=== PATIENT | male | born 1950 | race Caucasian/White ===

== ENCOUNTER 2020-03-04 19:58 | Inpatient (IN) | payer MEDICARE, OTHER ==
[~2020-03-04] VITALS: Ht 172.7 cm; Wt 49.9 kg
--- NOTE | 2020-03-04 20:00 | NUR ---
Roxy maria in EDM - 03/04/20 at 2320 by ENIGHTINGA ED Nurse Note: Recieved pt BIBA from SNF with c/o seizures, pt is post ictal with NRB mask on, pt is Cov
--- NOTE | 2020-03-04 20:00 | NUR ---
ED Nurse Note: Recieved pt BIBA from SNF with c/o seizures, pt is COVID positive and immediately placed on isolation, pt is post-ictal and sedated, pt has patent saline lock in left ac, immediately gowned and placed on cardiac monitoring, has NRB mask on with 02 sat of 99%, will resume care as ordered and remain on isolation precautions
[2020-03-04 20:30] VITALS: BP 131/96
--- NOTE | 2020-03-04 20:30 | NUR ---
ED Nurse Note: All labs completed and sent, tan placed also, during imaging pt IV line came out, will re-start and continue care as ordered and prepare for admission, pt v/s stable, no sob or labored breathing, remains on NRB mask.
[2020-03-04 20:36] LABS: BASOPHILS % (AUTO) 0.8 % (0.0-2.0); EOSINOPHILS % (AUTO) 1.5 % (0.0-3.0); HEMATOCRIT 42.1 % (42.0-52.0); HEMOGLOBIN 14.1 G/DL (14.2-18.0); LYMPHOCYTES % (AUTO) 35.2 % (20.0-45.0); MEAN CORPUSCULAR VOLUME 94 FL (80-99); MONOCYTES % (AUTO) 7.9 % (1.0-10.0); NEUTROPHILS % (AUTO) 54.6 % (45.0-75.0); PLATELET COUNT 134 K/UL (150-450); RED BLOOD COUNT 4.47 M/UL (4.70-6.10); RED CELL DISTRIBUTION WIDTH 12.5 % (11.6-14.8); WHITE BLOOD COUNT 7.2 K/UL (4.8-10.8)
[2020-03-04 20:51] LABS: ANION GAP 21 mmol/L (5-15); BLOOD UREA NITROGEN 29 mg/dL (7-18); CALCIUM 9.2 MG/DL (8.5-10.1); CARBON DIOXIDE 19 MMOL/L (21-32); CHLORIDE 103 MMOL/L (98-107); CREATININE 1.8 MG/DL (0.55-1.30); POTASSIUM 3.7 MMOL/L (3.5-5.1); SODIUM 143 MMOL/L (136-145)
[2020-03-04 20:52] LABS: INR 1.2 (0.9-1.1)
[2020-03-04 20:56] LABS: ALANINE AMINOTRANSFERASE 18 U/L (12-78); ALBUMIN 4.3 G/DL (3.4-5.0); ALBUMIN/GLOBULIN RATIO 1.1 (1.0-2.7); ALKALINE PHOSPHATASE 110 U/L (46-116); ASPARTATE AMINO TRANSFERASE 38 U/L (15-37); BILIRUBIN,TOTAL 0.4 MG/DL (0.2-1.0)
--- NOTE | 2020-03-04 21:17 | Emergency Room Report ---
History of Present Illness General Chief Complaint: Seizure Source: Patient Present Illness HPI Disclaimer: Please note that this report is being documented using [employer] technology. This can lead to erroneous entry secondary to incorrect interpretation by the dictating instrument. HPI: 69-year-old male history of seizure disorder, recent diagnosis of COVID-19 , comfort measures only presents from SNF due to seizure activity. Patient reportedly had extended seizure activity and EMS was called to the facility. He received 10 mg of Versed in route to ER. Patient nonverbal and obtunded on arrival. DNR and comfort measures status confirmed with senior living facility. PMH: Seizure disorder, COVID-19 PSH: Reviewed Social Hx: Patient currently lives in senior living facility Allergies: Coded Allergies: CHLORPROMAZINE (Verified Allergy, Unknown, 03/04/20) TRIFLUOPERAZINE (Verified Allergy, Unknown, 03/04/20) COVID-19 Screening Contact w/high risk pt: Yes Experienced COVID-19 symptoms?: No COVID-19 Testing performed [employer] FLORIST: Yes COVID-19 Screening: Positive COVID-19 COVID-19 Testing Source: january 2020 Patient History Reviewed Nursing Documentation: PMH: Agreed; PSxH: Agreed Nursing Documentation-PMH Past Medical History: No History, Except For Hx Hypertension: Yes Hx Seizures: Yes Review of Systems All Other Systems: negative except mentioned in HPI Physical Exam Vital Signs Date Time Temp Pulse Resp B/P (MAP) Pulse Ox O2 Delivery O2 Flow Rate FiO2 03/04/20 19:50 98.1 135 16 150/108 (122) 99 Non-Rebreather 12.0 Sp02 EP Interpretation: reviewed, abnormal General Appearance: other - Chronically ill-appearing, mild distress, obtunded Head: normocephalic, atraumatic Eyes: bilateral eye PERRL, bilateral eye EOMI ENT: hearing grossly normal, moist mucus membranes Neck: full range of motion, supple Respiratory: no rhonchi, no retraction, respiratory distress - Moderate respiratory distress noted Cardiovascular #1: normal peripheral pulses, no murmur, tachycardia Gastrointestinal: non tender, soft, non-distended, no guarding Neurologic: other - Patient obtunded, nonverbal, withdraws to pain Skin: warm/dry, pallor Medical Decision Making Diagnostic Impression: Primary Impression: Epileptic seizure, generalized Additional Impression: Comfort measures only status ER Course MDM: Differential included but not limited to breakthrough seizure, COVID-19, pneumonia, sepsis, Clinical course-IV inserted, patient placed on monitoring. Provided oxygen. Patient's DNR and comfort measures status confirmed. He was provided supportive care in the ER. Chest x-ray demonstrated possible pneumothorax however thoracostomy was not done due to his comfort measures status. I spoke with patient's primary care physician who will attempt to arrange hospice care for the patient but she does not think it will be able to be arranged tonight so she wished for me to admit the patient overnight in the hospital and will arrange hospice for in the morning. Labs - Laboratory Tests Test 03/04/20 20:15 White Blood Count 7.2 K/UL (4.8-10.8) Red Blood Count 4.47 M/UL (4.70-6.10) L Hemoglobin 14.1 G/DL (14.2-18.0) L Hematocrit 42.1 % (42.0-52.0) Mean Corpuscular Volume 94 FL (80-99) Mean Corpuscular Hemoglobin 31.5 PG (27.0-31.0) H Mean Corpuscular Hemoglobin Concent 33.5 G/DL (32.0-36.0) Red Cell Distribution Width 12.5 % (11.6-14.8) Platelet Count 134 K/UL (150-450) L Mean Platelet Volume 7.9 FL (6.5-10.1) Neutrophils (%) (Auto) 54.6 % (45.0-75.0) Lymphocytes (%) (Auto) 35.2 % (20.0-45.0) Monocytes (%) (Auto) 7.9 % (1.0-10.0) Eosinophils (%) (Auto) 1.5 % (0.0-3.0) Basophils (%) (Auto) 0.8 % (0.0-2.0) Prothrombin Time 13.4 SEC (9.30-11.50) H Prothrombin Time INR 1.2 (0.9-1.1) H Activated Partial Thromboplast Time 26 SEC (23-33) Sodium Level 143 MMOL/L (136-145) Potassium Level 3.7 MMOL/L (3.5-5.1) Chloride Level 103 MMOL/L (98-107) Carbon Dioxide Level 19 MMOL/L (21-32) L Anion Gap 21 mmol/L (5-15) H Blood Urea Nitrogen 29 mg/dL (7-18) H Creatinine 1.8 MG/DL (0.55-1.30) H Estimated Glomerular Filtration Rate 37.8 mL/min (>60) Glucose Level 155 MG/DL (74-106) H Calcium Level 9.2 MG/DL (8.5-10.1) Total Bilirubin 0.4 MG/DL (0.2-1.0) Aspartate Amino Transferase (AST) 38 U/L (15-37) H Alanine Aminotransferase (ALT) 18 U/L (12-78) Alkaline Phosphatase 110 U/L (46-116) Total Protein 8.1 G/DL (6.4-8.2) Albumin 4.3 G/DL (3.4-5.0) Globulin 3.8 g/dL Albumin/Globulin Ratio 1.1 (1.0-2.7) Phenytoin (Dilantin) Level 2.9 ug/mL (10-20) L On reevaluation: Patient's respiratory status improved on facemask. Plan-patient will be admitted to the telemetry floor EKG Diagnostic Results Rate: tachycardiac Rhythm: other - Sinus tachycardia ST Segments: other - LBBB, Chest X-Ray Diagnostic Results Chest X-Ray Diagnostic Results : Chest X-Ray Ordered: Yes # of Views/Limited/Complete: 1 View Indication: Shortness of Breath EP Interpretation: Yes Impression: Other - no consolidation, Right pneumothorax noted. Last Vital Signs Date Time Temp Pulse Resp B/P (MAP) Pulse Ox O2 Delivery O2 Flow Rate FiO2 03/04/20 19:50 98.1 135 16 150/108 (122) 99 Non-Rebreather 12.0 Status: improved Disposition: ADMITTED INPATIENT Condition: Serious Referrals: NON PHYSICIAN (PCP) Griffin Rivera M.D. Mar 04, 2020 21:17
[2020-03-04 21:30] VITALS: BP 129/82
--- NOTE | 2020-03-04 21:50 | NUR ---
ED Nurse Note: Pt IV line infiltrated, pt is on seizure pecautions with side rails padded, appears to have had another seizure episode, no injury or changes noted, pt heart rate remains elevated, fluids stopped, will re
[2020-03-04] MEDS ORDERED: Phenytoin 1,000 MG in NS 275 ML IVPB ONE (22:00)
[2020-03-04 23:00] VITALS: BP 126/94
--- NOTE | 2020-03-04 23:00 | NUR ---
ED Nurse Note: Unable to obtain IV line, MD and charge nurse aware, pt also had another seizure episode, witnessed and tonic clonic for about 15 seconds, v/s stable, had sudden increase in heart rate which decreased immediately after seizure, MD imformed immediately and pt medicated via IM injection, charge nurse at bedside now attempting new IV line, will complete meds and send for hospital admisson.
[2020-03-04] MEDS ORDERED: LORazepam Inj 2mg/ml 1ml IM ONE (23:15)
--- NOTE | 2020-03-04 23:45 | NUR ---
ED Nurse Note: New IV line started, will give ordered meds and prepare for hospital admission, no further seizure activity noted, pt remains on seizure and isolation precautions. V/S stable, no sob or laobred breathing noted, pt oxygen decreased to 4l n/c.
[2020-03-05 00:22] LABS: APPEARANCE,URINE CLEAR; BILIRUBIN, URINE NEGATIVE (NEGATIVE); GLUCOSE, URINE (UA) NEGATIVE (NEGATIVE); KETONES,URINE 3+ (NEGATIVE); LEUKOCYTE ESTERASE ,URINE NEGATIVE (NEGATIVE); NITRITE,URINE NEGATIVE (NEGATIVE); PH,URINE 6 (4.5-8.0); PROTEIN,URINE 3+ (NEGATIVE); UROBILINOGEN,URINE NORMAL MG/DL (0.0-1.0)
[2020-03-05 00:24] LABS: COLOR,URINE YELLOW
--- NOTE | 2020-03-05 00:35 | NUR ---
ED Nurse Note: Pt completed ordered meds, tolerarted well, no SZ activity noted, remain on cardiac monitoring, heart rate has decreased to NSR and o2 dgd=187% on o2 4L n/c, IV site patent, swabs collected and sent, pt report called to floor nurse, pt being taken to unit via gurney with ACLS protocols with RN and ER-Tech.
[2020-03-05 00:45] VITALS: BP 122/91
[2020-03-05] MEDS ORDERED: Zolpidem 5mg tab ORAL PRN (00:45)
[2020-03-05] MEDS ORDERED: Miralax 17gm pkt ORAL PRN (00:45)
--- NOTE | 2020-03-05 01:00 | NUR ---
NURSE NOTES: Received report from Caro Beverly IP NETWORK ARCHITECT. Pt is COVID-19 positive per SNF, contact and droplet precautions initiated. Pt is DNR/DNI, comfort measures only. Pt is sedated at this time r/t admin of Versed in ER. BP 122/91, HR 88, O2 @ 98% on 4 LPM via NC, RR 16, FLACC 0. Bed in lowest position, seizure precautions initiated, bed alarm armed. monitor tech placed and shows SR with BBBs. Pt is asymptomatic. No signs or symptoms of pain or distress at this time. Skin is intact but pt has red intact rash all over body. Received admit orders from Samm, will start plan of care and close monitoring
[2020-03-05 04:00] VITALS: BP 137/88
--- NOTE | 2020-03-05 07:26 | NUR ---
HAND-OFF: Report given to Thiago Cerda RN. Pt in stable condition, plan of care endorsed.
--- NOTE | 2020-03-05 08:00 | NUR ---
NURSES NOTES Received report from Didi POZO. Pt is DNR/DNI with comfort measures only. Pt came from ED and is COVID positive. Pt is A/O and non verbal but responses to painful stimuli. No SOB or acute distress noted but Pt is on 2LPM and SATing at 98%. Monitor shows SR with BBBs. Pt is asymptomatic. Pt has NS running @ 100ml/hr on L Hand. Bed in lowest position, seizure precautions initiated and bed alarm on.
[2020-03-05 08:20] VITALS: BP 119/80
[2020-03-05] MEDS: Heparin 5000 units/ml inj SUBQ SCH ×2 (09:03→20:50)
--- NOTE | 2020-03-05 09:58 | NUR ---
RD ASSESSMENT & RECOMMENDATIONS SEE CARE ACTIVITY FOR COMPLETE ASSESSMENT DAILY ESTIMATED NEEDS: Needs based on Underweight, pulmonary 57kg 25-35 kcals/kg 7203-9688 total kcals 1-1.5 g protein/kg 57-86 g total protein 25-30 mL/kg 0726-6192 total fluid mLs NUTRITION DIAGNOSIS: Increased kcal needs r/t underweight status as evidenced by pt is 81% of ideal body weight CURRENT DIET: Regular, now pending [facility]YSIC[facility] [employer] [facility] eval PO DIET RECOMMENDATIONS: Liberalized Regular diet, texture per [facility] [employer] [facility] ADDITIONAL RECOMMENDATIONS: 1) Add Ensure Enlive TID w/ meals -> Current BG 155, with continued elev BG rec Glucerna TID 2) Obtain a calibrated bed scale wt for accurate CBW + Weekly weights 3) F/up w/ H&P 4) HgA1C for eval of glycemic control
[2020-03-05 12:40] VITALS: BP 119/82
--- NOTE | 2020-03-05 13:06 | Consultation ---
History of Present Illness General Date patient seen: Mar 05, 2020 Chief Complaint: Seizure Present Illness HPI 69 year old male with hx of psychiatric disorder, seizures, DM, [facility] resident. DNR/DNI brought in by paramedics with CC of intractable seizures.; Pt received Benzos on the route to hospital and was obtunded on arrival to ER. Pt is admitted to telemetry for further management. Allergies: Coded Allergies: CHLORPROMAZINE (Verified Allergy, Unknown, 03/04/20) TRIFLUOPERAZINE (Verified Allergy, Unknown, 03/04/20) Patient History Healthcare decision maker Resuscitation status Advanced Directive on File Past Medical/Surgical History Past Medical/Surgical History: (1) Comfort measures only status (2) History of psychiatric disorder (3) History of diabetes mellitus (4) History of hypertension Review of Systems Constitutional: Reports: no symptoms All Other Systems: negative except mentioned in HPI Physical Exam General Appearance: cachetic, thin Lines, tubes and drains: peripheral HEENT: normocephalic, atraumatic Neck: normal alignment Respiratory/Chest: chest wall non-tender, lungs clear Breasts: no masses Cardiovascular/Chest: normal peripheral pulses, normal rate Abdomen: normal bowel sounds, non tender Genitourinary/Rectal: normal genital exam, normal rectal exam Extremities: normal range of motion Skin Exam: normal pigmentation Last 24 Hour Vital Signs Date Time Temp Pulse Resp B/P (MAP) Pulse Ox O2 Delivery O2 Flow Rate FiO2 03/05/20 12:40 98.1 119 22 119/82 (94) 98 03/05/20 12:00 111 03/05/20 08:32 Nasal Cannula 4.0 03/05/20 08:20 98.9 94 20 119/80 (93) 94 03/05/20 08:00 120 03/05/20 04:00 98.6 90 20 137/88 (104) 94 03/05/20 01:23 Nasal Cannula 4.0 03/05/20 00:58 85 03/05/20 00:45 98.3 89 16 122/91 98 Nasal Cannula 4.0 03/05/20 00:45 98.3 89 16 122/91 98 Nasal Cannula 4.0 03/04/20 23:00 97.9 98 18 126/94 100 Nasal Cannula 4.0 03/04/20 21:30 97.9 108 20 129/82 100 Non-Rebreather 12.0 03/04/20 20:30 98.1 126 16 131/96 99 Non-Rebreather 12.0 03/04/20 20:00 135 16 Non-Rebreather 12.0 03/04/20 19:50 98.1 135 16 150/108 (122) 99 Non-Rebreather 12.0 Intake and Output 03/04/20 03/05/20 19:00 07:00 Intake Total 0 ml Output Total 300 ml Balance -300 ml Intake Oral 0 ml Output Urine Total 300 ml Laboratory Tests Test 03/04/20 20:15 03/04/20 22:30 White Blood Count 7.2 K/UL (4.8-10.8) Red Blood Count 4.47 M/UL (4.70-6.10) L Hemoglobin 14.1 G/DL (14.2-18.0) L Hematocrit 42.1 % (42.0-52.0) Mean Corpuscular Volume 94 FL (80-99) Mean Corpuscular Hemoglobin 31.5 PG (27.0-31.0) H Mean Corpuscular Hemoglobin Concent 33.5 G/DL (32.0-36.0) Red Cell Distribution Width 12.5 % (11.6-14.8) Platelet Count 134 K/UL (150-450) L Mean Platelet Volume 7.9 FL (6.5-10.1) Neutrophils (%) (Auto) 54.6 % (45.0-75.0) Lymphocytes (%) (Auto) 35.2 % (20.0-45.0) Monocytes (%) (Auto) 7.9 % (1.0-10.0) Eosinophils (%) (Auto) 1.5 % (0.0-3.0) Basophils (%) (Auto) 0.8 % (0.0-2.0) Prothrombin Time 13.4 SEC (9.30-11.50) H Prothromb Time International Ratio 1.2 (0.9-1.1) H Activated Partial Thromboplast Time 26 SEC (23-33) Sodium Level 143 MMOL/L (136-145) Potassium Level 3.7 MMOL/L (3.5-5.1) Chloride Level 103 MMOL/L (98-107) Carbon Dioxide Level 19 MMOL/L (21-32) L Anion Gap 21 mmol/L (5-15) H Blood Urea Nitrogen 29 mg/dL (7-18) H Creatinine 1.8 MG/DL (0.55-1.30) H Estimat Glomerular Filtration Rate 37.8 mL/min (>60) Glucose Level 155 MG/DL (74-106) H Calcium Level 9.2 MG/DL (8.5-10.1) Total Bilirubin 0.4 MG/DL (0.2-1.0) Aspartate Amino Transf (AST/SGOT) 38 U/L (15-37) H Alanine Aminotransferase (ALT/SGPT) 18 U/L (12-78) Alkaline Phosphatase 110 U/L (46-116) Total Protein 8.1 G/DL (6.4-8.2) Albumin 4.3 G/DL (3.4-5.0) Globulin 3.8 g/dL Albumin/Globulin Ratio 1.1 (1.0-2.7) Phenytoin (Dilantin) Level 2.9 ug/mL (10-20) L Urine Color Yellow Urine Appearance Clear Urine pH 6 (4.5-8.0) Urine Specific [place] 1.020 (1.005-1.035) Urine Protein 3+ (NEGATIVE) H Urine Glucose (UA) Negative (NEGATIVE) Urine Ketones 3+ (NEGATIVE) H Urine Blood 2+ (NEGATIVE) H Urine Nitrite Negative (NEGATIVE) Urine Bilirubin Negative (NEGATIVE) Urine Urobilinogen Normal MG/DL (0.0-1.0) Urine Leukocyte Esterase Negative (NEGATIVE) Urine RBC 2-4 /HPF (0 - 0) H Urine WBC 0 /HPF (0 - 0) Urine Squamous Epithelial Cells None /LPF (NONE/OCC) Urine Bacteria None /HPF (NONE) Height (Feet): 5 Height (Inches): 8.00 Weight (Pounds): 125 Medications Current Medications Medications (Trade) Dose Ordered Sig/Michelle Route PRN Reason Start Time Stop Time Status Last Admin Dose Admin Acetaminophen (Tylenol) 650 mg Q4H PRN ORAL fever 03/05/20 00:45 04/04/20 00:44 Dextrose (Dextrose 50%) 25 ml Q30M PRN IV Hypoglycemia 03/05/20 00:45 06/03/20 00:44 Dextrose (Dextrose 50%) 50 ml Q30M PRN IV Hypoglycemia 03/05/20 00:45 06/03/20 00:44 Dextrose/Sodium Chloride 1,000 ml @ 100 mls/hr Q10H IV 03/05/20 13:00 04/04/20 12:59 Heparin Sodium (Porcine) (Heparin 5000 units/ml) 5,000 units EVERY 12 HOURS SUBQ 03/05/20 09:00 04/19/20 08:59 03/05/20 09:03 Ondansetron HCl (Zofran) 4 mg Q6H PRN IVP Nausea & Vomiting 03/05/20 00:45 04/04/20 00:44 Polyethylene Glycol (Miralax) 17 gm HSPRN PRN ORAL Constipation 03/05/20 00:45 04/04/20 00:44 Zolpidem Tartrate (Ambien) 5 mg HSPRN PRN ORAL Insomnia 03/05/20 00:45 03/12/20 00:44 Assessment/Plan Problem List: (1) Epileptic seizure, generalized ICD Codes: G40.309 - Generalized idiopathic epilepsy and epileptic syndromes, not intractable, without status epilepticus SNOMED: 33472949 (2) COVID-19 virus detected ICD Codes: U07.1 - COVID-19 SNOMED: 655208590, 278721327 (3) History of diabetes mellitus ICD Codes: Z86.39 - Personal history of other endocrine, nutritional and metabolic disease SNOMED: 826021178 (4) History of hypertension ICD Codes: Z86.79 - Personal history of other diseases of the circulatory system SNOMED: 058895597 (5) History of psychiatric disorder ICD Codes: Z86.59 - Personal history of other mental and behavioral disorders SNOMED: 610733208 (6) Severe protein-calorie malnutrition ICD Codes: E43 - Unspecified severe protein-calorie malnutrition SNOMED: 573591650, 676479142, 903508182 (7) DNR (do not resuscitate) ICD Codes: Z66 - Do not resuscitate SNOMED: 605893621 (8) Comfort measures only status ICD Codes: Z51.5 - Encounter for palliative care SNOMED: 16271519353535 Assessment/Plan: seizure precaution Neuro evaluation aspiration precaution iv fluids sliding scale ID to see for hx of recent COVID monitor BP comfort care. Dipika Quijano MD Mar 05, 2020 13:06
[2020-03-05] MEDS: D5 1/2NS 1,000 ML IV SCH ×2 (13:16→22:55)
--- NOTE | 2020-03-05 13:28 | Diagnostic Imaging Report ---
Indication: Shortness of breath Technique: One view of the chest Comparison: none Findings: Lungs and pleural spaces are clear. Heart size is normal. Impression: No acute process
[2020-03-05] MEDS: NovoLOG Insulin Flexpen SUBQ SCH ×2 (14:30→20:48)
--- NOTE | 2020-03-05 14:59 | NUR ---
NURSES NOTES Received order for Urine Specimen. Collected and taken to lab.
[2020-03-05 15:18] LABS: APPEARANCE,URINE CLEAR; BILIRUBIN, URINE 1+ (NEGATIVE); GLUCOSE, URINE (UA) NEGATIVE (NEGATIVE); KETONES,URINE 4+ (NEGATIVE); LEUKOCYTE ESTERASE ,URINE NEGATIVE (NEGATIVE); NITRITE,URINE NEGATIVE (NEGATIVE); PH,URINE 5 (4.5-8.0); PROTEIN,URINE 2+ (NEGATIVE); UROBILINOGEN,URINE 1 MG/DL (0.0-1.0)
[2020-03-05 15:23] LABS: COLOR,URINE YELLOW
[2020-03-05 16:00] VITALS: BP 137/81
--- NOTE | 2020-03-05 16:24 | NUR ---
NANOELECTRONICS ENGINEER NOTE SW received a consult to locate family/end of life discussion. SW attempted to meet w/ pt. Per RN, pt was medicated d/t seizure and he was only responded to pain at this time. There is a copy of POLST-DNR & DNI signed by pt on 01/10/2020. Pt's baseline is unknown at this time. There is no emergency contact on facesheet. BRIANNE left a message to Sebastien DECKER [phone] to return call. This SW did not receive a call back. BRIANNE will continue to F/U.
--- NOTE | 2020-03-05 16:38 | Consultation ---
History of Present Illness General Date patient seen: Mar 05, 2020 Chief Complaint: Seizure Present Illness HPI 69 y/o M with hx of HTN, psychiatric disorder, seizure disorder, recent COVID19 January 2020, DM2, DNR/DNI, [facility] resident is brought to ED on 03/04/20 with intractable seizures. Received benzodiazepine en route to hospital and upon admission was noted to be obtunded. Allergies: Coded Allergies: CHLORPROMAZINE (Verified Allergy, Unknown, 03/04/20) TRIFLUOPERAZINE (Verified Allergy, Unknown, 03/04/20) Patient History Healthcare decision maker Resuscitation status Advanced Directive on File Patient History Narrative PMhx: as above Shx: reviewed Fhx: non contributory Review of Systems All Other Systems: negative except mentioned in HPI Physical Exam Physical Exam Narrative General Appearance: other - Chronically ill-appearing, mild distress, obtunded Head: normocephalic, atraumatic Eyes: bilateral eye PERRL, bilateral eye EOMI ENT: hearing grossly normal, moist mucus membranes Neck: full range of motion, supple Respiratory: no rhonchi, no retraction, respiratory distress - Moderate respiratory distress noted Cardiovascular #1: normal peripheral pulses, no murmur, tachycardia Gastrointestinal: non tender, soft, non-distended, no guarding Neurologic: other - Patient obtunded, nonverbal, withdraws to pain Skin: warm/dry, pallor Last 24 Hour Vital Signs Date Time Temp Pulse Resp B/P (MAP) Pulse Ox O2 Delivery O2 Flow Rate FiO2 03/05/20 12:40 98.1 119 22 119/82 (94) 98 03/05/20 12:00 111 03/05/20 08:32 Nasal Cannula 4.0 03/05/20 08:20 98.9 94 20 119/80 (93) 94 03/05/20 08:00 120 03/05/20 04:00 98.6 90 20 137/88 (104) 94 03/05/20 01:23 Nasal Cannula 4.0 03/05/20 00:58 85 03/05/20 00:45 98.3 89 16 122/91 98 Nasal Cannula 4.0 03/05/20 00:45 98.3 89 16 122/91 98 Nasal Cannula 4.0 03/04/20 23:00 97.9 98 18 126/94 100 Nasal Cannula 4.0 03/04/20 21:30 97.9 108 20 129/82 100 Non-Rebreather 12.0 03/04/20 20:30 98.1 126 16 131/96 99 Non-Rebreather 12.0 03/04/20 20:00 135 16 Non-Rebreather 12.0 03/04/20 19:50 98.1 135 16 150/108 (122) 99 Non-Rebreather 12.0 Intake and Output 03/04/20 03/05/20 19:00 07:00 Intake Total 0 ml Output Total 300 ml Balance -300 ml Intake Oral 0 ml Output Urine Total 300 ml Laboratory Tests Test 03/04/20 20:15 03/04/20 22:30 03/05/20 14:42 03/05/20 15:17 White Blood Count 7.2 K/UL (4.8-10.8) Red Blood Count 4.47 M/UL (4.70-6.10) L Hemoglobin 14.1 G/DL (14.2-18.0) L Hematocrit 42.1 % (42.0-52.0) Mean Corpuscular Volume 94 FL (80-99) Mean Corpuscular Hemoglobin 31.5 PG (27.0-31.0) H Mean Corpuscular Hemoglobin Concent 33.5 G/DL (32.0-36.0) Red Cell Distribution Width 12.5 % (11.6-14.8) Platelet Count 134 K/UL (150-450) L Mean Platelet Volume 7.9 FL (6.5-10.1) Neutrophils (%) (Auto) 54.6 % (45.0-75.0) Lymphocytes (%) (Auto) 35.2 % (20.0-45.0) Monocytes (%) (Auto) 7.9 % (1.0-10.0) Eosinophils (%) (Auto) 1.5 % (0.0-3.0) Basophils (%) (Auto) 0.8 % (0.0-2.0) Prothrombin Time 13.4 SEC (9.30-11.50) H Prothromb Time International Ratio 1.2 (0.9-1.1) H Activated Partial Thromboplast Time 26 SEC (23-33) Sodium Level 143 MMOL/L (136-145) Potassium Level 3.7 MMOL/L (3.5-5.1) Chloride Level 103 MMOL/L (98-107) Carbon Dioxide Level 19 MMOL/L (21-32) L Anion Gap 21 mmol/L (5-15) H Blood Urea Nitrogen 29 mg/dL (7-18) H Creatinine 1.8 MG/DL (0.55-1.30) H Estimat Glomerular Filtration Rate 37.8 mL/min (>60) Glucose Level 155 MG/DL (74-106) H Calcium Level 9.2 MG/DL (8.5-10.1) Total Bilirubin 0.4 MG/DL (0.2-1.0) Aspartate Amino Transf (AST/SGOT) 38 U/L (15-37) H Alanine Aminotransferase (ALT/SGPT) 18 U/L (12-78) Alkaline Phosphatase 110 U/L (46-116) Total Protein 8.1 G/DL (6.4-8.2) Albumin 4.3 G/DL (3.4-5.0) Globulin 3.8 g/dL Albumin/Globulin Ratio 1.1 (1.0-2.7) Phenytoin (Dilantin) Level 2.9 ug/mL (10-20) L Urine Color Yellow Yellow Urine Appearance Clear Clear Urine pH 6 (4.5-8.0) 5 (4.5-8.0) Urine Specific [place] 1.020 (1.005-1.035) 1.020 (1.005-1.035) Urine Protein 3+ (NEGATIVE) H 2+ (NEGATIVE) H Urine Glucose (UA) Negative (NEGATIVE) Negative (NEGATIVE) Urine Ketones 3+ (NEGATIVE) H 4+ (NEGATIVE) H Urine Blood 2+ (NEGATIVE) H 4+ (NEGATIVE) H Urine Nitrite Negative (NEGATIVE) Negative (NEGATIVE) Urine Bilirubin Negative (NEGATIVE) 1+ (NEGATIVE) H Urine Urobilinogen Normal MG/DL (0.0-1.0) 1 MG/DL (0.0-1.0) H Urine Leukocyte Esterase Negative (NEGATIVE) Negative (NEGATIVE) Urine RBC 2-4 /HPF (0 - 0) H 10-15 /HPF (0 - 0) H Urine WBC 0 /HPF (0 - 0) 0-2 /HPF (0 - 0) Urine Squamous Epithelial Cells None /LPF (NONE/OCC) None /LPF (NONE/OCC) Urine Bacteria None /HPF (NONE) Few /HPF (NONE) Urine Ictotest Negative (NEGATIVE) Urine Uric Acid Crystals Many /LPF (NONE) H Urine Eosinophils Pending Urine Osmolality 726 mOsm/kg (429-449) H Urine Random Creatinine Pending Urine Random Microalbumin Pending Urine Random Sodium 46 mmol/L (20-110) Urine Microalbumin/Creatinine Ratio Pending Uric Acid Pending Total Creatine Kinase Pending POC Whole Blood Glucose 94 MG/DL (74-106) Height (Feet): 5 Height (Inches): 8.00 Weight (Pounds): 125 Medications Current Medications Medications (Trade) Dose Ordered Sig/Michelle Route PRN Reason Start Time Stop Time Status Last Admin Dose Admin Acetaminophen (Tylenol) 650 mg Q4H PRN ORAL fever 03/05/20 00:45 04/04/20 00:44 Dextrose (Dextrose 50%) 25 ml Q30M PRN IV Hypoglycemia 03/05/20 13:00 06/03/20 12:59 Dextrose (Dextrose 50%) 50 ml Q30M PRN IV Hypoglycemia 03/05/20 13:00 06/03/20 12:59 Dextrose/Sodium Chloride 1,000 ml @ 100 mls/hr Q10H IV 03/05/20 13:00 04/04/20 12:59 03/05/20 13:16 Heparin Sodium (Porcine) (Heparin 5000 units/ml) 5,000 units EVERY 12 HOURS SUBQ 03/05/20 09:00 04/19/20 08:59 03/05/20 09:03 Insulin Aspart (NovoLOG) BEFORE MEALS AND HS SUBQ 03/05/20 16:30 06/03/20 16:29 Ondansetron HCl (Zofran) 4 mg Q6H PRN IVP Nausea & Vomiting 03/05/20 00:45 04/04/20 00:44 Polyethylene Glycol (Miralax) 17 gm HSPRN PRN ORAL Constipation 03/05/20 00:45 04/04/20 00:44 Zolpidem Tartrate (Ambien) 5 mg HSPRN PRN ORAL Insomnia 03/05/20 00:45 03/12/20 00:44 Assessment/Plan Assessment/Plan: Abx: None Assessment: Breakthrough seizures Afebrile No leukocytosis -u/a neg -CXR: no acute disease recent COVID19 January 2020 HTN psychiatric disorder seizure disorder DM2 DNR/DNI MD resident ([facility]) Plan: -Continue to monitor off abx -f/u cx -Monitor CBC/CMP, temperatures -COVID19 isolation -Neuro eval -aspiration/seizure precautions Thank you for consulting [facility]. Will continue to follow along with you. Discussed wit NOHELIA. aKitlyn Ness M.D. Mar 05, 2020 16:38
--- NOTE | 2020-03-05 16:54 | NUR ---
CASE MANAGEMENT: INITIAL REVIEW 03/05/2020 69 YO M [facility] FROM [facility] CC: SZ PMHx: HTN. SZ. SI:RECURRENT SZ. T 98.1 HR 135 RR 16 B/P 150/108 SATS 99% ON 12L/NRB LABS: IS: NS BOLUS X1 CXR Impression: Other - no consolidation, Right pneumothorax noted. PATIENT ADMITTED TO TELE 03/04/2020 @ 2141 DCP: SNF PLAN OF CARE: seizure precaution Neuro evaluation aspiration precaution ID to see for hx of recent COVID comfort care
--- NOTE | 2020-03-05 19:14 | History & Physical ---
History and Physical History & Physicial job number: [id number] Eren Cruz MD Mar 05, 2020 19:14
--- NOTE | 2020-03-05 19:32 | NUR ---
HAND OFF Gave report to Manuel POZO. Pt is stable and endorsed plan of care.
--- NOTE | 2020-03-05 19:37 | NUR ---
NURSE NOTES: Received report from Thiago/NOHELIA Garduno. Patient is on bed, awake alert and oriented x o. On pureed moist thin liquids. operational intelligence officer is in placed, shows sinus rhythm with with BBB. Avila catheter is in place, drained by gravity. IV site is on left hand G-22 running fluid of D5 1/2 NS @ 100 cc/hour that is patent and intact. On fall, aspiration and seizure precaution, padded side rails. Safety measures are in placed, bed in lowest and locked position, side rails up x 2. Will continue plan of care.
--- NOTE | 2020-03-05 19:39 | NUR ---
PATIENT REFERRED FOR SWALLOW EVALUATION BY DR. RAIN. CHART REVIEWED, RN INTERVIEWED, EVALUATION COMPLETED. DYSPHAGIA RISK FACTORS FOR THIS 69 YEAR OLD MALE WHO IS A SNF RESIDENT: RECURRING INTRACTABLE TONIC/CLONIC SEIZURES, ENCEPHALOPATHY, DYSARTHRIA, DECREASED MENTATION, SEVERE PROTEIN CALORIE MALNUTRITION/DECREASED STAMINA PER POLST: DNR/DNI (NO INTUBATION) INITIAL IMPRESSIONS: PATIENT WAS SEEN AT BEDSIDE, POSITIONED UPRIGHT. HE WAS CALM, COOPERATIVE AND CONFUSED. WHEN TOLD HE WAS IN THE HOSPITAL, HE RESPONDED "NO, I'M NOT" HE WAS ABLE TO FOLLOW SOME COMMANDS FOR AN ORAL MOTOR EXAM. DENTITION IS CONSISTENT WITH [facility] ANTI/SEIZURE MEDICATION: DISCOLORATION, POOR ORAL HYGIENE, MILDLY ENLARGED GUMS, BROKEN TEETH. ORAL MOTOR MOVEMENTS ARE MODERATELY IMPAIRED RELATIVE TO STRENGTH/ROM AND COORDINATION A RESULT OF MOD/SEV FLACCID DYSARTHRIA. BOLUS FORMATION WAS DELAYED AND MANIPULATION WAS DISCOORDINATED. PHARYNGEAL PHASE OF SWALLOW PRESENTED MODERATELY DELAYED WITH LIMITED HYOLARYNGEAL EXCURSION. NO CHANGE IN VOCAL QUALITY THROUGHOUT THE P.O. TRIALS. NO CHANGES IN RESPIRATION RATE, COUGH OR THROAT CLEAR OBSERVED. NO RESIDUE ON LINGUAL SURFACE POST SWALLOW. CLEAR UPPER AIRWAY SOUNDS PRE AND POST SWALLOW. TO MAXIMIZE SWALLOW SAFETY AND MINIMIZE RISK OF ASPIRATION THE FOLLOWING IS RECOMMENDED. 1. MODIFIED TEXTURE DIET: PUREE WITH THIN LIQUIDS 2. ASPIRATION PRECAUTIONS INCLUDING: NO STRAWS, SITTING UPRIGHT FOR MEALS/MEDICATION, SLOW RATE OF INTAKE, TOTAL ASSIST WITH MEALS, SMALL BITES/SIPS, 3. CRUSH CRUSHABLE MEDS/PRESENT IN PUREE 4. TOTAL ASSIST WITH MEALS 5. ORAL HYGIENE POST P.O. 6. CONSIDER MEALTIME SUPPLEMENTATION PER RD RECOMMENDATION 7. ST TO FOLLOW UP FOR DIET TOLERANCE. 8. VIDEO SWALLOW STUDY IF NEEDED PATIENT IS HIGH RISK FOR SILENT ASPIRATION, SUBOPTIMAL P.O. INTAKE, THANK YOU FOR THIS REFERRAL.
[2020-03-05 20:00] VITALS: BP 138/96
--- NOTE | 2020-03-05 22:00 | History and Physical Report ---
DATE OF ADMISSION: 03/04/2020 CHIEF COMPLAINT: Uncontrolled seizure. HISTORY OF PRESENT ILLNESS: This is a 69-year-old gentleman with past medical significant for hypertension, diabetes type 2, psychiatric disorder, seizure disorder, recent history of COVID-19 infection in January 2020 who presented to the hospital from nursing facility after he was noted to have intractable seizure. The patient recently received benzodiazepine en route to the hospital and was noted to be very obtunded and nonresponsive. The patient was at the assisted under comfort measure and due to the recurrent seizure activity uncontrolled. Shortly after initial evaluation in the emergency department, the patient was admitted to the hospital with altered mental status most likely secondary to uncontrolled seizure. PAST MEDICAL HISTORY/PAST SURGICAL HISTORY: As above, history of seizure disorder with epilepsy, recent COVID-19 diagnosed in January of 2020, hypertension, diabetes type 2, psychiatric disorder. MEDICATIONS: At home, please refer to medication reconciliation. ALLERGIES: as well as trifluoperazine. SOCIAL HISTORY: intermediate resident. No smoking, alcohol, or drugs at this time. FAMILY HISTORY: Noncontributory. REVIEW OF SYSTEMS: Very limited secondary to the patient's status. No fever or chills was reported. No nausea, vomiting. No fall or head trauma. PHYSICAL EXAMINATION: VITAL SIGNS: On admission in the ER, temperature 98.1, pulse 135, respirations 16, and blood pressure 150/108. GENERAL: The patient is obtunded, unable to follow commands, chronic ill appearing. HEAD AND NECK: Pupils are reactive to light. Anicteric. NECK: Supple. No JVD. LUNGS: Good air entry. Poor inspiratory effort. No wheezes or rhonchi. HEART: S1 and S2. Distant heart sounds. No murmur or gallops. ABDOMEN: Soft, nondistended, nontender. Positive bowel sounds. EXTREMITIES: No cyanosis, clubbing, or edema. NEUROLOGIC: Very limited secondary to the patient's status. The patient is nonverbal, withdraw to pain. RECTAL AND GENITOURINARY: The patient has a Avila catheter. LABORATORY AND DIAGNOSTIC DATA: Laboratory on admission from the emergency department, WBC of 7.2, hemoglobin 14, hematocrit 42, and platelets is 134. Sodium 143, potassium 3.7, chloride 103, bicarb 19, BUN 29, creatinine 1.8, GFR 37, glucose is 155, calcium is 9.2. Total bilirubin of 0.4, AST of 38, ALT of 18, and alkaline phosphatase was 110. Total protein 8.1. PT of 13, INR 1.2, PTT of 26. Urinalysis, yellow urine color, +3 protein, +3 ketone, +2 blood, 2 to 4 rbc's, negative leukocytes, eosinophils are negative. Phenytoin level is 2.9. Chest x-ray, no acute process. ASSESSMENT: 1. Altered mental status, most likely secondary to uncontrolled seizure. 2. History of epilepsy with seizure disorder. 3. Acute kidney injury on chronic renal insufficiency. 4. History of COVID-19 infection in January of 2020. 5. Diabetes type 2. 6. Hypertension. 7. Psychiatric disorder. PLAN: 1. Admit the patient to monitored unit. 2. We will follow up with the laboratory. 3. Followup with seizure precaution. 4. Code status is DNR. 5. Followup with Dr. Quijano, pulmonary Critical Care. 6. IV hydration. 7. Monitor blood glucose level closely. Eren Cruz M.D. DR: Thad JOB#: [id number] CC:
[2020-03-06] VITALS (7 sets, daily range): BP systolic 133–142; BP diastolic 83–97
[2020-03-06] MEDS ORDERED: LORazepam Inj 2mg/ml 1ml IV PRN ×2 (06:15→19:00)
[2020-03-06] MEDS: NovoLOG Insulin Flexpen SUBQ SCH ×4 (06:30→21:00)
--- NOTE | 2020-03-06 07:29 | NUR ---
HAND-OFF: Report given to Thiago/Laureen POZO. Patient is awake, on stable condition, plan of care endorsed.
--- NOTE | 2020-03-06 07:32 | NUR ---
NURSES NOTE Received report from Milena POZO. Pt is A/O x1 but speech is slurred.No SOB or acute distress noted but Pt is on 2LPM and SATing at 97%. Pt has NS running @ 100ml/hr on L Hand. Bed in lowest position, seizure precautions initiated and bed alarm on.
[2020-03-06 08:40] LABS: HEMATOCRIT 38.1 % (42.0-52.0); HEMOGLOBIN 13.1 G/DL (14.2-18.0); MEAN CORPUSCULAR VOLUME 93 FL (80-99); PLATELET COUNT 81 K/UL (150-450); RED BLOOD COUNT 4.08 M/UL (4.70-6.10); RED CELL DISTRIBUTION WIDTH 11.5 % (11.6-14.8); WHITE BLOOD COUNT 5.4 K/UL (4.8-10.8)
[2020-03-06] MEDS: D5 1/2NS 1,000 ML IV SCH ×2 (08:59→17:43)
[2020-03-06] MEDS: Heparin 5000 units/ml inj SUBQ SCH ×2 (09:00→21:00)
[2020-03-06 09:18] LABS: ALANINE AMINOTRANSFERASE 21 U/L (12-78); ALBUMIN 3.3 G/DL (3.4-5.0); ALBUMIN/GLOBULIN RATIO 0.9 (1.0-2.7); ALKALINE PHOSPHATASE 84 U/L (46-116); ANION GAP 6 mmol/L (5-15); ASPARTATE AMINO TRANSFERASE 30 U/L (15-37); BILIRUBIN,TOTAL 0.3 MG/DL (0.2-1.0); BLOOD UREA NITROGEN 17 mg/dL (7-18); CALCIUM 8.3 MG/DL (8.5-10.1); CARBON DIOXIDE 31 MMOL/L (21-32); CHLORIDE 107 MMOL/L (98-107); POTASSIUM 3.5 MMOL/L (3.5-5.1); SODIUM 144 MMOL/L (136-145)
[2020-03-06 09:22] LABS: CREATINE KINASE 426 U/L (26-308)
--- NOTE | 2020-03-06 10:41 | Pulmonology Progress Note ---
Subjective ROS Limited/Unobtainable: Yes Allergies: Coded Allergies: CHLORPROMAZINE (Verified Allergy, Unknown, 03/04/20) TRIFLUOPERAZINE (Verified Allergy, Unknown, 03/04/20) Subjective remains afebrile no leukocytosis on 4 L O2 via NC no further seizure activity Objective Last 24 Hour Vital Signs Date Time Temp Pulse Resp B/P (MAP) Pulse Ox O2 Delivery O2 Flow Rate FiO2 03/06/20 09:13 Nasal Cannula 4.0 03/06/20 09:09 98.0 93 20 140/90 (107) 98 03/06/20 08:00 98.0 93 20 140/90 (107) 98 03/06/20 08:00 85 03/06/20 04:00 94 03/06/20 04:00 98.2 92 22 133/83 (100) 100 03/06/20 00:00 98.4 94 22 142/93 (109) 100 03/06/20 00:00 101 03/05/20 21:00 Nasal Cannula 4.0 03/05/20 20:00 98.3 84 20 138/96 (110) 98 03/05/20 20:00 88 03/05/20 16:00 99.0 85 20 137/81 (99) 100 03/05/20 16:00 82 03/05/20 12:40 98.1 119 22 119/82 (94) 98 03/05/20 12:00 111 Intake and Output 03/05/20 03/06/20 19:00 07:00 Intake Total 520 ml Output Total 1050 ml 400 ml Balance -530 ml -400 ml Intake Oral 120 ml Other 400 ml Output Urine Total 1050 ml 400 ml # Voids 3 General Appearance: no acute distress HEENT: normocephalic, atraumatic, anicteric Respiratory: no accessory muscle use, other - on O2 via NC Cardiovascular: normal peripheral pulses, normal rate Abdomen: soft, non tender, non distended Extremities: no edema, pedal pulses normal Neurologic: abnormal gait - bedridden , other - not responsive Musculoskeletal: atrophy - BLE Microbiology Date/Time Source Procedure Growth Status 03/04/20 20:30 Arm Right Blood Culture - Preliminary NO GROWTH AFTER 24 HOURS Resulted 03/04/20 20:15 Arm Left Blood Culture - Preliminary NO GROWTH AFTER 24 HOURS Resulted Laboratory Tests 03/05/20 14:42: Urine Color Yellow, Urine Appearance Clear, Urine pH 5, Urine Specific [place] 1.020, Urine Protein 2+H, Urine Glucose (UA) Negative, Urine Ketones 4+H, Urine Blood 4+H, Urine Nitrite Negative, Urine Bilirubin 1+H, Urine Ictotest Negative , Urine Urobilinogen 1H, Urine Leukocyte Esterase Negative, Urine RBC 10-15H, Urine WBC 0-2, Urine Squamous Epithelial Cells None, Urine Uric Acid Crystals ManyH, Urine Bacteria Few, Urine Eosinophils None seen, Urine Osmolality 726H, Urine Random Creatinine [Pending], Urine Random Microalbumin [Pending], Urine Random Sodium 46, Urine Microalbumin/Creatinine Ratio [Pending] 03/05/20 15:17: POC Whole Blood Glucose 94 03/05/20 20:38: POC Whole Blood Glucose 116H 03/06/20 06:14: POC Whole Blood Glucose 77 03/06/20 06:30: POC Whole Blood Glucose 101 03/06/20 07:10: White Blood Count 5.4, Red Blood Count 4.08L, Hemoglobin 13.1L, Hematocrit 38.1L , Mean Corpuscular Volume 93, Mean Corpuscular Hemoglobin 32.2H, Mean Corpuscular Hemoglobin Concent 34.5, Red Cell Distribution Width 11.5L, Platelet Count 81L, Mean Platelet Volume 8.7, Neutrophils (%) (Auto) , Lymphocytes (%) (Auto) , Monocytes (%) (Auto) , Eosinophils (%) (Auto) , Basophils (%) (Auto) , Neutrophils % (Manual) [Pending], Lymphocytes % (Manual) [Pending], Platelet Estimate [Pending], Platelet Morphology [Pending], Erythrocyte Sedimentation Rate [Pending], Sodium Level 144, Potassium Level 3.5 , Chloride Level 107, Carbon Dioxide Level 31, Anion Gap 6, Blood Urea Nitrogen 17, Creatinine 1.0, Estimat Glomerular Filtration Rate > 60, Glucose Level 136H , Uric Acid 6.0, Calcium Level 8.3L, Phosphorus Level 3.0, Magnesium Level 1.8, Total Bilirubin 0.3, Aspartate Amino Transf (AST/SGOT) 30, Alanine Aminotransferase (ALT/SGPT) 21, Alkaline Phosphatase 84, Total Creatine Kinase 426H, C-Reactive Protein, Quantitative 17.7H, Total Protein 6.8, Albumin 3.3L, Globulin 3.5, Albumin/Globulin Ratio 0.9L Current Medications Medications (Trade) Dose Ordered Sig/Michelle Route PRN Reason Start Time Stop Time Status Last Admin Dose Admin Acetaminophen (Tylenol) 650 mg Q4H PRN ORAL fever 03/05/20 00:45 04/04/20 00:44 Dextrose (Dextrose 50%) 25 ml Q30M PRN IV Hypoglycemia 03/05/20 13:00 06/03/20 12:59 Dextrose (Dextrose 50%) 50 ml Q30M PRN IV Hypoglycemia 03/05/20 13:00 06/03/20 12:59 Dextrose/Sodium Chloride 1,000 ml @ 100 mls/hr Q10H IV 03/05/20 13:00 04/04/20 12:59 03/06/20 08:59 Heparin Sodium (Porcine) (Heparin 5000 units/ml) 5,000 units EVERY 12 HOURS SUBQ 03/05/20 09:00 04/19/20 08:59 03/05/20 20:50 Insulin Aspart (NovoLOG) BEFORE MEALS AND HS SUBQ 03/05/20 16:30 06/03/20 16:29 Lorazepam (Ativan 2mg/ml 1ml) 2 mg Q6H PRN IV Seizures 03/06/20 06:15 03/13/20 06:14 Ondansetron HCl (Zofran) 4 mg Q6H PRN IVP Nausea & Vomiting 03/05/20 00:45 04/04/20 00:44 Polyethylene Glycol (Miralax) 17 gm HSPRN PRN ORAL Constipation 03/05/20 00:45 04/04/20 00:44 Zolpidem Tartrate (Ambien) 5 mg HSPRN PRN ORAL Insomnia 03/05/20 00:45 03/12/20 00:44 Assessment/Plan Assessment/Plan ASSESSMENT Seizure disorder with breakthrough episode Recently diagnosed COVID-January 2020 Diabetes mellitus Hypertension Acute kidney injury Severe protein calorie malnutrition Comfort measures PLAN of CARE O2 titrate to keep sat above 92 MDI isolation BCX 03/04 NGTD CXR negative DVT prophylaxis aspiration precaution swallow eval IV hydration monitor renal parameters, avoid nephrotoxic renal ultrasound seizure precaution, Ativan prn neuro eval monitor BP BS management with sensitive SSI bowel regimen comfort care DNR/DNI status case discussed and evaluated by supervising physician Beryl Pastor NP Mar 06, 2020 10:41
--- NOTE | 2020-03-06 19:43 | NUR ---
HAND OFF Gave report to Milena POZO. Pt is stable and endorsed the plan of care.
--- NOTE | 2020-03-06 19:53 | NUR ---
NURSE NOTES: Received report from Thiago/Laureen RN. Patient is awake, alert and oriented x 1. On oxygen via nasal cannula @ 3Lpm via nasal cannula, saturating 95 %. On regular, pureed moist thin liquids. threat monitoring analyst is in place, shows sinus rhythm with BBB. On fall, aspiration and seizure precaution, with bilateral soft restraints on wrist. Safety measures are in placed, bed in lowest and locked position, side rails up x 3. Will continue plan of care.
[2020-03-07] VITALS: BP 141/95
[2020-03-07 04:00] VITALS: BP 134/89
[2020-03-07] MEDS: D5 1/2NS 1,000 ML IV SCH ×2 (05:00→11:52)
[2020-03-07] MEDS: NovoLOG Insulin Flexpen SUBQ SCH ×4 (06:30→20:39)
--- NOTE | 2020-03-07 07:30 | NUR ---
NURSE NOTES: RECEIVED PATIENT A/A/OX1, CONFUSED. NO ACUTE RESP DISTRESS NOTED. FEEDER 1 Addendum: 03/07/20 at 1352 by BERTRAM MENDOZA LVN FEEDER 1:1 INADEQUATE AMOUNT OF FOOD INTAKE. HOB ELEVATED FOR ASPIRATION PRECAUTION. ON BILATERAL SOFT WRIST RESTRAINTS FOR POTENTIALLY REMOVING DEVICES. ASSESSED SKIN AND CIRCULATION. IV ACCESS PATENT AND INTACT. IVF INFUSING WELL. KEPT BED IN THE LOWEDT POSITION. SIDERAILS ARE UPX3 AND PADDED FOR SEIZURES DISORDERS. CALL LIGHT IS WITHIN REACH. BED BRAKES AND LOCKED @ ALL TIMES. WILL CONT TO MONITOR.
--- NOTE | 2020-03-07 07:43 | NUR ---
HAND-OFF: Report given to NOHELIA Mo. Patient is awake, on bed on stable condition without complaints made at this time. Plan of care endorsed. Addendum: 03/07/20 at 6644 by Dianna Jackson RN wrong patient.
--- NOTE | 2020-03-07 07:44 | NUR ---
HAND-OFF: Report given to NOHELIA Lam. Patient is on bed, on stable condition. RNmade aware of blood sugar result. Plan of care endorsed.
[2020-03-07 08:00] VITALS: BP 126/89
[2020-03-07] MEDS: Heparin 5000 units/ml inj SUBQ SCH ×2 (08:42→20:27)
--- NOTE | 2020-03-07 09:50 | Infectious Diseases Prog Note ---
Assessment/Plan Assessment: Breakthrough seizures Gram positive bacteremia -real vs contaminant -03/04 Bcx 1/4 GPC clusters Afebrile No leukocytosis -u/a neg -CXR: no acute disease recent COVID06 February 2020 -03/05 SARS-Cov2 pCr neg HTN psychiatric disorder seizure disorder DM2 DNR/DNI [place] resident ([facility]) Plan: -Start empiric IV Vancomycin -f/u cx -Monitor CBC/CMP, temperatures - isolation -Neuro eval -aspiration/seizure precautions -Bcx x2 Thank you for consulting [facility]. Will continue to follow along with you. Subjective Allergies: Coded Allergies: CHLORPROMAZINE (Verified Allergy, Unknown, 03/04/20) TRIFLUOPERAZINE (Verified Allergy, Unknown, 03/04/20) afebrile at 2 L NC no leukocytosis bacteremic Objective Last 24 Hour Vital Signs Date Time Temp Pulse Resp B/P (MAP) Pulse Ox O2 Delivery O2 Flow Rate FiO2 03/07/20 08:00 92 03/07/20 04:00 98.5 91 18 134/89 (104) 95 03/07/20 04:00 88 03/07/20 00:00 98.7 95 18 141/95 (110) 95 03/07/20 00:00 93 03/06/20 21:00 Nasal Cannula 2.0 03/06/20 20:00 87 03/06/20 20:00 98.9 90 22 139/96 (110) 99 03/06/20 16:00 90 03/06/20 16:00 99.0 94 22 137/97 (110) 99 03/06/20 12:14 97.7 87 22 137/97 (110) 99 03/06/20 12:00 89 Height (Feet): 5 Height (Inches): 8.00 Weight (Pounds): 125 General Appearance: other - Chronically ill-appearing, mild distress, obtunded Head: normocephalic, atraumatic Eyes: bilateral eye PERRL, bilateral eye EOMI ENT: hearing grossly normal, moist mucus membranes Neck: full range of motion, supple Respiratory: no rhonchi, no retraction, respiratory distress - Moderate respiratory distress noted Cardiovascular #1: normal peripheral pulses, no murmur, tachycardia Gastrointestinal: non tender, soft, non-distended, no guarding Neurologic: other - Patient obtunded, nonverbal, withdraws to pain Skin: warm/dry, pallor Microbiology Date/Time Source Procedure Growth Status 03/05/20 18:45 Nasopharynx Coronavirus COVID-19 PCR ([facility]) - Final Complete 03/04/20 20:30 Nasal Nares MRSA Culture - Final NO METHICILLIN RESISTANT STAPH AUREUS... Complete 03/04/20 20:30 Arm Right Blood Culture - Preliminary Resulted 03/04/20 20:30 Rectum - Final NO CARBAPENEM-RESISTANT ENTEROBACTERI... Complete 03/04/20 20:30 Rectum VRE Culture - Final NO VANCOMYCIN RESISTANT ENTEROCOCCUS ... Complete 03/04/20 20:15 Arm Left Blood Culture - Preliminary NO GROWTH AFTER 48 HOURS Resulted Laboratory Tests Test 03/06/20 11:33 03/06/20 16:53 03/06/20 21:25 03/06/20 21:44 POC Whole Blood Glucose 141 MG/DL (74-106) H 109 MG/DL (74-106) H 76 MG/DL (74-106) 75 MG/DL (74-106) Test 03/06/20 21:56 03/06/20 22:31 03/07/20 01:49 03/07/20 06:17 POC Whole Blood Glucose 60 MG/DL (74-106) L 81 MG/DL (74-106) 126 MG/DL (74-106) H 57 MG/DL (74-106) L Test 03/07/20 06:46 03/07/20 07:25 POC Whole Blood Glucose 75 MG/DL (74-106) 146 MG/DL (74-106) H Current Medications Medications (Trade) Dose Ordered Sig/Michelle Route PRN Reason Start Time Stop Time Status Last Admin Dose Admin Acetaminophen (Tylenol) 650 mg Q4H PRN ORAL fever 03/05/20 00:45 04/04/20 00:44 Dextrose (Dextrose 50%) 25 ml Q30M PRN IV Hypoglycemia 03/05/20 13:00 06/03/20 12:59 Dextrose (Dextrose 50%) 50 ml Q30M PRN IV Hypoglycemia 03/05/20 13:00 06/03/20 12:59 03/07/20 06:50 Dextrose/Sodium Chloride 1,000 ml @ 100 mls/hr Q10H IV 03/05/20 13:00 04/04/20 12:59 03/06/20 17:43 Heparin Sodium (Porcine) (Heparin 5000 units/ml) 5,000 units EVERY 12 HOURS SUBQ 03/05/20 09:00 04/19/20 08:59 03/05/20 20:50 Insulin Aspart (NovoLOG) BEFORE MEALS AND HS SUBQ 03/05/20 16:30 06/03/20 16:29 Lorazepam (Ativan 2mg/ml 1ml) 1 mg Q4H PRN IV For Anxiety 03/06/20 19:00 03/13/20 18:59 Lorazepam (Ativan 2mg/ml 1ml) 2 mg Q6H PRN IV Seizures 03/06/20 06:15 03/13/20 06:14 03/06/20 18:08 Ondansetron HCl (Zofran) 4 mg Q6H PRN IVP Nausea & Vomiting 03/05/20 00:45 04/04/20 00:44 Polyethylene Glycol (Miralax) 17 gm HSPRN PRN ORAL Constipation 03/05/20 00:45 04/04/20 00:44 Zolpidem Tartrate (Ambien) 5 mg HSPRN PRN ORAL Insomnia 03/05/20 00:45 03/12/20 00:44 Kaitlyn Ness M.D. Mar 07, 2020 09:50
--- NOTE | 2020-03-07 10:52 | NUR ---
NURSE NOTES: Dr. Ness paged regarding 1 bottle positive for gram positive cocci in clusters.
[2020-03-07] MEDS ORDERED: Vancomycin 1.5gm/NS Premix IVPB ONE (11:00)
[2020-03-07 12:00] VITALS: BP 117/85
--- NOTE | 2020-03-07 12:28 | Pulmonology Progress Note ---
Subjective ROS Limited/Unobtainable: Yes Allergies: Coded Allergies: CHLORPROMAZINE (Verified Allergy, Unknown, 03/04/20) TRIFLUOPERAZINE (Verified Allergy, Unknown, 03/04/20) Subjective remains afebrile no leukocytosis on 2 L O2 via NC no further seizure activity Objective Last 24 Hour Vital Signs Date Time Temp Pulse Resp B/P (MAP) Pulse Ox O2 Delivery O2 Flow Rate FiO2 03/07/20 12:00 97.6 98 20 117/85 (96) 98 03/07/20 09:00 Nasal Cannula 2.0 03/07/20 08:00 97.9 91 20 126/89 (101) 99 03/07/20 08:00 92 03/07/20 04:00 98.5 91 18 134/89 (104) 95 03/07/20 04:00 88 03/07/20 00:00 98.7 95 18 141/95 (110) 95 03/07/20 00:00 93 03/06/20 21:00 Nasal Cannula 2.0 03/06/20 20:00 87 03/06/20 20:00 98.9 90 22 139/96 (110) 99 03/06/20 16:00 90 03/06/20 16:00 99.0 94 22 137/97 (110) 99 Intake and Output 03/06/20 03/07/20 19:00 07:00 Intake Total 500 ml 600 ml Output Total 550 ml 350 ml Balance -50 ml 250 ml IV Total 600 ml Other 500 ml Output Urine Total 550 ml 350 ml General Appearance: no acute distress HEENT: normocephalic, atraumatic, anicteric Respiratory: no accessory muscle use, other - on O2 via NC Cardiovascular: normal peripheral pulses, normal rate Abdomen: soft, non tender, non distended Extremities: no edema, pedal pulses normal Neurologic: abnormal gait - bedridden , other - not responsive Musculoskeletal: atrophy - BLE Microbiology Date/Time Source Procedure Growth Status 03/05/20 18:45 Nasopharynx Coronavirus COVID-19 PCR ([facility]) - Final Complete 03/04/20 20:30 Nasal Nares MRSA Culture - Final NO METHICILLIN RESISTANT STAPH AUREUS... Complete 03/04/20 20:30 Arm Right Blood Culture - Preliminary Resulted 03/04/20 20:30 Rectum - Final NO CARBAPENEM-RESISTANT ENTEROBACTERI... Complete 03/04/20 20:30 Rectum VRE Culture - Final NO VANCOMYCIN RESISTANT ENTEROCOCCUS ... Complete 03/04/20 20:15 Arm Left Blood Culture - Preliminary NO GROWTH AFTER 48 HOURS Resulted Laboratory Tests 03/06/20 16:53: POC Whole Blood Glucose 109H 03/06/20 21:25: POC Whole Blood Glucose 76 03/06/20 21:44: POC Whole Blood Glucose 75 03/06/20 21:56: POC Whole Blood Glucose 60L 03/06/20 22:31: POC Whole Blood Glucose 81 03/07/20 01:49: POC Whole Blood Glucose 126H 03/07/20 06:17: POC Whole Blood Glucose 57L 03/07/20 06:46: POC Whole Blood Glucose 75 03/07/20 07:25: POC Whole Blood Glucose 146H 03/07/20 11:15: POC Whole Blood Glucose 98 Current Medications Medications (Trade) Dose Ordered Sig/Michelle Route PRN Reason Start Time Stop Time Status Last Admin Dose Admin Acetaminophen (Tylenol) 650 mg Q4H PRN ORAL fever 03/05/20 00:45 04/04/20 00:44 Dextrose (Dextrose 50%) 25 ml Q30M PRN IV Hypoglycemia 03/05/20 13:00 06/03/20 12:59 Dextrose (Dextrose 50%) 50 ml Q30M PRN IV Hypoglycemia 03/05/20 13:00 06/03/20 12:59 03/07/20 06:50 Dextrose/Sodium Chloride 1,000 ml @ 100 mls/hr Q10H IV 03/05/20 13:00 04/04/20 12:59 03/07/20 11:52 Heparin Sodium (Porcine) (Heparin 5000 units/ml) 5,000 units EVERY 12 HOURS SUBQ 03/05/20 09:00 04/19/20 08:59 03/05/20 20:50 Insulin Aspart (NovoLOG) BEFORE MEALS AND HS SUBQ 03/05/20 16:30 06/03/20 16:29 Lorazepam (Ativan 2mg/ml 1ml) 1 mg Q4H PRN IV For Anxiety 03/06/20 19:00 03/13/20 18:59 Lorazepam (Ativan 2mg/ml 1ml) 2 mg Q6H PRN IV Seizures 03/06/20 06:15 03/13/20 06:14 03/06/20 18:08 Ondansetron HCl (Zofran) 4 mg Q6H PRN IVP Nausea & Vomiting 03/05/20 00:45 04/04/20 00:44 Polyethylene Glycol (Miralax) 17 gm HSPRN PRN ORAL Constipation 03/05/20 00:45 04/04/20 00:44 Vancomycin HCl ([facility] pharmacy to dose) 1 ea DAILY PRN MISC Per rx protocol 03/07/20 10:00 04/06/20 09:59 Vancomycin/Sodium Chloride 275 ml @ 137.5 mls/ hr ONCE ONCE IVPB 03/07/20 11:00 03/07/20 12:59 03/07/20 11:53 Zolpidem Tartrate (Ambien) 5 mg HSPRN PRN ORAL Insomnia 03/05/20 00:45 03/12/20 00:44 Assessment/Plan Assessment/Plan ASSESSMENT Seizure disorder with breakthrough episode Recently diagnosed COVID-January 2020 Diabetes mellitus Hypertension Acute kidney injury Severe protein calorie malnutrition Comfort measures PLAN of CARE O2 titrate to keep sat above 92 MDI isolation BCX 03/04 NGTD CXR negative DVT prophylaxis aspiration precaution swallow eval IV hydration monitor renal parameters, avoid nephrotoxic renal ultrasound seizure precaution, Ativan prn neuro eval monitor BP BS management with sensitive SSI bowel regimen comfort care DNR/DNI status case discussed and evaluated by supervising physician Beryl Pastor NP Mar 07, 2020 12:28
[2020-03-07 16:00] VITALS: BP 120/90
--- NOTE | 2020-03-07 18:27 | NUR ---
NURSE NOTES: per dr chakraborty notes. patient keep on droplet isolation. will cont to monitor.
--- NOTE | 2020-03-07 19:07 | NUR ---
HAND-OFF: Report given to
--- NOTE | 2020-03-07 19:50 | NUR ---
NURSE NOTES: Received pt from NOHELIA Lam. Pt asleep. Bed in lowest position. Call light within reach. Will continue to monitor.
[2020-03-07 20:00] VITALS: BP 144/100
--- NOTE | 2020-03-07 21:20 | NUR ---
NURSE NOTES: Pt combative and refusing blood draw from lab and blood sugar check. Will reattempt in the am. Will continue to monitor.
[2020-03-08] VITALS: BP 140/99
[2020-03-08] MEDS: D5 1/2NS 1,000 ML IV SCH ×2 (01:00→11:00)
[2020-03-08 04:00] VITALS: BP 144/89
[2020-03-08] MEDS: NovoLOG Insulin Flexpen SUBQ SCH ×3 (05:44→20:36)
[2020-03-08 08:00] VITALS: BP 160/82
--- NOTE | 2020-03-08 08:10 | NUR ---
NURSE NOTES: Called and left a message with Dr. Parisi regarding pts episodes of v-tach. Awaiting call back.
[2020-03-08] MEDS: Heparin 5000 units/ml inj SUBQ SCH ×2 (09:00→20:29)
[2020-03-08 09:06] LABS: ANION GAP 4 mmol/L (5-15); BLOOD UREA NITROGEN 7 mg/dL (7-18); CALCIUM 8.2 MG/DL (8.5-10.1); CARBON DIOXIDE 29 MMOL/L (21-32); CHLORIDE 107 MMOL/L (98-107); CREATININE 0.7 MG/DL (0.55-1.30); POTASSIUM 3.2 MMOL/L (3.5-5.1); SODIUM 140 MMOL/L (136-145)
[2020-03-08 09:31] LABS: HEMOGLOBIN 11.9 G/DL (14.2-18.0); MEAN CORPUSCULAR VOLUME 91 FL (80-99); PLATELET COUNT 71 K/UL (150-450); RED BLOOD COUNT 3.72 M/UL (4.70-6.10); RED CELL DISTRIBUTION WIDTH 11.2 % (11.6-14.8); WHITE BLOOD COUNT 4.9 K/UL (4.8-10.8)
--- NOTE | 2020-03-08 10:17 | NUR ---
Social Work Patient is confused and cannot make his own decisions. Patient is from [facility] and requires 24 hour care custodial. This Sw spoke with Medical Records, Jain who explains patient does not have a decision maker, no family or friends listed for contacts. Patient is DNR/DNI. Bioethics recommended for consents as needed (vs comfort measures, as recommended by MD).
--- NOTE | 2020-03-08 11:00 | NUR ---
NURSE NOTES: Received report from NOHELIA Loredo. Patient AAO x0. Attentive to name. Radial pulses equally palpable bilaterally. Breathing regular and unlabored. No acute distress. Call light in reach, side rails x2 raised, bed low and locked, fall education provided.
--- NOTE | 2020-03-08 11:45 | NUR ---
NURSE NOTES: Received report from Jonathan to continue care. Pt sleeping in the bed. Avila intact and draining urine well. Pt has bilateral soft wrist restraints and skin intact under the restraints. No acute distress noted. SZ precaution maintained. Bed locked, lowest position, alarm on, side rails up, call light within reach. Will continue to monitor. Addendum: 03/09/20 at 0318 by VIVEK TALBOT RN RN Time error. 03/08/20 @ 1743
--- NOTE | 2020-03-08 11:47 | NUR ---
NURSE NOTES: Dr. Quijano aware K 3.2. Received TORB for KCl 40 meq PO once.
[2020-03-08 12:00] VITALS: BP 158/85
--- NOTE | 2020-03-08 12:00 | NUR ---
HAND-OFF: Report given to NOHELIA Armijo. Pt stable.
--- NOTE | 2020-03-08 12:56 | NUR ---
RD ASSESSMENT & RECOMMENDATIONS SEE CARE ACTIVITY FOR COMPLETE ASSESSMENT DAILY ESTIMATED NEEDS: Needs based on Underweight, pulmonary 57kg 25-35 kcals/kg 8949-6275 total kcals 1-1.5 g protein/kg 57-86 g total protein 25-30 mL/kg 5373-2064 total fluid mLs Deyvi count x 48 hrs completed- MISSING DATA Per RN and RESIDENTIAL MORTGAGE UNDERWRITER, deyvi count data not available in room, data missing. Information obtained from EMR and RESIDENTIAL MORTGAGE UNDERWRITER (today is the first day with patient per RESIDENTIAL MORTGAGE UNDERWRITER, not familiar w/ previous days' PO intake) 03/08 breakfast: pt refused breakfast per RESIDENTIAL MORTGAGE UNDERWRITER 03/07 breakfast: 40% per EMR lunch: 0% per EMR dinner: 0% per EMR 03/06 breakfast: 10% per EMR lunch 10% per EMR dinner: 25% per EMR. 03/05 breakfast: 0% per EMR lunch: 0% per EMR dinner: 0% per EMR ------- Based on information available from EMR and RESIDENTIAL MORTGAGE UNDERWRITER, pt w/ minimal intake, refusing many meals, current intake is inadequate to meet est needs. Pt is a/o x 0-1 per notes, sleeping most of the time per RESIDENTIAL MORTGAGE UNDERWRITER. POLST indicates comfort measures, but okay with terminal computer operator artificial nutrition including feeding tubes. Pt at increased risk for kcal/prot due to already at below wt standards (81% IBW) and at risk for skin breakdown. Recommend TF (NGT or PEG) if TF part of POC. NUTRITION DIAGNOSIS: Increased kcal/prot needs r/t underweight status as evidenced by pt is 81% of ideal body weight, pt w/ poor and variable intake. CURRENT DIET:REGULAR, pureed moist w/ thin PO DIET RECOMMENDATIONS: Liberalized Regular diet, texture per ALTERATION MANAGER ENTERAL NUTRITION RECOMMENDATIONS: Glucerna 1.5 @ 50ml/hr x 24 hrs to provide 1200ml, 1800kcal, 99g prot, 911ml free water * Glucerna 1.2 low in stock, rec Glucerna 1.5 * If TF part of POC, rec obtain GI access, initiate TF due to consistently poor PO intake * Initiate Glucerna 1.5 @ 10ml/hr x 6hrs * Advance 10ml q 4-6 hrs as tolerated to goal rate * HOB over 30 degreeds/ water flush per MD ADDITIONAL RECOMMENDATIONS: 1) Add Ensure Enlive TID w/meals (Glucerna TID w/ consistently elev BGs) Consider appetite stimulant 2) F/up w/ WC eval: add MVI x 1, Vit C 250mg QD 3) Continue add D5 IVF w/ poor PO to prevent hypoglycemia 4) Obtain a calibrated bed scale wt for accurate CBW + weekly wts 5) HgA1C for eval of glycemic control 6) DEYVI COUNT X 48 HRS COMPLETED -> INCOMPLETE DATA however, pt w/ minimal intake, consistently poor PO, many meal refusals TF rec as above if TF part of POC and indicated
--- NOTE | 2020-03-08 13:15 | NUR ---
NURSE NOTES: Patient refused Kdur. Education provided. Pt. continues to refuse.
--- NOTE | 2020-03-08 13:42 | Pulmonology Progress Note ---
Subjective ROS Limited/Unobtainable: Yes Constitutional: Reports: no symptoms HEENT: Repors: no symptoms Allergies: Coded Allergies: CHLORPROMAZINE (Verified Allergy, Unknown, 03/04/20) TRIFLUOPERAZINE (Verified Allergy, Unknown, 03/04/20) Objective Last 24 Hour Vital Signs Date Time Temp Pulse Resp B/P (MAP) Pulse Ox O2 Delivery O2 Flow Rate FiO2 03/08/20 12:00 78 03/08/20 12:00 98.0 78 18 158/85 (109) 98 03/08/20 09:00 Nasal Cannula 2.0 03/08/20 08:00 97.7 82 18 160/82 (108) 99 03/08/20 08:00 75 03/08/20 04:00 98.0 91 18 144/89 (107) 98 03/08/20 04:00 83 03/08/20 00:00 97.9 94 18 140/99 (113) 100 03/08/20 00:00 96 03/07/20 21:00 Nasal Cannula 2.0 03/07/20 20:00 89 03/07/20 20:00 98.8 89 18 144/100 (115) 96 03/07/20 16:00 97.7 91 20 120/90 (100) 100 Intake and Output 03/07/20 03/08/20 19:00 07:00 Intake Total 1238 ml Output Total 400 ml 550 ml Balance 838 ml -550 ml Intake Oral 238 ml IV Total 1000 ml Output Urine Total 400 ml 550 ml # Voids 2 General Appearance: no acute distress HEENT: normocephalic, atraumatic, anicteric Respiratory: no accessory muscle use, other - on O2 via NC Cardiovascular: normal peripheral pulses, normal rate Abdomen: soft, non tender, non distended Extremities: no edema, pedal pulses normal Neurologic: abnormal gait - bedridden , other - not responsive Musculoskeletal: atrophy - BLE Microbiology Date/Time Source Procedure Growth Status 03/05/20 18:45 Nasopharynx Coronavirus COVID-19 PCR ([facility]) - Final Complete Laboratory Tests 03/07/20 16:12: POC Whole Blood Glucose 100 03/08/20 05:42: POC Whole Blood Glucose [Pending] 03/08/20 08:44: White Blood Count 4.9, Red Blood Count 3.72L, Hemoglobin 11.9L, Hematocrit 34.0L , Mean Corpuscular Volume 91, Mean Corpuscular Hemoglobin 31.9H, Mean Corpuscular Hemoglobin Concent 34.9, Red Cell Distribution Width 11.2L, Platelet Count 71L, Mean Platelet Volume 10.7H, Neutrophils (%) (Auto) , Lymphocytes (%) (Auto) , Monocytes (%) (Auto) , Eosinophils (%) (Auto) , Basophils (%) (Auto) , Differential Total Cells Counted 100, Neutrophils % ( Manual) 78H, Lymphocytes % (Manual) 13L, Monocytes % (Manual) 9, Eosinophils % ( Manual) 0, Basophils % (Manual) 0, Band Neutrophils 0, Platelet Estimate DecreasedL, Platelet Morphology Normal, Red Blood Cell Morphology Normal, Sodium Level 140, Potassium Level 3.2L, Chloride Level 107, Carbon Dioxide Level 29, Anion Gap 4L, Blood Urea Nitrogen 7, Creatinine 0.7, Estimat Glomerular Filtration Rate > 60, Glucose Level 112H, Calcium Level 8.2L Current Medications Medications (Trade) Dose Ordered Sig/Michelle Route PRN Reason Start Time Stop Time Status Last Admin Dose Admin Acetaminophen (Tylenol) 650 mg Q4H PRN ORAL fever 03/05/20 00:45 04/04/20 00:44 Dextrose (Dextrose 50%) 25 ml Q30M PRN IV Hypoglycemia 03/05/20 13:00 06/03/20 12:59 Dextrose (Dextrose 50%) 50 ml Q30M PRN IV Hypoglycemia 03/05/20 13:00 06/03/20 12:59 03/07/20 06:50 Dextrose/Sodium Chloride 1,000 ml @ 100 mls/hr Q10H IV 03/05/20 13:00 04/04/20 12:59 03/08/20 01:00 Heparin Sodium (Porcine) (Heparin 5000 units/ml) 5,000 units EVERY 12 HOURS SUBQ 03/05/20 09:00 04/19/20 08:59 03/05/20 20:50 Insulin Aspart (NovoLOG) BEFORE MEALS AND HS SUBQ 03/05/20 16:30 06/03/20 16:29 Lorazepam (Ativan 2mg/ml 1ml) 1 mg Q4H PRN IV For Anxiety 03/06/20 19:00 03/13/20 18:59 Lorazepam (Ativan 2mg/ml 1ml) 2 mg Q6H PRN IV Seizures 03/06/20 06:15 03/13/20 06:14 03/06/20 18:08 Ondansetron HCl (Zofran) 4 mg Q6H PRN IVP Nausea & Vomiting 03/05/20 00:45 04/04/20 00:44 Polyethylene Glycol (Miralax) 17 gm HSPRN PRN ORAL Constipation 03/05/20 00:45 04/04/20 00:44 [facility] 1 ea DAILY PRN MISC Per rx protocol 03/07/20 10:00 04/06/20 09:59 Zolpidem Tartrate (Ambien) 5 mg HSPRN PRN ORAL Insomnia 03/05/20 00:45 03/12/20 00:44 Assessment/Plan Problems: (1) Epileptic seizure, generalized (2) COVID-19 virus detected (3) History of diabetes mellitus (4) History of hypertension (5) History of psychiatric disorder (6) Severe protein-calorie malnutrition (7) DNR (do not resuscitate) (8) Comfort measures only status Assessment/Plan doing better swallow study noted: PUREE WITH THIN LIQUIDS, ASPIRATION PRECAUTIONS INCLUDING: NO STRAWS, SITTING UPRIGHT FOR MEALS/MEDICATION, SLOW RATE OF INTAKE , TOTAL ASSIST WITH MEALS, SMALL BITES/SIPS, 3. CRUSH CRUSHABLE MEDS/PRESENT IN PUREE 4. TOTAL ASSIST WITH MEALS social note service note reviewed, Pt doesn't have any family members nor any decision maker. will call ethics for review. Dipika Quijano MD Mar 08, 2020 13:42
--- NOTE | 2020-03-08 13:55 | NUR ---
SS note This SW sent a Bioethics request from Dr. Baer, per Dr. Quijano request.
--- NOTE | 2020-03-08 15:05 | NUR ---
NURSE NOTES: Returned from break and received report from Jonathan POZO that pt. is combative and got out of restraints and removed tan and IV. Inserted new tan and L upper arm IV, 20 g. Bilateral soft wrist restraints replaced.
--- NOTE | 2020-03-08 15:25 | NUR ---
NURSE NOTES:Covering lunch break for NOHELIA Castro. MEDICAL RECORD RETRIEVAL SPECIALIST entered the room to clean patient, came out and asked for help as patient had got out of his restraints and was trying to kick MEDICAL RECORD RETRIEVAL SPECIALIST. Patient had removed IV and Avila catheter along with all of his bedding. Patient very confused and shouting [place]. Patient trying to hit and kick me and MEDICAL RECORD RETRIEVAL SPECIALIST. Managed to get patient back into restraints. At this time Gloria had just come off break. Informed her of the situation. IV and Avila replaced.
--- NOTE | 2020-03-08 15:44 | NUR ---
CASE MANAGEMENT:REVIEW 03/08/20 SI: GENERALIZED SEIZURE COVID NOT DETECTED 98.0 78 18 158/85 98% ON 2L/NC PLT-71 K-3.2 IS: IV VANCOMYCIN Q24 IV ATIVAN Q4HRS PRN SS INSULIN AC+HS HEPARIN SQ Q12 : TELEMETRY STATUS PLAN: DNR/DNI BIOETHICS CALLED ~ COMFORT MEASURES
[2020-03-08 16:00] VITALS: BP 147/83
[2020-03-08] MEDS ORDERED: Vancomycin 1.25gm/NS Premix q24h IVPB SCH (16:00)
[2020-03-08] MEDS ORDERED: Vancomycin 1.25gm/NS Premix 275 ML IVPB SCH (16:00)
--- NOTE | 2020-03-08 16:40 | Infectious Diseases Prog Note ---
Assessment/Plan Assessment: Breakthrough seizures Gram positive bacteremia -real vs contaminant -03/04 Bcx 1/4 GPC clusters; 03/07 Bcx p Afebrile No leukocytosis -u/a neg -CXR: no acute disease recent COVID19 January 2020 -03/05 SARS-Cov2 pCr neg HTN psychiatric disorder seizure disorder DM2 DNR/DNI NH resident ([facility]) Plan: - empiric IV Vancomycin #2 -f/u cx -Monitor CBC/CMP, temperatures -COVID19 isolation -Neuro eval -aspiration/seizure precautions -f/u repeat Bcx x2 Thank you for consulting [facility]. Will continue to follow along with you. Subjective Allergies: Coded Allergies: CHLORPROMAZINE (Verified Allergy, Unknown, 03/04/20) TRIFLUOPERAZINE (Verified Allergy, Unknown, 03/04/20) afebrile at 2 L NC no leukocytosis bacteremic; awaiting repeat bcx Objective Last 24 Hour Vital Signs Date Time Temp Pulse Resp B/P (MAP) Pulse Ox O2 Delivery O2 Flow Rate FiO2 03/08/20 12:00 78 03/08/20 12:00 98.0 78 18 158/85 (109) 98 03/08/20 09:00 Nasal Cannula 2.0 03/08/20 08:00 97.7 82 18 160/82 (108) 99 03/08/20 08:00 75 03/08/20 04:00 98.0 91 18 144/89 (107) 98 03/08/20 04:00 83 03/08/20 00:00 97.9 94 18 140/99 (113) 100 03/08/20 00:00 96 03/07/20 21:00 Nasal Cannula 2.0 03/07/20 20:00 89 03/07/20 20:00 98.8 89 18 144/100 (115) 96 Height (Feet): 5 Height (Inches): 8.00 Weight (Pounds): 125 General Appearance: other - Chronically ill-appearing, mild distress, obtunded Head: normocephalic, atraumatic Eyes: bilateral eye PERRL, bilateral eye EOMI ENT: hearing grossly normal, moist mucus membranes Neck: full range of motion, supple Respiratory: no rhonchi, no retraction, respiratory distress - Moderate respiratory distress noted Cardiovascular #1: normal peripheral pulses, no murmur, tachycardia Gastrointestinal: non tender, soft, non-distended, no guarding Neurologic: other - Patient obtunded, nonverbal, withdraws to pain Skin: warm/dry, pallor Microbiology Date/Time Source Procedure Growth Status 03/05/20 18:45 Nasopharynx Coronavirus COVID-19 PCR ([facility]) - Final Complete Laboratory Tests Test 03/08/20 05:42 03/08/20 08:44 POC Whole Blood Glucose Pending White Blood Count 4.9 K/UL (4.8-10.8) Red Blood Count 3.72 M/UL (4.70-6.10) L Hemoglobin 11.9 G/DL (14.2-18.0) L Hematocrit 34.0 % (42.0-52.0) L Mean Corpuscular Volume 91 FL (80-99) Mean Corpuscular Hemoglobin 31.9 PG (27.0-31.0) H Mean Corpuscular Hemoglobin Concent 34.9 G/DL (32.0-36.0) Red Cell Distribution Width 11.2 % (11.6-14.8) L Platelet Count 71 K/UL (150-450) L Mean Platelet Volume 10.7 FL (6.5-10.1) H Neutrophils (%) (Auto) % (45.0-75.0) Lymphocytes (%) (Auto) % (20.0-45.0) Monocytes (%) (Auto) % (1.0-10.0) Eosinophils (%) (Auto) % (0.0-3.0) Basophils (%) (Auto) % (0.0-2.0) Differential Total Cells Counted 100 Neutrophils % (Manual) 78 % (45-75) H Lymphocytes % (Manual) 13 % (20-45) L Monocytes % (Manual) 9 % (1-10) Eosinophils % (Manual) 0 % (0-3) Basophils % (Manual) 0 % (0-2) Band Neutrophils 0 % (0-8) Platelet Estimate Decreased L Platelet Morphology Normal Red Blood Cell Morphology Normal Sodium Level 140 MMOL/L (136-145) Potassium Level 3.2 MMOL/L (3.5-5.1) L Chloride Level 107 MMOL/L (98-107) Carbon Dioxide Level 29 MMOL/L (21-32) Anion Gap 4 mmol/L (5-15) L Blood Urea Nitrogen 7 mg/dL (7-18) Creatinine 0.7 MG/DL (0.55-1.30) Estimat Glomerular Filtration Rate > 60 mL/min (>60) Glucose Level 112 MG/DL (74-106) H Calcium Level 8.2 MG/DL (8.5-10.1) L Current Medications Medications (Trade) Dose Ordered Sig/Michelle Route PRN Reason Start Time Stop Time Status Last Admin Dose Admin Acetaminophen (Tylenol) 650 mg Q4H PRN ORAL fever 03/05/20 00:45 04/04/20 00:44 Dextrose (Dextrose 50%) 25 ml Q30M PRN IV Hypoglycemia 03/05/20 13:00 06/03/20 12:59 Dextrose (Dextrose 50%) 50 ml Q30M PRN IV Hypoglycemia 03/05/20 13:00 06/03/20 12:59 03/07/20 06:50 Heparin Sodium (Porcine) (Heparin 5000 units/ml) 5,000 units EVERY 12 HOURS SUBQ 03/05/20 09:00 04/19/20 08:59 03/05/20 20:50 Insulin Aspart (NovoLOG) BEFORE MEALS AND HS SUBQ 03/05/20 16:30 06/03/20 16:29 Lorazepam (Ativan 2mg/ml 1ml) 1 mg Q4H PRN IV For Anxiety 03/06/20 19:00 03/13/20 18:59 03/08/20 15:51 Lorazepam (Ativan 2mg/ml 1ml) 2 mg Q6H PRN IV Seizures 03/06/20 06:15 03/13/20 06:14 03/06/20 18:08 Ondansetron HCl (Zofran) 4 mg Q6H PRN IVP Nausea & Vomiting 03/05/20 00:45 04/04/20 00:44 Polyethylene Glycol (Miralax) 17 gm HSPRN PRN ORAL Constipation 03/05/20 00:45 04/04/20 00:44 Vancomycin HCl ([facility] pharmacy to dose) 1 ea DAILY PRN MISC Per rx protocol 03/07/20 10:00 04/06/20 09:59 Vancomycin/Sodium Chloride 275 ml @ 183.333 mls/hr Q24H IVPB 03/08/20 16:00 03/13/20 15:59 Zolpidem Tartrate (Ambien) 5 mg HSPRN PRN ORAL Insomnia 03/05/20 00:45 03/12/20 00:44 Kaitlyn Ness M.D. Mar 08, 2020 16:40
--- NOTE | 2020-03-08 17:07 | NUR ---
HAND-OFF: Report given to NOHELIA Guadalupe. Patient stable, no acute distress.
--- NOTE | 2020-03-08 17:27 | NUR ---
NURSE NOTES: Report received from Gloria POZO. Patient transferred from Tele room 212 to [phone]. Patient is AxOx1, not in distress, no outward sx of pain. Nurse reports pt has not had a seizure this shift. PIV on left upper arm patent and intact. Noted bilateral soft wrist restraints, good circulation and palpable pulses. Avila cath secured and draining well. Skin is intact. Optifoam over bilateral heels and sacrum for prophylaxis. Pt refused to eat dinner. Bed low and locked, siderails up x2, zone alarms on 1, call light placed within reach. Will continue to monitor. Pt is for hospice consult/referral.
[2020-03-08] MEDS ORDERED: Zolpidem 5mg tab ORAL PRN (18:00)
[2020-03-08] MEDS ORDERED: Miralax 17gm pkt ORAL PRN (18:00)
[2020-03-08] MEDS ORDERED: LORazepam Inj 2mg/ml 1ml IV PRN (18:15)
--- NOTE | 2020-03-08 19:03 | NUR ---
HAND-OFF: Report given to Bradford Lund RN. Pt is stable, bilateral wrist restraints on, placed padded side rails for seizure precautions. PIV intact and infusing IV Vanco.
[2020-03-08 20:00] VITALS: BP 146/90
--- NOTE | 2020-03-08 20:00 | NUR ---
NURSE NOTES: Patient received in bed, nonverbal at this time, FC draining via gravity with pinkish/straw colored urine, catheter secured to right thigh. Bilateral soft wrist restraints are on patient, sensation+, mobility+, pulses+. no swelling noted. HOB elevated, sz precautions maintained. Bed locked in low position, bed alarm on. Will continue plan of care.
--- NOTE | 2020-03-08 23:41 | NUR ---
HAND-OFF: Report given to Sandra POZO. Pt asleep with bilateral soft wrist restraints.
--- NOTE | 2020-03-08 23:45 | NUR ---
NURSE NOTES: Received report from Jonathan to continue care. Pt sleeping in the bed. Avila intact and draining urine well. Pt has bilateral soft wrist restraints and skin intact under the restraints. No acute distress noted. SZ precaution maintained. Bed locked, lowest position, alarm on, side rails up, call light within reach. Will continue to monitor.
[2020-03-09] VITALS: BP 125/58
[2020-03-09 04:00] VITALS: BP 132/66
[2020-03-09] MEDS: LORazepam Inj 2mg/ml 1ml IV PRN ×2 (05:22→14:56)
[2020-03-09] MEDS: NovoLOG Insulin Flexpen SUBQ SCH ×4 (05:47→21:00)
--- NOTE | 2020-03-09 06:26 | NUR ---
NURSE NOTES: Pt agitated, restless and RN found tan cath removed on the floor and pulled out IV. Ativan given and reinserted IV and Tan. Light pink urine draining by gravity from Tan and flushed.
--- NOTE | 2020-03-09 07:19 | General Progress Note ---
Progress Note Progress Note Bioethics Note Asked by Dr. Quijano to consult on this 69 yo male with dementia, renal insufficiency, COVID-19, and uncontrollable seizures. No family or DPA for healthcare. Already designated dnr. In view of his profound dementia and multiple medical complications comfort measures rather than aggressive medical care would be most appropriate. Johan Hobson MD Mar 09, 2020 07:19
--- NOTE | 2020-03-09 07:24 | NUR ---
HAND-OFF: Report given to NOHELIA Eckert.
--- NOTE | 2020-03-09 07:48 | NUR ---
ADMINISTRATION MANAGER NOTE The case was discussed and the bioethics committee senior commercial loan officer, Dr. Braun recommends comfort care than aggressive treatment. Please see Dr. Braun's note.
[2020-03-09 08:00] VITALS: BP 151/103
--- NOTE | 2020-03-09 08:00 | NUR ---
NURSE NOTES: Patient eyes closed,arousable to touch,from report patient was given Ativan due to restlessness and patient had pulled out his IV and tan catheter.Tan catheter r was reinserted on the previous shift and IV was reinserted as well o0n the previous shift. Tan catheter is in placed and draining rafa color urine.IV saline lock in place.Patient has on bilateral wrist restraints.Will provide skin care and ROM.Bed alarm is on,call light within reach.
[2020-03-09] MEDS: Heparin 5000 units/ml inj SUBQ SCH ×2 (09:00→21:00)
--- NOTE | 2020-03-09 11:58 | Pulmonology Progress Note ---
Subjective ROS Limited/Unobtainable: Yes Constitutional: Reports: no symptoms HEENT: Repors: no symptoms Allergies: Coded Allergies: CHLORPROMAZINE (Verified Allergy, Unknown, 03/04/20) TRIFLUOPERAZINE (Verified Allergy, Unknown, 03/04/20) Objective Last 24 Hour Vital Signs Date Time Temp Pulse Resp B/P (MAP) Pulse Ox O2 Delivery O2 Flow Rate FiO2 03/09/20 09:39 Room Air 03/09/20 08:00 97.6 96 18 151/103 (119) 95 03/09/20 04:00 98.1 72 20 132/66 (88) 99 03/09/20 00:00 97.1 60 18 125/58 (80) 96 03/08/20 21:00 Room Air 03/08/20 20:00 97.7 85 18 146/90 (108) 100 03/08/20 16:00 98.9 80 18 147/83 (104) 98 03/08/20 12:00 78 03/08/20 12:00 98.0 78 18 158/85 (109) 98 Intake and Output 03/08/20 03/09/20 19:00 07:00 Intake Total 300 ml 275.000 ml Output Total 100 ml 500 ml Balance 200 ml -225.000 ml IV Total 300 ml 275.000 ml Output Urine Total 100 ml 500 ml General Appearance: no acute distress HEENT: normocephalic, atraumatic, anicteric Respiratory: no accessory muscle use, other - on O2 via NC Cardiovascular: normal peripheral pulses, normal rate Abdomen: soft, non tender, non distended Extremities: no edema, pedal pulses normal Neurologic: abnormal gait - bedridden , other - not responsive Lymphatic: no neck adenopathy Musculoskeletal: atrophy - BLE Microbiology Date/Time Source Procedure Growth Status 03/07/20 11:55 Blood Blood Culture - Preliminary NO GROWTH AFTER 24 HOURS Resulted 03/07/20 11:55 Blood Blood Culture - Preliminary NO GROWTH AFTER 24 HOURS Resulted Current Medications Medications (Trade) Dose Ordered Sig/Michelle Route PRN Reason Start Time Stop Time Status Last Admin Dose Admin Acetaminophen (Tylenol) 650 mg Q4H PRN ORAL fever (T>100.5F) 03/08/20 20:45 04/04/20 00:44 Dextrose (Dextrose 50%) 25 ml Q30M PRN IV Hypoglycemia 03/08/20 17:30 06/03/20 12:59 Dextrose (Dextrose 50%) 50 ml Q30M PRN IV Hypoglycemia 03/08/20 17:30 06/03/20 12:59 Heparin Sodium (Porcine) (Heparin 5000 units/ml) 5,000 units EVERY 12 HOURS SUBQ 03/08/20 21:00 04/19/20 08:59 Insulin Aspart (NovoLOG) BEFORE MEALS AND HS SUBQ 03/08/20 21:00 06/03/20 16:29 Lorazepam (Ativan 2mg/ml 1ml) 1 mg Q4H PRN IV For Anxiety 03/08/20 19:00 03/13/20 18:59 03/09/20 05:22 Lorazepam (Ativan 2mg/ml 1ml) 2 mg Q6H PRN IV Seizures 03/08/20 18:15 03/13/20 06:14 Ondansetron HCl (Zofran) 4 mg Q6H PRN IVP Nausea & Vomiting 03/08/20 18:45 04/04/20 00:44 Polyethylene Glycol (Miralax) 17 gm HSPRN PRN ORAL Constipation 03/08/20 18:00 04/07/20 17:59 Vancomycin HCl ([facility] pharmacy to dose) 1 ea DAILY PRN MISC Per rx protocol 03/08/20 18:00 04/07/20 17:59 Vancomycin/Sodium Chloride 275 ml @ 183.333 mls/hr Q24H IVPB 03/08/20 16:00 03/13/20 15:59 03/08/20 18:40 Zolpidem Tartrate (Ambien) 5 mg HSPRN PRN ORAL Insomnia 03/08/20 18:00 03/15/20 17:59 Assessment/Plan Problems: (1) Epileptic seizure, generalized (2) COVID-19 virus detected (3) History of diabetes mellitus (4) History of hypertension (5) History of psychiatric disorder (6) Severe protein-calorie malnutrition (7) DNR (do not resuscitate) (8) Comfort measures only status (9) Alzheimer's dementia Assessment/Plan doing better still on restrains agitated at times. will add seroquel to his regimen swallow study noted: PUREE WITH THIN LIQUIDS, ASPIRATION PRECAUTIONS INCLUDING: NO STRAWS, SITTING UPRIGHT FOR MEALS/MEDICATION, SLOW RATE OF INTAKE , TOTAL ASSIST WITH MEALS, SMALL BITES/SIPS, 3. CRUSH CRUSHABLE MEDS/PRESENT IN PUREE 4. TOTAL ASSIST WITH MEALS social note service note reviewed, Pt doesn't have any family members nor any decision maker. will call ethics for review. Dipika Quijano MD Mar 09, 2020 11:58
--- NOTE | 2020-03-09 12:26 | NUR ---
NURSE NOTES: Patient combative,refusing blood sugar finger stick,patient refusing lunch,unable to give po medication.
--- NOTE | 2020-03-09 12:33 | NUR ---
DISCHARGE PLANNING S/W [facility] AT [facility] [phone]. INFORMED THIS CM THAT [facility] IS A COVID POSITIVE ONLY SNF AT THIS TIME. D/T PATIENTS COVID NEGATIVE STATUS, [facility] WILL REFER PATIENT TO A [facility] FAC[facility] FOR PLACEMENT. INQUIRY HAS BEEN FAXED TO [facility] [phone]
--- NOTE | 2020-03-09 12:51 | Diagnostic Imaging Report ---
Indication: Abnormal renal function tests and microhematuria Technique: Grayscale and duplex images of the kidneys, retroperitoneum, and bladder were obtained. Comparison: Findings: Right kidney measures 9.3 cm in length. Left kidney measures 9.7 cm in length. Both kidneys demonstrate normal echogenicity. No hydronephrosis. Small cysts are seen in both kidneys. Normal inferior vena cava. Bladder contains a small amount of urine, contains a Avila catheter. Echogenic shadowing focus is seen within the bladder. There is posterior wall thickening of the bladder with vascularity. The prostate contains a calcification. Calculated prostate volume 31 mL. Small amount of free fluid is seen within the pelvis Impression: Negative for hydronephrosis Posterior bladder wall thickening or hypervascular mass. Consider further evaluation with cystoscopy and/or contrast CT scan Possible bladder calculus. Prominent prostate with calcification Small amount of ascites fluid within the pelvis
--- NOTE | 2020-03-09 14:27 | Infectious Diseases Prog Note ---
Assessment/Plan Assessment: Breakthrough seizures Gram positive bacteremia -likely contaminant -03/04 Bcx 1/4 S. capitis; 03/07 Bcx NTD Afebrile No leukocytosis -u/a neg -CXR: no acute disease CRIS, improving -Renal US: Negative for hydronephrosis. Posterior bladder wall thickening or hypervascular mass. Consider further evaluation with cystoscopy and/or contrast CT scan. Possible bladder calculus. Prominent prostate with calcification. Small amount of ascites fluid within the pelvis recent COVID19 January 2020 -03/05 SARS-Cov2 pCr neg HTN psychiatric disorder seizure disorder DM2 DNR/DNI CO resident ([facility]) Plan: -Dc empiric IV Vancomycin #3 and monitor off abx -f/u cx -Monitor CBC/CMP, temperatures - neg x1 -Neuro eval -aspiration/seizure precautions -f/u repeat Bcx x2 Thank you for consulting [facility]. Will continue to follow along with you. Subjective Allergies: Coded Allergies: CHLORPROMAZINE (Verified Allergy, Unknown, 03/04/20) TRIFLUOPERAZINE (Verified Allergy, Unknown, 03/04/20) afebrile at RA repeat Bcx NTD Objective Last 24 Hour Vital Signs Date Time Temp Pulse Resp B/P (MAP) Pulse Ox O2 Delivery O2 Flow Rate FiO2 03/09/20 09:39 Room Air 03/09/20 08:00 97.6 96 18 151/103 (119) 95 03/09/20 04:00 98.1 72 20 132/66 (88) 99 03/09/20 00:00 97.1 60 18 125/58 (80) 96 03/08/20 21:00 Room Air 03/08/20 20:00 97.7 85 18 146/90 (108) 100 03/08/20 16:00 98.9 80 18 147/83 (104) 98 Height (Feet): 5 Height (Inches): 8.00 Weight (Pounds): 125 General Appearance: other - Chronically ill-appearing, mild distress, obtunded Head: normocephalic, atraumatic Eyes: bilateral eye PERRL, bilateral eye EOMI ENT: hearing grossly normal, moist mucus membranes Neck: full range of motion, supple Respiratory: no rhonchi, no retraction, respiratory distress - Moderate respiratory distress noted Cardiovascular #1: normal peripheral pulses, no murmur, tachycardia Gastrointestinal: non tender, soft, non-distended, no guarding Neurologic: other - Patient obtunded, nonverbal, withdraws to pain Skin: warm/dry, pallor Microbiology Date/Time Source Procedure Growth Status 03/07/20 11:55 Blood Blood Culture - Preliminary NO GROWTH AFTER 24 HOURS Resulted 03/07/20 11:55 Blood Blood Culture - Preliminary NO GROWTH AFTER 24 HOURS Resulted Current Medications Medications (Trade) Dose Ordered Sig/Michelle Route PRN Reason Start Time Stop Time Status Last Admin Dose Admin Acetaminophen (Tylenol) 650 mg Q4H PRN ORAL fever (T>100.5F) 03/08/20 20:45 04/04/20 00:44 Dextrose (Dextrose 50%) 25 ml Q30M PRN IV Hypoglycemia 03/08/20 17:30 06/03/20 12:59 Dextrose (Dextrose 50%) 50 ml Q30M PRN IV Hypoglycemia 03/08/20 17:30 06/03/20 12:59 Heparin Sodium (Porcine) (Heparin 5000 units/ml) 5,000 units EVERY 12 HOURS SUBQ 03/08/20 21:00 04/19/20 08:59 Insulin Aspart (NovoLOG) BEFORE MEALS AND HS SUBQ 03/08/20 21:00 06/03/20 16:29 Lorazepam (Ativan 2mg/ml 1ml) 1 mg Q4H PRN IV For Anxiety 03/08/20 19:00 03/13/20 18:59 03/09/20 05:22 Lorazepam (Ativan 2mg/ml 1ml) 2 mg Q6H PRN IV Seizures 03/08/20 18:15 03/13/20 06:14 Ondansetron HCl (Zofran) 4 mg Q6H PRN IVP Nausea & Vomiting 03/08/20 18:45 04/04/20 00:44 Polyethylene Glycol (Miralax) 17 gm HSPRN PRN ORAL Constipation 03/08/20 18:00 04/07/20 17:59 Quetiapine Fumarate (SEROqueL) 50 mg Q12HR ORAL 03/09/20 12:00 04/23/20 11:59 Vancomycin HCl ([facility] pharmacy to dose) 1 ea DAILY PRN MISC Per rx protocol 03/08/20 18:00 04/07/20 17:59 Vancomycin/Sodium Chloride 275 ml @ 183.333 mls/hr Q24H IVPB 03/08/20 16:00 03/13/20 15:59 03/08/20 18:40 Zolpidem Tartrate (Ambien) 5 mg HSPRN PRN ORAL Insomnia 03/08/20 18:00 03/15/20 17:59 Kaitlyn Ness M.D. Mar 09, 2020 14:27
--- NOTE | 2020-03-09 15:04 | NUR ---
NURSE NOTES: Patient pulled out tan catheter,tip of catheter,balloon not inflated. No bleeding noted.Patient combative,.Patient kicked off bedding,and side rails pads of ,will reapply Will notify DR Quijano
--- NOTE | 2020-03-09 15:28 | NUR ---
SWALLOW STATUS/DYSPHAGIA MANAGEMENT/DISCHARGE PATIENT RECEIVED SUPINE FROM RN, PATIENT HAD EATEN BREAKFAST BUT SINCE THEN HE HAS REFUSED EVERY ASPECT OF HIS CARE. HE REFUSED HIS NOON MEAL. WHEN OFFERED ITEMS HE MIGHT ENJOY, HE REFUSED THEM WELL. HE KEPT SAYING "TELL THE NURSE I NEED SOME L-S-D. HE WAS UNWILLING TO PARTICIPATE IN ANY P.O. TRIALS THIS AFTERNOON PATIENT MET GOAL FOR SAFE P.O. INTAKE WITH LEAST RESTRICTIVE TEXTURE BUT GOAL NOT MET OF SUFFICIENT P.O. INTAKE TO SUPPORT NUTRITION/HYDRATION NEEDS. D/C DUE TO PATIENTS NON/COMPLIANCE WITH HIS CARE AT THIS TIME. D/C FROM [facility] AT THIS TIME.
[2020-03-09 16:00] VITALS: BP 147/97
--- NOTE | 2020-03-09 17:27 | NUR ---
*-*DISCHARGE PLANNING*-* PATIENT HAS BEEN REFERRED TO: [facility] P: [phone] ~~~ [facility] SENT [facility]ICALS TO [facility]
--- NOTE | 2020-03-09 17:58 | NUR ---
NURSE NOTES: DR Quijano order no more tan catheter,can use diapers.skin care given,patient voided incontinent.Linen changed.Skin assess,bilateral risk restraints in place.
--- NOTE | 2020-03-09 19:15 | NUR ---
HAND-OFF: Report given to EDY POZO,aware of fall risk.
--- NOTE | 2020-03-09 19:44 | NUR ---
NURSE NOTES: Received patient asleep, no SOB, on bilateral soft wrist restraints.
[2020-03-09 20:00] VITALS: BP 155/105
[2020-03-10] VITALS (12 sets, daily range): BP systolic 103–158; BP diastolic 76–95
[2020-03-10] MEDS: NovoLOG Insulin Flexpen SUBQ SCH ×4 (05:13→21:00)
--- NOTE | 2020-03-10 05:23 | NUR ---
NURSE NOTES: Patient blood sugar-45. Gave D50-[address] Quijano notified. Patient asymptomatic.
--- NOTE | 2020-03-10 05:38 | NUR ---
NURSE NOTES: Repeat blood sugar test is now 73. Dr Quijano notified.
--- NOTE | 2020-03-10 07:01 | NUR ---
HAND-OFF: Report given to NOHELIA Pope.
--- NOTE | 2020-03-10 07:19 | NUR ---
NURSE NOTES: Report received from NOHELIA Allen. Patient awake in bed, breathing even and unlabored, bed in lowest position with alarm on and breaks engaged, IV line on ZACH patent and intact, denies any pain at this time, will continue to monitor and proceed with plan of care, call light within reach at all times.
[2020-03-10] MEDS: Heparin 5000 units/ml inj SUBQ SCH ×2 (08:18→21:00)
--- NOTE | 2020-03-10 10:10 | Infectious Diseases Prog Note ---
Assessment/Plan Assessment: Breakthrough seizures Gram positive bacteremia -likely contaminant -03/04 Bcx 1/4 S. capitis; 03/07 Bcx NTD Afebrile No leukocytosis -u/a neg -CXR: no acute disease CRIS, SP -Renal US: Negative for hydronephrosis. Posterior bladder wall thickening or hypervascular mass. Consider further evaluation with cystoscopy and/or contrast CT scan. Possible bladder calculus. Prominent prostate with calcification. Small amount of ascites fluid within the pelvis recent COVID19 January 2020 -03/05 SARS-Cov2 pCr neg HTN psychiatric disorder seizure disorder DM2 DNR/DNI CO resident ([facility]) Plan: -Cont to monitor off abx -03/09 SP IV Vancomycin #3 -f/u cx -Monitor CBC/CMP, temperatures -ID neg x1 -Neuro eval -aspiration/seizure precautions -f/u repeat Bcx x2 Thank you for consulting [facility]. Will continue to follow along with you. Subjective Allergies: Coded Allergies: CHLORPROMAZINE (Verified Allergy, Unknown, 03/04/20) TRIFLUOPERAZINE (Verified Allergy, Unknown, 03/04/20) afebrile at RA repeat Bcx NTD Objective Last 24 Hour Vital Signs Date Time Temp Pulse Resp B/P (MAP) Pulse Ox O2 Delivery O2 Flow Rate FiO2 03/10/20 09:07 Room Air 03/10/20 08:00 97.9 66 20 158/91 (113) 98 03/10/20 04:15 97.8 92 22 154/87 (109) 94 03/10/20 00:00 97.2 83 20 103/95 (98) 96 03/09/20 20:03 Room Air 03/09/20 20:00 96.6 86 20 155/105 (122) 98 03/09/20 16:00 97.2 103 20 147/97 (114) 95 Height (Feet): 5 Height (Inches): 8.00 Weight (Pounds): 112 General Appearance: other - Chronically ill-appearing, mild distress, obtunded Head: normocephalic, atraumatic Eyes: bilateral eye PERRL, bilateral eye EOMI ENT: hearing grossly normal, moist mucus membranes Neck: full range of motion, supple Respiratory: no rhonchi, no retraction, respiratory distress - Moderate respiratory distress noted Cardiovascular #1: normal peripheral pulses, no murmur, tachycardia Gastrointestinal: non tender, soft, non-distended, no guarding Neurologic: other - Patient obtunded, nonverbal, withdraws to pain Skin: warm/dry, pallor Microbiology Date/Time Source Procedure Growth Status 03/07/20 11:55 Blood Blood Culture - Preliminary NO GROWTH AFTER 48 HOURS Resulted 03/07/20 11:55 Blood Blood Culture - Preliminary NO GROWTH AFTER 48 HOURS Resulted Laboratory Tests Test 03/09/20 16:45 03/09/20 16:52 03/09/20 21:01 03/10/20 05:03 POC Whole Blood Glucose 40 MG/DL (74-106) L Pending 79 MG/DL (74-106) 44 MG/DL (74-106) L Test 03/10/20 05:06 03/10/20 05:35 POC Whole Blood Glucose 45 MG/DL (74-106) L 73 MG/DL (74-106) L Current Medications Medications (Trade) Dose Ordered Sig/Michelle Route PRN Reason Start Time Stop Time Status Last Admin Dose Admin Acetaminophen (Tylenol) 650 mg Q4H PRN ORAL fever (T>100.5F) 03/08/20 20:45 04/04/20 00:44 Dextrose (Dextrose 50%) 25 ml Q30M PRN IV Hypoglycemia 03/08/20 17:30 06/03/20 12:59 Dextrose (Dextrose 50%) 50 ml Q30M PRN IV Hypoglycemia 03/08/20 17:30 06/03/20 12:59 03/10/20 05:13 Heparin Sodium (Porcine) (Heparin 5000 units/ml) 5,000 units EVERY 12 HOURS SUBQ 03/08/20 21:00 04/19/20 08:59 Insulin Aspart (NovoLOG) BEFORE MEALS AND HS SUBQ 03/08/20 21:00 06/03/20 16:29 Lorazepam (Ativan 2mg/ml 1ml) 1 mg Q4H PRN IV For Anxiety 03/08/20 19:00 03/13/20 18:59 03/09/20 14:56 Lorazepam (Ativan 2mg/ml 1ml) 2 mg Q6H PRN IV Seizures 03/08/20 18:15 03/13/20 06:14 Ondansetron HCl (Zofran) 4 mg Q6H PRN IVP Nausea & Vomiting 03/08/20 18:45 04/04/20 00:44 Polyethylene Glycol (Miralax) 17 gm HSPRN PRN ORAL Constipation 03/08/20 18:00 04/07/20 17:59 Quetiapine Fumarate (SEROqueL) 50 mg Q12HR ORAL 03/09/20 12:00 04/23/20 11:59 03/10/20 08:18 Zolpidem Tartrate (Ambien) 5 mg HSPRN PRN ORAL Insomnia 03/08/20 18:00 03/15/20 17:59 Kaitlyn Ness M.D. Mar 10, 2020 10:10
--- NOTE | 2020-03-10 11:20 | NUR ---
CHARGE NURSE NOTE: Psych. patient was able to get rid of his restraints, took off his IV and his gown - naked,combative, aggressive going to the elevator. Bed alarmed, Shon RN escorting patient. Security was called for help. 3 people including ZACK, Primary nurse Quincy and Bennett (unarmed security officer) in the elevator. Security has been trying to bring pt back to his room. Pt began to fight with security and wanted to hit him, fell on the elevator's fall. Witnessed fall, pt did not injured his head. Nursing Terminologist Rupinder notified.
[2020-03-10] MEDS ORDERED: LORazepam Inj 2mg/ml 1ml IM SCH (11:30)
--- NOTE | 2020-03-10 12:30 | NUR ---
*-*DISCHARGE PLANNING*-* PATIENT HAS BEEN REFERRED TO: [facility] P: [phone] S/W TAMARA, WHO STATED, PATIENT HAS BEEN ACCEPTED TO [facility] ROOM#17 SKILLED
--- NOTE | 2020-03-10 12:31 | NUR ---
*-*DISCHARGE PLANNED*-* PATIENT HAS BEEN ACCEPTED AND WILL BE DISCHARGED TO: [facility] P: [phone] FOR NURSE TO NURSE REPORT ROOM# 17 SKILLED
--- NOTE | 2020-03-10 12:52 | NUR ---
CHARGE NURSE NOTE: notified that pt fell (11:25). No CT orders given (pt did not hit his head - witnessed fall in the elevator). Pt in stable condition, aggressive. Refused post fall vitals. No families. [facility] Nursing spring up supervisor notified.
--- NOTE | 2020-03-10 13:09 | Pulmonology Progress Note ---
Subjective ROS Limited/Unobtainable: Yes Interval Events: was agitated earlier, needs sitter Constitutional: Reports: no symptoms HEENT: Repors: no symptoms Allergies: Coded Allergies: CHLORPROMAZINE (Verified Allergy, Unknown, 03/04/20) TRIFLUOPERAZINE (Verified Allergy, Unknown, 03/04/20) Objective Last 24 Hour Vital Signs Date Time Temp Pulse Resp B/P (MAP) Pulse Ox O2 Delivery O2 Flow Rate FiO2 03/10/20 12:50 97.7 100 18 123/79 (94) 98 03/10/20 12:20 97.6 100 20 134/83 (100) 98 03/10/20 12:00 97.6 100 20 134/83 (100) 98 03/10/20 09:07 Room Air 03/10/20 08:00 97.9 66 20 158/91 (113) 98 03/10/20 04:15 97.8 92 22 154/87 (109) 94 03/10/20 00:00 97.2 83 20 103/95 (98) 96 03/09/20 20:03 Room Air 03/09/20 20:00 96.6 86 20 155/105 (122) 98 03/09/20 16:00 97.2 103 20 147/97 (114) 95 Intake and Output 03/09/20 03/10/20 19:00 07:00 Intake Total 200 ml Output Total 400 ml Balance -200 ml Intake Oral 200 ml Output Urine Total 400 ml # Voids 1 2 General Appearance: no acute distress HEENT: normocephalic, atraumatic, anicteric Respiratory: no accessory muscle use, other - on O2 via NC Cardiovascular: normal peripheral pulses, normal rate Abdomen: soft, non tender, non distended Extremities: no cyanosis, no clubbing, no edema, pedal pulses normal Neurologic: abnormal gait - bedridden , other - not responsive Lymphatic: no neck adenopathy Musculoskeletal: atrophy - BLE Laboratory Tests 03/09/20 16:45: POC Whole Blood Glucose 40L 03/09/20 16:52: POC Whole Blood Glucose [Pending] 03/09/20 21:01: POC Whole Blood Glucose 79 03/10/20 05:03: POC Whole Blood Glucose 44L 03/10/20 05:06: POC Whole Blood Glucose 45L 03/10/20 05:35: POC Whole Blood Glucose 73L 03/10/20 11:59: POC Whole Blood Glucose 103 Current Medications Medications (Trade) Dose Ordered Sig/Michelle Route PRN Reason Start Time Stop Time Status Last Admin Dose Admin Acetaminophen (Tylenol) 650 mg Q4H PRN ORAL fever (T>100.5F) 03/08/20 20:45 04/04/20 00:44 Dextrose (Dextrose 50%) 25 ml Q30M PRN IV Hypoglycemia 03/08/20 17:30 06/03/20 12:59 Dextrose (Dextrose 50%) 50 ml Q30M PRN IV Hypoglycemia 03/08/20 17:30 06/03/20 12:59 03/10/20 05:13 Heparin Sodium (Porcine) (Heparin 5000 units/ml) 5,000 units EVERY 12 HOURS SUBQ 03/08/20 21:00 04/19/20 08:59 Insulin Aspart (NovoLOG) BEFORE MEALS AND HS SUBQ 03/08/20 21:00 06/03/20 16:29 Lorazepam (Ativan 2mg/ml 1ml) 1 mg Q4H PRN IV For Anxiety 03/08/20 19:00 03/13/20 18:59 03/09/20 14:56 Lorazepam (Ativan 2mg/ml 1ml) 2 mg Q6H PRN IV Seizures 03/08/20 18:15 03/13/20 06:14 Ondansetron HCl (Zofran) 4 mg Q6H PRN IVP Nausea & Vomiting 03/08/20 18:45 04/04/20 00:44 Polyethylene Glycol (Miralax) 17 gm HSPRN PRN ORAL Constipation 03/08/20 18:00 04/07/20 17:59 Quetiapine Fumarate (SEROqueL) 50 mg Q12HR ORAL 03/09/20 12:00 04/23/20 11:59 03/10/20 08:18 Zolpidem Tartrate (Ambien) 5 mg HSPRN PRN ORAL Insomnia 03/08/20 18:00 03/15/20 17:59 Assessment/Plan Problems: (1) Epileptic seizure, generalized (2) COVID-19 virus detected (3) History of diabetes mellitus (4) History of hypertension (5) History of psychiatric disorder (6) Severe protein-calorie malnutrition (7) DNR (do not resuscitate) (8) Comfort measures only status (9) Alzheimer's dementia Assessment/Plan increase the seroquel prn Haldol still on restrains agitated at times. swallow study noted: PUREE WITH THIN LIQUIDS, ASPIRATION PRECAUTIONS INCLUDING: NO STRAWS, SITTING UPRIGHT FOR MEALS/MEDICATION, SLOW RATE OF INTAKE , TOTAL ASSIST WITH MEALS, SMALL BITES/SIPS, 3. CRUSH CRUSHABLE MEDS/PRESENT IN PUREE 4. TOTAL ASSIST WITH MEALS social note service note reviewed, Pt doesn't have any family members nor any decision maker. will call ethics for review. Dipika Quijano MD Mar 10, 2020 13:09
[2020-03-10] MEDS ORDERED: Haloperidol 5mg/ml Inj IM SCH (13:30)
[2020-03-10] MEDS ORDERED: DiphenhydrAMINE 50mg/ml Inj IM SCH (13:30)
--- NOTE | 2020-03-10 14:43 | NUR ---
CASE MANAGEMENT:REVIEW SI;SEIZURES. ALZHEIMER DEMENTIA. 97.9 100 20 158/91 98% ON RA IS;HALDOL IM BENADRYL IM HEPARIN SUBQ Q12 LORAZEPAM IV Q4 PRN MED SURG STATUS DCP;FROM [facility]~UNABLE TO RETURN TO THIS COVID ONLY SNF PLAN; PLACEMENT WHEN BED AVAILABLE
--- NOTE | 2020-03-10 17:12 | NUR ---
NURSE NOTES: Patient does not have any IV line at this time d/t pulling out and refusal. Attempted x 3 and explained risk and benefits. Dr Barron made aware.
[2020-03-10] MEDS ORDERED: D5 1/2NS 1000ml IV ONE (18:18)
--- NOTE | 2020-03-10 19:20 | NUR ---
NURSE NOTES: Received report from maria r velasco. patient is on bed, asleep.no sob. with bilateral soft wrist restraints. no injury noted. per rod, "patient is S/P fall and had given ativan and haldol". with sitter (jennifer) on the bedside. noiv line. md is aware. DNR/DNI. bed locked and in lowest position. call light and light button within easy reach. bed locked and in lowest position. bed alarm on. will continue plan of care.
--- NOTE | 2020-03-10 19:36 | NUR ---
HAND-OFF: Report given to NOHELIA Jackson. Patient sleeping in bed with no SOB, sitter at bedside.
--- NOTE | 2020-03-10 21:20 | NUR ---
NURSE NOTES: patient is asleep but easily arousable. blood sugar checked witha result of 51 mg/dl. orange juice given per protocol. will rechecked blood sugar level. charge nurse made aware.
--- NOTE | 2020-03-10 21:35 | NUR ---
NURSE NOTES: blood sugar rechecked with a result of 61 mg/dl. orange juice given per protocol. charge nurse made aware.
--- NOTE | 2020-03-10 21:51 | NUR ---
NURSE NOTES: blood sugar of 82 mg/dl. charge nurse made aware. will continue to monitor.
[2020-03-11] VITALS (10 sets, daily range): BP systolic 34–149; BP diastolic 66–93
[2020-03-11] MEDS: NovoLOG Insulin Flexpen SUBQ SCH ×4 (05:44→21:00)
--- NOTE | 2020-03-11 07:23 | NUR ---
HAND-OFF: Report given to maria r velasco.patient is awake. no sob. call light and light button within easy reach. plan of care endorsed. Addendum: 03/11/20 at 0726 by Marycruz Cantor RN endorsed to observed fall precautions.
--- NOTE | 2020-03-11 07:28 | NUR ---
NURSE NOTES: Report received from NOHELIA Jackson. Patient awake in bed, breathing even and unlabored, alert and oriented x 1, bed in lowest position with alarm on and breaks engaged, No IV line at this time, MD aware, soft wrist restraints in place, denies any pain at this time, sitter at bedside, will continue to monitor and proceed with plan of care, call light within reach at all time
[2020-03-11] MEDS: Heparin 5000 units/ml inj SUBQ SCH ×2 (09:00→21:00)
--- NOTE | 2020-03-11 11:32 | Pulmonology Progress Note ---
Subjective ROS Limited/Unobtainable: Yes Interval Events: was agitated earlier, needs sitter Constitutional: Reports: no symptoms HEENT: Repors: no symptoms Allergies: Coded Allergies: CHLORPROMAZINE (Verified Allergy, Unknown, 03/04/20) TRIFLUOPERAZINE (Verified Allergy, Unknown, 03/04/20) Objective Last 24 Hour Vital Signs Date Time Temp Pulse Resp B/P (MAP) Pulse Ox O2 Delivery O2 Flow Rate FiO2 03/11/20 09:20 97.8 75 19 129/89 (102) 95 03/11/20 09:00 Room Air 03/11/20 08:00 97.3 69 19 120/66 (84) 94 03/11/20 04:00 97.9 92 20 118/84 (95) 97 03/11/20 00:00 97.7 88 19 140/80 (100) 97 03/10/20 21:00 Room Air 03/10/20 20:00 97.7 79 19 136/86 (103) 97 03/10/20 17:20 98.2 79 19 145/93 (110) 96 03/10/20 16:20 96.6 98 20 139/89 (106) 98 03/10/20 15:20 97.8 92 22 154/87 (109) 98 03/10/20 14:20 98.9 100 18 133/92 (106) 96 03/10/20 13:20 97.6 97 18 130/76 (94) 99 03/10/20 12:50 97.7 100 18 123/79 (94) 98 03/10/20 12:20 97.6 100 20 134/83 (100) 98 03/10/20 12:00 97.6 100 20 134/83 (100) 98 Intake and Output 03/10/20 03/11/20 19:00 07:00 Intake Total 450 ml Balance 450 ml Intake Oral 450 ml # Voids 1 1 General Appearance: no acute distress HEENT: normocephalic, atraumatic, anicteric Respiratory: no accessory muscle use, other - on O2 via NC Cardiovascular: normal peripheral pulses, normal rate Abdomen: soft, non tender, non distended Extremities: no cyanosis, no clubbing, no edema, pedal pulses normal Neurologic: abnormal gait - bedridden , other - not responsive Lymphatic: no neck adenopathy Musculoskeletal: atrophy - BLE Laboratory Tests 03/10/20 11:59: POC Whole Blood Glucose 103 03/10/20 16:53: POC Whole Blood Glucose 99 03/10/20 21:10: POC Whole Blood Glucose 67L 03/10/20 21:38: POC Whole Blood Glucose 82 Current Medications Medications (Trade) Dose Ordered Sig/Michelle Route PRN Reason Start Time Stop Time Status Last Admin Dose Admin Acetaminophen (Tylenol) 650 mg Q4H PRN ORAL fever (T>100.5F) 03/08/20 20:45 04/04/20 00:44 Dextrose (Dextrose 50%) 25 ml Q30M PRN IV Hypoglycemia 03/08/20 17:30 06/03/20 12:59 Dextrose (Dextrose 50%) 50 ml Q30M PRN IV Hypoglycemia 03/08/20 17:30 06/03/20 12:59 03/10/20 05:13 Haloperidol Lactate (Haldol) 5 mg Q8H PRN IM agitation 03/10/20 13:11 04/24/20 13:10 Heparin Sodium (Porcine) (Heparin 5000 units/ml) 5,000 units EVERY 12 HOURS SUBQ 03/08/20 21:00 04/19/20 08:59 Insulin Aspart (NovoLOG) BEFORE MEALS AND HS SUBQ 03/08/20 21:00 06/03/20 16:29 Lorazepam (Ativan 2mg/ml 1ml) 1 mg Q4H PRN IV For Anxiety 03/08/20 19:00 03/13/20 18:59 03/09/20 14:56 Lorazepam (Ativan 2mg/ml 1ml) 2 mg Q6H PRN IV Seizures 03/08/20 18:15 03/13/20 06:14 Ondansetron HCl (Zofran) 4 mg Q6H PRN IVP Nausea & Vomiting 03/08/20 18:45 04/04/20 00:44 Polyethylene Glycol (Miralax) 17 gm HSPRN PRN ORAL Constipation 03/08/20 18:00 04/07/20 17:59 Quetiapine Fumarate (SEROqueL) 100 mg Q12HR ORAL 03/10/20 21:00 04/23/20 11:59 03/11/20 09:01 Zolpidem Tartrate (Ambien) 5 mg HSPRN PRN ORAL Insomnia 03/08/20 18:00 03/15/20 17:59 Assessment/Plan Problems: (1) Epileptic seizure, generalized (2) COVID-19 virus detected (3) History of diabetes mellitus (4) History of hypertension (5) History of psychiatric disorder (6) Severe protein-calorie malnutrition (7) DNR (do not resuscitate) (8) Comfort measures only status (9) Alzheimer's dementia Assessment/Plan awaiting psych and neuro evaluation on seroquel prn Haldol still on restrains agitated at times. swallow study noted: PUREE WITH THIN LIQUIDS, ASPIRATION PRECAUTIONS INCLUDING: NO STRAWS, SITTING UPRIGHT FOR MEALS/MEDICATION, SLOW RATE OF INTAKE , TOTAL ASSIST WITH MEALS, SMALL BITES/SIPS, 3. CRUSH CRUSHABLE MEDS/PRESENT IN PUREE 4. TOTAL ASSIST WITH MEALS Dipika Quijano MD Mar 11, 2020 11:32
--- NOTE | 2020-03-11 11:56 | NUR ---
DISCHARGE PLANNING PER [facility], PATIENT HAS BEEN ACCEPTED TO [facility] [address] [facility] [id number] BED 18-C SKILLED
[2020-03-11] MEDS: Haloperidol 5mg/ml Inj IM PRN (12:07)
--- NOTE | 2020-03-11 14:38 | Infectious Diseases Prog Note ---
Assessment/Plan Assessment: Breakthrough seizures Gram positive bacteremia -likely contaminant -03/04 Bcx 1/4 S. capitis; 03/07 Bcx NTD Afebrile No leukocytosis -u/a neg -CXR: no acute disease CRIS, SP -Renal US: Negative for hydronephrosis. Posterior bladder wall thickening or hypervascular mass. Consider further evaluation with cystoscopy and/or contrast CT scan. Possible bladder calculus. Prominent prostate with calcification. Small amount of ascites fluid within the pelvis recent COVID19 January 2020 -03/05 SARS-Cov2 pCr neg HTN psychiatric disorder seizure disorder DM2 DNR/DNI MD resident ([facility]) Plan: -Cont to monitor off abx -03/09 SP IV Vancomycin #3 -f/u cx -Monitor CBC/CMP, temperatures -ID neg x1 -Neuro eval -aspiration/seizure precautions -f/u repeat Bcx x2 Thank you for consulting [facility]. Will continue to follow along with you. Subjective Allergies: Coded Allergies: CHLORPROMAZINE (Verified Allergy, Unknown, 03/04/20) TRIFLUOPERAZINE (Verified Allergy, Unknown, 03/04/20) afebrile at RA repeat Bcx NTD off abx Objective Last 24 Hour Vital Signs Date Time Temp Pulse Resp B/P (MAP) Pulse Ox O2 Delivery O2 Flow Rate FiO2 03/11/20 13:20 98.2 97 17 114/72 (86) 98 03/11/20 12:00 98.4 79 16 140/93 (109) 97 03/11/20 09:20 97.8 75 19 129/89 (102) 95 03/11/20 09:00 Room Air 03/11/20 08:00 97.3 69 19 120/66 (84) 94 03/11/20 04:00 97.9 92 20 118/84 (95) 97 03/11/20 00:00 97.7 88 19 140/80 (100) 97 03/10/20 21:00 Room Air 03/10/20 20:00 97.7 79 19 136/86 (103) 97 03/10/20 17:20 98.2 79 19 145/93 (110) 96 03/10/20 16:20 96.6 98 20 139/89 (106) 98 03/10/20 15:20 97.8 92 22 154/87 (109) 98 Height (Feet): 5 Height (Inches): 8.00 Weight (Pounds): 112 General Appearance: other - Chronically ill-appearing Eyes: bilateral eye PERRL, bilateral eye EOMI ENT: hearing grossly normal, moist mucus membranes Neck: full range of motion, supple Respiratory: no rhonchi, no retraction, respiratory distress - Moderate respiratory distress noted Cardiovascular #1: normal peripheral pulses, no murmur, tachycardia Gastrointestinal: non tender, soft, non-distended, no guarding Neurologic: other - Patient obtunded, nonverbal, withdraws to pain Skin: warm/dry, pallor Laboratory Tests Test 03/10/20 16:53 03/10/20 21:10 03/10/20 21:38 03/11/20 11:37 POC Whole Blood Glucose 99 MG/DL (74-106) 67 MG/DL (74-106) L 82 MG/DL (74-106) 90 MG/DL (74-106) Current Medications Medications (Trade) Dose Ordered Sig/Michelle Route PRN Reason Start Time Stop Time Status Last Admin Dose Admin Acetaminophen (Tylenol) 650 mg Q4H PRN ORAL fever (T>100.5F) 03/08/20 20:45 04/04/20 00:44 Dextrose (Dextrose 50%) 25 ml Q30M PRN IV Hypoglycemia 03/08/20 17:30 06/03/20 12:59 Dextrose (Dextrose 50%) 50 ml Q30M PRN IV Hypoglycemia 03/08/20 17:30 06/03/20 12:59 03/10/20 05:13 Haloperidol Lactate (Haldol) 5 mg Q8H PRN IM agitation 03/10/20 13:11 04/24/20 13:10 03/11/20 12:07 Heparin Sodium (Porcine) (Heparin 5000 units/ml) 5,000 units EVERY 12 HOURS SUBQ 03/08/20 21:00 04/19/20 08:59 Insulin Aspart (NovoLOG) BEFORE MEALS AND HS SUBQ 03/08/20 21:00 06/03/20 16:29 Lorazepam (Ativan 2mg/ml 1ml) 1 mg Q4H PRN IV For Anxiety 03/08/20 19:00 03/13/20 18:59 03/09/20 14:56 Lorazepam (Ativan 2mg/ml 1ml) 2 mg Q6H PRN IV Seizures 03/08/20 18:15 03/13/20 06:14 Ondansetron HCl (Zofran) 4 mg Q6H PRN IVP Nausea & Vomiting 03/08/20 18:45 04/04/20 00:44 Polyethylene Glycol (Miralax) 17 gm HSPRN PRN ORAL Constipation 03/08/20 18:00 04/07/20 17:59 Quetiapine Fumarate (SEROqueL) 100 mg Q12HR ORAL 03/10/20 21:00 04/23/20 11:59 03/11/20 09:01 Zolpidem Tartrate (Ambien) 5 mg HSPRN PRN ORAL Insomnia 03/08/20 18:00 03/15/20 17:59 Kaitlyn Ness M.D. Mar 11, 2020 14:38
--- NOTE | 2020-03-11 15:00 | NUR ---
CHARGE NURSE NOTE: Pt is on restraints, aggressive, combative, trying get rid of restraints, and get out of the bed. sitter at the bedside. 3 people trying to put pt back on restraints. Primary nurse will give Haldol IM.
[2020-03-11] MEDS ORDERED: LORazepam Inj 2mg/ml 1ml IV PRN (17:30)
[2020-03-11] MEDS ORDERED: LORazepam Inj 2mg/ml 1ml IM SCH (17:30)
--- NOTE | 2020-03-11 19:15 | NUR ---
HAND-OFF: Report given to NOHELIA Jackson. Patient awake in bed with sitter at bedside, unable to still obtain IV d/t patient's behavior/refusal. no SOB noted, endorsed to next shift.
--- NOTE | 2020-03-11 19:25 | NUR ---
NURSE NOTES: Received report from maria r velasco. patient is asleep with no clothes on. per rod, " patient refused to get dressed and has episodes of kicking, fighting and trying to get out of bed thus haldol and ativan given". with sitter "frankline" on the bedside. with bilateral soft wrist restraints, no injury noted. still with no IV line. md is aware. incontinent x2. reiterated to call and ask for assistance. bed locked and in lowest position. call light and light button within. will continue plan of care.
--- NOTE | 2020-03-12 | NUR ---
NURSE NOTES: tried to put iv line x2. patient fights upon iv insertion. patient went back to sleep after 20 mins with francine( sitter) on the bedside
[2020-03-12 04:00] VITALS: BP 138/90
[2020-03-12] MEDS: NovoLOG Insulin Flexpen SUBQ SCH ×4 (05:58→20:33)
--- NOTE | 2020-03-12 07:07 | NUR ---
HAND-OFF: Report given to maria r reese. patient is asleep. on room air. no sob. with sitter on the bedside. call light and light button within easy reach. plan of care endorsed.
--- NOTE | 2020-03-12 07:10 | NUR ---
NURSE NOTES: Received patient in bed. Awake, nonverbal. Patient opens eyes to name calling. On room air, respirations unlabored. No signs of pain at this time. Bilateral soft wrist restraints in place, hands are warm and normal color for ethnicity, pulses palpable. No IV site, Dr. Quijano aware. Sitter at bedside. Patient is a high fall risk d/t s/p fall. Patient placed close to the nurses station for safety, yellow socks on, yellow gown on, bed alarm placed on high sensitivity. Patient oriented to room and surroundings and call light. Unable to return demonstration.
[2020-03-12 08:00] VITALS: BP 106/68
[2020-03-12] MEDS: Heparin 5000 units/ml inj SUBQ SCH ×2 (09:00→20:11)
--- NOTE | 2020-03-12 09:11 | NUR ---
NURSE NOTES: Subcut heparin held d/t platelets level of 71.
--- NOTE | 2020-03-12 11:31 | NUR ---
NURSE NOTES: Order for bilateral soft wrist restraint renewal obtained from Dr. Quijano. Carried out.
[2020-03-12 12:00] VITALS: BP 145/95
--- NOTE | 2020-03-12 12:59 | Infectious Diseases Prog Note ---
Assessment/Plan Assessment: Breakthrough seizures Gram positive bacteremia -likely contaminant -03/04 Bcx 1/4 S. capitis; 03/07 Bcx NTD Afebrile No leukocytosis -u/a neg -CXR: no acute disease CRIS, SP -Renal US: Negative for hydronephrosis. Posterior bladder wall thickening or hypervascular mass. Consider further evaluation with cystoscopy and/or contrast CT scan. Possible bladder calculus. Prominent prostate with calcification. Small amount of ascites fluid within the pelvis recent COVID19 January 2020 -03/05 SARS-Cov2 pCr neg HTN psychiatric disorder seizure disorder DM2 DNR/DNI DC resident ([facility]) Plan: -Cont to monitor off abx -03/09 SP IV Vancomycin #3 -f/u cx -Monitor CBC/CMP, temperatures -ID neg x1 -Neuro eval -aspiration/seizure precautions -f/u repeat Bcx x2 Thank you for consulting [facility]. Will continue to follow along with you. Subjective Allergies: Coded Allergies: CHLORPROMAZINE (Verified Allergy, Unknown, 03/04/20) TRIFLUOPERAZINE (Verified Allergy, Unknown, 03/04/20) afebrile at RA repeat Bcx NTD Objective Last 24 Hour Vital Signs Date Time Temp Pulse Resp B/P (MAP) Pulse Ox O2 Delivery O2 Flow Rate FiO2 03/12/20 09:00 Room Air 03/12/20 08:00 97.0 58 20 106/68 (81) 94 03/12/20 04:00 97.8 81 18 138/90 (106) 98 03/11/20 23:50 97.7 79 18 138/76 (96) 97 03/11/20 21:00 Room Air 03/11/20 20:00 97.9 78 19 134/89 (104) 98 03/11/20 17:20 98.0 75 18 145/80 (101) 97 03/11/20 16:00 98.2 76 17 149/84 (105) 97 03/11/20 13:20 98.2 97 17 114/72 (86) 98 Height (Feet): 5 Height (Inches): 8.00 Weight (Pounds): 112 General Appearance: other - Chronically ill-appearing Eyes: bilateral eye PERRL, bilateral eye EOMI ENT: hearing grossly normal, moist mucus membranes Neck: full range of motion, supple Respiratory: no rhonchi, no retraction, respiratory distress - Moderate respiratory distress noted Cardiovascular #1: normal peripheral pulses, no murmur, tachycardia Gastrointestinal: non tender, soft, non-distended, no guarding Laboratory Tests Test 03/11/20 16:45 03/12/20 11:24 POC Whole Blood Glucose 81 MG/DL (74-106) Pending Current Medications Medications (Trade) Dose Ordered Sig/Michelle Route PRN Reason Start Time Stop Time Status Last Admin Dose Admin Acetaminophen (Tylenol) 650 mg Q4H PRN ORAL fever (T>100.5F) 03/08/20 20:45 04/04/20 00:44 Dextrose (Dextrose 50%) 25 ml Q30M PRN IV Hypoglycemia 03/08/20 17:30 06/03/20 12:59 Dextrose (Dextrose 50%) 50 ml Q30M PRN IV Hypoglycemia 03/08/20 17:30 06/03/20 12:59 03/10/20 05:13 Haloperidol Lactate (Haldol) 5 mg Q8H PRN IM agitation 03/10/20 13:11 04/24/20 13:10 03/11/20 12:07 Heparin Sodium (Porcine) (Heparin 5000 units/ml) 5,000 units EVERY 12 HOURS SUBQ 03/08/20 21:00 04/19/20 08:59 Insulin Aspart (NovoLOG) BEFORE MEALS AND HS SUBQ 03/08/20 21:00 06/03/20 16:29 Lorazepam (Ativan 2mg/ml 1ml) 2 mg Q4H PRN IV Agitation 03/11/20 17:30 03/18/20 17:29 Lorazepam (Ativan 2mg/ml 1ml) 2 mg Q6H PRN IV For Seizures 03/11/20 17:30 03/18/20 17:29 Ondansetron HCl (Zofran) 4 mg Q6H PRN IVP Nausea & Vomiting 03/08/20 18:45 04/04/20 00:44 Polyethylene Glycol (Miralax) 17 gm HSPRN PRN ORAL Constipation 03/08/20 18:00 04/07/20 17:59 Quetiapine Fumarate (SEROqueL) 100 mg Q12HR ORAL 03/10/20 21:00 04/23/20 11:59 03/12/20 08:23 Zolpidem Tartrate (Ambien) 5 mg HSPRN PRN ORAL Insomnia 03/08/20 18:00 03/15/20 17:59 Kaitlyn Ness M.D. Mar 12, 2020 12:59
--- NOTE | 2020-03-12 13:41 | Pulmonology Progress Note ---
Subjective ROS Limited/Unobtainable: Yes Interval Events: was agitated earlier, needs sitter Constitutional: Reports: no symptoms HEENT: Repors: no symptoms Allergies: Coded Allergies: CHLORPROMAZINE (Verified Allergy, Unknown, 03/04/20) TRIFLUOPERAZINE (Verified Allergy, Unknown, 03/04/20) Objective Last 24 Hour Vital Signs Date Time Temp Pulse Resp B/P (MAP) Pulse Ox O2 Delivery O2 Flow Rate FiO2 03/12/20 12:00 98.0 79 18 145/95 (112) 96 03/12/20 09:00 Room Air 03/12/20 08:00 97.0 58 20 106/68 (81) 94 03/12/20 04:00 97.8 81 18 138/90 (106) 98 03/11/20 23:50 97.7 79 18 138/76 (96) 97 03/11/20 21:00 Room Air 03/11/20 20:00 97.9 78 19 134/89 (104) 98 03/11/20 17:20 98.0 75 18 145/80 (101) 97 03/11/20 16:00 98.2 76 17 149/84 (105) 97 Intake and Output 03/11/20 03/12/20 19:00 07:00 Intake Total 320 ml 300 ml Balance 320 ml 300 ml Intake Oral 320 ml 300 ml # Voids 1 2 General Appearance: no acute distress HEENT: normocephalic, atraumatic, anicteric Respiratory: no accessory muscle use, other - on O2 via NC Cardiovascular: normal peripheral pulses, normal rate Abdomen: soft, non tender, non distended Extremities: no cyanosis, no clubbing, no edema, pedal pulses normal Neurologic: abnormal gait - bedridden , other - not responsive Lymphatic: no neck adenopathy Musculoskeletal: atrophy - BLE Laboratory Tests 03/11/20 16:45: POC Whole Blood Glucose 81 03/12/20 11:24: POC Whole Blood Glucose [Pending] Current Medications Medications (Trade) Dose Ordered Sig/Michelle Route PRN Reason Start Time Stop Time Status Last Admin Dose Admin Acetaminophen (Tylenol) 650 mg Q4H PRN ORAL fever (T>100.5F) 03/08/20 20:45 04/04/20 00:44 Dextrose (Dextrose 50%) 25 ml Q30M PRN IV Hypoglycemia 03/08/20 17:30 06/03/20 12:59 Dextrose (Dextrose 50%) 50 ml Q30M PRN IV Hypoglycemia 03/08/20 17:30 06/03/20 12:59 03/10/20 05:13 Haloperidol Lactate (Haldol) 5 mg Q8H PRN IM agitation 03/10/20 13:11 04/24/20 13:10 03/11/20 12:07 Heparin Sodium (Porcine) (Heparin 5000 units/ml) 5,000 units EVERY 12 HOURS SUBQ 03/08/20 21:00 04/19/20 08:59 Insulin Aspart (NovoLOG) BEFORE MEALS AND HS SUBQ 03/08/20 21:00 06/03/20 16:29 Lorazepam (Ativan 2mg/ml 1ml) 2 mg Q4H PRN IV Agitation 03/11/20 17:30 03/18/20 17:29 Lorazepam (Ativan 2mg/ml 1ml) 2 mg Q6H PRN IV For Seizures 03/11/20 17:30 03/18/20 17:29 Ondansetron HCl (Zofran) 4 mg Q6H PRN IVP Nausea & Vomiting 03/08/20 18:45 04/04/20 00:44 Polyethylene Glycol (Miralax) 17 gm HSPRN PRN ORAL Constipation 03/08/20 18:00 04/07/20 17:59 Quetiapine Fumarate (SEROqueL) 100 mg Q12HR ORAL 03/10/20 21:00 04/23/20 11:59 03/12/20 08:23 Zolpidem Tartrate (Ambien) 5 mg HSPRN PRN ORAL Insomnia 03/08/20 18:00 03/15/20 17:59 Assessment/Plan Problems: (1) Epileptic seizure, generalized (2) History of diabetes mellitus (3) History of hypertension (4) History of psychiatric disorder (5) Severe protein-calorie malnutrition (6) DNR (do not resuscitate) (7) Comfort measures only status (8) Alzheimer's dementia Assessment/Plan pt either agitated or sedated on seroquel prn Haldol still on restrains agitated at times. pt can go back to [facility], once the agitation is under control and he is off restrains swallow study noted: PUREE WITH THIN LIQUIDS, ASPIRATION PRECAUTIONS INCLUDING: NO STRAWS, SITTING UPRIGHT FOR MEALS/MEDICATION, SLOW RATE OF INTAKE , TOTAL ASSIST WITH MEALS, SMALL BITES/SIPS, 3. CRUSH CRUSHABLE MEDS/PRESENT IN PUREE 4. TOTAL ASSIST WITH MEALS Dipika Quijano MD Mar 12, 2020 13:41
[2020-03-12] MEDS: Haloperidol 5mg/ml Inj IM PRN (13:43)
--- NOTE | 2020-03-12 14:48 | NUR ---
NURSE NOTES: IV line attempted without success. Patient is restless and combative. IM haldol previously given. Dr. Quijano contacted.
[2020-03-12] MEDS: LORazepam Inj 2mg/ml 1ml IV PRN (15:12)
--- NOTE | 2020-03-12 15:12 | NUR ---
NURSE NOTES: IV line established. IV ativan given for agitation.
[2020-03-12] MEDS ORDERED: LORazepam Inj 2mg/ml 1ml IM PRN (15:17)
--- NOTE | 2020-03-12 15:17 | NUR ---
CASE MANAGEMENT:REVIEW SI;SEIZURES. ALZHEIMER DEMENTIA. 98.0 58 20 145/95 94% ON RA LABS ~ NONE TODAY IS;HALDOL IM SEROQUEL PO Q12 ATIVAN IV HEPARIN SUBQ Q12 MED SURG STATUS DCP;FROM CV [facility] PATIENT TO DC TO [facility] DUE TO COVID NEG STATUS PLAN; DC TO SNF ONCE PATIENT IS LESS COMBATIVE AND AGITATED
--- NOTE | 2020-03-12 16:10 | NUR ---
NURSE NOTES: Blood glucose level 71. [place] juice x2 given.
--- NOTE | 2020-03-12 17:00 | NUR ---
NURSE NOTES: [place] juice given x2. Patient had dinner. F/u blood glucose 109.
--- NOTE | 2020-03-12 19:14 | NUR ---
HAND-OFF: Report given to Ricky POZO.
--- NOTE | 2020-03-12 19:41 | NUR ---
NURSE NOTES: Report received from Segundo POZO. Patient is currently asleep. Endorsed to Ricky POZO that patient is awake and alert x 1 at baseline. Endorsed to Ricky POZO that patient becomes confused, agitated, refuses nursing care, violent, and tries to leave the unit. Was endorsed to Ricky POZO that patient had a fall in the elevator during this admission. Endorsed to Ricky POZO that Haldol and Ativan was administered to the patient by Segundo POZO this previous afternoon. Patient is noted to be on room air, does not appear to be in respiratory distress at this time. Patient is noted to have right forearm 22 neha IV access. Patient is recognized as a high fall risk, Carmelo adjunct nursing faculty is at bedside for patient safety. Ricky POZO made adjunct nursing faculty on floor aware, charge nurse Keke aware. Bed is locked, in lowest position. Sitter at bedside. Will continue to follow plan of care.
[2020-03-12 20:00] VITALS: BP 140/88
--- NOTE | 2020-03-12 20:12 | NUR ---
NURSE NOTES: Heparin held due to low platelet laboratory values.
--- NOTE | 2020-03-12 20:40 | NUR ---
NURSE NOTES: patient noted to have blood glucose level of 72. patient is awake and alert x 1, this is baseline for the patient. Patient able to state name and was able to tell Ricky POZO what type of juice he would like when asked by Ricky POZO. 120 cc of apple juice was given to patient. Will recheck blood glucose level.
[2020-03-13] VITALS: BP 134/84
[2020-03-13 04:00] VITALS: BP 114/76
[2020-03-13] MEDS: NovoLOG Insulin Flexpen SUBQ SCH ×4 (06:26→21:00)
--- NOTE | 2020-03-13 06:30 | NUR ---
NURSE NOTES: At 055 patient found to have blood glucose of 66. Patient was asymptomatic at this time. Was awake and alert x 1 and verbally responsive. 120 cc apple juice given. 4 saltine crackers given. 0610 patient found to have blood glucose of 62. Patient still asymptomatic. 25 mL of 50 % dextrose administered per MD orders. Patient now has blood glucose of 116. Charge Nurse Keke nash. Doctor Samm paged to be made aware.
--- NOTE | 2020-03-13 07:35 | NUR ---
HAND-OFF: Report given to Lex POZO. Endorsed that patient had a low blood glucose level this morning that has been corrected. Endorsed that patient was still violent and combative when out of restraints. Patient back in restraints and in stable condition. Sitter at bedside.
--- NOTE | 2020-03-13 07:58 | NUR ---
NURSE NOTES: Report received from NOHELIA García. Patient is currently asleep. trolley coach driver endorsed patient is AAOx1 or 2, On room air, and with bilateral soft restraint. Restraints are properly placed, pulse present, no erythema or any signs of blood circulation cut off noted at this time. IV site was D/c per patient as endorsed by color strainer nurse. Will try to start a new IV. trolley coach driver endorsed that patient is aggressive and agitated when off bilateral restraint. Sitter at bedside. Side rails padded, seizure precaution maintained. Bed locked and placed in lowest position with bed alarm on. Will continue to monitor
[2020-03-13 08:00] VITALS: BP 120/70
[2020-03-13] MEDS: Heparin 5000 units/ml inj SUBQ SCH ×2 (09:00→20:59)
[2020-03-13] MEDS: LORazepam Inj 2mg/ml 1ml IV PRN ×2 (10:15→16:45)
--- NOTE | 2020-03-13 10:25 | NUR ---
NURSE NOTES: patient was on bilateral soft restraint with sitter at bedside. Patient was able to take off all clothings, blankets, and slider from bed. Patient refuses to cooperative, he became combative and patient was thrashing on bed and is able to kick sideways endangering other nurses and personnel. Ativan was given to calm patient down. Patient still refuses to have clothing put on. Will continue to monitor
--- NOTE | 2020-03-13 11:35 | NUR ---
NURSE NOTES: at 1130 patients blood glucose level was at 70. Patient was asymptomatic. IV site was intact this morning but patient D/c. RN was advised by charge nurse to put 1 pack of sugar under the tongue. Patient is still sedated from previous ativan administration.
[2020-03-13 12:00] VITALS: BP 135/75
--- NOTE | 2020-03-13 12:08 | NUR ---
NURSE NOTES: RN rechecked sugar level and it went up to 77. Patient is asymptomatic, still sedate with slight movements from verbal commands. VS stable. Informed charge nurse
--- NOTE | 2020-03-13 12:33 | NUR ---
NURSE NOTES: RN tried to start IV line again, but patient continues to move and thrash while inserting IV. RN informed charge nurse and made aware.
[2020-03-13 16:00] VITALS: BP 133/75
--- NOTE | 2020-03-13 16:49 | NUR ---
NURSE NOTES: Blood sugar ntoed to be 75 and when RN tried to feed patient, patient strated taking off his clothes and thrashing in the bed. RN gave ativan to calm patient down. Will continue to monitor
--- NOTE | 2020-03-13 17:18 | NUR ---
NURSE NOTES: Patient continues to be combative and refuses to put on clothes. Sitter made RN aware that patient was trying to get out of bed by putting legs over side rails. RN also put optifoam on bilateral heel to prevent skin breakdown, but patient continuously takes it off.
--- NOTE | 2020-03-13 18:06 | NUR ---
NURSE NOTES: Sitter at bedside discontinued per MD. Made charge nurse aware
--- NOTE | 2020-03-13 19:00 | Infectious Diseases Prog Note ---
Assessment/Plan Assessment: Breakthrough seizures Gram positive bacteremia -likely contaminant -03/04 Bcx 1/4 S. capitis; 03/07 Bcx NTD Afebrile No leukocytosis -u/a neg -CXR: no acute disease CRIS, SP -Renal US: Negative for hydronephrosis. Posterior bladder wall thickening or hypervascular mass. Consider further evaluation with cystoscopy and/or contrast CT scan. Possible bladder calculus. Prominent prostate with calcification. Small amount of ascites fluid within the pelvis recent COVID19 January 2020 -03/05 SARS-Cov2 pCr neg HTN psychiatric disorder seizure disorder DM2 DNR/DNI [place] resident ([facility]) Plan: -Cont to monitor off abx -03/09 SP IV Vancomycin #3 -f/u cx -Monitor CBC/CMP, temperatures - neg x1 -Neuro eval -aspiration/seizure precautions Thank you for consulting [facility]. Will continue to follow along with you. Subjective Allergies: Coded Allergies: CHLORPROMAZINE (Verified Allergy, Unknown, 03/04/20) TRIFLUOPERAZINE (Verified Allergy, Unknown, 03/04/20) Objective Last 24 Hour Vital Signs Date Time Temp Pulse Resp B/P (MAP) Pulse Ox O2 Delivery O2 Flow Rate FiO2 03/13/20 16:00 96.8 80 19 133/75 (94) 97 03/13/20 12:00 97.0 82 20 135/75 (95) 96 03/13/20 09:00 Room Air 03/13/20 08:00 97.6 81 18 120/70 (87) 96 03/13/20 04:00 98.0 96 18 114/76 (89) 96 03/13/20 00:00 98.4 96 18 134/84 (101) 96 03/12/20 21:00 Room Air 03/12/20 20:00 98.8 76 20 140/88 (105) 96 Height (Feet): 5 Height (Inches): 8.00 Weight (Pounds): 112 HEENT: atraumatic Respiratory/Chest: normal breath sounds Cardiovascular: regularly irregular Abdomen: no organomegaly Laboratory Tests Test 03/12/20 20:31 03/13/20 00:26 03/13/20 06:11 03/13/20 06:38 POC Whole Blood Glucose 72 MG/DL (74-106) L 80 MG/DL (74-106) 62 MG/DL (74-106) L 116 MG/DL (74-106) H Test 03/13/20 11:32 POC Whole Blood Glucose 70 MG/DL (74-106) L Current Medications Medications (Trade) Dose Ordered Sig/Michelle Route PRN Reason Start Time Stop Time Status Last Admin Dose Admin Acetaminophen (Tylenol) 650 mg Q4H PRN ORAL fever (T>100.5F) 03/08/20 20:45 04/04/20 00:44 Dextrose (Dextrose 50%) 25 ml Q30M PRN IV Hypoglycemia 03/08/20 17:30 06/03/20 12:59 03/13/20 06:15 Dextrose (Dextrose 50%) 50 ml Q30M PRN IV Hypoglycemia 03/08/20 17:30 06/03/20 12:59 03/10/20 05:13 Haloperidol Lactate (Haldol) 5 mg Q8H PRN IM agitation 03/10/20 13:11 04/24/20 13:10 03/12/20 13:43 Heparin Sodium (Porcine) (Heparin 5000 units/ml) 5,000 units EVERY 12 HOURS SUBQ 03/08/20 21:00 04/19/20 08:59 Insulin Aspart (NovoLOG) BEFORE MEALS AND HS SUBQ 03/08/20 21:00 06/03/20 16:29 Lorazepam (Ativan 2mg/ml 1ml) 2 mg Q4H PRN IV Agitation 03/11/20 17:30 03/18/20 17:29 03/13/20 16:45 Lorazepam (Ativan 2mg/ml 1ml) 2 mg Q6H PRN IV For Seizures 03/11/20 17:30 03/18/20 17:29 Ondansetron HCl (Zofran) 4 mg Q6H PRN IVP Nausea & Vomiting 03/08/20 18:45 04/04/20 00:44 Polyethylene Glycol (Miralax) 17 gm HSPRN PRN ORAL Constipation 03/08/20 18:00 04/07/20 17:59 Quetiapine Fumarate (SEROqueL) 100 mg Q12HR ORAL 03/10/20 21:00 04/23/20 11:59 03/13/20 09:00 Zolpidem Tartrate (Ambien) 5 mg HSPRN PRN ORAL Insomnia 03/08/20 18:00 03/15/20 17:59 Devon Norton MD Mar 13, 2020 19:00
--- NOTE | 2020-03-13 19:27 | NUR ---
HAND-OFF: Report given to NOHELIA Carrera. Endorsed that patient is a very high fall risk and that sitter was d/c today
--- NOTE | 2020-03-13 19:32 | NUR ---
NURSE NOTES: Received report from Lex POZO. The patient was noted with some level of anxiety and inability to relax also noted. He is alert and oriented x2.He is on room air with Resp even and unlabored. He was noted with an IV line on R. upper arm 24g saline log that is patent and asymptomatic. Seizure precaution in place, bed in low and log position and the call light within easy reach with side rails up x2 a. will continue to monitor
--- NOTE | 2020-03-13 19:39 | Pulmonology Progress Note ---
Subjective ROS Limited/Unobtainable: Yes Interval Events: was agitated earlier, needs sitter Constitutional: Reports: no symptoms HEENT: Repors: no symptoms Allergies: Coded Allergies: CHLORPROMAZINE (Verified Allergy, Unknown, 03/04/20) TRIFLUOPERAZINE (Verified Allergy, Unknown, 03/04/20) Objective Last 24 Hour Vital Signs Date Time Temp Pulse Resp B/P (MAP) Pulse Ox O2 Delivery O2 Flow Rate FiO2 03/13/20 16:00 96.8 80 19 133/75 (94) 97 03/13/20 12:00 97.0 82 20 135/75 (95) 96 03/13/20 09:00 Room Air 03/13/20 08:00 97.6 81 18 120/70 (87) 96 03/13/20 04:00 98.0 96 18 114/76 (89) 96 03/13/20 00:00 98.4 96 18 134/84 (101) 96 03/12/20 21:00 Room Air 03/12/20 20:00 98.8 76 20 140/88 (105) 96 Intake and Output 03/12/20 03/13/20 19:00 07:00 Intake Total 500 ml 360 ml Balance 500 ml 360 ml Intake Oral 500 ml 360 ml General Appearance: no acute distress HEENT: normocephalic, atraumatic, anicteric Respiratory: no accessory muscle use, other - on O2 via NC Cardiovascular: normal peripheral pulses, normal rate Abdomen: soft, non tender, non distended Extremities: no cyanosis, no clubbing, no edema, pedal pulses normal Neurologic: abnormal gait - bedridden , other - not responsive Lymphatic: no neck adenopathy Musculoskeletal: atrophy - BLE Laboratory Tests 03/12/20 20:31: POC Whole Blood Glucose 72L 03/13/20 00:26: POC Whole Blood Glucose 80 03/13/20 06:11: POC Whole Blood Glucose 62L 03/13/20 06:38: POC Whole Blood Glucose 116H 03/13/20 11:32: POC Whole Blood Glucose 70L Current Medications Medications (Trade) Dose Ordered Sig/Michelle Route PRN Reason Start Time Stop Time Status Last Admin Dose Admin Acetaminophen (Tylenol) 650 mg Q4H PRN ORAL fever (T>100.5F) 03/08/20 20:45 04/04/20 00:44 Dextrose (Dextrose 50%) 25 ml Q30M PRN IV Hypoglycemia 03/08/20 17:30 06/03/20 12:59 03/13/20 06:15 Dextrose (Dextrose 50%) 50 ml Q30M PRN IV Hypoglycemia 03/08/20 17:30 06/03/20 12:59 03/10/20 05:13 Haloperidol Lactate (Haldol) 5 mg Q8H PRN IM agitation 03/10/20 13:11 04/24/20 13:10 03/12/20 13:43 Heparin Sodium (Porcine) (Heparin 5000 units/ml) 5,000 units EVERY 12 HOURS SUBQ 03/08/20 21:00 04/19/20 08:59 Insulin Aspart (NovoLOG) BEFORE MEALS AND HS SUBQ 03/08/20 21:00 06/03/20 16:29 Lorazepam (Ativan 2mg/ml 1ml) 2 mg Q4H PRN IV Agitation 03/11/20 17:30 03/18/20 17:29 03/13/20 16:45 Lorazepam (Ativan 2mg/ml 1ml) 2 mg Q6H PRN IV For Seizures 03/11/20 17:30 03/18/20 17:29 Ondansetron HCl (Zofran) 4 mg Q6H PRN IVP Nausea & Vomiting 03/08/20 18:45 04/04/20 00:44 Polyethylene Glycol (Miralax) 17 gm HSPRN PRN ORAL Constipation 03/08/20 18:00 04/07/20 17:59 Quetiapine Fumarate (SEROqueL) 100 mg Q12HR ORAL 03/10/20 21:00 04/23/20 11:59 03/13/20 09:00 Zolpidem Tartrate (Ambien) 5 mg HSPRN PRN ORAL Insomnia 03/08/20 18:00 03/15/20 17:59 Assessment/Plan Problems: (1) Epileptic seizure, generalized (2) History of diabetes mellitus (3) History of hypertension (4) History of psychiatric disorder (5) Severe protein-calorie malnutrition (6) DNR (do not resuscitate) (7) Comfort measures only status (8) Alzheimer's dementia Assessment/Plan has a sitter on seroquel prn Haldol still on restrains agitated at times. pt can go back to [facility], once the agitation is under control and he is off restrains swallow study noted: PUREE WITH THIN LIQUIDS, ASPIRATION PRECAUTIONS INCLUDING: NO STRAWS, SITTING UPRIGHT FOR MEALS/MEDICATION, SLOW RATE OF INTAKE , TOTAL ASSIST WITH MEALS, SMALL BITES/SIPS, 3. CRUSH CRUSHABLE MEDS/PRESENT IN PUREE 4. TOTAL ASSIST WITH MEALS Dipika Quijano MD Mar 13, 2020 19:38
[2020-03-13 20:00] VITALS: BP 161/92
[2020-03-13] MEDS: Haloperidol 5mg/ml Inj IM PRN (20:59)
[2020-03-14] VITALS: BP 135/85
[2020-03-14 04:00] VITALS: BP 148/87
--- NOTE | 2020-03-14 04:15 | Consultation ---
DATE OF CONSULTATION: 03/13/2020 HISTORY OF PRESENT ILLNESS: This is a 69-year-old male with a history of dementia and seizure, recent COVID-19, diabetes mellitus, who has been admitted to the hospital due to uncontrolled seizure. The patient is agitated. The patient has also of bilateral self-restraints. The patient was given cocktail sauce over the past several days for severe agitation. The patient is unable to participate in evaluation or answer the questions due to cognitive impairment. PAST MEDICAL HISTORY: As above. ALLERGIES: Klonopin and trifluoperazine. SUBSTANCE ABUSE HISTORY: No known history of illicit drug use or alcohol. MENTAL STATUS EXAMINATION: The patient is having waxing and waning consciousness. Mood is agitated. Affect is flat. Thought process, there is a paucity of thought content. Thought content, no suicidal or homicidal ideation. Cognition is impaired. Insight and judgment are impaired. ASSESSMENT: [place] I Dementia with behavior disturbance. [place] II Psychotic disorder. [place] III As above. [place] IV Low. [place] V 20. PLAN: 1. We will DC the Seroquel. 2. We will continue to start the patient on risperidone. 3. Provide the patient with reality orientation. 4. Haldol IM. 5. Ativan IM. DC the IV Ativan. 6. Provide the patient with reality orientation and supportive therapy. We will continue to follow and readjust the medications. Lisa Hobson M.D. DR: SOFYA JOB#: [id number] CC: ZACHERY
[2020-03-14] MEDS: NovoLOG Insulin Flexpen SUBQ SCH ×4 (06:01→21:41)
[2020-03-14] MEDS: LORazepam Inj 2mg/ml 1ml IM PRN ×2 (06:20→13:04)
--- NOTE | 2020-03-14 06:58 | NUR ---
NURSE NOTES: The patient received Haloperidol last night due to severed anxiety and inability to relax and he was able to sleep about 7 hrs all night long. earlier this morning, He continuous with agitation and kicking and was also given Ativan as indicated well tolerated. Will continue to monitor
--- NOTE | 2020-03-14 07:22 | NUR ---
HAND-OFF: Report given to Carole SCHRADER.
--- NOTE | 2020-03-14 07:40 | NUR ---
NURSE NOTES: RECEIVED PATIENT A/A/OX1, CONFUSED. ON BILATERAL SOFT WRISTS RESTRAINTS FOR REMOVING DEVICES, GETTING OUT OF BED AND COMBATIVENESS. SIDERAILS ARE PADDED FOR SEIZURES DISORDERS. NO SEIZURES ACTIVITY NOTED. CALM AND COMFORTABLE. BED IS IN THE LOWEST POSITION. BED BRAKES ENGAGED AND LOCKED. CALL LIGHT IS WITHIN REACH. WILL CONT TO MONITOR.
[2020-03-14 08:00] VITALS: BP 157/90
[2020-03-14] MEDS: Heparin 5000 units/ml inj SUBQ SCH ×2 (08:33→21:00)
--- NOTE | 2020-03-14 09:19 | NUR ---
RD ASSESSMENT & RECOMMENDATIONS SEE CARE ACTIVITY FOR COMPLETE ASSESSMENT DAILY ESTIMATED NEEDS: Needs based on Underweight, pulmonary 57kg 25-35 kcals/kg 1071-5089 total kcals 1-1.5 g protein/kg 57-86 g total protein 25-30 mL/kg 5123-7946 total fluid mLs NUTRITION DIAGNOSIS: Increased kcal/prot needs r/t underweight status as evidenced by pt is 81% of ideal body weight, pt w/ poor and variable intake. CURRENT DIET:REGULAR, pureed moist w/ thin PO DIET RECOMMENDATIONS: Liberalized Regular diet, texture per FAMILY WORK[employer] ENTERAL NUTRITION RECOMMENDATIONS: Glucerna 1.5 @ 50ml/hr x 24 hrs to provide 1200ml, 1800kcal, 99g prot, 911ml free water * If TF part of POC, rec obtain GI access, initiate TF due to consistently poor PO intake * Initiate Glucerna 1.5 @ 10ml/hr x 6hrs * Advance 10ml q 4-6 hrs as tolerated to goal rate * HOB over 30 degrees/ water flush per MD ADDITIONAL RECOMMENDATIONS: 2) F/up w/ WC eval: add MVI x 1, Vit C 250mg QD 3) D5 IVF w/ poor PO to prevent hypoglycemia; HgA1C for eval 4) Obtain a calibrated bed scale wt for accurate CBW + weekly wts 5) Ensure Enlive TID w/ meals + rec appetite stimulant 6) [place] COUNT X 48 HRS COMPLETED -> INCOMPLETE DATA however, pt w/ minimal intake, consistently poor PO, many meal refusals TF rec as above if TF part of POC and indicated
[2020-03-14] MEDS: Haloperidol 5mg/ml Inj IM PRN ×2 (10:30→18:30)
[2020-03-14 12:04] VITALS: BP 118/85
--- NOTE | 2020-03-14 13:33 | NUR ---
CHARGE NURSE NOTE: Pt put his legs out of the bed, resistive to care, restless,trying to get off of restraints. Ativan 1 mg IM given by Primary nurse Carole.
[2020-03-14 16:00] VITALS: BP 141/89
--- NOTE | 2020-03-14 18:30 | NUR ---
NURSE NOTES: HALDOL 5MG/ML IM FOR AGITATION. PATIENT APPEARED TO BE COMBATIVE. AND CONFUSED. REMAINED A/A/OX1, VERBALLY RESPONSIVE. BILATERAL SOFT WRISTS RESTRAINTS PLACED. HOB ELEVATED FOR ASPIRATION PRECAUTION. VSS. WILL CONT TO MONITOR.
--- NOTE | 2020-03-14 19:02 | NUR ---
HAND-OFF: Report given to TOBY.
--- NOTE | 2020-03-14 19:35 | NUR ---
NURSE NOTES: Report received from Carole SCHRADER. Patient is awake and alert x 1. Patient appears agitated and is actively moving around in the bed. When Ricky POZO asked the patient how he was feeling patient stated "If you are going to kill me just get it over with already". Unable to reorient patient to reality. Patient is noted to be in bilateral soft wrist restraints. No order renewal needed at this time. Patient able to move extremities. No edema noted. Pulses present. Patient is noted to be on room air, does not appear to be in respiratory distress at this time. Patient is noted to have IV access in right upper arm. No fluids ordered at this time. Endorsed to Ricky POZO that patient has a history of a fall this admission. Endorsed to Ricky POZO that patient can be resistive to care at times. Patient noted to have a history of a low blood glucose level. Patient is currently in stable condition. Bed is locked, alarmed, and in lowest position. clinical trials assistant aware of high fall risk. Will continue to follow plan of care.
--- NOTE | 2020-03-14 19:52 | Pulmonology Progress Note ---
Subjective ROS Limited/Unobtainable: Yes Interval Events: was agitated earlier, needs sitter Constitutional: Reports: no symptoms HEENT: Repors: no symptoms Allergies: Coded Allergies: CHLORPROMAZINE (Verified Allergy, Unknown, 03/04/20) TRIFLUOPERAZINE (Verified Allergy, Unknown, 03/04/20) Objective Last 24 Hour Vital Signs Date Time Temp Pulse Resp B/P (MAP) Pulse Ox O2 Delivery O2 Flow Rate FiO2 03/14/20 16:00 98.1 79 18 141/89 (106) 98 03/14/20 12:04 96.8 88 16 118/85 (96) 92 03/14/20 09:00 Room Air 03/14/20 08:00 97.9 66 17 157/90 (112) 95 03/14/20 04:00 97.5 83 20 148/87 (107) 96 03/14/20 00:00 98.4 92 19 135/85 (102) 96 03/13/20 21:00 Room Air 03/13/20 20:00 97.5 70 21 161/92 (115) 95 Intake and Output 03/13/20 03/14/20 19:00 07:00 Intake Total 200 ml 750 ml Balance 200 ml 750 ml Intake Oral 200 ml 750 ml # Voids 5 General Appearance: no acute distress HEENT: normocephalic, atraumatic, anicteric Respiratory: no accessory muscle use, other - on O2 via NC Cardiovascular: normal peripheral pulses, normal rate Abdomen: soft, non tender, non distended Extremities: no cyanosis, no clubbing, no edema, pedal pulses normal Neurologic: abnormal gait - bedridden , other - not responsive Lymphatic: no neck adenopathy Musculoskeletal: atrophy - BLE Laboratory Tests 03/14/20 11:21: POC Whole Blood Glucose 91 03/14/20 16:10: POC Whole Blood Glucose 88 Current Medications Medications (Trade) Dose Ordered Sig/Michelle Route PRN Reason Start Time Stop Time Status Last Admin Dose Admin Acetaminophen (Tylenol) 650 mg Q4H PRN ORAL fever (T>100.5F) 03/08/20 20:45 04/04/20 00:44 Dextrose (Dextrose 50%) 25 ml Q30M PRN IV Hypoglycemia 03/08/20 17:30 06/03/20 12:59 03/13/20 06:15 Dextrose (Dextrose 50%) 50 ml Q30M PRN IV Hypoglycemia 03/08/20 17:30 06/03/20 12:59 03/10/20 05:13 Divalproex Sodium (Depakote) 500 mg EVERY 12 HOURS ORAL 03/14/20 21:00 04/13/20 20:59 Haloperidol Lactate (Haldol) 5 mg Q8H PRN IM agitation 03/10/20 13:11 04/24/20 13:10 03/14/20 18:30 Heparin Sodium (Porcine) (Heparin 5000 units/ml) 5,000 units EVERY 12 HOURS SUBQ 03/08/20 21:00 04/19/20 08:59 Insulin Aspart (NovoLOG) BEFORE MEALS AND HS SUBQ 03/08/20 21:00 06/03/20 16:29 Lorazepam (Ativan 2mg/ml 1ml) 1 mg Q4H PRN IM Agitation 03/14/20 01:30 03/21/20 01:29 03/14/20 13:04 Ondansetron HCl (Zofran) 4 mg Q6H PRN IVP Nausea & Vomiting 03/08/20 18:45 04/04/20 00:44 Polyethylene Glycol (Miralax) 17 gm HSPRN PRN ORAL Constipation 03/08/20 18:00 04/07/20 17:59 Risperidone (RisperDAL) 2 mg QHS ORAL 03/14/20 21:00 04/28/20 20:59 Zolpidem Tartrate (Ambien) 5 mg HSPRN PRN ORAL Insomnia 03/08/20 18:00 03/15/20 17:59 03/13/20 20:58 Assessment/Plan Problems: (1) Epileptic seizure, generalized (2) History of diabetes mellitus (3) History of hypertension (4) History of psychiatric disorder (5) Severe protein-calorie malnutrition (6) DNR (do not resuscitate) (7) Comfort measures only status (8) Alzheimer's dementia Assessment/Plan doing better on seroquel prn Haldol still on restrains agitated at times. pt can go back to [facility], once the agitation is under control and he is off restrains swallow study noted: PUREE WITH THIN LIQUIDS, ASPIRATION PRECAUTIONS INCLUDING: NO STRAWS, SITTING UPRIGHT FOR MEALS/MEDICATION, SLOW RATE OF INTAKE , TOTAL ASSIST WITH MEALS, SMALL BITES/SIPS, 3. CRUSH CRUSHABLE MEDS/PRESENT IN PUREE 4. TOTAL ASSIST WITH MEALS Dipika Quijano MD Mar 14, 2020 19:52
[2020-03-14 20:00] VITALS: BP 147/90
[2020-03-14] MEDS: Depakote 500mg tab ORAL SCH (21:41)
--- NOTE | 2020-03-14 22:00 | NUR ---
NURSE NOTES: Patient was found to have blood glucose level of 60 at 2130. Patient was awake, alert, and asymptomatic. 120 cc of apple juice and jello given to patient. Upon recheck patient found to have blood glucose level of 78. Patient continues to be asymptomatic. Doctor Samm paged. Charge nurse Keke nash.
[2020-03-15] VITALS: BP 143/93
--- NOTE | 2020-03-15 00:03 | Psych Consult Progress Note ---
Psychiatry Progress Note Psychiatry Progress Note Subjective The pt doing better more alert and less agitated Medications Current Medications Medications (Trade) Dose Ordered Sig/Michelle Route PRN Reason Start Time Stop Time Status Last Admin Dose Admin Acetaminophen (Tylenol) 650 mg Q4H PRN ORAL fever (T>100.5F) 03/08/20 20:45 04/04/20 00:44 Dextrose (Dextrose 50%) 25 ml Q30M PRN IV Hypoglycemia 03/08/20 17:30 06/03/20 12:59 03/13/20 06:15 Dextrose (Dextrose 50%) 50 ml Q30M PRN IV Hypoglycemia 03/08/20 17:30 06/03/20 12:59 03/10/20 05:13 Divalproex Sodium (Depakote) 500 mg EVERY 12 HOURS ORAL 03/14/20 21:00 04/13/20 20:59 03/14/20 21:41 Haloperidol Lactate (Haldol) 5 mg Q8H PRN IM agitation 03/10/20 13:11 04/24/20 13:10 03/14/20 18:30 Heparin Sodium (Porcine) (Heparin 5000 units/ml) 5,000 units EVERY 12 HOURS SUBQ 03/08/20 21:00 04/19/20 08:59 Insulin Aspart (NovoLOG) BEFORE MEALS AND HS SUBQ 03/08/20 21:00 06/03/20 16:29 Lorazepam (Ativan 2mg/ml 1ml) 1 mg Q4H PRN IM Agitation 03/14/20 01:30 03/21/20 01:29 03/14/20 13:04 Ondansetron HCl (Zofran) 4 mg Q6H PRN IVP Nausea & Vomiting 03/08/20 18:45 04/04/20 00:44 Polyethylene Glycol (Miralax) 17 gm HSPRN PRN ORAL Constipation 03/08/20 18:00 04/07/20 17:59 Risperidone (RisperDAL) 2 mg QHS ORAL 03/14/20 21:00 04/28/20 20:59 03/14/20 21:41 Zolpidem Tartrate (Ambien) 5 mg HSPRN PRN ORAL Insomnia 03/08/20 18:00 03/15/20 17:59 03/13/20 20:58 Neurological/Psychiatric: Reports: anxiety, depressed, emotional problems Allergies: Coded Allergies: CHLORPROMAZINE (Verified Allergy, Unknown, 03/04/20) TRIFLUOPERAZINE (Verified Allergy, Unknown, 03/04/20) Objective Data Height (Feet): 5 Height (Inches): 8.00 Weight (Pounds): 112 General Appearance: WD/WN, no apparent distress, alert, confused Appearance: no abnormalities noted Behavior Mannerisms: poor eye contact Mental Status Exam - Affect: blunted Mental Status Exam - Mood: anxious Speech: clear Mental Status Exam - Thought P: organized, coherent Mental Status Exam - Suicidal: not present Additional Comments: disoriented Mood is agitated. Affect is flat. Thought process, there is a paucity of thought content. Thought content, no suicidal or homicidal ideation. Cognition is impaired. Insight and judgment are impaired. Assessment/Plan Assessment/Plan: ASSESSMENT: [place] I Dementia with behavior disturbance. [place] II Psychotic disorder. [place] III As above. [place] IV Low. [place] V 20. PLAN: 1. We will DC the Seroquel. 2. We will continue to start the patient on risperidone. 3. Provide the patient with reality orientation. 4. Haldol IM. 5. Ativan IM. DC the IV Ativan. 6. Provide the patient with reality orientation and supportive therapy. We will continue to follow and readjust the medications. Lisa Hobson MD Mar 15, 2020 00:03
[2020-03-15 04:00] VITALS: BP 141/87
[2020-03-15] MEDS: NovoLOG Insulin Flexpen SUBQ SCH ×4 (05:59→21:00)
[2020-03-15] MEDS: Haloperidol 5mg/ml Inj IM PRN (06:14)
--- NOTE | 2020-03-15 07:41 | NUR ---
NURSE NOTES: received report. pt is in the bed alert and awake. verbally responsive. respiration is even and unlabored. no acute distress noted. side-rails padded for seizure precaution. bilateral soft restraints inplace. call light is within reach, will follow plan of care.
--- NOTE | 2020-03-15 07:52 | NUR ---
HAND-OFF: Report given to Graham POZO. Endorsed that patient is a very high fall risk. Endorsed that patient gets agitated and is able to get out of restraints at times. Endorsed that patient frequently removes IV access. Endorsed that patient has low blood glucose levels and requires encouragement to eat.
[2020-03-15 08:00] VITALS: BP 135/79
[2020-03-15] MEDS: Heparin 5000 units/ml inj SUBQ SCH ×2 (08:53→21:00)
[2020-03-15] MEDS: Depakote 500mg tab ORAL SCH ×2 (08:55→21:33)
[2020-03-15 12:00] VITALS: BP 140/79
--- NOTE | 2020-03-15 12:02 | Infectious Diseases Prog Note ---
Assessment/Plan Assessment: Breakthrough seizures Gram positive bacteremia -likely contaminant -03/04 Bcx 1/4 S. capitis; 03/07 Bcx Neg Afebrile No leukocytosis -u/a neg -CXR: no acute disease CRIS, SP -Renal US: Negative for hydronephrosis. Posterior bladder wall thickening or hypervascular mass. Consider further evaluation with cystoscopy and/or contrast CT scan. Possible bladder calculus. Prominent prostate with calcification. Small amount of ascites fluid within the pelvis recent COVID19 January 2020 -03/05 SARS-Cov2 pCr neg HTN psychiatric disorder seizure disorder DM2 DNR/DNI ID resident ([facility]) Plan: -Cont to monitor off abx -03/09 SP IV Vancomycin #3 -f/u cx -Monitor CBC/CMP, temperatures -ID neg x1 -Neuro eval -aspiration/seizure precautions Thank you for consulting [facility]. Will continue to follow along with you. Subjective Allergies: Coded Allergies: CHLORPROMAZINE (Verified Allergy, Unknown, 03/04/20) TRIFLUOPERAZINE (Verified Allergy, Unknown, 03/04/20) afebrile no leukocytosis repeat Bcx Neg Objective Last 24 Hour Vital Signs Date Time Temp Pulse Resp B/P (MAP) Pulse Ox O2 Delivery O2 Flow Rate FiO2 03/15/20 09:00 Room Air 03/15/20 08:00 97.7 73 18 135/79 (97) 96 03/15/20 04:00 98.2 80 20 141/87 (105) 96 03/15/20 00:00 98.9 93 20 143/93 (110) 96 03/14/20 21:00 Room Air 03/14/20 20:00 98.5 84 20 147/90 (109) 95 03/14/20 16:00 98.1 79 18 141/89 (106) 98 03/14/20 12:04 96.8 88 16 118/85 (96) 92 Height (Feet): 5 Height (Inches): 8.00 Weight (Pounds): 112 General Appearance: other - Chronically ill-appearing Eyes: bilateral eye PERRL, bilateral eye EOMI ENT: hearing grossly normal, moist mucus membranes Neck: full range of motion, supple Respiratory: no rhonchi, no retraction, respiratory distress - Moderate respiratory distress noted Cardiovascular #1: normal peripheral pulses, no murmur, tachycardia Gastrointestinal: non tender, soft, non-distended, no guarding Laboratory Tests Test 03/14/20 16:10 03/14/20 21:30 03/14/20 21:48 03/14/20 22:10 POC Whole Blood Glucose 88 MG/DL (74-106) 60 MG/DL (74-106) L 68 MG/DL (74-106) L 78 MG/DL (74-106) Current Medications Medications (Trade) Dose Ordered Sig/Michelle Route PRN Reason Start Time Stop Time Status Last Admin Dose Admin Acetaminophen (Tylenol) 650 mg Q4H PRN ORAL fever (T>100.5F) 03/08/20 20:45 04/04/20 00:44 Dextrose (Dextrose 50%) 25 ml Q30M PRN IV Hypoglycemia 03/08/20 17:30 06/03/20 12:59 03/15/20 06:11 Dextrose (Dextrose 50%) 50 ml Q30M PRN IV Hypoglycemia 03/08/20 17:30 06/03/20 12:59 03/15/20 11:51 Divalproex Sodium (Depakote) 500 mg EVERY 12 HOURS ORAL 03/14/20 21:00 04/13/20 20:59 03/15/20 08:55 Haloperidol Lactate (Haldol) 5 mg Q8H PRN IM agitation 03/10/20 13:11 04/24/20 13:10 03/15/20 06:14 Heparin Sodium (Porcine) (Heparin 5000 units/ml) 5,000 units EVERY 12 HOURS SUBQ 03/08/20 21:00 04/19/20 08:59 Insulin Aspart (NovoLOG) BEFORE MEALS AND HS SUBQ 03/08/20 21:00 06/03/20 16:29 Lorazepam (Ativan 2mg/ml 1ml) 1 mg Q4H PRN IM Agitation 03/14/20 01:30 03/21/20 01:29 03/14/20 13:04 Ondansetron HCl (Zofran) 4 mg Q6H PRN IVP Nausea & Vomiting 03/08/20 18:45 04/04/20 00:44 Polyethylene Glycol (Miralax) 17 gm HSPRN PRN ORAL Constipation 03/08/20 18:00 8/19/20 17:59 Risperidone (RisperDAL) 2 mg QHS ORAL 03/14/20 21:00 04/28/20 20:59 03/14/20 21:41 Zolpidem Tartrate (Ambien) 5 mg HSPRN PRN ORAL Insomnia 03/08/20 18:00 03/15/20 17:59 03/13/20 20:58 Kaitlyn Ness M.D. Mar 15, 2020 12:02
[2020-03-15] MEDS: LORazepam Inj 2mg/ml 1ml IM PRN (13:01)
--- NOTE | 2020-03-15 13:33 | Pulmonology Progress Note ---
Subjective ROS Limited/Unobtainable: Yes Interval Events: was agitated earlier, needs sitter Constitutional: Reports: no symptoms HEENT: Repors: no symptoms Respiratory: Reports: no symptoms Allergies: Coded Allergies: CHLORPROMAZINE (Verified Allergy, Unknown, 03/04/20) TRIFLUOPERAZINE (Verified Allergy, Unknown, 03/04/20) Objective Last 24 Hour Vital Signs Date Time Temp Pulse Resp B/P (MAP) Pulse Ox O2 Delivery O2 Flow Rate FiO2 03/15/20 12:00 98.7 80 19 140/79 (99) 98 03/15/20 09:00 Room Air 03/15/20 08:00 97.7 73 18 135/79 (97) 96 03/15/20 04:00 98.2 80 20 141/87 (105) 96 03/15/20 00:00 98.9 93 20 143/93 (110) 96 03/14/20 21:00 Room Air 03/14/20 20:00 98.5 84 20 147/90 (109) 95 03/14/20 16:00 98.1 79 18 141/89 (106) 98 Intake and Output 03/14/20 03/15/20 19:00 07:00 Intake Total 240 ml 4810 ml Balance 240 ml 4810 ml Intake Oral 240 ml 4810 ml # Voids 3 2 General Appearance: no acute distress HEENT: normocephalic, atraumatic, anicteric Respiratory: no accessory muscle use, other - on O2 via NC Cardiovascular: normal peripheral pulses, normal rate Abdomen: soft, non tender, non distended Extremities: no cyanosis, no clubbing, no edema, pedal pulses normal Neurologic: abnormal gait - bedridden , other - not responsive Lymphatic: no neck adenopathy Musculoskeletal: atrophy - BLE Laboratory Tests 03/14/20 16:10: POC Whole Blood Glucose 88 03/14/20 21:30: POC Whole Blood Glucose 60L 03/14/20 21:48: POC Whole Blood Glucose 68L 03/14/20 22:10: POC Whole Blood Glucose 78 Current Medications Medications (Trade) Dose Ordered Sig/Michelle Route PRN Reason Start Time Stop Time Status Last Admin Dose Admin Acetaminophen (Tylenol) 650 mg Q4H PRN ORAL fever (T>100.5F) 03/08/20 20:45 04/04/20 00:44 Dextrose (Dextrose 50%) 25 ml Q30M PRN IV Hypoglycemia 03/08/20 17:30 06/03/20 12:59 03/15/20 06:11 Dextrose (Dextrose 50%) 50 ml Q30M PRN IV Hypoglycemia 03/08/20 17:30 06/03/20 12:59 03/15/20 11:51 Divalproex Sodium (Depakote) 500 mg EVERY 12 HOURS ORAL 03/14/20 21:00 04/13/20 20:59 03/15/20 08:55 Haloperidol Lactate (Haldol) 5 mg Q8H PRN IM agitation 03/10/20 13:11 04/24/20 13:10 03/15/20 06:14 Heparin Sodium (Porcine) (Heparin 5000 units/ml) 5,000 units EVERY 12 HOURS SUBQ 03/08/20 21:00 04/19/20 08:59 Insulin Aspart (NovoLOG) BEFORE MEALS AND HS SUBQ 03/08/20 21:00 06/03/20 16:29 Lorazepam (Ativan 2mg/ml 1ml) 1 mg Q4H PRN IM Agitation 03/14/20 01:30 03/21/20 01:29 03/15/20 13:01 Ondansetron HCl (Zofran) 4 mg Q6H PRN IVP Nausea & Vomiting 03/08/20 18:45 04/04/20 00:44 Polyethylene Glycol (Miralax) 17 gm HSPRN PRN ORAL Constipation 03/08/20 18:00 04/07/20 17:59 Risperidone (RisperDAL) 2 mg QHS ORAL 03/14/20 21:00 04/28/20 20:59 03/14/20 21:41 Zolpidem Tartrate (Ambien) 5 mg HSPRN PRN ORAL Insomnia 03/08/20 18:00 03/15/20 17:59 03/13/20 20:58 Assessment/Plan Problems: (1) Epileptic seizure, generalized (2) History of diabetes mellitus (3) History of hypertension (4) History of psychiatric disorder (5) Severe protein-calorie malnutrition (6) DNR (do not resuscitate) (7) Comfort measures only status (8) Alzheimer's dementia Assessment/Plan psych consult appreciated on seroquel prn Haldol still on restrains agitated at times. [facility] once the agitation is under control and he is off restrains swallow study noted: PUREE WITH THIN LIQUIDS, ASPIRATION PRECAUTIONS INCLUDING: NO STRAWS, SITTING UPRIGHT FOR MEALS/MEDICATION, SLOW RATE OF INTAKE , TOTAL ASSIST WITH MEALS, SMALL BITES/SIPS, 3. CRUSH CRUSHABLE MEDS/PRESENT IN PUREE 4. TOTAL ASSIST WITH MEALS Dipika Quijano MD Mar 15, 2020 13:33
[2020-03-15] MEDS ORDERED: HALDOL INJECT5 MG/ML IM (13:37)
[2020-03-15] MEDS ORDERED: RISPERDAL1 MG ORAL (13:37)
[2020-03-15] MEDS ORDERED: DEPAKOTE500 MG ORAL (13:37)
[2020-03-15] MEDS ORDERED: ATIVAN2 MG/ML IM (13:37)
--- NOTE | 2020-03-15 14:09 | NUR ---
EQUIPMENT OPERATION INSTRUCTOR NOTE PER COREY MCKNIGHT DC BACK TO SNF IF PATIENT IS CALM WITH DECREASED AGITATION OFF RESTRAINTS. NOTED AND CARRIED OUT. ZACK FAY INFORMED AND AWARE.
--- NOTE | 2020-03-15 14:11 | NUR ---
CASE MANAGEMENT:REVIEW SI;SEIZURES. ALZHEIMER DEMENTIA. 98.9 93 20 143/93 96% ON RA NO LABS TODAY IS;HALDOL IM HEPARIN SUBQ Q12 DEPAKOTE PO Q12 RISPERDAL PO MED SURG STATUS DCP;FROM [facility] PLAN;PATIENT TO DC TO [facility] ONCE AGITATION HAS DECREASED
[2020-03-15 16:00] VITALS: BP 130/76
--- NOTE | 2020-03-15 16:58 | NUR ---
NETWORK OPERATIONS ANALYST NOTE CALL RECEIVED FROM DELANEY AT [facility] TO INFORM CM PATIENT HAS EXHAUSTED HIS MEDICARE DAYS AND THEY ARE UNABLE TO ACCEPT PATIENT.
--- NOTE | 2020-03-15 17:05 | NUR ---
NURSE NOTES: Notified Dr. Quijano that pt has been calm and quiet in bed without the restraints. MD ordered to discontinue bilateral soft wrist restraints and discharge patient. order is noted and communicate to caser.
--- NOTE | 2020-03-15 17:07 | NUR ---
*-*DISCHARGE PLANNING*-* PATIENT HAS BEEN REFERRED TO: RUDY Duran/ [facility] P: [phone] S/W RUDY, WHO STATED HE WILL HELP FIND PLACEMENT FOR THIS PATIENT AND WILL REFER TO [facility]
--- NOTE | 2020-03-15 17:16 | NUR ---
ACCOUNT SPECIALIST NOTE:DC PLANNING CALL MADE TO [facility] [phone] TO INQUIRE ON ACCEPTANCE. WHEEL POLISHER NOT AVAILABLE AT TIME OF CALL. Addendum: 03/15/20 at 1725 by IRMA JOHNSON LVN LVN CALL BACK RECEIVED FROM LANA AT [facility]. PER LANA, NO BEDS AVAILABLE AT THIS TIME.
--- NOTE | 2020-03-15 19:15 | NUR ---
NURSE NOTES: Patient asleep in bed, no signs of pain, no SOB noted. Call light in reach. Bed in lowest, lock engaged and alarm on. Will continue plan of care.
--- NOTE | 2020-03-15 19:27 | NUR ---
HAND-OFF: Report given to Fortunato.
[2020-03-15 20:00] VITALS: BP 129/84
--- NOTE | 2020-03-15 23:27 | Psych Consult Progress Note ---
Psychiatry Progress Note Psychiatry Progress Note Subjective the pt was alert and feeding self no agitation noted calm restraints were dced Medications Current Medications Medications (Trade) Dose Ordered Sig/Michelle Route PRN Reason Start Time Stop Time Status Last Admin Dose Admin Acetaminophen (Tylenol) 650 mg Q4H PRN ORAL fever (T>100.5F) 03/08/20 20:45 04/04/20 00:44 Dextrose (Dextrose 50%) 25 ml Q30M PRN IV Hypoglycemia 03/08/20 17:30 06/03/20 12:59 03/15/20 06:11 Dextrose (Dextrose 50%) 50 ml Q30M PRN IV Hypoglycemia 03/08/20 17:30 06/03/20 12:59 03/15/20 11:51 Divalproex Sodium (Depakote) 500 mg EVERY 12 HOURS ORAL 03/14/20 21:00 04/13/20 20:59 03/15/20 21:33 Haloperidol Lactate (Haldol) 5 mg Q8H PRN IM agitation 03/10/20 13:11 04/24/20 13:10 03/15/20 06:14 Heparin Sodium (Porcine) (Heparin 5000 units/ml) 5,000 units EVERY 12 HOURS SUBQ 03/08/20 21:00 04/19/20 08:59 Insulin Aspart (NovoLOG) BEFORE MEALS AND HS SUBQ 03/08/20 21:00 06/03/20 16:29 Lorazepam (Ativan 2mg/ml 1ml) 1 mg Q4H PRN IM Agitation 03/14/20 01:30 03/21/20 01:29 03/15/20 13:01 Ondansetron HCl (Zofran) 4 mg Q6H PRN IVP Nausea & Vomiting 03/08/20 18:45 04/04/20 00:44 Polyethylene Glycol (Miralax) 17 gm HSPRN PRN ORAL Constipation 03/08/20 18:00 04/07/20 17:59 Risperidone (RisperDAL) 2 mg QHS ORAL 03/14/20 21:00 04/28/20 20:59 03/15/20 21:32 Allergies: Coded Allergies: CHLORPROMAZINE (Verified Allergy, Unknown, 03/04/20) TRIFLUOPERAZINE (Verified Allergy, Unknown, 03/04/20) Objective Data Height (Feet): 5 Height (Inches): 8.00 Weight (Pounds): 112 General Appearance: WD/WN, no apparent distress, alert, confused Appearance: no abnormalities noted Behavior Mannerisms: poor eye contact Mental Status Exam - Affect: flat Mental Status Exam - Thought P: tangential, confusion Mental Status Exam - Suicidal: not present Assessment/Plan Assessment/Plan: ASSESSMENT: [place] I Dementia with behavior disturbance. [place] II Psychotic disorder. [place] III As above. [place] IV Low. [place] V 20. PLAN: 1. We will DC the Seroquel. 2. We will continue to start the patient on risperidone. 3. Provide the patient with reality orientation. 4. Haldol IM. 5. Ativan IM. DC the IV Ativan. 6. Provide the patient with reality orientation and supportive therapy. We will continue to follow and readjust the medications. Lisa Hobson MD Mar 15, 2020 23:27
[2020-03-16 01:30] VITALS: BP 147/112
[2020-03-16] MEDS: NovoLOG Insulin Flexpen SUBQ SCH ×4 (06:30→20:45)
[2020-03-16 06:54] LABS: BASOPHILS % (AUTO) 0.9 % (0.0-2.0); EOSINOPHILS % (AUTO) 2.5 % (0.0-3.0); HEMATOCRIT 33.3 % (42.0-52.0); HEMOGLOBIN 11.4 G/DL (14.2-18.0); LYMPHOCYTES % (AUTO) 25.9 % (20.0-45.0); MEAN CORPUSCULAR VOLUME 92 FL (80-99); MONOCYTES % (AUTO) 8.3 % (1.0-10.0); NEUTROPHILS % (AUTO) 62.4 % (45.0-75.0); PLATELET COUNT 115 K/UL (150-450); RED BLOOD COUNT 3.62 M/UL (4.70-6.10); RED CELL DISTRIBUTION WIDTH 11.9 % (11.6-14.8); WHITE BLOOD COUNT 3.6 K/UL (4.8-10.8)
[2020-03-16 07:33] LABS: ALANINE AMINOTRANSFERASE 24 U/L (12-78); ALBUMIN 2.7 G/DL (3.4-5.0); ALBUMIN/GLOBULIN RATIO 0.9 (1.0-2.7); ALKALINE PHOSPHATASE 65 U/L (46-116); ANION GAP 5 mmol/L (5-15); ASPARTATE AMINO TRANSFERASE 31 U/L (15-37); BILIRUBIN,TOTAL 0.4 MG/DL (0.2-1.0); BLOOD UREA NITROGEN 9 mg/dL (7-18); CARBON DIOXIDE 31 MMOL/L (21-32); CHLORIDE 106 MMOL/L (98-107); CREATININE 0.9 MG/DL (0.55-1.30); PHOSPHORUS 3.4 MG/DL (2.5-4.9); POTASSIUM 3.9 MMOL/L (3.5-5.1); SODIUM 142 MMOL/L (136-145)
--- NOTE | 2020-03-16 07:35 | NUR ---
HAND-OFF: Report given to NOHELIA Lam.
--- NOTE | 2020-03-16 07:45 | NUR ---
NURSE NOTES: RECEIVED PATIENT A/A/OX2, ABLE TO VERBALIZE NEEDS. PATIENT WAS ABLE TO CONVERSE WITH STAFF THIS AM. DENIES OF PAIN/DISCOMFORT NOTED. SIDERAILS ARE UPX3 AND PADDED FOR SEIZURES DISORDERS. EXCELLENT APPETITE THIS BREAKFAST. BED IS IN THE LOWEST POSITION. BED BRAKES AND LOCKED @ ALL TIMES. BED ALARM ENGAGED. CALL LIGHT IS WITHIN REACH. WILL CONT TO MONITOR.
[2020-03-16 08:00] VITALS: BP 133/91
[2020-03-16] MEDS: Depakote 500mg tab ORAL SCH ×2 (09:04→20:44)
[2020-03-16] MEDS: Heparin 5000 units/ml inj SUBQ SCH ×2 (09:05→20:45)
--- NOTE | 2020-03-16 10:01 | NUR ---
NURSE NOTES: INFORMED DR. RAIN FOR MG 1.6. AWAITING FOR RESPONSE. WILL CONT THE PLAN OF CARE.
--- NOTE | 2020-03-16 10:03 | NUR ---
DISCHARGE PLANNING FOLLOW UP CALL MADE TO RUDY [phone] IN RE TO PLACEMENT. PER RUDY, PATIENT REFERRED TO THE FOLLOWING SNF'S. ALL DECLINED ACCEPTANCE DUE TO PATIENTS BEHAVIOR. CV HOA CV JAYCEE MURPHY CV GERARDO CV MECHE CV TRAVIS LUNA PER RUDY, PATIENT HAS ALSO BEEN REFERRED TO THE FOLLOWING WITH NO BED AVAILABLE. CV BARTOLO CV DARY CV NIKOLAI
--- NOTE | 2020-03-16 10:34 | NUR ---
NURSE NOTES: NEW ORDERED OBTAINED FOR MG 1.[address] RAIN VIA T.O ORDER. WILL CONT TO MONITOR.
--- NOTE | 2020-03-16 11:37 | Pulmonology Progress Note ---
Subjective ROS Limited/Unobtainable: Yes Interval Events: was agitated earlier, needs sitter Constitutional: Reports: no symptoms HEENT: Repors: no symptoms Respiratory: Reports: no symptoms Allergies: Coded Allergies: CHLORPROMAZINE (Verified Allergy, Unknown, 03/04/20) TRIFLUOPERAZINE (Verified Allergy, Unknown, 03/04/20) Subjective remains afebrile no leukocytosis on RA pulse ox stable no seizure activity Objective Last 24 Hour Vital Signs Date Time Temp Pulse Resp B/P (MAP) Pulse Ox O2 Delivery O2 Flow Rate FiO2 03/16/20 08:00 97.2 70 19 133/91 (105) 94 03/16/20 01:30 98.1 97 20 147/112 (124) 97 03/15/20 21:00 Room Air 03/15/20 20:00 98.2 115 22 129/84 (99) 93 03/15/20 16:00 98.2 75 18 130/76 (94) 98 03/15/20 12:00 98.7 80 19 140/79 (99) 98 Intake and Output 03/15/20 03/16/20 19:00 07:00 Intake Total 680 ml Balance 680 ml Intake Oral 680 ml # Voids 6 3 General Appearance: no acute distress HEENT: normocephalic, atraumatic, anicteric, mucous membranes moist Respiratory: lungs clear, no accessory muscle use, other - on O2 via NC Cardiovascular: normal peripheral pulses, normal rate Abdomen: soft, non tender, non distended Extremities: no cyanosis, no edema, pedal pulses normal Neurologic: abnormal gait - bedridden , alert, responsive, other - not responsive Lymphatic: no neck adenopathy Musculoskeletal: atrophy - BLE Laboratory Tests 03/16/20 05:39: White Blood Count 3.6L, Red Blood Count 3.62L, Hemoglobin 11.4L, Hematocrit 33.3L, Mean Corpuscular Volume 92, Mean Corpuscular Hemoglobin 31.6H, Mean Corpuscular Hemoglobin Concent 34.3, Red Cell Distribution Width 11.9, Platelet Count 115L, Mean Platelet Volume 6.9, Neutrophils (%) (Auto) 62.4, Lymphocytes ( %) (Auto) 25.9, Monocytes (%) (Auto) 8.3, Eosinophils (%) (Auto) 2.5, Basophils (%) (Auto) 0.9, Erythrocyte Sedimentation Rate 16, Sodium Level 142, Potassium Level 3.9, Chloride Level 106, Carbon Dioxide Level 31, Anion Gap 5, Blood Urea Nitrogen 9, Creatinine 0.9, Estimat Glomerular Filtration Rate > 60, Glucose Level 81, Calcium Level 8.0L, Phosphorus Level 3.4, Magnesium Level 1.6L, Total Bilirubin 0.4, Aspartate Amino Transf (AST/SGOT) 31, Alanine Aminotransferase ( ALT/SGPT) 24, Alkaline Phosphatase 65, C-Reactive Protein, Quantitative 3.1H, Total Protein 5.8L, Albumin 2.7L, Globulin 3.1, Albumin/Globulin Ratio 0.9L Current Medications Medications (Trade) Dose Ordered Sig/Michelle Route PRN Reason Start Time Stop Time Status Last Admin Dose Admin Acetaminophen (Tylenol) 650 mg Q4H PRN ORAL fever (T>100.5F) 03/08/20 20:45 04/04/20 00:44 Dextrose (Dextrose 50%) 25 ml Q30M PRN IV Hypoglycemia 03/08/20 17:30 06/03/20 12:59 03/15/20 06:11 Dextrose (Dextrose 50%) 50 ml Q30M PRN IV Hypoglycemia 03/08/20 17:30 06/03/20 12:59 03/15/20 11:51 Divalproex Sodium (Depakote) 500 mg EVERY 12 HOURS ORAL 03/14/20 21:00 04/13/20 20:59 03/16/20 09:04 Haloperidol Lactate (Haldol) 5 mg Q8H PRN IM agitation 03/10/20 13:11 04/24/20 13:10 03/15/20 06:14 Heparin Sodium (Porcine) (Heparin 5000 units/ml) 5,000 units EVERY 12 HOURS SUBQ 03/08/20 21:00 04/19/20 08:59 03/16/20 09:05 Insulin Aspart (NovoLOG) BEFORE MEALS AND HS SUBQ 03/08/20 21:00 06/03/20 16:29 Lorazepam (Ativan 2mg/ml 1ml) 1 mg Q4H PRN IM Agitation 03/14/20 01:30 03/21/20 01:29 03/15/20 13:01 Magnesium Sulfate 100 ml @ 100 mls/hr Q1H IVPB 03/16/20 11:00 03/16/20 12:59 Ondansetron HCl (Zofran) 4 mg Q6H PRN IVP Nausea & Vomiting 03/08/20 18:45 04/04/20 00:44 Polyethylene Glycol (Miralax) 17 gm HSPRN PRN ORAL Constipation 03/08/20 18:00 04/07/20 17:59 Risperidone (RisperDAL) 2 mg QHS ORAL 03/14/20 21:00 04/28/20 20:59 03/15/20 21:32 Assessment/Plan Assessment/Plan ASSESSMENT Seizure disorder with breakthrough episode Recently diagnosed COVID-January 2020 Diabetes mellitus Hypertension Acute kidney injury-resolved Severe protein calorie malnutrition DNR/DNI status Comfort measures PLAN of CARE [place] floor O2 titrate to keep sat above 92, currently on RA , stable pulse ox BCX 03/04 1/2 + Staph capitis, likely contaminant, repeated BCX 03/07 NGT per ID recs monitor off abx CXR negative DVT prophylaxis swallow eval-> diet tezture as per SR recs aspiration precaution s/p IV hydration monitor renal parameters, avoid nephrotoxic renal ultrasound no hydro seizure precaution, Ativan prn neuro eval monitor BP BS management with sensitive SSI bowel regimen comfort care DNR/DNI status pt can go back to [facility], once agitation under control and off restrains case discussed and evaluated by supervising physician Beryl Pastor NP Mar 16, 2020 11:37
[2020-03-16 12:06] VITALS: BP 102/66
--- NOTE | 2020-03-16 12:29 | Infectious Diseases Prog Note ---
Assessment/Plan Assessment: Breakthrough seizures Gram positive bacteremia -likely contaminant -03/04 Bcx 1/4 S. capitis; 03/07 Bcx Neg Afebrile No leukocytosis -u/a neg -CXR: no acute disease CRIS, SP -Renal US: Negative for hydronephrosis. Posterior bladder wall thickening or hypervascular mass. Consider further evaluation with cystoscopy and/or contrast CT scan. Possible bladder calculus. Prominent prostate with calcification. Small amount of ascites fluid within the pelvis recent COVID19 January 2020 -03/05 SARS-Cov2 pCr neg HTN psychiatric disorder seizure disorder DM2 DNR/DNI [place] resident ([facility]) Plan: -Cont to monitor off abx -03/09 SP IV Vancomycin #3 -f/u cx -Monitor CBC/CMP, temperatures -ID neg x1 -Neuro eval -aspiration/seizure precautions Thank you for consulting [facility]. Will continue to follow along with you. Subjective Allergies: Coded Allergies: CHLORPROMAZINE (Verified Allergy, Unknown, 03/04/20) TRIFLUOPERAZINE (Verified Allergy, Unknown, 03/04/20) afebrile no leukocytosis Objective Last 24 Hour Vital Signs Date Time Temp Pulse Resp B/P (MAP) Pulse Ox O2 Delivery O2 Flow Rate FiO2 03/16/20 12:06 97.0 95 17 102/66 (78) 92 03/16/20 08:00 97.2 70 19 133/91 (105) 94 03/16/20 01:30 98.1 97 20 147/112 (124) 97 03/15/20 21:00 Room Air 03/15/20 20:00 98.2 115 22 129/84 (99) 93 03/15/20 16:00 98.2 75 18 130/76 (94) 98 Height (Feet): 5 Height (Inches): 8.00 Weight (Pounds): 112 General Appearance: other - Chronically ill-appearing Eyes: bilateral eye PERRL, bilateral eye EOMI ENT: hearing grossly normal, moist mucus membranes Neck: full range of motion, supple Respiratory: no rhonchi, no retraction, respiratory distress - Moderate respiratory distress noted Cardiovascular #1: normal peripheral pulses, no murmur, tachycardia Gastrointestinal: non tender, soft, non-distended, no guarding Laboratory Tests Test 03/16/20 05:39 White Blood Count 3.6 K/UL (4.8-10.8) L Red Blood Count 3.62 M/UL (4.70-6.10) L Hemoglobin 11.4 G/DL (14.2-18.0) L Hematocrit 33.3 % (42.0-52.0) L Mean Corpuscular Volume 92 FL (80-99) Mean Corpuscular Hemoglobin 31.6 PG (27.0-31.0) H Mean Corpuscular Hemoglobin Concent 34.3 G/DL (32.0-36.0) Red Cell Distribution Width 11.9 % (11.6-14.8) Platelet Count 115 K/UL (150-450) L Mean Platelet Volume 6.9 FL (6.5-10.1) Neutrophils (%) (Auto) 62.4 % (45.0-75.0) Lymphocytes (%) (Auto) 25.9 % (20.0-45.0) Monocytes (%) (Auto) 8.3 % (1.0-10.0) Eosinophils (%) (Auto) 2.5 % (0.0-3.0) Basophils (%) (Auto) 0.9 % (0.0-2.0) Erythrocyte Sedimentation Rate 16 MM/HR (0-20) Sodium Level 142 MMOL/L (136-145) Potassium Level 3.9 MMOL/L (3.5-5.1) Chloride Level 106 MMOL/L (98-107) Carbon Dioxide Level 31 MMOL/L (21-32) Anion Gap 5 mmol/L (5-15) Blood Urea Nitrogen 9 mg/dL (7-18) Creatinine 0.9 MG/DL (0.55-1.30) Estimat Glomerular Filtration Rate > 60 mL/min (>60) Glucose Level 81 MG/DL (74-106) Calcium Level 8.0 MG/DL (8.5-10.1) L Phosphorus Level 3.4 MG/DL (2.5-4.9) Magnesium Level 1.6 MG/DL (1.8-2.4) L Total Bilirubin 0.4 MG/DL (0.2-1.0) Aspartate Amino Transf (AST/SGOT) 31 U/L (15-37) Alanine Aminotransferase (ALT/SGPT) 24 U/L (12-78) Alkaline Phosphatase 65 U/L (46-116) C-Reactive Protein, Quantitative 3.1 mg/dL (0.00-0.90) H Total Protein 5.8 G/DL (6.4-8.2) L Albumin 2.7 G/DL (3.4-5.0) L Globulin 3.1 g/dL Albumin/Globulin Ratio 0.9 (1.0-2.7) L Current Medications Medications (Trade) Dose Ordered Sig/Imchelle Route PRN Reason Start Time Stop Time Status Last Admin Dose Admin Acetaminophen (Tylenol) 650 mg Q4H PRN ORAL fever (T>100.5F) 03/08/20 20:45 04/04/20 00:44 Dextrose (Dextrose 50%) 25 ml Q30M PRN IV Hypoglycemia 03/08/20 17:30 06/03/20 12:59 03/15/20 06:11 Dextrose (Dextrose 50%) 50 ml Q30M PRN IV Hypoglycemia 03/08/20 17:30 06/03/20 12:59 03/15/20 11:51 Divalproex Sodium (Depakote) 500 mg EVERY 12 HOURS ORAL 03/14/20 21:00 04/13/20 20:59 03/16/20 09:04 Haloperidol Lactate (Haldol) 5 mg Q8H PRN IM agitation 03/10/20 13:11 04/24/20 13:10 03/15/20 06:14 Heparin Sodium (Porcine) (Heparin 5000 units/ml) 5,000 units EVERY 12 HOURS SUBQ 03/08/20 21:00 04/19/20 08:59 03/16/20 09:05 Insulin Aspart (NovoLOG) BEFORE MEALS AND HS SUBQ 03/08/20 21:00 06/03/20 16:29 Lorazepam (Ativan 2mg/ml 1ml) 1 mg Q4H PRN IM Agitation 03/14/20 01:30 03/21/20 01:29 03/15/20 13:01 Magnesium Sulfate 100 ml @ 100 mls/hr Q1H IVPB 03/16/20 11:00 03/16/20 12:59 03/16/20 11:55 Ondansetron HCl (Zofran) 4 mg Q6H PRN IVP Nausea & Vomiting 03/08/20 18:45 04/04/20 00:44 Polyethylene Glycol (Miralax) 17 gm HSPRN PRN ORAL Constipation 03/08/20 18:00 04/07/20 17:59 Risperidone (RisperDAL) 2 mg QHS ORAL 03/14/20 21:00 04/28/20 20:59 03/15/20 21:32 Kaitlyn Ness M.D. Mar 16, 2020 12:29
[2020-03-16 16:00] VITALS: BP 113/83
--- NOTE | 2020-03-16 19:03 | NUR ---
HAND-OFF: Report given to
--- NOTE | 2020-03-16 19:25 | NUR ---
NURSE NOTES: received report from aroldo galvan. patient is on bed, awake. confused. denies any pain or discomfort. room air. no sob. with iv line on the right upper arm,saline lock. bed locked and in lowest position. call light and light button within easy reach. bed alarm on. reiterated to call and ask for assistance. will continue plan of care.
[2020-03-16 20:00] VITALS: BP 117/85
--- NOTE | 2020-03-16 20:58 | Psych Consult Progress Note ---
Psychiatry Progress Note Psychiatry Progress Note Subjective the pt is sitting in bed no agitation answers the questions Medications Current Medications Medications (Trade) Dose Ordered Sig/Michelle Route PRN Reason Start Time Stop Time Status Last Admin Dose Admin Acetaminophen (Tylenol) 650 mg Q4H PRN ORAL fever (T>100.5F) 03/08/20 20:45 04/04/20 00:44 Dextrose (Dextrose 50%) 25 ml Q30M PRN IV Hypoglycemia 03/08/20 17:30 06/03/20 12:59 03/15/20 06:11 Dextrose (Dextrose 50%) 50 ml Q30M PRN IV Hypoglycemia 03/08/20 17:30 06/03/20 12:59 03/15/20 11:51 Divalproex Sodium (Depakote) 500 mg EVERY 12 HOURS ORAL 03/14/20 21:00 04/13/20 20:59 03/16/20 20:44 Haloperidol Lactate (Haldol) 5 mg Q8H PRN IM agitation 03/10/20 13:11 04/24/20 13:10 03/15/20 06:14 Heparin Sodium (Porcine) (Heparin 5000 units/ml) 5,000 units EVERY 12 HOURS SUBQ 03/08/20 21:00 04/19/20 08:59 03/16/20 09:05 Insulin Aspart (NovoLOG) BEFORE MEALS AND HS SUBQ 03/08/20 21:00 06/03/20 16:29 03/16/20 12:30 Lorazepam (Ativan 2mg/ml 1ml) 1 mg Q4H PRN IM Agitation 03/14/20 01:30 03/21/20 01:29 03/15/20 13:01 Ondansetron HCl (Zofran) 4 mg Q6H PRN IVP Nausea & Vomiting 03/08/20 18:45 04/04/20 00:44 Polyethylene Glycol (Miralax) 17 gm HSPRN PRN ORAL Constipation 03/08/20 18:00 04/07/20 17:59 Risperidone (RisperDAL) 2 mg QHS ORAL 03/14/20 21:00 04/28/20 20:59 03/16/20 20:44 Allergies: Coded Allergies: CHLORPROMAZINE (Verified Allergy, Unknown, 03/04/20) TRIFLUOPERAZINE (Verified Allergy, Unknown, 03/04/20) Objective Data Height (Feet): 5 Height (Inches): 8.00 Weight (Pounds): 112 General Appearance: WD/WN, no apparent distress, alert Additional Comments: alert and oriented to situation and place. Mood is agitated. Affect is flat. Thought process, there is a paucity of thought content. Thought content, no suicidal or homicidal ideation. Cognition is impaired. Insight and judgment is impaired. Assessment/Plan Status: doing well, stable, progressing Assessment/Plan: ASSESSMENT: [place] I Dementia with behavior disturbance. [place] II Psychotic disorder. [place] III As above. [place] IV Low. [place] V 20. PLAN: 1. We will DC the Seroquel. 2. We will continue to start the patient on risperidone. 3. Provide the patient with reality orientation. 4. Haldol IM. 5. Ativan IM. DC the IV Ativan. 6. Provide the patient with reality orientation and supportive therapy. We will continue to follow and readjust the medications. Lisa Hobson MD Mar 16, 2020 20:58
[2020-03-17] VITALS (7 sets, daily range): BP systolic 101–135; BP diastolic 61–90
--- NOTE | 2020-03-17 04:00 | NUR ---
NURSE NOTES: patient took out his iv line. per patient" i dont think i needs this. it is not proper to have it. what proper for you is not proper for me". explained benefits. patient agreed to have iv reinsertion. charge nurse made aware.
[2020-03-17] MEDS: NovoLOG Insulin Flexpen SUBQ SCH ×4 (05:41→20:06)
--- NOTE | 2020-03-17 07:11 | NUR ---
HAND-OFF: Report given to aroldo barbour. patient is on bed, awake. on room air. no sob. call light and light button within easy reach. plan of care endorsed.
--- NOTE | 2020-03-17 07:30 | NUR ---
NURSE NOTES: RECEIVED PATIENT A/A/OX3, ABLE TO MADE NEEDS KNOWN. VERBALLY RESPONSIVE. AMBULATES WITH MINIMAL ASSIST. ENFORCED REORIENTATION. DENIES OF PAIN/DISCOMFORT NOTED. SIDERAILS ARE UPX3 AND PADDED FOR SEIZURES DISORDERS. EXCELLENT APPETITE THIS BREAKFAST. NO N/V NOTED. BED IS IN THE LOWEST POSITION. BED BRAKES AND LOCKED @ ALL TIMES. BED ALARM ENGAGED. CALL LIGHT IS WITHIN REACH. WILL CONT TO MONITOR.
[2020-03-17] MEDS: Depakote 500mg tab ORAL SCH ×2 (08:05→20:06)
[2020-03-17] MEDS: Heparin 5000 units/ml inj SUBQ SCH ×2 (08:08→20:05)
--- NOTE | 2020-03-17 09:24 | NUR ---
CONFERENCE SERVICE COORDINATOR NOTE CALL MADE TO ALDAIR GARCIA AT [facility] [phone] FOR ASSISTANCE WITH DC PLANNING. VM LEFT REQUESTING CALL BACK.
[2020-03-17] MEDS: Haloperidol 5mg/ml Inj IM PRN (10:15)
--- NOTE | 2020-03-17 10:19 | NUR ---
NURSE NOTES: PATIENT EXPRESSED HIMSELF HE MIGHT KILLED SOMEONE TODAY AND REQUESTED TO SPEAK WITH THE CHARGE NURSE. SUMEET DIXON INTERVENE AND SPOKE WITH THE PATIENT AND GIVING HIM REASSURANCES, REORIENTATED AND ACKNOWLEDGED HIS PROGRESS. DR WESTON THEN NOTIFIED BY ZACK FAY. PATIENT APPEARED CALM AND ABLE TO FOLLOW COMMANDS @ THIS TIME. HALDOL IM ORDERED WERE GIVEN. WILL CONT TO MONITOR.
--- NOTE | 2020-03-17 11:53 | Pulmonology Progress Note ---
Subjective ROS Limited/Unobtainable: Yes Interval Events: was agitated earlier, needs sitter Constitutional: Reports: no symptoms HEENT: Repors: no symptoms Respiratory: Reports: no symptoms Allergies: Coded Allergies: CHLORPROMAZINE (Verified Allergy, Unknown, 03/04/20) TRIFLUOPERAZINE (Verified Allergy, Unknown, 03/04/20) Subjective remains afebrile no leukocytosis on RA pulse ox stable no seizure activity Objective Last 24 Hour Vital Signs Date Time Temp Pulse Resp B/P (MAP) Pulse Ox O2 Delivery O2 Flow Rate FiO2 03/17/20 11:48 97.9 79 18 106/61 (76) 97 03/17/20 08:00 97.8 84 19 123/90 (101) 95 03/17/20 04:00 97.0 85 21 135/75 (95) 95 03/17/20 00:00 97.6 89 21 131/65 (87) 100 03/16/20 21:00 Room Air 03/16/20 20:00 98.1 85 19 117/85 (96) 98 03/16/20 16:00 97.9 93 19 113/83 (93) 97 03/16/20 12:06 97.0 95 17 102/66 (78) 92 Intake and Output 03/16/20 03/17/20 19:00 07:00 Intake Total 1280 ml 710 ml Balance 1280 ml 710 ml Intake Oral 1080 ml 350 ml IV Total 200 ml Other 360 ml # Voids 3 7 General Appearance: no acute distress HEENT: normocephalic, atraumatic, anicteric, mucous membranes moist Respiratory: lungs clear, no accessory muscle use, other - on O2 via NC Cardiovascular: normal peripheral pulses, normal rate Abdomen: soft, non tender, non distended Extremities: no cyanosis, no edema, pedal pulses normal Neurologic: abnormal gait - bedridden , alert, responsive, other - not responsive Lymphatic: no neck adenopathy Musculoskeletal: atrophy - BLE Laboratory Tests 03/16/20 16:15: POC Whole Blood Glucose 102 03/17/20 11:31: POC Whole Blood Glucose 88 Current Medications Medications (Trade) Dose Ordered Sig/Michelle Route PRN Reason Start Time Stop Time Status Last Admin Dose Admin Acetaminophen (Tylenol) 650 mg Q4H PRN ORAL fever (T>100.5F) 03/08/20 20:45 8/16/20 00:44 Dextrose (Dextrose 50%) 25 ml Q30M PRN IV Hypoglycemia 03/08/20 17:30 06/03/20 12:59 03/15/20 06:11 Dextrose (Dextrose 50%) 50 ml Q30M PRN IV Hypoglycemia 03/08/20 17:30 06/03/20 12:59 03/15/20 11:51 Divalproex Sodium (Depakote) 500 mg EVERY 12 HOURS ORAL 03/14/20 21:00 04/13/20 20:59 03/17/20 08:05 Haloperidol Lactate (Haldol) 5 mg Q8H PRN IM agitation 03/10/20 13:11 04/24/20 13:10 03/17/20 10:15 Heparin Sodium (Porcine) (Heparin 5000 units/ml) 5,000 units EVERY 12 HOURS SUBQ 03/08/20 21:00 04/19/20 08:59 03/17/20 08:08 Insulin Aspart (NovoLOG) BEFORE MEALS AND HS SUBQ 03/08/20 21:00 06/03/20 16:29 03/16/20 12:30 Lorazepam (Ativan 2mg/ml 1ml) 1 mg Q4H PRN IM Agitation 03/14/20 01:30 03/21/20 01:29 03/15/20 13:01 Ondansetron HCl (Zofran) 4 mg Q6H PRN IVP Nausea & Vomiting 03/08/20 18:45 04/04/20 00:44 Polyethylene Glycol (Miralax) 17 gm HSPRN PRN ORAL Constipation 03/08/20 18:00 04/07/20 17:59 Risperidone (RisperDAL) 2 mg QHS ORAL 03/14/20 21:00 04/28/20 20:59 03/16/20 20:44 Assessment/Plan Assessment/Plan ASSESSMENT Seizure disorder with breakthrough episode Recently diagnosed COVID-January 2020 Diabetes mellitus Hypertension Acute kidney injury-resolved Severe protein calorie malnutrition DNR/DNI status Comfort measures PLAN of CARE [place] floor O2 titrate to keep sat above 92, currently on RA , stable pulse ox BCX 03/04 1/2 + Staph capitis, likely contaminant, repeated BCX 03/07 NGT per ID recs monitor off abx CXR negative DVT prophylaxis swallow eval-> diet tezture as per SR recs aspiration precaution s/p IV hydration monitor renal parameters, avoid nephrotoxic renal ultrasound no hydro seizure precaution, Ativan prn neuro eval monitor BP BS management with sensitive SSI bowel regimen comfort care DNR/DNI status pt can go back to [place], once agitation under control and off restrains, remains calm case discussed and evaluated by supervising physician Beryl Pastor NP Mar 17, 2020 11:53
--- NOTE | 2020-03-17 12:07 | NUR ---
*-*DISCHARGE PLANNING*-* PATIENT HAS BEEN REFERRED TO: [facility] P: [phone] S/W ROSS, ONLY ACCEPTING +COVID [facility] P: [phone] S/W CHLOÉ, RE-FAX, CALL BACK [facility] P: [phone] S/W ANNALEE, RE-FAX. [facility] P: [phone] S/W MOY, [facility]X [facility] P: [phone] S/W DMITRIY, WILL CALL BACK AFTER REVIEW. [facility] P: [phone] S/W NOVEMBER, WILL CALL BACK AFTER REVIEW [facility] P: [phone] S/W JOHN, NOT ACCEPTING ANY PATIENT [facility] P: [phone] S/W ADARSH, NEW FAX NUMBER, RE-FAX [facility] P: [phone] S/W DAVID, ADMISSIONS NOT AVAILABLE AT THE MOMENT [facility] P: [phone] NO ANSWER CALL W[facility] MATTHEW [place] P: [phone] S/W SAJAN, ADMISSION NOT AVAILABLE. CALL BACK Addendum: 03/17/20 at 1600 by YUNIEL SALCEDO CM *-*DISCHARGE PLANNING*-* PATIENT HAS BEEN REFERRED TO: [facility] P: [phone] S/W ROSS, ONLY ACCEPTING +COVID [facility] P: [phone] S/W INDIA, NO MALE BEDS [facility] P: [phone] S/W NESSA, WILL CALL BACK AFTER REVIEW [facility] P: [phone] S/W JOSE, NO BEDS AVAILABLE [facility] P: [phone] S/W DMITRIY, NO PENITENTIARY CARE AVAILABLE. [facility] P: [phone] S/W NOVEMBER, WILL CALL BACK AFTER REVIEW [facility] P: [phone] S/W JOHN, NOT ACCEPTING ANY PATIENT [facility] P: [phone] S/W ADARSH, NEW FAX NUMBER, RE-FAX [facility] P: [phone] S/W LIANA, NOT ACCEPTING NEW ADMISSION [facility] P: [phone] NO ANSWER WIL[facility] P: [phone] S/W STELLA, CURRENTLY ON BED HOLD, NOT ACCEPTING.
--- NOTE | 2020-03-17 13:15 | NUR ---
CASE MANAGEMENT:REVIEW SI;ALZHEIMER DEMENTIA W/BEHAVIOR DISTURBANCES. PSYCHOTIC DISORDER. 98.1 89 21 131/65 95% ON RA NO LABS TODAY IS;RISPERIDONE PO DEPAKOTE PO BID ATIVAN IM HALDOL IM PRN HEPARIN SUBQ Q12 MED SURG STATUS DCP;[facility] UNABLE TO RETURN TO [facility] DUE TO COVID NEGATIVE STATUS PLAN; SNF PLACEMENT W/BARRIERS D/T BEHAVIOR PATIENT HAS BEEN REFERRED TO: [facility]
--- NOTE | 2020-03-17 15:39 | Infectious Diseases Prog Note ---
Assessment/Plan Assessment: Breakthrough seizures Gram positive bacteremia -likely contaminant -03/04 Bcx 1/4 S. capitis; 03/07 Bcx Neg Afebrile No leukocytosis -u/a neg -CXR: no acute disease CRIS, SP -Renal US: Negative for hydronephrosis. Posterior bladder wall thickening or hypervascular mass. Consider further evaluation with cystoscopy and/or contrast CT scan. Possible bladder calculus. Prominent prostate with calcification. Small amount of ascites fluid within the pelvis recent COVID19 January 2020 -03/05 SARS-Cov2 pCr neg HTN psychiatric disorder seizure disorder DM2 DNR/DNI [place] resident ([facility]) Plan: -Cont to monitor off abx -03/09 SP IV Vancomycin #3 -f/u cx -Monitor CBC/CMP, temperatures -ID neg x1 -Neuro eval -aspiration/seizure precautions Thank you for consulting [facility]. Will continue to follow along with you. Subjective Allergies: Coded Allergies: CHLORPROMAZINE (Verified Allergy, Unknown, 03/04/20) TRIFLUOPERAZINE (Verified Allergy, Unknown, 03/04/20) afebrile no leukocytosis Objective Last 24 Hour Vital Signs Date Time Temp Pulse Resp B/P (MAP) Pulse Ox O2 Delivery O2 Flow Rate FiO2 03/17/20 11:48 97.9 79 18 106/61 (76) 97 03/17/20 08:00 97.8 84 19 123/90 (101) 95 03/17/20 04:00 97.0 85 21 135/75 (95) 95 03/17/20 00:00 97.6 89 21 131/65 (87) 100 03/16/20 21:00 Room Air 03/16/20 20:00 98.1 85 19 117/85 (96) 98 03/16/20 16:00 97.9 93 19 113/83 (93) 97 Height (Feet): 5 Height (Inches): 8.00 Weight (Pounds): 110 General Appearance: other - Chronically ill-appearing Eyes: bilateral eye PERRL, bilateral eye EOMI ENT: hearing grossly normal, moist mucus membranes Neck: full range of motion, supple Respiratory: no rhonchi, no retraction, respiratory distress - Moderate respiratory distress noted Cardiovascular #1: normal peripheral pulses, no murmur, tachycardia Gastrointestinal: non tender, soft, non-distended, no guarding Laboratory Tests Test 03/16/20 16:15 03/17/20 11:31 POC Whole Blood Glucose 102 MG/DL (74-106) 88 MG/DL (74-106) Current Medications Medications (Trade) Dose Ordered Sig/Michelle Route PRN Reason Start Time Stop Time Status Last Admin Dose Admin Acetaminophen (Tylenol) 650 mg Q4H PRN ORAL fever (T>100.5F) 03/08/20 20:45 04/04/20 00:44 Dextrose (Dextrose 50%) 25 ml Q30M PRN IV Hypoglycemia 03/08/20 17:30 06/03/20 12:59 03/15/20 06:11 Dextrose (Dextrose 50%) 50 ml Q30M PRN IV Hypoglycemia 03/08/20 17:30 06/03/20 12:59 03/15/20 11:51 Divalproex Sodium (Depakote) 500 mg EVERY 12 HOURS ORAL 03/14/20 21:00 04/13/20 20:59 03/17/20 08:05 Haloperidol Lactate (Haldol) 5 mg Q8H PRN IM agitation 03/10/20 13:11 04/24/20 13:10 03/17/20 10:15 Heparin Sodium (Porcine) (Heparin 5000 units/ml) 5,000 units EVERY 12 HOURS SUBQ 03/08/20 21:00 04/19/20 08:59 03/17/20 08:08 Insulin Aspart (NovoLOG) BEFORE MEALS AND HS SUBQ 03/08/20 21:00 06/03/20 16:29 03/16/20 12:30 Lorazepam (Ativan 2mg/ml 1ml) 1 mg Q4H PRN IM Agitation 03/14/20 01:30 03/21/20 01:29 03/15/20 13:01 Ondansetron HCl (Zofran) 4 mg Q6H PRN IVP Nausea & Vomiting 03/08/20 18:45 04/04/20 00:44 Polyethylene Glycol (Miralax) 17 gm HSPRN PRN ORAL Constipation 03/08/20 18:00 04/07/20 17:59 Risperidone (RisperDAL) 2 mg QHS ORAL 03/14/20 21:00 04/28/20 20:59 03/16/20 20:44 Kaitlyn Ness M.D. Mar 17, 2020 15:39
--- NOTE | 2020-03-17 16:30 | NUR ---
*-*DISCHARGE PLANNING*-* [facility] P: [phone] S/W NESSA, WILL CALL BACK AFTER REVIEW [facility] P: [phone] S/W NOVEMBER, WILL CALL BACK AFTER REVIEW [facility] P: [phone] S/W CHANCE, NO ACCEPTING ANY NEW ADMISSIONS AT THIS TIME.
--- NOTE | 2020-03-17 16:55 | NUR ---
*-*DISCHARGE PLANNING*-* PATIENT HAS BEEN REFERRED TO: [facility] P: [phone] [facility] P: [phone] [facility] P: [phone] [facility] P: [phone] [facility] P: [phone] [facility] P: [phone] [facility] P: [phone] [facility] P: [phone] [facility] P: [phone] [facility] P: [phone]
--- NOTE | 2020-03-17 19:20 | NUR ---
HAND-OFF: Report given to Adelaida.
--- NOTE | 2020-03-17 20:32 | NUR ---
NURSE NOTES: Received patient ambulating to bathroom, observed with steady gait, cooperative. IV access asymptomatic, dressing dry and intact. Bed low and locked, linen partially changed while patient in the bathroom.
--- NOTE | 2020-03-17 23:03 | Psych Consult Progress Note ---
Psychiatry Progress Note Psychiatry Progress Note Subjective the pt is delusional Medications Current Medications Medications (Trade) Dose Ordered Sig/Michelle Route PRN Reason Start Time Stop Time Status Last Admin Dose Admin Acetaminophen (Tylenol) 650 mg Q4H PRN ORAL fever (T>100.5F) 03/08/20 20:45 04/04/20 00:44 Dextrose (Dextrose 50%) 25 ml Q30M PRN IV Hypoglycemia 03/08/20 17:30 06/03/20 12:59 03/15/20 06:11 Dextrose (Dextrose 50%) 50 ml Q30M PRN IV Hypoglycemia 03/08/20 17:30 06/03/20 12:59 03/15/20 11:51 Divalproex Sodium (Depakote) 500 mg EVERY 12 HOURS ORAL 03/14/20 21:00 04/13/20 20:59 03/17/20 20:06 Haloperidol Lactate (Haldol) 5 mg Q8H PRN IM agitation 03/10/20 13:11 04/24/20 13:10 03/17/20 10:15 Heparin Sodium (Porcine) (Heparin 5000 units/ml) 5,000 units EVERY 12 HOURS SUBQ 03/08/20 21:00 04/19/20 08:59 03/17/20 20:05 Insulin Aspart (NovoLOG) BEFORE MEALS AND HS SUBQ 03/08/20 21:00 06/03/20 16:29 03/16/20 12:30 Lorazepam (Ativan 2mg/ml 1ml) 1 mg Q4H PRN IM Agitation 03/14/20 01:30 03/21/20 01:29 03/15/20 13:01 Ondansetron HCl (Zofran) 4 mg Q6H PRN IVP Nausea & Vomiting 03/08/20 18:45 04/04/20 00:44 Polyethylene Glycol (Miralax) 17 gm HSPRN PRN ORAL Constipation 03/08/20 18:00 04/07/20 17:59 Risperidone (RisperDAL) 4 mg QHS ORAL 03/17/20 21:00 05/01/20 20:59 03/17/20 20:06 Neurological/Psychiatric: Reports: anxiety, depressed, emotional problems Allergies: Coded Allergies: CHLORPROMAZINE (Verified Allergy, Unknown, 03/04/20) TRIFLUOPERAZINE (Verified Allergy, Unknown, 03/04/20) Objective Data Height (Feet): 5 Height (Inches): 8.00 Weight (Pounds): 110 General Appearance: WD/WN, alert, moderate distress, agitated, alert oriented x3 Mental Status Exam - Thought C: delusions of grandiosity Perceptual Disturbances: hallucinations Assessment/Plan Problem List: (1) Psychotic disorder ICD Codes: F29 - Unspecified psychosis not due to a substance or known physiological condition SNOMED: 41776674 Status: doing well, stable, progressing Assessment/Plan: PLAN: 1. risperdal 4mg Lisa Vora MD Mar 17, 2020 23:03
[2020-03-18] VITALS: BP 137/82
[2020-03-18 04:00] VITALS: BP 154/87
[2020-03-18] MEDS: NovoLOG Insulin Flexpen SUBQ SCH ×2 (06:30→11:30)
--- NOTE | 2020-03-18 07:38 | NUR ---
HAND-OFF: Report given to NOHELIA Basilio. Patient sitting on chair eating breakfast independently.
--- NOTE | 2020-03-18 07:55 | NUR ---
NURSE NOTES: Report received from Shannan POZO. Patient seen on rounds, up in chair eating breakfast, pt is alert x 2-3, calm, not in distress, no c/o pain at this time. PIV on left hand patent and intact. Pt is ambulatory with steady gait and is continent. Bed locked and placed on lowest position, siderails up x2, call light placed within reach and instructed to call nurse for assistance. Will continue to monitor.
[2020-03-18 08:00] VITALS: BP 155/77
[2020-03-18] MEDS: Depakote 500mg tab ORAL SCH (08:22)
[2020-03-18] MEDS: Heparin 5000 units/ml inj SUBQ SCH (08:23)
--- NOTE | 2020-03-18 10:56 | NUR ---
*-*DISCHARGE PLANING*-* PATIENT HAS BEEN REFERRED TO: [facility] P: [phone] S/W MARIA ANTONIA, STATED JAKE ON A CALL RIGHT NOW, PLZ CALL BACK.
--- NOTE | 2020-03-18 11:11 | Pulmonology Progress Note ---
Subjective ROS Limited/Unobtainable: Yes Interval Events: was agitated earlier, needs sitter Constitutional: Reports: no symptoms HEENT: Repors: no symptoms Respiratory: Reports: no symptoms Allergies: Coded Allergies: CHLORPROMAZINE (Verified Allergy, Unknown, 03/04/20) TRIFLUOPERAZINE (Verified Allergy, Unknown, 03/04/20) Subjective remains afebrile no leukocytosis on RA pulse ox stable no seizure activity Objective Last 24 Hour Vital Signs Date Time Temp Pulse Resp B/P (MAP) Pulse Ox O2 Delivery O2 Flow Rate FiO2 03/18/20 09:00 Room Air 03/18/20 08:00 98.4 65 18 155/77 (103) 100 03/18/20 04:00 97.4 93 20 154/87 (109) 100 03/18/20 00:00 97.6 85 20 137/82 (100) 99 03/17/20 21:56 Room Air 03/17/20 20:00 97.4 67 20 120/76 (91) 97 03/17/20 16:08 98.3 81 18 101/63 (76) 97 03/17/20 11:48 97.9 79 18 106/61 (76) 97 Intake and Output 03/17/20 03/18/20 19:00 07:00 Intake Total 1000 ml 150 ml Output Total 2 ml Balance 1000 ml 148 ml Intake Oral 150 ml Other 1000 ml Output Urine Total 2 ml General Appearance: no acute distress HEENT: normocephalic, atraumatic, anicteric, mucous membranes moist Respiratory: lungs clear, no accessory muscle use, other - on O2 via NC Cardiovascular: normal peripheral pulses, normal rate Abdomen: soft, non tender, non distended Extremities: no cyanosis, no edema, pedal pulses normal Neurologic: abnormal gait - bedridden , alert, responsive, other - not responsive Lymphatic: no neck adenopathy Musculoskeletal: atrophy - BLE Laboratory Tests 03/17/20 11:31: POC Whole Blood Glucose 88 03/17/20 16:39: POC Whole Blood Glucose 88 Current Medications Medications (Trade) Dose Ordered Sig/Michelle Route PRN Reason Start Time Stop Time Status Last Admin Dose Admin Acetaminophen (Tylenol) 650 mg Q4H PRN ORAL fever (T>100.5F) 03/08/20 20:45 04/04/20 00:44 Dextrose (Dextrose 50%) 25 ml Q30M PRN IV Hypoglycemia 03/08/20 17:30 06/03/20 12:59 03/15/20 06:11 Dextrose (Dextrose 50%) 50 ml Q30M PRN IV Hypoglycemia 03/08/20 17:30 06/03/20 12:59 03/15/20 11:51 Divalproex Sodium (Depakote) 500 mg EVERY 12 HOURS ORAL 03/14/20 21:00 04/13/20 20:59 03/18/20 08:22 Haloperidol Lactate (Haldol) 5 mg Q8H PRN IM agitation 03/10/20 13:11 04/24/20 13:10 03/17/20 10:15 Heparin Sodium (Porcine) (Heparin 5000 units/ml) 5,000 units EVERY 12 HOURS SUBQ 03/08/20 21:00 04/19/20 08:59 03/18/20 08:23 Insulin Aspart (NovoLOG) BEFORE MEALS AND HS SUBQ 03/08/20 21:00 06/03/20 16:29 03/16/20 12:30 Lorazepam (Ativan 2mg/ml 1ml) 1 mg Q4H PRN IM Agitation 03/14/20 01:30 03/21/20 01:29 03/15/20 13:01 Ondansetron HCl (Zofran) 4 mg Q6H PRN IVP Nausea & Vomiting 03/08/20 18:45 04/04/20 00:44 Polyethylene Glycol (Miralax) 17 gm HSPRN PRN ORAL Constipation 03/08/20 18:00 04/07/20 17:59 Risperidone (RisperDAL) 4 mg QHS ORAL 03/17/20 21:00 05/01/20 20:59 03/17/20 20:06 Assessment/Plan Assessment/Plan ASSESSMENT Seizure disorder with breakthrough episode Recently diagnosed COVID-January 2020 Diabetes mellitus Hypertension Acute kidney injury-resolved Severe protein calorie malnutrition DNR/DNI status Comfort measures PLAN of CARE MS floor O2 titrate to keep sat above 92, currently on RA , stable pulse ox BCX 03/04 1/2 + Staph capitis, likely contaminant, repeated BCX 03/07 NGT per ID recs monitor off abx CXR negative DVT prophylaxis swallow eval-> diet tezture as per SR recs aspiration precaution s/p IV hydration monitor renal parameters, avoid nephrotoxic renal ultrasound no hydro seizure precaution, Ativan prn neuro eval monitor BP BS management with sensitive SSI bowel regimen comfort care DNR/DNI status pt can go back to [facility], once agitation under control and off restrains, remains calm case discussed and evaluated by supervising physician Beryl Pastor NP Mar 18, 2020 11:11
--- NOTE | 2020-03-18 11:39 | NUR ---
NURSE NOTES: Dr. Quijano notified that pt needs order for 2nd rapid covid test for SNF placement. Awaiting response.
[2020-03-18 12:00] VITALS: BP 141/79
--- NOTE | 2020-03-18 13:09 | Infectious Diseases Prog Note ---
Assessment/Plan Assessment: Breakthrough seizures Gram positive bacteremia -likely contaminant -03/04 Bcx 1/4 S. capitis; 03/07 Bcx Neg Afebrile No leukocytosis -u/a neg -CXR: no acute disease CRIS, SP -Renal US: Negative for hydronephrosis. Posterior bladder wall thickening or hypervascular mass. Consider further evaluation with cystoscopy and/or contrast CT scan. Possible bladder calculus. Prominent prostate with calcification. Small amount of ascites fluid within the pelvis recent COVID19 January 2020 -03/18 Rapid COVID neg -03/05 SARS-Cov2 pCr neg HTN psychiatric disorder seizure disorder DM2 DNR/DNI [place] resident ([facility]) Plan: -Cont to monitor off abx -03/09 SP IV Vancomycin #3 -f/u cx -Monitor CBC/CMP, temperatures -COVID neg x2 -Neuro eval -aspiration/seizure precautions Thank you for consulting [facility]. Will continue to follow along with you. Subjective Allergies: Coded Allergies: CHLORPROMAZINE (Verified Allergy, Unknown, 03/04/20) TRIFLUOPERAZINE (Verified Allergy, Unknown, 03/04/20) afebrile no leukocytosis discharge planning rapid covid pcr neg done today for disposition Objective Last 24 Hour Vital Signs Date Time Temp Pulse Resp B/P (MAP) Pulse Ox O2 Delivery O2 Flow Rate FiO2 03/18/20 12:00 97.5 67 18 141/79 (99) 99 03/18/20 09:00 Room Air 03/18/20 08:00 98.4 65 18 155/77 (103) 100 03/18/20 04:00 97.4 93 20 154/87 (109) 100 03/18/20 00:00 97.6 85 20 137/82 (100) 99 03/17/20 21:56 Room Air 03/17/20 20:00 97.4 67 20 120/76 (91) 97 03/17/20 16:08 98.3 81 18 101/63 (76) 97 Height (Feet): 5 Height (Inches): 8.00 Weight (Pounds): 110 General Appearance: other - Chronically ill-appearing Eyes: bilateral eye PERRL, bilateral eye EOMI ENT: hearing grossly normal, moist mucus membranes Neck: full range of motion, supple Respiratory: no rhonchi, no retraction, respiratory distress - Moderate respiratory distress noted Cardiovascular #1: normal peripheral pulses, no murmur, tachycardia Gastrointestinal: non tender, soft, non-distended, no guarding Microbiology Date/Time Source Procedure Growth Status 03/18/20 12:30 Nasopharynx SARS-CoV-2 RdRp Gene Assay - Final Complete Laboratory Tests Test 03/17/20 16:39 03/18/20 11:31 POC Whole Blood Glucose 88 MG/DL (74-106) 103 MG/DL (74-106) Current Medications Medications (Trade) Dose Ordered Sig/Michelle Route PRN Reason Start Time Stop Time Status Last Admin Dose Admin Acetaminophen (Tylenol) 650 mg Q4H PRN ORAL fever (T>100.5F) 03/08/20 20:45 04/04/20 00:44 Dextrose (Dextrose 50%) 25 ml Q30M PRN IV Hypoglycemia 03/08/20 17:30 06/03/20 12:59 03/15/20 06:11 Dextrose (Dextrose 50%) 50 ml Q30M PRN IV Hypoglycemia 03/08/20 17:30 06/03/20 12:59 03/15/20 11:51 Divalproex Sodium (Depakote) 500 mg EVERY 12 HOURS ORAL 03/14/20 21:00 04/13/20 20:59 03/18/20 08:22 Haloperidol Lactate (Haldol) 5 mg Q8H PRN IM agitation 03/10/20 13:11 04/24/20 13:10 03/17/20 10:15 Heparin Sodium (Porcine) (Heparin 5000 units/ml) 5,000 units EVERY 12 HOURS SUBQ 03/08/20 21:00 04/19/20 08:59 03/18/20 08:23 Insulin Aspart (NovoLOG) BEFORE MEALS AND HS SUBQ 03/08/20 21:00 06/03/20 16:29 03/16/20 12:30 Lorazepam (Ativan 2mg/ml 1ml) 1 mg Q4H PRN IM Agitation 03/14/20 01:30 03/21/20 01:29 03/15/20 13:01 Ondansetron HCl (Zofran) 4 mg Q6H PRN IVP Nausea & Vomiting 03/08/20 18:45 04/04/20 00:44 Polyethylene Glycol (Miralax) 17 gm HSPRN PRN ORAL Constipation 03/08/20 18:00 04/07/20 17:59 Risperidone (RisperDAL) 4 mg QHS ORAL 03/17/20 21:00 05/01/20 20:59 03/17/20 20:06 Kaitlyn Ness M.D. Mar 18, 2020 13:09
--- NOTE | 2020-03-18 14:05 | NUR ---
*-*DISCHARGE PLANNED*-* PATIENT HAS BEEN ACCEPTED AND WILL BE DISCHARGED TO: [facility] P: [phone] FOR NURSE TO NURSE REPORT ROOM# 130.D [facility] SET FOR 3:30PM S/W NEREIDA [id number].
--- NOTE | 2020-03-18 16:36 | NUR ---
NURSE NOTES: Patient discharged to [facility]. Pt is AxOx3-4, not in distress, calm and cooperative. Vital signs stable prior to discharge. Sacral redness noted and redness on bilateral heels, photos taken. Report given to Shai RN Breakdown Mill Operator at [facility]. All discharge instructions, med list, and paperwork endorsed to [facility] ambulance personnel. PIV and ID band removed. Pt has no belongings. Pt left via gurney transport.
--- NOTE | 2020-03-18 23:19 | Psych Consult Progress Note ---
Psychiatry Progress Note Psychiatry Progress Note Neurological/Psychiatric: Reports: anxiety, depressed, emotional problems Allergies: Coded Allergies: CHLORPROMAZINE (Verified Allergy, Unknown, 03/04/20) TRIFLUOPERAZINE (Verified Allergy, Unknown, 03/04/20) Objective Data Height (Feet): 5 Height (Inches): 8.00 Weight (Pounds): 110 Additional Comments: The patient is having waxing and waning consciousness. Mood is agitated. Affect is flat. Thought process, there is a paucity of thought content. Thought content, no suicidal or homicidal ideation. Cognition is impaired. Insight and judgment are Assessment/Plan Problem List: (1) Psychotic disorder ICD Codes: F29 - Unspecified psychosis not due to a substance or known physiological condition SNOMED: [id number] Status: doing well, stable, progressing Assessment/Plan: PLAN: 1. risperdal 4mg Lisa Vora MD Mar 18, 2020 23:19
--- NOTE | 2020-03-22 13:44 | Discharge Summary ---
Discharge Summary Discharge Summary _ DATE OF ADMISSION: 03/04/2020 DATE OF DISCHARGE: ] 03/18/2020 DISCHARGED BY: Dr. Cruz REASON FOR ADMISSION: 89 years old male with past medical history significant for hypertension, diabetes mellitus type 2, seizure disorder, recent history of COVID-19 infection in January 2020, psychiatric disorder, DNR/DNI status, presented to the hospital from the assisted facility with intractable seizures. Patient received benzodiazepine in route to the hospital and was very obtunded and unresponsive. [facility] the jail patient under comfort care. Shortly after initial evaluation in emergency department, patient was admitted to the hospital with altered mental status , most likely secondary to uncontrolled seizures CONSULTANTS: pulmonary/critical care Dr. Quijano ID specialist Dr. Ness psychiatrist Dr. Hobson HOSPITAL COURSE: Patient admitted to monitored floor. Seizure precaution maintained. Patient provided with IV hydration. Supplemental oxygen provided and titrated to keep pulse oximetry above 92%. Prior to discharge pulse oximetry stable on room air. Blood culture initially on 03/04 revealed 1 out of 2 Staph capitis, likely contaminant . Repeated blood cultures 03/07 were negative. ID specialist recommended to monitor patient off antibiotics. Chest x-ray revealed no evidence of acute cardiopulmonary pathology. DVT prophylaxis provided. Patient undergone bedside swallow evaluation. Diet texture provided as per speech therapist recommendations . Strict aspiration precaution maintained. Patient initially received IV hydration. Renal parameters and electrolytes were closely monitored. Renal ultrasound revealed no evidence of hydronephrosis. Electrolytes corrected as needed and nephrotoxic's were avoided. BUN from 29 down to 9 and creatinine from 1.8 down to 0.9. Acute kidney injury resolved. Seizure precautions maintained. Ativan was on board as needed for breakthrough seizure. Blood sugar was managed with sliding scale of insulin. Blood pressure was closely monitored, remained stable. Bowel regimen instituted Psychiatric medication regimen was optimized as per psychiatrist. Supportive care provided. Protein supplements provided as per registered dietitian recommendation. Patient clinically stabilized and was ready for discharge Bioethics evaluation requested. Patient had no family or DURABLE POWER OF DYE PENETRANT TESTING TECHNICIAN for healthcare organization. Patient already with a DNR/DNI status. In view of profound dementia, multiply medical complications, bioethics recommended comfort measures rather than aggressive medical care as more appropriate. Comfort care provided. Patient subsequently discharged to assisted facility for continuation of care/comfort care FINAL DIAGNOSES: Altered mental status ,most likely secondary to uncontrolled seizure Seizure disorder with breakthrough episode Recently diagnosed COVID-19, January 2020 Diabetes mellitus Hypertension Acute kidney injury-resolved , Possibly chronic renal insufficiency Severe protein calorie malnutrition DNR/DNI status Psychotic disorder Comfort care DISCHARGE MEDICATIONS: See Medication Reconciliation list. DISCHARGE INSTRUCTIONS: Patient was discharged to the assisted facility. Follow up with medical doctor at the facility. I have been assigned to dictate discharge summary for this account. Beryl Pastor NP Mar 22, 2020 13:44
== END 2020-03-18 16:15 | DRG 100 ==
LOC: EDBD 19:58 → EMR 20:44 → 2E 21:41 → EDBEDREQSVC 21:54 → EDBEDREQ 22:16 → 4E 03-08 17:20
DX: G40.909 Epilepsy, unspecified, not intractable, without status epilepticus (principal); E43 Unspecified severe protein-calorie malnutrition; N17.9 Acute kidney failure, unspecified; F03.91 Unspecified dementia, unspecified severity, with behavioral disturbance; N18.9 Chronic kidney disease, unspecified; E11.22 Type 2 diabetes mellitus with diabetic chronic kidney disease; I12.9 Hypertensive chronic kidney disease with stage 1 through stage 4 chronic kidney disease, or unspecified chronic kidney disease; F99 Mental disorder, not otherwise specified; Z88.8 Allergy status to other drugs, medicaments and biological substances; Z51.5 Encounter for palliative care; Z66 Do not resuscitate
CPT/HCPCS: 36415; 71045; 76770; 80048; 80053; 80185; 81001; 81003; 82043; 82550; 82962; 83735; 83935; 84100; 84300; 84550; 85007; 85025; 85610; 85651; 85730; 86140; 87040; 87081; 87181; 89050; 93005; 96361; 96365; 96372; 99285; J1165; J1815; J7030; J8499; U0002

== ENCOUNTER 2020-05-13 11:40 | Inpatient (IN) | payer MEDICARE, OTHER ==
[~2020-05-13] VITALS: Ht 172.7 cm; Wt 58.9 kg
[~2020-05-13 11:40] MED LIST: ATIVAN2 MG/ML IM; DEPAKOTE500 MG ORAL; HALDOL INJECT5 MG/ML IM; RISPERDAL1 MG ORAL
[2020-05-13 11:44] VITALS: BP 139/92
--- NOTE | 2020-05-13 12:34 | Emergency Room Report ---
History of Present Illness General Chief Complaint: Altered Level of Consciousness Source: Patient, EMS Present Illness HPI [facility] is a [facility] patient. Patient apparently was sent to the [facility] by Dr Quijano according to the paperwork. Patient is a poor historian all the history was obtained from medical records. Patient apparently became a phasic today. Paramedics brought him here for that evaluation. Patient appeared be following commands. On arrival however patient began to speak. He was able to tell me his name. Patient has a poor historian unable to tell me what happened. Denies any chest pain shortness of breath at this time. No ot her complaints are noted. Symptoms noted to be moderate. No other modifying factors. No other associated signs and symptoms. No other complaints were noted. Allergies: Coded Allergies: CHLORPROMAZINE (Verified Allergy, Unknown, 03/04/20) TRIFLUOPERAZINE (Verified Allergy, Unknown, 03/04/20) COVID-19 Screening Contact w/high risk pt: No Experienced COVID-19 symptoms?: No COVID-19 Testing performed MALE MODEL: No Patient History Past Medical History: HTN, CAD, other - Encephalopathy Past Surgical History: none Pertinent Family History: none Social History: Denies: smoking, alcohol use, drug use Reviewed Nursing Documentation: PMH: Agreed; PSxH: Agreed Nursing Documentation-PMH Hx Cardiac Problems: Yes Hx Hypertension: Yes Hx Gastrointestinal Problems: Yes Hx Neurological Problems: Yes - encephalopathy Hx Seizures: Yes - Precautions in place. Hx Epilepsy: Yes Review of Systems All Other Systems: negative except mentioned in HPI Physical Exam Vital Signs Date Time Temp Pulse Resp B/P (MAP) Pulse Ox O2 Delivery O2 Flow Rate FiO2 05/13/20 11:35 99.0 58 16 139/92 (108) 97 Room Air Sp02 EP Interpretation: reviewed, normal General Appearance: alert, mild distress, thin Head: atraumatic Eyes: bilateral eye normal inspection ENT: normal ENT inspection, hearing grossly normal, normal voice Neck: normal inspection, full range of motion, supple, no bony tend Respiratory: normal inspection, lungs clear, normal breath sounds, no respiratory distress, no retraction, no wheezing Cardiovascular #1: regular rate, rhythm, no edema Gastrointestinal: normal inspection, normal bowel sounds, non tender, soft, no guarding, no hernia Genitourinary: no CVA tenderness Musculoskeletal: normal inspection, back normal, normal range of motion Neurologic: alert, responsive, speech normal, normal inspection Psychiatric: depressed affect Skin: no rash Medical Decision Making Diagnostic Impression: Primary Impression: TIA (transient ischemic attack) Additional Impression: AMS (altered mental status) ER Course Patient presents emergency department today with acute altered mental status. Differential considerations include acute TIA, acute CVA, acute electrolyte abnormalities, behavioral disturbances just name a few. Patient's exam is fairly benign at the time arrival. No evidence of any acute CVA that requires treatment because patient symptoms have resolved. Therefore patient did not meet TPA criteria because symptoms have resolved. However given the patient did have an episode of acute aphasia concern for possible TIA. CT was negative. Patient will be admitted for further treatment. Case was discussed with Dr. Quijano who was the physician at the [facility]. He recommended patient be admitted to Dr. Cruz. I discussed the same with Dr. Cruz for admission. Labs Test 05/13/20 12:19 05/13/20 13:00 Sodium Level 135 MMOL/L (136-145) Potassium Level 4.5 MMOL/L (3.5-5.1) Chloride Level 100 MMOL/L (98-107) Carbon Dioxide Level 28 MMOL/L (21-32) Anion Gap 7 mmol/L (5-15) Blood Urea Nitrogen 21 mg/dL (7-18) Creatinine 0.9 MG/DL (0.55-1.30) Estimat Glomerular Filtration Rate > 60 mL/min (>60) Glucose Level 81 MG/DL (74-106) Calcium Level 8.7 MG/DL (8.5-10.1) Total Bilirubin 0.3 MG/DL (0.2-1.0) Aspartate Amino Transf (AST/SGOT) 18 U/L (15-37) Alanine Aminotransferase (ALT/SGPT) 13 U/L (12-78) Alkaline Phosphatase 48 U/L (46-116) Troponin I 0.006 ng/mL (0.000-0.056) Pro-B-Type Natriuretic Peptide 701 pg/mL (0-125) Total Protein 7.0 G/DL (6.4-8.2) Albumin 3.3 G/DL (3.4-5.0) Globulin 3.7 g/dL Albumin/Globulin Ratio 0.9 (1.0-2.7) Lipase 128 U/L (73-393) White Blood Count 3.9 K/UL (4.8-10.8) Red Blood Count 4.04 M/UL (4.70-6.10) Hemoglobin 13.3 G/DL (14.2-18.0) Hematocrit 37.8 % (42.0-52.0) Mean Corpuscular Volume 94 FL (80-99) Mean Corpuscular Hemoglobin 33.0 PG (27.0-31.0) Mean Corpuscular Hemoglobin Concent 35.3 G/DL (32.0-36.0) Red Cell Distribution Width 11.0 % (11.6-14.8) Platelet Count 68 K/UL (150-450) Mean Platelet Volume 6.9 FL (6.5-10.1) Neutrophils (%) (Auto) % (45.0-75.0) Lymphocytes (%) (Auto) % (20.0-45.0) Monocytes (%) (Auto) % (1.0-10.0) Eosinophils (%) (Auto) % (0.0-3.0) Basophils (%) (Auto) % (0.0-2.0) Prothrombin Time 12.0 SEC (9.30-11.50) Prothromb Time International Ratio 1.1 (0.9-1.1) Activated Partial Thromboplast Time 27 SEC (23-33) EKG Diagnostic Results Rate: bradycardiac Rhythm: NSR, other - Multiple PVCs ST Segments: no acute changes Rhythm Strip Diag. Results EP Interpretation: yes Rate: 50 Rhythm: NSR, other - Multiple PVCs. No ST segment changes. Chest X-Ray Diagnostic Results Chest X-Ray Diagnostic Results : Chest X-Ray Ordered: Yes # of Views/Limited/Complete: 1 View Indication: Chest Pain EP Interpretation: Yes Interpretation: no consolidation, no effusion, no pneumothorax, no acute car diopulmonary disease Impression: No acute disease Electronically Signed by: Electronically signed by Mukul Mullins MD CT/MRI/US Diagnostic Results CT/MRI/US Diagnostic Results : Imaging Test Ordered: Head CT: No acute changes per radiology Last Vital Signs Date Time Temp Pulse Resp B/P (MAP) Pulse Ox O2 Delivery O2 Flow Rate FiO2 05/13/20 11:44 58 16 Room Air 05/13/20 11:44 99.0 139/92 97 Status: improved Disposition: PLACE IN OBSERVATION Condition: Serious Mukul Mullins MD May 13, 2020 12:34
[2020-05-13 12:49] LABS: ANION GAP 7 mmol/L (5-15); BLOOD UREA NITROGEN 21 mg/dL (7-18); CALCIUM 8.7 MG/DL (8.5-10.1); CARBON DIOXIDE 28 MMOL/L (21-32); CHLORIDE 100 MMOL/L (98-107); CREATININE 0.9 MG/DL (0.55-1.30); POTASSIUM 4.5 MMOL/L (3.5-5.1); SODIUM 135 MMOL/L (136-145)
--- NOTE | 2020-05-13 12:51 | Diagnostic Imaging Report ---
Indication: Reason For Exam: Altered level of consciousness Technique: Continuous helical CT scanning of the head was performed without intravenous contrast material. Axial and coronal 5 mm sections were generated. Dose: Total Dose Length Product - DLP [address] Dose Index - CTDIvol(s) 53.40 mGy. Automated exposure control was utilized for dose reduction. Comparison: None Findings: There is prominence of the ventricular system and cortical sulci. Periventricular low-density is present. There is no shift of midline structures. No abnormal extra-axial fluid collections are noted. There is no evidence of intracerebral bleeding. No other abnormal high or low density areas are noted within the brain. Impression: Atrophy. Chronic small vessel white matter ischemic change. No acute abnormality. The CT scanner at [facility] is accredited by the [employer] and the scans are performed using protocols designed to limit radiation exposure to as low as reasonably achievable to attain images of sufficient resolution adequate for diagnostic evaluation.
[2020-05-13 13:00] LABS: ALANINE AMINOTRANSFERASE 13 U/L (12-78); ALBUMIN 3.3 G/DL (3.4-5.0); ALBUMIN/GLOBULIN RATIO 0.9 (1.0-2.7); ALKALINE PHOSPHATASE 48 U/L (46-116); ASPARTATE AMINO TRANSFERASE 18 U/L (15-37); BILIRUBIN,TOTAL 0.3 MG/DL (0.2-1.0)
[2020-05-13 13:17] LABS: HEMATOCRIT 37.8 % (42.0-52.0); HEMOGLOBIN 13.3 G/DL (14.2-18.0); MEAN CORPUSCULAR VOLUME 94 FL (80-99); PLATELET COUNT 68 K/UL (150-450); RED BLOOD COUNT 4.04 M/UL (4.70-6.10); WHITE BLOOD COUNT 3.9 K/UL (4.8-10.8)
[2020-05-13 13:21] LABS: INR 1.1 (0.9-1.1)
[2020-05-13 13:28] VITALS: BP 139/92
[2020-05-13 14:04] LABS: APPEARANCE,URINE CLEAR; BILIRUBIN, URINE NEGATIVE (NEGATIVE); COLOR,URINE PALE YELLOW; GLUCOSE, URINE (UA) NEGATIVE (NEGATIVE); KETONES,URINE NEGATIVE (NEGATIVE); LEUKOCYTE ESTERASE ,URINE NEGATIVE (NEGATIVE); NITRITE,URINE NEGATIVE (NEGATIVE); PH,URINE 7 (4.5-8.0); PROTEIN,URINE NEGATIVE (NEGATIVE); UROBILINOGEN,URINE NORMAL MG/DL (0.0-1.0)
--- NOTE | 2020-05-13 15:13 | Diagnostic Imaging Report ---
Procedure: XRAY Chest 1v Reason for study: Reason For Exam: COUGH Comparison films: None. FINDINGS: A single one view chest is obtained. Vascularity is normal. There is right infrahilar streaky atelectasis. Cardiac and mediastinal silhouette are within normal limits. CP angles are sharp. Aorta is tortuous. IMPRESSION: Right infrahilar streaky atelectasis.
[2020-05-13] MEDS ORDERED: Nitroglycerin Subl 0.4mg tab SL PRN (17:45)
[2020-05-13] MEDS ORDERED: Albuterol/Ipratropium 3ml neb HHN PRN (17:45)
[2020-05-13] MEDS ORDERED: Miralax 17gm pkt ORAL PRN (17:45)
[2020-05-13] MEDS ORDERED: Haloperidol 5mg/ml Inj IM PRN (17:45)
[2020-05-13] MEDS ORDERED: D5 1/2NS 1,000 ML IV SCH (19:30)
[2020-05-13 20:00] VITALS: BP 108/68
[2020-05-13] MEDS ORDERED: Depakote 500mg tab ORAL SCH (21:00)
[2020-05-13] MEDS: NovoLOG Insulin Flexpen SUBQ SCH (21:00)
[2020-05-13] MEDS ORDERED: Heparin 5000 units/ml inj SUBQ SCH (21:00)
[2020-05-14] VITALS: BP 104/64
[2020-05-14 04:00] VITALS: BP 128/66
[2020-05-14] MEDS: NovoLOG Insulin Flexpen SUBQ SCH ×4 (06:30→21:00)
[2020-05-14 07:28] LABS: HEMATOCRIT 39.7 % (42.0-52.0); HEMOGLOBIN 14.3 G/DL (14.2-18.0); MEAN CORPUSCULAR VOLUME 93 FL (80-99); PLATELET COUNT 79 K/UL (150-450); RED BLOOD COUNT 4.27 M/UL (4.70-6.10); RED CELL DISTRIBUTION WIDTH 10.6 % (11.6-14.8)
[2020-05-14 07:41] LABS: ANION GAP 2 mmol/L (5-15); BLOOD UREA NITROGEN 27 mg/dL (7-18); CALCIUM 8.6 MG/DL (8.5-10.1); CARBON DIOXIDE 27 MMOL/L (21-32); CHLORIDE 96 MMOL/L (98-107); CREATININE 1.1 MG/DL (0.55-1.30); POTASSIUM 3.9 MMOL/L (3.5-5.1); SODIUM 125 MMOL/L (136-145)
[2020-05-14 07:43] LABS: AMMONIA 36 umol/L (11-32)
[2020-05-14 07:54] LABS: ALANINE AMINOTRANSFERASE 11 U/L (12-78); ALBUMIN 3.6 G/DL (3.4-5.0); ALBUMIN/GLOBULIN RATIO 0.9 (1.0-2.7); ALKALINE PHOSPHATASE 50 U/L (46-116); ASPARTATE AMINO TRANSFERASE 15 U/L (15-37); BILIRUBIN,TOTAL 0.3 MG/DL (0.2-1.0); CHOLESTEROL 184 MG/DL (< 200); HDL CHOLESTEROL 82 MG/DL (40-60); TRIGLYCERIDES 17 MG/DL (30-150)
[2020-05-14 08:00] VITALS: BP 114/60
--- NOTE | 2020-05-14 09:27 | Cardiology Report ---
APPROVED REPORT EXAM: Two-dimensional and M-mode echocardiogram with Doppler and color Doppler. INDICATION LV FUNCTION M-Mode DIMENSIONS IVSd1.5 (0.7-1.1cm)Left Atrium (MM)3.9 (1.6-4.0cm) LVDd3.5 (3.5-5.6cm)Aortic Root3.5 (2.0-3.7cm) PWd1.2 (0.7-1.1cm)Aortic Cusp Exc.2.0 (1.5-2.0cm) IVSs1.6 cm LVDs2.5 (2.5-4.0cm) PWs1.0 cm <Conclusion> Technically difficult study due to poor acoustical windows . Normal left ventricular chamber size. This study pre-cludes assessment of LV wall motion. Left ventricular ejection fraction estimated to be 45-50%. Mild left ventricular hypertrophy by 2-D. No evidence of pericardial fat or effusion. All other cardiac chamber sizes are within normal limits. Calcification of aortic valve with adequate cusp excursion. Moderate thickened mitral valve leaflets with normal excursion. Mitral annulus and aortic root calcification. Pulmonic valve not well visualized. Normal tricuspid valve structure. IVC measured at 1.2 cm with slight physiologic collapse suggestive of increased RA pressure. A color flow and spectral Doppler study was performed and revealed: No aortic regurgitation. Trace mitral regurgitation. Mitral diastolic velocities suggest reduced left ventricular relaxation c/w mild LV diastolic dysfunction (Grade I ). Trace tricuspid regurgitation. Tricuspid systolic velocities suggests peak right ventricular systolic pressure of 20 mmHg.
[2020-05-14] MEDS: Depakote 125mg Sprinkles ORAL SCH ×2 (10:17→21:23)
--- NOTE | 2020-05-14 11:22 | Cardiac Electrophysiology PN ---
Subjective Subjective [id number] Objective Last 24 Hour Vital Signs Date Time Temp Pulse Resp B/P (MAP) Pulse Ox O2 Delivery O2 Flow Rate FiO2 05/14/20 08:33 54 05/14/20 08:00 97.7 57 20 114/60 (78) 97 05/14/20 04:00 96.8 53 18 128/66 (86) 97 05/14/20 04:00 62 05/14/20 03:00 120 05/14/20 00:00 65 05/14/20 00:00 96.8 61 18 104/64 (77) 96 05/13/20 21:00 Room Air 05/13/20 20:00 96.7 62 18 108/68 (81) 97 05/13/20 20:00 51 05/13/20 17:53 Room Air 05/13/20 17:07 99.0 74 16 139/92 97 Room Air 05/13/20 13:28 99.0 74 16 139/92 97 Room Air 05/13/20 11:44 58 16 Room Air 05/13/20 11:44 99.0 16 139/92 97 Room Air 05/13/20 11:35 99.0 58 16 139/92 (108) 97 Room Air Intake and Output 05/13/20 05/14/20 18:59 06:59 Output Total 300 ml 1000 ml Balance -300 ml -1000 ml Output Urine Total 300 ml 1000 ml # Voids 1 2 Laboratory Tests Test 05/13/20 12:19 05/13/20 12:45 05/13/20 13:00 05/13/20 21:59 Sodium Level 135 MMOL/L (136-145) L Potassium Level 4.5 MMOL/L (3.5-5.1) Chloride Level 100 MMOL/L (98-107) Carbon Dioxide Level 28 MMOL/L (21-32) Anion Gap 7 mmol/L (5-15) Blood Urea Nitrogen 21 mg/dL (7-18) H Creatinine 0.9 MG/DL (0.55-1.30) Estimat Glomerular Filtration Rate > 60 mL/min (>60) Glucose Level 81 MG/DL (74-106) Calcium Level 8.7 MG/DL (8.5-10.1) Total Bilirubin 0.3 MG/DL (0.2-1.0) Aspartate Amino Transf (AST/SGOT) 18 U/L (15-37) Alanine Aminotransferase (ALT/SGPT) 13 U/L (12-78) Alkaline Phosphatase 48 U/L (46-116) Troponin I 0.006 ng/mL (0.000-0.056) Pro-B-Type Natriuretic Peptide 701 pg/mL (0-125) H Total Protein 7.0 G/DL (6.4-8.2) Albumin 3.3 G/DL (3.4-5.0) L Globulin 3.7 g/dL Albumin/Globulin Ratio 0.9 (1.0-2.7) L Lipase 128 U/L (73-393) Urine Color Pale yellow Urine Appearance Clear Urine pH 7 (4.5-8.0) Urine Specific [place] 1.010 (1.005-1.035) Urine Protein Negative (NEGATIVE) Urine Glucose (UA) Negative (NEGATIVE) Urine Ketones Negative (NEGATIVE) Urine Blood Negative (NEGATIVE) Urine Nitrite Negative (NEGATIVE) Urine Bilirubin Negative (NEGATIVE) Urine Urobilinogen Normal MG/DL (0.0-1.0) Urine Leukocyte Esterase Negative (NEGATIVE) White Blood Count 3.9 K/UL (4.8-10.8) L Red Blood Count 4.04 M/UL (4.70-6.10) L Hemoglobin 13.3 G/DL (14.2-18.0) L Hematocrit 37.8 % (42.0-52.0) L Mean Corpuscular Volume 94 FL (80-99) Mean Corpuscular Hemoglobin 33.0 PG (27.0-31.0) H Mean Corpuscular Hemoglobin Concent 35.3 G/DL (32.0-36.0) Red Cell Distribution Width 11.0 % (11.6-14.8) L Platelet Count 68 K/UL (150-450) L Mean Platelet Volume 6.9 FL (6.5-10.1) Neutrophils (%) (Auto) % (45.0-75.0) Lymphocytes (%) (Auto) % (20.0-45.0) Monocytes (%) (Auto) % (1.0-10.0) Eosinophils (%) (Auto) % (0.0-3.0) Basophils (%) (Auto) % (0.0-2.0) Differential Total Cells Counted 100 Neutrophils % (Manual) 61 % (45-75) Lymphocytes % (Manual) 27 % (20-45) Monocytes % (Manual) 3 % (1-10) Eosinophils % (Manual) 9 % (0-3) H Basophils % (Manual) 0 % (0-2) Band Neutrophils 0 % (0-8) Platelet Estimate Decreased L Platelet Morphology Normal Red Blood Cell Morphology Normal Prothrombin Time 12.0 SEC (9.30-11.50) H Prothromb Time International Ratio 1.1 (0.9-1.1) Activated Partial Thromboplast Time 27 SEC (23-33) POC Whole Blood Glucose 90 MG/DL (74-106) Test 05/14/20 06:17 05/14/20 06:19 White Blood Count 4.0 K/UL (4.8-10.8) L Red Blood Count 4.27 M/UL (4.70-6.10) L Hemoglobin 14.3 G/DL (14.2-18.0) Hematocrit 39.7 % (42.0-52.0) L Mean Corpuscular Volume 93 FL (80-99) Mean Corpuscular Hemoglobin 33.5 PG (27.0-31.0) H Mean Corpuscular Hemoglobin Concent 35.9 G/DL (32.0-36.0) Red Cell Distribution Width 10.6 % (11.6-14.8) L Platelet Count 79 K/UL (150-450) L Mean Platelet Volume 7.4 FL (6.5-10.1) Neutrophils (%) (Auto) % (45.0-75.0) Lymphocytes (%) (Auto) % (20.0-45.0) Monocytes (%) (Auto) % (1.0-10.0) Eosinophils (%) (Auto) % (0.0-3.0) Basophils (%) (Auto) % (0.0-2.0) Neutrophils % (Manual) Pending Lymphocytes % (Manual) Pending Platelet Estimate Pending Platelet Morphology Pending Prothrombin Time 11.2 SEC (9.30-11.50) Prothromb Time International Ratio 1.0 (0.9-1.1) Activated Partial Thromboplast Time 30 SEC (23-33) Sodium Level 125 MMOL/L (136-145) #L Potassium Level 3.9 MMOL/L (3.5-5.1) Chloride Level 96 MMOL/L (98-107) L Carbon Dioxide Level 27 MMOL/L (21-32) Anion Gap 2 mmol/L (5-15) L Blood Urea Nitrogen 27 mg/dL (7-18) H Creatinine 1.1 MG/DL (0.55-1.30) Estimat Glomerular Filtration Rate > 60 mL/min (>60) Glucose Level 79 MG/DL (74-106) Calcium Level 8.6 MG/DL (8.5-10.1) Magnesium Level 1.8 MG/DL (1.8-2.4) Total Bilirubin 0.3 MG/DL (0.2-1.0) Aspartate Amino Transf (AST/SGOT) 15 U/L (15-37) Alanine Aminotransferase (ALT/SGPT) 11 U/L (12-78) L Alkaline Phosphatase 50 U/L (46-116) Ammonia 36 umol/L (11-32) H Troponin I 0.004 ng/mL (0.000-0.056) Total Protein 7.6 G/DL (6.4-8.2) Albumin 3.6 G/DL (3.4-5.0) Globulin 4.0 g/dL Albumin/Globulin Ratio 0.9 (1.0-2.7) L Triglycerides Level 17 MG/DL (30-150) L Cholesterol Level 184 MG/DL (< 200) LDL Cholesterol 88 mg/dL (<100) HDL Cholesterol 82 MG/DL (40-60) H Cholesterol/HDL Ratio 2.2 (3.3-4.4) L Thyroid Stimulating Hormone (TSH) 7.503 uiU/mL (0.358-3.740) POC Whole Blood Glucose 81 MG/DL (74-106) Microbiology Date/Time Source Procedure Growth Status 05/13/20 14:24 Rectum Received Max Pollard MD May 14, 2020 11:22
--- NOTE | 2020-05-14 11:36 | Consultation ---
History of Present Illness General Date patient seen: May 14, 2020 Chief Complaint: Altered Level of Consciousness Present Illness HPI 69 year old male with hx of psychosis, DM, HTN, dementia, poor historian presented to ER because apparently he became a phasic today. Patient robert eared be following commands. On arrival however patient began to speak. Patient is a poor historian unable to tell me what happened. Denies any chest pain shortness of breath at this time. No other complaints are noted. Patient is admitted to telemetry for further management. Allergies: Coded Allergies: CHLORPROMAZINE (Verified Allergy, Unknown, 03/04/20) TRIFLUOPERAZINE (Verified Allergy, Unknown, 03/04/20) Medication History Scheduled Divalproex Sodium (Depakote), 500 MG ORAL EVERY 12 HOURS Risperidone* (Risperdal*), 2 MG ORAL QHS Scheduled PRN Haloperidol Lactate (Haloperidol Lactate), 5 MG IM Q8H PRN Lorazepam (Lorazepam), 1 MG IM Q4H PRN Patient History Healthcare decision maker Resuscitation status Advanced Directive on File Past Medical/Surgical History Past Medical/Surgical History: (1) History of hypertension (2) History of diabetes mellitus (3) Severe protein-calorie malnutrition (4) History of psychiatric disorder (5) Alzheimer's dementia Review of Systems All Other Systems: negative except mentioned in HPI Physical Exam General Appearance: cachetic, thin Lines, tubes and drains: peripheral HEENT: normocephalic, atraumatic Neck: non-tender, normal alignment Respiratory/Chest: chest wall non-tender, lungs clear Breasts: no masses Cardiovascular/Chest: normal peripheral pulses Abdomen: normal bowel sounds, soft Genitourinary/Rectal: normal genital exam Extremities: normal range of motion 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 Last 24 Hour Vital Signs Date Time Temp Pulse Resp B/P (MAP) Pulse Ox O2 Delivery O2 Flow Rate FiO2 05/14/20 09:00 Room Air 05/14/20 08:33 54 05/14/20 08:00 97.7 57 20 114/60 (78) 97 05/14/20 04:00 96.8 53 18 128/66 (86) 97 05/14/20 04:00 62 05/14/20 03:00 120 05/14/20 00:00 65 05/14/20 00:00 96.8 61 18 104/64 (77) 96 05/13/20 21:00 Room Air 05/13/20 20:00 96.7 62 18 108/68 (81) 97 05/13/20 20:00 51 05/13/20 17:53 Room Air 05/13/20 17:07 99.0 74 16 139/92 97 Room Air 05/13/20 13:28 99.0 74 16 139/92 97 Room Air 05/13/20 11:44 58 16 Room Air 05/13/20 11:44 99.0 16 139/92 97 Room Air 05/13/20 11:35 99.0 58 16 139/92 (108) 97 Room Air Intake and Output 05/13/20 05/14/20 18:59 06:59 Output Total 300 ml 1000 ml Balance -300 ml -1000 ml Output Urine Total 300 ml 1000 ml # Voids 1 2 Laboratory Tests Test 05/13/20 12:19 05/13/20 12:45 05/13/20 13:00 05/13/20 21:59 Sodium Level 135 MMOL/L (136-145) L Potassium Level 4.5 MMOL/L (3.5-5.1) Chloride Level 100 MMOL/L (98-107) Carbon Dioxide Level 28 MMOL/L (21-32) Anion Gap 7 mmol/L (5-15) Blood Urea Nitrogen 21 mg/dL (7-18) H Creatinine 0.9 MG/DL (0.55-1.30) Estimat Glomerular Filtration Rate > 60 mL/min (>60) Glucose Level 81 MG/DL (74-106) Calcium Level 8.7 MG/DL (8.5-10.1) Total Bilirubin 0.3 MG/DL (0.2-1.0) Aspartate Amino Transf (AST/SGOT) 18 U/L (15-37) Alanine Aminotransferase (ALT/SGPT) 13 U/L (12-78) Alkaline Phosphatase 48 U/L (46-116) Troponin I 0.006 ng/mL (0.000-0.056) Pro-B-Type Natriuretic Peptide 701 pg/mL (0-125) H Total Protein 7.0 G/DL (6.4-8.2) Albumin 3.3 G/DL (3.4-5.0) L Globulin 3.7 g/dL Albumin/Globulin Ratio 0.9 (1.0-2.7) L Lipase 128 U/L (73-393) Urine Color Pale yellow Urine Appearance Clear Urine pH 7 (4.5-8.0) Urine Specific [place] 1.010 (1.005-1.035) Urine Protein Negative (NEGATIVE) Urine Glucose (UA) Negative (NEGATIVE) Urine Ketones Negative (NEGATIVE) Urine Blood Negative (NEGATIVE) Urine Nitrite Negative (NEGATIVE) Urine Bilirubin Negative (NEGATIVE) Urine Urobilinogen Normal MG/DL (0.0-1.0) Urine Leukocyte Esterase Negative (NEGATIVE) White Blood Count 3.9 K/UL (4.8-10.8) L Red Blood Count 4.04 M/UL (4.70-6.10) L Hemoglobin 13.3 G/DL (14.2-18.0) L Hematocrit 37.8 % (42.0-52.0) L Mean Corpuscular Volume 94 FL (80-99) Mean Corpuscular Hemoglobin 33.0 PG (27.0-31.0) H Mean Corpuscular Hemoglobin Concent 35.3 G/DL (32.0-36.0) Red Cell Distribution Width 11.0 % (11.6-14.8) L Platelet Count 68 K/UL (150-450) L Mean Platelet Volume 6.9 FL (6.5-10.1) Neutrophils (%) (Auto) % (45.0-75.0) Lymphocytes (%) (Auto) % (20.0-45.0) Monocytes (%) (Auto) % (1.0-10.0) Eosinophils (%) (Auto) % (0.0-3.0) Basophils (%) (Auto) % (0.0-2.0) Differential Total Cells Counted 100 Neutrophils % (Manual) 61 % (45-75) Lymphocytes % (Manual) 27 % (20-45) Monocytes % (Manual) 3 % (1-10) Eosinophils % (Manual) 9 % (0-3) H Basophils % (Manual) 0 % (0-2) Band Neutrophils 0 % (0-8) Platelet Estimate Decreased L Platelet Morphology Normal Red Blood Cell Morphology Normal Prothrombin Time 12.0 SEC (9.30-11.50) H Prothromb Time International Ratio 1.1 (0.9-1.1) Activated Partial Thromboplast Time 27 SEC (23-33) POC Whole Blood Glucose 90 MG/DL (74-106) Test 05/14/20 06:17 05/14/20 06:19 White Blood Count 4.0 K/UL (4.8-10.8) L Red Blood Count 4.27 M/UL (4.70-6.10) L Hemoglobin 14.3 G/DL (14.2-18.0) Hematocrit 39.7 % (42.0-52.0) L Mean Corpuscular Volume 93 FL (80-99) Mean Corpuscular Hemoglobin 33.5 PG (27.0-31.0) H Mean Corpuscular Hemoglobin Concent 35.9 G/DL (32.0-36.0) Red Cell Distribution Width 10.6 % (11.6-14.8) L Platelet Count 79 K/UL (150-450) L Mean Platelet Volume 7.4 FL (6.5-10.1) Neutrophils (%) (Auto) % (45.0-75.0) Lymphocytes (%) (Auto) % (20.0-45.0) Monocytes (%) (Auto) % (1.0-10.0) Eosinophils (%) (Auto) % (0.0-3.0) Basophils (%) (Auto) % (0.0-2.0) Neutrophils % (Manual) Pending Lymphocytes % (Manual) Pending Platelet Estimate Pending Platelet Morphology Pending Prothrombin Time 11.2 SEC (9.30-11.50) Prothromb Time International Ratio 1.0 (0.9-1.1) Activated Partial Thromboplast Time 30 SEC (23-33) Sodium Level 125 MMOL/L (136-145) #L Potassium Level 3.9 MMOL/L (3.5-5.1) Chloride Level 96 MMOL/L (98-107) L Carbon Dioxide Level 27 MMOL/L (21-32) Anion Gap 2 mmol/L (5-15) L Blood Urea Nitrogen 27 mg/dL (7-18) H Creatinine 1.1 MG/DL (0.55-1.30) Estimat Glomerular Filtration Rate > 60 mL/min (>60) Glucose Level 79 MG/DL (74-106) Calcium Level 8.6 MG/DL (8.5-10.1) Magnesium Level 1.8 MG/DL (1.8-2.4) Total Bilirubin 0.3 MG/DL (0.2-1.0) Aspartate Amino Transf (AST/SGOT) 15 U/L (15-37) Alanine Aminotransferase (ALT/SGPT) 11 U/L (12-78) L Alkaline Phosphatase 50 U/L (46-116) Ammonia 36 umol/L (11-32) H Troponin I 0.004 ng/mL (0.000-0.056) Total Protein 7.6 G/DL (6.4-8.2) Albumin 3.6 G/DL (3.4-5.0) Globulin 4.0 g/dL Albumin/Globulin Ratio 0.9 (1.0-2.7) L Triglycerides Level 17 MG/DL (30-150) L Cholesterol Level 184 MG/DL (< 200) LDL Cholesterol 88 mg/dL (<100) HDL Cholesterol 82 MG/DL (40-60) H Cholesterol/HDL Ratio 2.2 (3.3-4.4) L Thyroid Stimulating Hormone (TSH) 7.503 uiU/mL (0.358-3.740) POC Whole Blood Glucose 81 MG/DL (74-106) Microbiology Date/Time Source Procedure Growth Status 05/13/20 14:24 Rectum Received Height (Feet): 5 Height (Inches): 8.00 Weight (Pounds): 149 Medications Current Medications Medications (Trade) Dose Ordered Sig/Michelle Route PRN Reason Start Time Stop Time Status Last Admin Dose Admin Acetaminophen (Tylenol) 650 mg Q4H PRN ORAL Temp >100.5 05/13/20 17:45 06/12/20 17:44 Albuterol/ Ipratropium (Albuterol/ Ipratropium) 3 ml Q4H PRN HHN Shortness of Breath 05/13/20 17:45 05/18/20 17:44 Carvedilol (Coreg) 3.125 mg EVERY 12 HOURS ORAL 05/14/20 21:00 06/13/20 20:59 UNV Clonidine HCl (Catapres Tab) 0.1 mg Q4H PRN ORAL For High Blood Pressure 05/13/20 17:45 08/11/20 17:44 Dextrose (Dextrose 50%) 25 ml Q30M PRN IV Hypoglycemia 9/24/20 17:45 08/11/20 17:44 Dextrose (Dextrose 50%) 50 ml Q30M PRN IV Hypoglycemia 05/13/20 17:45 08/11/20 17:44 Divalproex Sodium (Depakote Sprinkles) 500 mg Q12HR ORAL 05/14/20 10:00 06/28/20 09:59 05/14/20 10:17 Haloperidol Lactate (Haldol) 5 mg Q8H PRN IM agitation 05/13/20 17:45 06/27/20 17:44 Insulin Aspart (NovoLOG) BEFORE MEALS AND HS SUBQ 05/13/20 21:00 08/11/20 20:59 Nitroglycerin (Ntg) 0.4 mg Q5M X 3 DOSES PRN SL Prn Chest Pain 05/13/20 17:45 06/12/20 17:44 Ondansetron HCl (Zofran) 4 mg Q6H PRN IVP Nausea & Vomiting 05/13/20 17:45 06/12/20 17:44 Polyethylene Glycol (Miralax) 17 gm HSPRN PRN ORAL Constipation 05/13/20 17:45 06/12/20 17:44 Risperidone (RisperDAL) 2 mg QHS ORAL 05/13/20 21:00 06/27/20 20:59 05/13/20 21:52 Sodium Chloride 1,000 ml @ 50 mls/hr Q20H IV 05/14/20 08:45 06/13/20 08:44 05/14/20 08:45 Temazepam (Restoril) 15 mg HSPRN PRN ORAL Insomnia 05/13/20 17:45 05/20/20 17:44 Assessment/Plan Problem List: (1) AMS (altered mental status) ICD Codes: R41.82 - Altered mental status, unspecified SNOMED: 272961705 (2) TIA (transient ischemic attack) ICD Codes: G45.9 - Transient cerebral ischemic attack, unspecified SNOMED: 158312608 (3) History of psychiatric disorder ICD Codes: Z86.59 - Personal history of other mental and behavioral disorders SNOMED: 906565811 (4) Alzheimer's dementia ICD Codes: G30.9 - Alzheimer's disease, unspecified; F02.80 - Dementia in other diseases classified elsewhere without behavioral disturbance SNOMED: 63888442 (5) History of hypertension ICD Codes: Z86.79 - Personal history of other diseases of the circulatory system SNOMED: 311626187 (6) History of diabetes mellitus ICD Codes: Z86.39 - Personal history of other endocrine, nutritional and metabolic disease SNOMED: 176612730 (7) Severe protein-calorie malnutrition ICD Codes: E43 - Unspecified severe protein-calorie malnutrition SNOMED: 104046613, 529225463, 733424928 Assessment/Plan: telemetry monitoring echo US of carotid artery monitor BP sliding scale diabetic diet Dipika Quijano MD May 14, 2020 11:35
[2020-05-14 12:00] VITALS: BP 110/53
--- NOTE | 2020-05-14 13:14 | Consultation ---
DATE OF CONSULTATION: 05/14/2020 CARDIOLOGY CONSULTATION CONSULTING PHYSICIAN: Max Pollard MD. REFERRING PHYSICIAN: Eren Cruz MD. REASON FOR CONSULTATION: Frequent ventricular arrhythmias including ventricular tachycardia. HISTORY OF PRESENT ILLNESS: The patient is a 69-year-old gentleman with history of hypertension and coronary artery disease, was brought from [facility] for altered mental status and became aphasic. In the emergency room, the patient was able to follow commands and was able to speak. The patient however is very poor historian. The patient denies any chest pain or shortness of breath. On the 12-lead EKG, the patient has frequent PVCs of primarily of two morphologies in bigeminal pattern. The patient also had beats of wide complex rhythm. Electrophysiology consultation was obtained for further evaluation. He underwent an echocardiogram which also showed EF of only 45%. REVIEW OF SYSTEMS: Review of systems was performed and was negative other than what was mentioned in the history of present illness. PAST MEDICAL HISTORY: As mentioned above. FAMILY HISTORY: Noncontributory. SOCIAL HISTORY: He lives in [facility]. Does not smoke or drink alcohol. His previous admission was from March 04, 2020 to March 18, 2020 for seizure disorder, hypertension, diabetes, and history of COVID infection January of 2020 as well as psychiatric disorder. At that time, he was DNR/DNI. PHYSICAL EXAMINATION: VITAL SIGNS: Show blood pressure 114/60, pulse 64, respirations 18, and temperature 97.7. HEAD AND NECK: No JVD. LUNGS: Clear. CARDIOVASCULAR: Irregular S1 and S2 with no gallop. ABDOMEN: Soft. EXTREMITIES: No pitting edema. LABORATORY AND DIAGNOSTIC DATA: White count of 4, hemoglobin 14.3, hematocrit of 39, and platelet count is only 79. His labs show sodium 125, potassium 3.9, BUN of 27, creatinine 1.1, and glucose of 179. Troponin is negative X2. ASSESSMENT/PLAN: 1. Frequent PVCs of different morphology. The patient essentially has one sinus beat for every two PVCs. PVC is primarily of two different morphology with right bundle-branch block and left bundle-branch block morphology. The patient already ruled out for myocardial infarction. We will watch the patient on telemetry. His echocardiogram showed ejection fraction of 45%. Partially this may be due to the patient's severe electrolyte abnormality in view of sodium of only 125. Hyponatremia will be corrected and watch the patient on telemetry. 2. History of coronary artery disease. The patient already ruled out for myocardial infarction. Currently, he does not have any chest pain. 3. Severe hyponatremia. The patient is getting normal saline. 4. History of psychiatric disorder of Risperdal. 5. History of hypertension, on p.r.n. clonidine. 6. Cardiomyopathy with ejection fraction of 45%. The patient would benefit from low dose beta-gracie especially in view of his coronary artery disease as well frequent PVCs and start him on low-dose Coreg. Thank you very much, Dr. Cruz, for allowing me to participate in the care of this patient. Please do not hesitate to contact me for any questions regarding my evaluation. Sincerely, Max Pollard M.D. DR: Tom JOB#: [id number] CC:
--- NOTE | 2020-05-14 15:20 | History & Physical ---
History and Physical History & Physicial -[id number] Eren Cruz MD May 14, 2020 15:20
--- NOTE | 2020-05-14 15:47 | Diagnostic Imaging Report ---
Indication: Aphasia Technique: Grayscale and duplex images of the extracranial carotid and vertebral arteries Comparison: none Findings: Bilaterally, grayscale and duplex images demonstrate atherosclerotic plaquing resulting in less than 50% diameter stenosis. Normal Doppler flow velocities and waveforms. Patent bilateral vertebral arteries, antegrade flow. Impression: Less than 50% diameter stenosis bilaterally All stenosis was measured based on the NASCET criteria. Velocity criteria are extrapolated from diameter data as defined by the Society of radiologists in ultrasound consensus conference. Radiology 2003:229; [id number]
[2020-05-14 16:00] VITALS: BP 113/61
--- NOTE | 2020-05-14 17:02 | Diagnostic Imaging Report ---
Indication: Leg pain Technique: Grayscale and duplex images of the bilateral lower extremity veins Comparison: none Findings: On the left, grayscale and duplex images demonstrate occlusive thrombus within the popliteal vein. The femoral and common femoral veins are patent, demonstrating normal Doppler flow and compressibility On the right, grayscale and duplex images demonstrate no evidence of intraluminal thrombus. Normal phasic Doppler waveforms, demonstrating normal augmentation response and no evidence of valvular insufficiency. Normal compressibility. Impression: Positive for left lower extremity popliteal deep venous thrombus. Patient's nurse aware
[2020-05-14 20:00] VITALS: BP_SYST 115; BP_SYST 135; BP_DIAS 68; BP_DIAS 74
--- NOTE | 2020-05-14 20:59 | History and Physical Report ---
DATE OF ADMISSION: 05/13/2020 CHIEF COMPLAINT: Altered mental status. HISTORY OF PRESENT ILLNESS: This is a 69 years old gentleman with past medical history significant for psychosis, diabetes type 2, hypertension, Alzheimer's dementia, poor historian. The patient presented to the hospital after he was found to be altered than usual. The patient appeared to be following commands, however, only responding with nodding his head. The patient on arrival to the emergency room began to speak. Poor historian. Denies any fever or chills. Denies any nausea or vomiting. Denies any chest pain or shortness of breath. Shortly after initial evaluation in the emergency department, the patient was admitted to the hospital with altered mental status, most likely secondary to toxic metabolic encephalopathy. PAST MEDICAL HISTORY/PAST SURGICAL HISTORY: As above, history of diabetes type 2, hypertension, severe protein-calorie malnutrition, psychosis, and Alzheimer dementia. MEDICATIONS: At home, significant for Depakote and Risperdal. ALLERGIES: To as well as trifluoperazine. SOCIAL HISTORY: No smoking, alcohol, or drugs. FAMILY HISTORY: Noncontributory. REVIEW OF SYSTEMS: Very limited, secondary to the patient's status. No fever or chills. No nausea or vomiting. No diarrhea. No fall or head trauma was reported. PHYSICAL EXAMINATION: VITAL SIGNS: On admission, temperature 99.0, pulse of 58, respirations 16, and blood pressure 138/92, repeat one is 114/60. GENERAL: The patient awake, responsive only by nodding his head, however, able to follow simple commands. Cachectic and malnutrition. HEAD AND NECK: Pupils are equal and reactive to light. Extraocular movements intact. NECK: Supple. No JVD. LUNGS: Good air entry. No wheezing or rales. Decreased air in the bases. HEART: S1, S2. Distant heart sounds. No murmur or gallops. ABDOMEN: Soft, nondistended, nontender. Positive bowel sounds. EXTREMITIES: No cyanosis, clubbing, or edema. NEUROLOGIC: Limited secondary to patient's status. Cranial nerves II through XII grossly intact. The patient moving all the extremities spontaneously and gait was not assessed due to the patient's status. RECTAL: Refused and deferred. : Refused and deferred. PSYCHIATRIC: Mood and affect is unable to obtain. LABORATORY AND DIAGNOSTIC DATA: Laboratory on admission from the emergency room, WBC of 3.9, hemoglobin 13, hematocrit 37, platelets is 68. PT of 12, INR 1.1, PTT of 27. Initial sodium 135, potassium 4.5, chloride 100, bicarbonate 28, BUN 21, creatinine 0.9. Troponin is 0.06. ProBNP of 701, repeat sodium was noted to be 125 and chloride is 96. TSH is 7.50. Urinalysis unremarkable, no leukocytes, no wbc. The patient's chest x-ray, right infrahilar streaky atelectasis. CT of the head, chronic small vessel white matter ischemic changes, no acute abnormality. Duplex of the lower extremity positive for the left lower extremity popliteal deep vein thrombosis. ASSESSMENT: 1. Altered mental status possible due to the toxic metabolic encephalopathy. 2. Severe protein-calorie malnutrition. 3. Hyponatremia. 4. Hypertension. 5. Diabetes type 2. 6. Alzheimer's dementia. 7. Cardiomyopathy. 8. Hypertension. 9. Coronary artery disease. PLAN: Admit the patient to monitored unit. We will follow up with Dr. Quijano, Pulmonary/Critical Care and Dr. Pollard from Cardiology, Electrophysiology. We will follow up laboratory closely. IV hydration. Code Status, Full code. DVT prophylaxis is heparin subcutaneous. The patient was noted to have DVT in the left lower extremity popliteal area. We will monitor laboratory. Repeat ultrasound of the lower extremity in 1 to 2 weeks. Eren Cruz M.D. DR: KEVIN JOB#: [id number] CC:
[2020-05-15] VITALS: BP 130/86
[2020-05-15 04:00] VITALS: BP 135/88
[2020-05-15] MEDS: NovoLOG Insulin Flexpen SUBQ SCH ×4 (05:30→21:00)
[2020-05-15 08:00] VITALS: BP 148/95
--- NOTE | 2020-05-15 08:01 | Pulmonology Progress Note ---
Subjective ROS Limited/Unobtainable: Yes Allergies: Coded Allergies: CHLORPROMAZINE (Verified Allergy, Unknown, 03/04/20) TRIFLUOPERAZINE (Verified Allergy, Unknown, 03/04/20) Subjective remains afebrile , no leukocytosis pulse ox stable on RA Na up to 133 remains poorly responsive Objective Last 24 Hour Vital Signs Date Time Temp Pulse Resp B/P (MAP) Pulse Ox O2 Delivery O2 Flow Rate FiO2 05/15/20 04:00 97.0 57 18 135/88 (104) 97 05/15/20 04:00 57 05/15/20 00:00 68 05/15/20 00:00 98.1 68 18 130/86 (101) 98 05/14/20 21:23 65 115/68 05/14/20 21:00 Room Air 05/14/20 20:00 99.0 65 18 115/68 (84) 98 05/14/20 20:00 64 05/14/20 16:28 75 05/14/20 16:00 98.1 69 20 113/61 (78) 97 05/14/20 12:00 96.7 59 19 110/53 (72) 98 05/14/20 11:48 62 05/14/20 09:00 Room Air 05/14/20 08:33 54 05/14/20 08:00 97.7 57 20 114/60 (78) 97 Intake and Output 05/14/20 05/15/20 19:00 07:00 Intake Total 600 ml 200 ml Output Total 1500 ml Balance 600 ml -1300 ml Intake Oral 600 ml 200 ml Output Urine Total 1500 ml # Voids 3 4 # Bowel Movements 1 1 General Appearance: cachetic, other - awake, thin male, poorly responsive to simple questions by nodding his head, HEENT: normocephalic, atraumatic, anicteric Respiratory: decreased breath sounds Cardiovascular: normal rate, regular rhythm - SE with occas PVCs Abdomen: normal bowel sounds, soft, non tender Extremities: no edema, pedal pulses normal Skin: no rash Neurologic: alert - poorly responsive, other - moves all extremitites Musculoskeletal: atrophy - BLE Microbiology Date/Time Source Procedure Growth Status 05/13/20 14:24 Rectum VRE Culture - Final NO VANCOMYCIN RESISTANT ENTEROCOCCUS ... Complete 05/13/20 14:24 Rectum - Final NO CARBAPENEM-RESISTANT ENTEROBACTERI... Complete 05/13/20 14:24 Nasal Nares MRSA Culture - Final NO METHICILLIN RESISTANT STAPH AUREUS... Complete Laboratory Tests 05/14/20 22:23: POC Whole Blood Glucose 102 05/15/20 05:22: POC Whole Blood Glucose 87 Current Medications Medications (Trade) Dose Ordered Sig/Michelle Route PRN Reason Start Time Stop Time Status Last Admin Dose Admin Acetaminophen (Tylenol) 650 mg Q4H PRN ORAL Temp >100.5 05/13/20 17:45 06/12/20 17:44 Albuterol/ Ipratropium (Albuterol/ Ipratropium) 3 ml Q4H PRN HHN Shortness of Breath 05/13/20 17:45 05/18/20 17:44 Carvedilol (Coreg) 3.125 mg EVERY 12 HOURS ORAL 05/14/20 21:00 06/13/20 20:59 05/14/20 21:23 Clonidine HCl (Catapres Tab) 0.1 mg Q4H PRN ORAL For High Blood Pressure 05/13/20 17:45 08/11/20 17:44 Dextrose (Dextrose 50%) 25 ml Q30M PRN IV Hypoglycemia 05/13/20 17:45 08/11/20 17:44 Dextrose (Dextrose 50%) 50 ml Q30M PRN IV Hypoglycemia 05/13/20 17:45 08/11/20 17:44 Divalproex Sodium (Depakote Sprinkles) 500 mg Q12HR ORAL 05/14/20 10:00 06/28/20 09:59 05/14/20 21:23 Haloperidol Lactate (Haldol) 5 mg Q8H PRN IM agitation 05/13/20 17:45 06/27/20 17:44 Insulin Aspart (NovoLOG) BEFORE MEALS AND HS SUBQ 05/13/20 21:00 08/11/20 20:59 Nitroglycerin (Ntg) 0.4 mg Q5M X 3 DOSES PRN SL Prn Chest Pain 05/13/20 17:45 06/12/20 17:44 Ondansetron HCl (Zofran) 4 mg Q6H PRN IVP Nausea & Vomiting 05/13/20 17:45 06/12/20 17:44 Polyethylene Glycol (Miralax) 17 gm HSPRN PRN ORAL Constipation 05/13/20 17:45 06/12/20 17:44 Risperidone (RisperDAL) 2 mg QHS ORAL 05/13/20 21:00 06/27/20 20:59 05/14/20 21:23 Sodium Chloride 1,000 ml @ 50 mls/hr Q20H IV 05/14/20 08:45 06/13/20 08:44 05/15/20 05:24 Temazepam (Restoril) 15 mg HSPRN PRN ORAL Insomnia 05/13/20 17:45 05/20/20 17:44 Assessment/Plan Assessment/Plan ASSESSMENT Acute metabolic encephalopathy probably due to acute hyponatremia Acute severe hyponatremia-improving ? due to dehydration Possible TIA Frequent PVC Cardiomyopathy with ejection fraction of 45% Acute DVT LLE popliteal vein Coronary artery disease Seizure disorder Hypertension Diabetes mellitus Alzheimer dementia Thrombocytopenia Leukopenia Elevated TSH Psychiatric disorder Severe protein calorie malnutrition PLAN OF CARE tele IV hydration with NS hyponatremia work-up initiated nephro reymundo Echo with EF 45 to 50% cardio eval appreciated started on low-dose Coreg DVT prophylaxis Venous duplex with acute DVT left lower extremity popliteal thrombus, given location, hold on ac , also low PLT count CT head no acute intracranial pathology, chronic changes noted carotid duplex with less than 50% stenosis bilaterally CXR with right-sided atelectasis UA negative seizure precaution , continue Depakote psych meds resume monitor counts BS management with SSI BP management with BB and optimize as needed check free T4 wnl, subclinical hypothyroidism, no need to initiate treatment, check TFT in 1-2 months PT eval dietary eval re protein supplements supportive care case discussed and evaluated by supervising physician Beryl Pastor NP May 15, 2020 08:01
[2020-05-15] MEDS: Depakote 125mg Sprinkles ORAL SCH ×2 (08:42→21:12)
[2020-05-15 09:30] LABS: ANION GAP 7 mmol/L (5-15); BLOOD UREA NITROGEN 25 mg/dL (7-18); CALCIUM 8.3 MG/DL (8.5-10.1); CARBON DIOXIDE 26 MMOL/L (21-32); CHLORIDE 100 MMOL/L (98-107); CREATININE 0.9 MG/DL (0.55-1.30); POTASSIUM 4.1 MMOL/L (3.5-5.1); SODIUM 133 MMOL/L (136-145)
--- NOTE | 2020-05-15 11:54 | Internal Med Progress Note ---
Subjective Date of Service: May 15, 2020 Physician Name DevineFarhat Attending Physician Eren Cruz MD Current Medications Medications (Trade) Dose Ordered Sig/Michelle Route PRN Reason Start Time Stop Time Status Last Admin Dose Admin Acetaminophen (Tylenol) 650 mg Q4H PRN ORAL Temp >100.5 05/13/20 17:45 06/12/20 17:44 Albuterol/ Ipratropium (Albuterol/ Ipratropium) 3 ml Q4H PRN HHN Shortness of Breath 05/13/20 17:45 05/18/20 17:44 Carvedilol (Coreg) 3.125 mg EVERY 12 HOURS ORAL 05/14/20 21:00 06/13/20 20:59 05/15/20 08:42 Clonidine HCl (Catapres Tab) 0.1 mg Q4H PRN ORAL For High Blood Pressure 05/13/20 17:45 08/11/20 17:44 Dextrose (Dextrose 50%) 25 ml Q30M PRN IV Hypoglycemia 05/13/20 17:45 08/11/20 17:44 Dextrose (Dextrose 50%) 50 ml Q30M PRN IV Hypoglycemia 05/13/20 17:45 08/11/20 17:44 Divalproex Sodium (Depakote Sprinkles) 500 mg Q12HR ORAL 05/14/20 10:00 06/28/20 09:59 05/15/20 08:42 Haloperidol Lactate (Haldol) 5 mg Q8H PRN IM agitation 05/13/20 17:45 06/27/20 17:44 Insulin Aspart (NovoLOG) BEFORE MEALS AND HS SUBQ 05/13/20 21:00 08/11/20 20:59 Nitroglycerin (Ntg) 0.4 mg Q5M X 3 DOSES PRN SL Prn Chest Pain 05/13/20 17:45 06/12/20 17:44 Ondansetron HCl (Zofran) 4 mg Q6H PRN IVP Nausea & Vomiting 05/13/20 17:45 06/12/20 17:44 Polyethylene Glycol (Miralax) 17 gm HSPRN PRN ORAL Constipation 05/13/20 17:45 06/12/20 17:44 Risperidone (RisperDAL) 2 mg QHS ORAL 05/13/20 21:00 06/27/20 20:59 05/14/20 21:23 Sodium Chloride 1,000 ml @ 50 mls/hr Q20H IV 05/14/20 08:45 06/13/20 08:44 05/15/20 05:24 Temazepam (Restoril) 15 mg HSPRN PRN ORAL Insomnia 05/13/20 17:45 05/20/20 17:44 Allergies: Coded Allergies: CHLORPROMAZINE (Verified Allergy, Unknown, 03/04/20) TRIFLUOPERAZINE (Verified Allergy, Unknown, 03/04/20) ROS Limited/Unobtainable: Yes Subjective 69 YO F admitted with altered mental status. Now Cover for Int Piter-Dr Cruz Objective Last Vital Signs Date Time Temp Pulse Resp B/P (MAP) Pulse Ox O2 Delivery O2 Flow Rate FiO2 05/15/20 09:00 Room Air 05/15/20 08:42 66 135/88 05/15/20 08:00 96.8 20 96 Laboratory Tests Test 05/14/20 22:23 05/15/20 05:22 05/15/20 07:00 POC Whole Blood Glucose 102 MG/DL (74-106) 87 MG/DL (74-106) Sodium Level 133 MMOL/L (136-145) L Potassium Level 4.1 MMOL/L (3.5-5.1) Chloride Level 100 MMOL/L (98-107) Carbon Dioxide Level 26 MMOL/L (21-32) Anion Gap 7 mmol/L (5-15) Blood Urea Nitrogen 25 mg/dL (7-18) H Creatinine 0.9 MG/DL (0.55-1.30) Estimat Glomerular Filtration Rate > 60 mL/min (>60) Glucose Level 78 MG/DL (74-106) Calcium Level 8.3 MG/DL (8.5-10.1) L Phosphorus Level 4.2 MG/DL (2.5-4.9) Troponin I 0.005 ng/mL (0.000-0.056) Pro-B-Type Natriuretic Peptide 572 pg/mL (0-125) H Thyroid Stimulating Hormone (TSH) 5.653 uiU/mL (0.358-3.740) Free Thyroxine 1.05 NG/DL (0.76-1.46) Microbiology Date/Time Source Procedure Growth Status 05/13/20 14:24 Rectum VRE Culture - Final NO VANCOMYCIN RESISTANT ENTEROCOCCUS ... Complete 05/13/20 14:24 Rectum - Final NO CARBAPENEM-RESISTANT ENTEROBACTERI... Complete 05/13/20 14:24 Nasal Nares MRSA Culture - Final NO METHICILLIN RESISTANT STAPH AUREUS... Complete Intake and Output 05/14/20 05/15/20 19:00 07:00 Intake Total 600 ml 200 ml Output Total 1500 ml Balance 600 ml -1300 ml Intake Oral 600 ml 200 ml Output Urine Total 1500 ml # Voids 3 4 # Bowel Movements 1 1 Objective PHYSICAL EXAMINATION: GENERAL: The patient awake, responsive only by nodding his head, however, able to follow simple commands. Cachectic and malnutrition. HEAD AND NECK: Pupils are equal and reactive to light. Extraocular movements intact. NECK: Supple. No JVD. LUNGS: Good air entry. No wheezing or rales. Decreased air in the bases. HEART: S1, S2. Distant heart sounds. No murmur or gallops. ABDOMEN: Soft, nondistended, nontender. Positive bowel sounds. EXTREMITIES: No cyanosis, clubbing, or edema. NEUROLOGIC: Limited secondary to patient's status. Cranial nerves II through XII grossly intact. The patient moving all the extremities spontaneously and gait was not assessed due to the patient's status. RECTAL: Refused and deferred. : Refused and deferred. PSYCHIATRIC: Mood and affect is unable to obtain. Assessment/Plan Assessment/Plan ASSESSMENT: 1. Altered mental status possible due to the toxic metabolic encephalopathy. 2. Severe protein-calorie malnutrition. 3. Hyponatremia. 4. Hypertension. 5. Diabetes type 2. 6. Alzheimer's dementia. 7. Cardiomyopathy. 8. Hypertension. 9. Coronary artery disease. 10. Deep venous thrombosis left Popliteal vein PLAN: 1. Admit the patient to monitored unit. 2. Dr. Quijano=Pulmonary/Critical Care 3. Dr. Pollard = Cardiology,Electrophysiology. 4. Code Status, Full code. 5. DVT prophylaxis= heparin subcutaneous. 6. DVT in the left popliteal vein 7. Repeat ultrasound of the lower extremity in 1 to 2 weeks. Farhat Devine MD May 15, 2020 11:54
[2020-05-15 12:00] VITALS: BP 123/63
--- NOTE | 2020-05-15 15:12 | Consultation ---
Consult Note Consult Note Asked to evaluate at the request of Dr. Cruz for management of hyponatremia. Patient seen. Laboratory data reviewed. Records in EMR reviewed. Day 2 of hospitalization. Serum sodium 135 next day 125 today 133 Emergency room note: Patient is a jail patient. Patient apparently was sent to the jail by Dr Quijano according to the paperwork. Patient is a poor historian all the history was obtained from medical records. Patient apparently became a phasic today. Paramedics brought him here for that evaluation. Patient appeared be following commands. On arrival however patient began to speak. He was able to tell me his name. Patient has a poor historian unable to tell me what happened. Denies any chest pain shortness of breath at this time. No other complaints are noted. Symptoms noted to be moderate. No other modifying factors. No other associated signs and symptoms. No other complaints were noted. Allergies: CHLORPROMAZINE (Verified Allergy, Unknown, 03/04/20) TRIFLUOPERAZINE (Verified Allergy, Unknown, 03/04/20) COVID-19 Screening Contact w/high risk pt: No Experienced COVID-19 symptoms?: No COVID-19 Testing performed [employer] S[employer]IOR [employer]GEANT: No Past Medical History: HTN, CAD, other - Encephalopathy Hx Cardiac Problems: Yes Hx Hypertension: Yes Hx Gastrointestinal Problems: Yes Hx Neurological Problems: Yes - encephalopathy Hx Seizures: Yes - Precautions in place. Hx Epilepsy: Yes PHYSICAL EXAMINATION: VITAL SIGNS: On admission, temperature 99.0, pulse of 58, respirations 16, and blood pressure 138/92, repeat one is 114/60. GENERAL: The patient awake, responsive only by nodding his head, however, able to follow simple commands. Cachectic and malnutrition. HEAD AND NECK: Pupils are equal and reactive to light. Extraocular movements intact. NECK: Supple. No JVD. LUNGS: Good air entry. No wheezing or rales. Decreased air in the bases. HEART: S1, S2. Distant heart sounds. No murmur or gallops. ABDOMEN: Soft, nondistended, nontender. Positive bowel sounds. EXTREMITIES: No cyanosis, clubbing, or edema. NEUROLOGIC: Limited secondary to patient's status. Cranial nerves II through XII grossly intact. The patient moving all the extremities spontaneously and gait was not assessed due to the patient's status. RECTAL: Refused and deferred. : Refused and deferred. PSYCHIATRIC: Mood and affect is unable to obtain. LABORATORY AND DIAGNOSTIC DATA: Laboratory on admission from the emergency room, WBC of 3.9, hemoglobin 13, hematocrit 37, platelets is 68. PT of 12, INR 1.1, PTT of 27. Initial sodium 135, potassium 4.5, chloride 100, bicarbonate 28, BUN 21, creatinine 0.9. Troponin is 0.06. ProBNP of 701, repeat sodium was noted to be 125 and chloride is 96. TSH is 7.50. Urinalysis unremarkable, no leukocytes, no wbc. The patient's chest x-ray, right infrahilar streaky atelectasis. CT of the head, chronic small vessel white matter ischemic changes, no acute abnormality. Duplex of the lower extremity positive for the left lower extremity popliteal deep vein thrombosis. . Assessment/Plan Hyponatremia, etiology is being worked up Cardiomyopathy with ejection fraction of 45% Acute DVT left lower extremity Coronary artery disease Seizure disorder Hypertension Diabetes mellitus Hypothyroidism Psychiatric disorder Severe malnutrition Suggestions: Urine for spot sodium, urine for osmolarity Serum osmolarity, serum uric acid, TSH level, lipid panel, Slow saline hydration while the above results are ready Continue current management Keep the blood pressure in check Per orders Miller Silva MD May 15, 2020 15:11
--- NOTE | 2020-05-15 15:36 | Cardiac Electrophysiology PN ---
Assessment/Plan Assessment/Plan 1. Frequent PVCs of different morphology. The patient essentially has one sinus beat for every two PVCs. PVC is primarily of two different morphology with right bundle-branch block and left bundle-branch block morphology. The patient already ruled out for myocardial infarction. We will watch the patient on telemetry. His echocardiogram showed ejection fraction of 45%. Partially this may be due to the patient's severe electrolyte abnormality in view of sodium of only 125. Hyponatremia is better. Continue Coreg 2. History of coronary artery disease. The patient already ruled out for myocardial infarction. Currently, he does not have any chest pain.On Coreg 3.125 bid 3. Severe hyponatremia. The patient is getting normal saline. Improved to 133 4. History of psychiatric disorder of Risperdal. 5. History of hypertension, on p.r.n. clonidine. 6. Cardiomyopathy with ejection fraction of 45%. On Coreg 3.125 bid LB RN Subjective Subjective Alert in NAD. Ate 100% of his foot. Has frequent PVCs Objective Last 24 Hour Vital Signs Date Time Temp Pulse Resp B/P (MAP) Pulse Ox O2 Delivery O2 Flow Rate FiO2 05/15/20 12:00 68 05/15/20 12:00 97.7 74 18 123/63 (83) 100 05/15/20 09:00 Room Air 05/15/20 08:42 66 135/88 05/15/20 08:00 96.8 86 20 148/95 (112) 96 05/15/20 08:00 62 05/15/20 04:00 97.0 57 18 135/88 (104) 97 05/15/20 04:00 57 05/15/20 00:00 68 05/15/20 00:00 98.1 68 18 130/86 (101) 98 05/14/20 21:23 65 115/68 05/14/20 21:00 Room Air 05/14/20 20:00 99.0 65 18 115/68 (84) 98 05/14/20 20:00 64 05/14/20 16:28 75 05/14/20 16:00 98.1 69 20 113/61 (78) 97 Intake and Output 05/14/20 05/15/20 19:00 07:00 Intake Total 600 ml 200 ml Output Total 1500 ml Balance 600 ml -1300 ml Intake Oral 600 ml 200 ml Output Urine Total 1500 ml # Voids 3 4 # Bowel Movements 1 1 Laboratory Tests Test 05/14/20 22:23 05/15/20 05:22 05/15/20 07:00 05/15/20 15:30 POC Whole Blood Glucose 102 MG/DL (74-106) 87 MG/DL (74-106) Sodium Level 133 MMOL/L (136-145) L Potassium Level 4.1 MMOL/L (3.5-5.1) Chloride Level 100 MMOL/L (98-107) Carbon Dioxide Level 26 MMOL/L (21-32) Anion Gap 7 mmol/L (5-15) Blood Urea Nitrogen 25 mg/dL (7-18) H Creatinine 0.9 MG/DL (0.55-1.30) Estimat Glomerular Filtration Rate > 60 mL/min (>60) Glucose Level 78 MG/DL (74-106) Calcium Level 8.3 MG/DL (8.5-10.1) L Phosphorus Level 4.2 MG/DL (2.5-4.9) Troponin I 0.005 ng/mL (0.000-0.056) Pro-B-Type Natriuretic Peptide 572 pg/mL (0-125) H Thyroid Stimulating Hormone (TSH) 5.653 uiU/mL (0.358-3.740) Free Thyroxine 1.05 NG/DL (0.76-1.46) Urine Osmolality Pending Urine Random Sodium Pending Microbiology Date/Time Source Procedure Growth Status 05/13/20 14:24 Rectum VRE Culture - Final NO VANCOMYCIN RESISTANT ENTEROCOCCUS ... Complete 05/13/20 14:24 Rectum - Final NO CARBAPENEM-RESISTANT ENTEROBACTERI... Complete 05/13/20 14:24 Nasal Nares MRSA Culture - Final NO METHICILLIN RESISTANT STAPH AUREUS... Complete Objective HEAD AND NECK: No JVD. LUNGS: Clear. CARDIOVASCULAR: Irregular S1 and S2 with no gallop. ABDOMEN: Soft. EXTREMITIES: No pitting edema. Max Pollard MD May 15, 2020 15:36
[2020-05-15 16:00] VITALS: BP 126/60
[2020-05-15 20:00] VITALS: BP 125/68
[2020-05-16] VITALS: BP 129/81
[2020-05-16 04:00] VITALS: BP 124/66
[2020-05-16] MEDS: NovoLOG Insulin Flexpen SUBQ SCH ×4 (06:30→21:00)
[2020-05-16 08:00] VITALS: BP 129/85
[2020-05-16] MEDS: Depakote 125mg Sprinkles ORAL SCH ×2 (09:06→21:06)
[2020-05-16 10:03] LABS: HEMATOCRIT 36.4 % (42.0-52.0); MEAN CORPUSCULAR VOLUME 92 FL (80-99); PLATELET COUNT 84 K/UL (150-450); RED BLOOD COUNT 3.96 M/UL (4.70-6.10); RED CELL DISTRIBUTION WIDTH 10.6 % (11.6-14.8); WHITE BLOOD COUNT 4.2 K/UL (4.8-10.8)
[2020-05-16 10:29] LABS: ALANINE AMINOTRANSFERASE 13 U/L (12-78); ALBUMIN 2.8 G/DL (3.4-5.0); ALBUMIN/GLOBULIN RATIO 0.8 (1.0-2.7); ALKALINE PHOSPHATASE 46 U/L (46-116); ANION GAP 8 mmol/L (5-15); ASPARTATE AMINO TRANSFERASE 10 U/L (15-37); BILIRUBIN,TOTAL 0.4 MG/DL (0.2-1.0); BLOOD UREA NITROGEN 28 mg/dL (7-18); CALCIUM 8.1 MG/DL (8.5-10.1); CARBON DIOXIDE 24 MMOL/L (21-32); CHLORIDE 105 MMOL/L (98-107); CHOLESTEROL 151 MG/DL (< 200); CREATININE 1.1 MG/DL (0.55-1.30); GAMMA GLUTAMYL TRANSPEPTIDASE 8 U/L (5-85); HDL CHOLESTEROL 66 MG/DL (40-60); PHOSPHORUS 3.9 MG/DL (2.5-4.9); POTASSIUM 4.1 MMOL/L (3.5-5.1); SODIUM 137 MMOL/L (136-145); TRIGLYCERIDES 49 MG/DL (30-150)
--- NOTE | 2020-05-16 11:15 | Pulmonology Progress Note ---
Subjective ROS Limited/Unobtainable: Yes Allergies: Coded Allergies: CHLORPROMAZINE (Verified Allergy, Unknown, 03/04/20) TRIFLUOPERAZINE (Verified Allergy, Unknown, 03/04/20) Subjective remains afebrile , no leukocytosis pulse ox stable on RA Na up to 137 more awake Objective Last 24 Hour Vital Signs Date Time Temp Pulse Resp B/P (MAP) Pulse Ox O2 Delivery O2 Flow Rate FiO2 05/16/20 09:05 65 129/85 05/16/20 08:37 Room Air 05/16/20 08:00 98.8 65 20 129/85 (100) 97 05/16/20 04:00 59 05/16/20 04:00 98.1 57 16 124/66 (85) 97 05/16/20 00:00 59 05/16/20 00:00 98.8 55 18 129/81 (97) 97 05/15/20 21:12 63 125/68 05/15/20 21:00 Room Air 05/15/20 20:00 98.6 63 18 125/68 (87) 99 05/15/20 20:00 65 05/15/20 16:00 63 05/15/20 16:00 98.2 68 18 126/60 (82) 98 05/15/20 12:00 68 05/15/20 12:00 97.7 74 18 123/63 (83) 100 Intake and Output 05/15/20 05/16/20 19:00 07:00 Intake Total 730 ml Output Total 750 ml Balance -20 ml Intake Oral 730 ml Output Urine Total 750 ml # Voids 1 General Appearance: cachetic, other - more awake, thin male, still poorly responsive to simple questions by nodding his head, HEENT: normocephalic, atraumatic, anicteric Respiratory: decreased breath sounds Cardiovascular: normal rate, regular rhythm - SE with occas PVCs Abdomen: normal bowel sounds, soft, non tender Extremities: no edema, pedal pulses normal Skin: no rash Neurologic: alert - poorly responsive, other - moves all extremitites Musculoskeletal: atrophy - BLE Microbiology Date/Time Source Procedure Growth Status 05/13/20 14:24 Rectum VRE Culture - Final NO VANCOMYCIN RESISTANT ENTEROCOCCUS ... Complete 05/13/20 14:24 Rectum - Final NO CARBAPENEM-RESISTANT ENTEROBACTERI... Complete 05/13/20 14:24 Nasal Nares MRSA Culture - Final NO METHICILLIN RESISTANT STAPH AUREUS... Complete Laboratory Tests 05/15/20 15:30: Urine Osmolality 412L, Urine Random Sodium 68 05/15/20 20:29: POC Whole Blood Glucose 106 05/16/20 05:44: POC Whole Blood Glucose 76 05/16/20 09:44: White Blood Count 4.2L, Red Blood Count 3.96L, Hemoglobin 13.0L, Hematocrit 36.4L, Mean Corpuscular Volume 92, Mean Corpuscular Hemoglobin 32.7H, Mean Co rpuscular Hemoglobin Concent 35.6, Red Cell Distribution Width 10.6L, Platelet Count 84L, Mean Platelet Volume 7.4, Neutrophils (%) (Auto) , Lymphocytes (%) (Auto) , Monocytes (%) (Auto) , Eosinophils (%) (Auto) , Basophils (%) (Auto) , Differential Total Cells Counted 100, Neutrophils % (Manual) 65, Lymphocytes % (Manual) 21, Monocytes % (Manual) 10, Eosinophils % (Manual) 3, Basophils % (Manual) 1, Band Neutrophils 0, Platelet Estimate DecreasedL, Platelet Morphology Normal, Anisocytosis 1+, Sodium Level 137, Potassium Level 4.1, Chloride Level 105, Carbon Dioxide Level 24, Anion Gap 8, Blood Urea Nitrogen 28H, Creatinine 1.1, Estimat Glomerular Filtration Rate > 60, Glucose Level 91, Osmolality 290L, Uric Acid 4.5, Calcium Level 8.1L, Phosphorus Level 3.9, Magnesium Level 1.7L, Total Bilirubin 0.4, Gamma Glutamyl Transpeptidase 8, Aspartate Amino Transf (AST/SGOT) 10L, Alanine Aminotransferase (ALT/SGPT) 13, Alkaline Phosphatase 46, C-Reactive Protein, Quantitative < 0.4, Pro-B-Type Natriuretic Peptide 709H, Total Protein 6.3L, Albumin 2.8L, Globulin 3.5, Albumin/Globulin Ratio 0.8L, Triglycerides Level 49, Cholesterol Level 151, LDL Cholesterol 73, HDL Cholesterol 66H, Cholesterol/HDL Ratio 2.3L, Thyroid Sti mulating Hormone (TSH) 4.185H Current Medications Medications (Trade) Dose Ordered Sig/Michelle Route PRN Reason Start Time Stop Time Status Last Admin Dose Admin Acetaminophen (Tylenol) 650 mg Q4H PRN ORAL Temp >100.5 05/13/20 17:45 06/12/20 17:44 Albuterol/ Ipratropium (Albuterol/ Ipratropium) 3 ml Q4H PRN HHN Shortness of Breath 05/13/20 17:45 05/18/20 17:44 Carvedilol (Coreg) 3.125 mg EVERY 12 HOURS ORAL 05/14/20 21:00 06/13/20 20:59 05/16/20 09:05 Clonidine HCl (Catapres Tab) 0.1 mg Q4H PRN ORAL For High Blood Pressure 05/13/20 17:45 08/11/20 17:44 Dextrose (Dextrose 50%) 25 ml Q30M PRN IV Hypoglycemia 05/13/20 17:45 08/11/20 17:44 Dextrose (Dextrose 50%) 50 ml Q30M PRN IV Hypoglycemia 05/13/20 17:45 08/11/20 17:44 Divalproex Sodium (Depakote Sprinkles) 500 mg Q12HR ORAL 05/14/20 10:00 06/28/20 09:59 05/16/20 09:06 Haloperidol Lactate (Haldol) 5 mg Q8H PRN IM agitation 05/13/20 17:45 06/27/20 17:44 Insulin Aspart (NovoLOG) BEFORE MEALS AND HS SUBQ 05/13/20 21:00 08/11/20 20:59 Nitroglycerin (Ntg) 0.4 mg Q5M X 3 DOSES PRN SL Prn Chest Pain 05/13/20 17:45 06/12/20 17:44 Ondansetron HCl (Zofran) 4 mg Q6H PRN IVP Nausea & Vomiting 05/13/20 17:45 06/12/20 17:44 Polyethylene Glycol (Miralax) 17 gm HSPRN PRN ORAL Constipation 05/13/20 17:45 06/12/20 17:44 Risperidone (RisperDAL) 2 mg QHS ORAL 05/13/20 21:00 06/27/20 20:59 05/15/20 21:12 Sodium Chloride 1,000 ml @ 50 mls/hr Q20H IV 05/14/20 08:45 06/13/20 08:44 05/16/20 02:00 Temazepam (Restoril) 15 mg HSPRN PRN ORAL Insomnia 05/13/20 17:45 05/20/20 17:44 Assessment/Plan Assessment/Plan ASSESSMENT Acute metabolic encephalopathy probably due to acute hyponatremia Acute severe hyponatremia-improving ? due to dehydration Possible TIA Frequent PVC Cardiomyopathy with ejection fraction of 45% Acute DVT LLE popliteal vein Coronary artery disease Seizure disorder Hypertension Diabetes mellitus Alzheimer dementia Thrombocytopenia Leukopenia Elevated TSH Psychiatric disorder Severe protein calorie malnutrition PLAN OF CARE tele CXR with right-sided atelectasis O2 prn keep sat above 92 % fup with CXR in am IV hydration with NS hyponatremia work-up initiated nephro eval appreciated hypo Na - rsolved, Na 137 this am, ? due to dehydration Echo with EF 45 to 50% cardio eval appreciated started on low-dose Coreg CXR with right-sided atelectasis, no evidence of congestion , will repeat in am DVT prophylaxis Venous duplex with acute DVT left lower extremity popliteal thrombus, given location, hold on ac , also low PLT count CT head no acute intracranial pathology, chronic changes noted carotid duplex with less than 50% stenosis bilaterally seizure precaution , continue Depakote psych meds resume monitor counts BS management with SSI BP management with BB and optimize as needed check free T4 wnl, subclinical hypothyroidism, no need to initiate treatment, check TFT in 1-2 months PT eval dietary eval re protein supplements supportive care case discussed and evaluated by supervising physician Beryl Pastor NP May 16, 2020 11:15
[2020-05-16 12:00] VITALS: BP 121/80
--- NOTE | 2020-05-16 12:26 | Nephrology Progress Note ---
Assessment/Plan Problem List: (1) Dehydration (2) Electrolyte imbalance (3) Hyponatremia (4) Severe protein-calorie malnutrition (5) History of hypertension Assessment Hyponatremia, etiology is being worked up Cardiomyopathy with ejection fraction of 45% Acute DVT left lower extremity Coronary artery disease Seizure disorder Hypertension Diabetes mellitus Hypothyroidism Psychiatric disorder Severe malnutrition Plan Urine for spot sodium, urine for osmolarity: Noted Serum osmolarity, serum uric acid, TSH level, lipid panel,: Reviewed Slow saline hydration, monitor serum sodium Continue current management Keep the blood pressure in check Per orders Subjective ROS Limited/Unobtainable: No Constitutional: Reports: malaise Objective Objective Last 24 Hour Vital Signs Date Time Temp Pulse Resp B/P (MAP) Pulse Ox O2 Delivery O2 Flow Rate FiO2 05/16/20 09:05 65 129/85 05/16/20 08:37 Room Air 05/16/20 08:00 98.8 65 20 129/85 (100) 97 05/16/20 08:00 81 05/16/20 04:00 59 05/16/20 04:00 98.1 57 16 124/66 (85) 97 05/16/20 00:00 59 05/16/20 00:00 98.8 55 18 129/81 (97) 97 05/15/20 21:12 63 125/68 05/15/20 21:00 Room Air 05/15/20 20:00 98.6 63 18 125/68 (87) 99 05/15/20 20:00 65 05/15/20 16:00 63 05/15/20 16:00 98.2 68 18 126/60 (82) 98 Intake and Output 05/15/20 05/16/20 19:00 07:00 Intake Total 730 ml Output Total 750 ml Balance -20 ml Intake Oral 730 ml Output Urine Total 750 ml # Voids 1 Current Medications Medications (Trade) Dose Ordered Sig/Michelle Route PRN Reason Start Time Stop Time Status Last Admin Dose Admin Acetaminophen (Tylenol) 650 mg Q4H PRN ORAL Temp >100.5 05/13/20 17:45 06/12/20 17:44 Albuterol/ Ipratropium (Albuterol/ Ipratropium) 3 ml Q4H PRN HHN Shortness of Breath 05/13/20 17:45 05/18/20 17:44 Carvedilol (Coreg) 3.125 mg EVERY 12 HOURS ORAL 05/14/20 21:00 06/13/20 20:59 05/16/20 09:05 Clonidine HCl (Catapres Tab) 0.1 mg Q4H PRN ORAL For High Blood Pressure 05/13/20 17:45 08/11/20 17:44 Dextrose (Dextrose 50%) 25 ml Q30M PRN IV Hypoglycemia 05/13/20 17:45 08/11/20 17:44 Dextrose (Dextrose 50%) 50 ml Q30M PRN IV Hypoglycemia 05/13/20 17:45 08/11/20 17:44 Divalproex Sodium (Depakote Sprinkles) 500 mg Q12HR ORAL 05/14/20 10:00 06/28/20 09:59 05/16/20 09:06 Haloperidol Lactate (Haldol) 5 mg Q8H PRN IM agitation 05/13/20 17:45 06/27/20 17:44 Insulin Aspart (NovoLOG) BEFORE MEALS AND HS SUBQ 05/13/20 21:00 08/11/20 20:59 Nitroglycerin (Ntg) 0.4 mg Q5M X 3 DOSES PRN SL Prn Chest Pain 05/13/20 17:45 06/12/20 17:44 Ondansetron HCl (Zofran) 4 mg Q6H PRN IVP Nausea & Vomiting 05/13/20 17:45 06/12/20 17:44 Polyethylene Glycol (Miralax) 17 gm HSPRN PRN ORAL Constipation 05/13/20 17:45 06/12/20 17:44 Risperidone (RisperDAL) 2 mg QHS ORAL 05/13/20 21:00 06/27/20 20:59 05/15/20 21:12 Sodium Chloride 1,000 ml @ 50 mls/hr Q20H IV 05/14/20 08:45 06/13/20 08:44 05/16/20 02:00 Temazepam (Restoril) 15 mg HSPRN PRN ORAL Insomnia 05/13/20 17:45 05/20/20 17:44 Laboratory Tests 05/15/20 15:30: Urine Osmolality 412L, Urine Random Sodium 68 05/15/20 20:29: POC Whole Blood Glucose 106 05/16/20 05:44: POC Whole Blood Glucose 76 05/16/20 09:44: White Blood Count 4.2L, Red Blood Count 3.96L, Hemoglobin 13.0L, Hematocrit 36.4L, Mean Corpuscular Volume 92, Mean Corpuscular Hemoglobin 32.7H, Mean Corpuscular Hemoglobin Concent 35.6, Red Cell Distribution Width 10.6L, Platelet Count 84L, Mean Platelet Volume 7.4, Neutrophils (%) (Auto) , Lymphocytes (%) (Auto) , Monocytes (%) (Auto) , Eosinophils (%) (Auto) , Basophils (%) (Auto) , Differential Total Cells Counted 100, Neutrophils % (Manual) 65, Lymphocytes % (Manual) 21, Monocytes % (Manual) 10, Eosinophils % (Manual) 3, Basophils % (Manual) 1, Band Neutrophils 0, Platelet Estimate DecreasedL, Platelet Morphology Normal, Anisocytosis 1+, Sodium Level 137, Potassium Level 4.1, Ch loride Level 105, Carbon Dioxide Level 24, Anion Gap 8, Blood Urea Nitrogen 28H, Creatinine 1.1, Estimat Glomerular Filtration Rate > 60, Glucose Level 91, Osmolality 290L, Uric Acid 4.5, Calcium Level 8.1L, Phosphorus Level 3.9, Magnesium Level 1.7L, Total Bilirubin 0.4, Gamma Glutamyl Transpeptidase 8, Aspartate Amino Transf (AST/SGOT) 10L, Alanine Aminotransferase (ALT/SGPT) 13, Alkaline Phosphatase 46, C-Reactive Protein, Quantitative < 0.4, Pro-B-Type Natriuretic Peptide 709H, Total Protein 6.3L, Albumin 2.8L, Globulin 3.5, Albumin/Globulin Ratio 0.8L, Triglycerides Level 49, Cholesterol Level 151, LDL Cholesterol 73, HDL Cholesterol 66H, Cholesterol/HDL Ratio 2.3L, Thyroid Stimulating Hormone (TSH) 4.185H Height (Feet): 5 Height (Inches): 8.00 Weight (Pounds): 149 General Appearance: no apparent distress Cardiovascular: normal rate Respiratory/Chest: decreased breath sounds Abdomen: soft Miller Silva MD May 16, 2020 12:26
--- NOTE | 2020-05-16 12:56 | Internal Med Progress Note ---
Subjective Date of Service: May 16, 2020 Physician Name SybilFarhat Attending Physician Eren Cruz MD Current Medications Medications (Trade) Dose Ordered Sig/Michelle Route PRN Reason Start Time Stop Time Status Last Admin Dose Admin Acetaminophen (Tylenol) 650 mg Q4H PRN ORAL Temp >100.5 05/13/20 17:45 06/12/20 17:44 Albuterol/ Ipratropium (Albuterol/ Ipratropium) 3 ml Q4H PRN HHN Shortness of Breath 05/13/20 17:45 05/18/20 17:44 Carvedilol (Coreg) 3.125 mg EVERY 12 HOURS ORAL 05/14/20 21:00 06/13/20 20:59 05/16/20 09:05 Clonidine HCl (Catapres Tab) 0.1 mg Q4H PRN ORAL For High Blood Pressure 05/13/20 17:45 08/11/20 17:44 Dextrose (Dextrose 50%) 25 ml Q30M PRN IV Hypoglycemia 05/13/20 17:45 08/11/20 17:44 Dextrose (Dextrose 50%) 50 ml Q30M PRN IV Hypoglycemia 05/13/20 17:45 08/11/20 17:44 Divalproex Sodium (Depakote Sprinkles) 500 mg Q12HR ORAL 05/14/20 10:00 06/28/20 09:59 05/16/20 09:06 Docusate Sodium (Colace) 100 mg THREE TIMES A DAY ORAL 05/16/20 13:00 06/15/20 12:59 Haloperidol Lactate (Haldol) 5 mg Q8H PRN IM agitation 05/13/20 17:45 06/27/20 17:44 Insulin Aspart (NovoLOG) BEFORE MEALS AND HS SUBQ 05/13/20 21:00 08/11/20 20:59 Nitroglycerin (Ntg) 0.4 mg Q5M X 3 DOSES PRN SL Prn Chest Pain 05/13/20 17:45 06/12/20 17:44 Ondansetron HCl (Zofran) 4 mg Q6H PRN IVP Nausea & Vomiting 05/13/20 17:45 06/12/20 17:44 Pantoprazole (Protonix) 40 mg EVERY 12 HOURS ORAL 05/16/20 21:00 06/15/20 20:59 Polyethylene Glycol (Miralax) 17 gm HSPRN PRN ORAL Constipation 05/13/20 17:45 06/12/20 17:44 Risperidone (RisperDAL) 2 mg QHS ORAL 05/13/20 21:00 06/27/20 20:59 05/15/20 21:12 Sodium Chloride 1,000 ml @ 50 mls/hr Q20H IV 05/14/20 08:45 06/13/20 08:44 05/16/20 02:00 Temazepam (Restoril) 15 mg HSPRN PRN ORAL Insomnia 05/13/20 17:45 05/20/20 17:44 Allergies: Coded Allergies: CHLORPROMAZINE (Verified Allergy, Unknown, 03/04/20) TRIFLUOPERAZINE (Verified Allergy, Unknown, 03/04/20) ROS Limited/Unobtainable: Yes Subjective 69 YO F admitted with altered mental status. Now Cover for Int Piter-Dr Cruz Objective Last Vital Signs Date Time Temp Pulse Resp B/P (MAP) Pulse Ox O2 Delivery O2 Flow Rate FiO2 05/16/20 12:00 98.8 95 20 121/80 (94) 97 05/16/20 08:37 Room Air Laboratory Tests Test 05/15/20 15:30 05/15/20 20:29 05/16/20 05:44 05/16/20 09:44 Urine Osmolality 412 mOsm/kg (429-449) L Urine Random Sodium 68 mmol/L (20-110) POC Whole Blood Glucose 106 MG/DL (74-106) 76 MG/DL (74-106) White Blood Count 4.2 K/UL (4.8-10.8) L Red Blood Count 3.96 M/UL (4.70-6.10) L Hemoglobin 13.0 G/DL (14.2-18.0) L Hematocrit 36.4 % (42.0-52.0) L Mean Corpuscular Volume 92 FL (80-99) Mean Corpuscular Hemoglobin 32.7 PG (27.0-31.0) H Mean Corpuscular Hemoglobin Concent 35.6 G/DL (32.0-36.0) Red Cell Distribution Width 10.6 % (11.6-14.8) L Platelet Count 84 K/UL (150-450) L Mean Platelet Volume 7.4 FL (6.5-10.1) Neutrophils (%) (Auto) % (45.0-75.0) Lymphocytes (%) (Auto) % (20.0-45.0) Monocytes (%) (Auto) % (1.0-10.0) Eosinophils (%) (Auto) % (0.0-3.0) Basophils (%) (Auto) % (0.0-2.0) Differential Total Cells Counted 100 Neutrophils % (Manual) 65 % (45-75) Lymphocytes % (Manual) 21 % (20-45) Monocytes % (Manual) 10 % (1-10) Eosinophils % (Manual) 3 % (0-3) Basophils % (Manual) 1 % (0-2) Band Neutrophils 0 % (0-8) Platelet Estimate Decreased L Platelet Morphology Normal Anisocytosis 1+ Sodium Level 137 MMOL/L (136-145) Potassium Level 4.1 MMOL/L (3.5-5.1) Chloride Level 105 MMOL/L (98-107) Carbon Dioxide Level 24 MMOL/L (21-32) Anion Gap 8 mmol/L (5-15) Blood Urea Nitrogen 28 mg/dL (7-18) H Creatinine 1.1 MG/DL (0.55-1.30) Estimat Glomerular Filtration Rate > 60 mL/min (>60) Glucose Level 91 MG/DL (74-106) Osmolality 290 mOsm/kg (297-317) L Uric Acid 4.5 MG/DL (2.6-7.2) Calcium Level 8.1 MG/DL (8.5-10.1) L Phosphorus Level 3.9 MG/DL (2.5-4.9) Magnesium Level 1.7 MG/DL (1.8-2.4) L Total Bilirubin 0.4 MG/DL (0.2-1.0) Gamma Glutamyl Transpeptidase 8 U/L (5-85) Aspartate Amino Transf (AST/SGOT) 10 U/L (15-37) L Alanine Aminotransferase (ALT/SGPT) 13 U/L (12-78) Alkaline Phosphatase 46 U/L (46-116) C-Reactive Protein, Quantitative < 0.4 mg/dL (0.00-0.90) Pro-B-Type Natriuretic Peptide 709 pg/mL (0-125) H Total Protein 6.3 G/DL (6.4-8.2) L Albumin 2.8 G/DL (3.4-5.0) L Globulin 3.5 g/dL Albumin/Globulin Ratio 0.8 (1.0-2.7) L Triglycerides Level 49 MG/DL (30-150) Cholesterol Level 151 MG/DL (< 200) LDL Cholesterol 73 mg/dL (<100) HDL Cholesterol 66 MG/DL (40-60) H Cholesterol/HDL Ratio 2.3 (3.3-4.4) L Thyroid Stimulating Hormone (TSH) 4.185 uiU/mL (0.358-3.740) Microbiology Date/Time Source Procedure Growth Status 05/13/20 14:24 Rectum VRE Culture - Final NO VANCOMYCIN RESISTANT ENTEROCOCCUS ... Complete 05/13/20 14:24 Rectum - Final NO CARBAPENEM-RESISTANT ENTEROBACTERI... Complete 05/13/20 14:24 Nasal Nares MRSA Culture - Final NO METHICILLIN RESISTANT STAPH AUREUS... Complete Intake and Output 05/15/20 05/16/20 19:00 07:00 Intake Total 730 ml Output Total 750 ml Balance -20 ml Intake Oral 730 ml Output Urine Total 750 ml # Voids 1 Objective PHYSICAL EXAMINATION: GENERAL: The patient awake, responsive only by nodding his head, however, able to follow simple commands. Cachectic and malnutrition. HEAD AND NECK: Pupils are equal and reactive to light. Extraocular movements intact. NECK: Supple. No JVD. LUNGS: Good air entry. No wheezing or rales. Decreased air in the bases. HEART: S1, S2. Distant heart sounds. No murmur or gallops. ABDOMEN: Soft, nondistended, nontender. Positive bowel sounds. EXTREMITIES: No cyanosis, clubbing, or edema. NEUROLOGIC: Limited secondary to patient's status. Cranial nerves II through XII grossly intact. The patient moving all the extremities spontaneously and gait was not assessed due to the patient's status. RECTAL: Refused and deferred. : Refused and deferred. PSYCHIATRIC: Mood and affect is unable to obtain. Assessment/Plan Assessment/Plan ASSESSMENT: 1. Altered mental status possible due to the toxic metabolic encephalopathy. 2. Severe protein-calorie malnutrition. 3. Hyponatremia. 4. Hypertension. 5. Diabetes type 2. 6. Alzheimer's dementia. 7. Cardiomyopathy. 8. Hypertension. 9. Coronary artery disease. 10. Deep venous thrombosis left Popliteal vein PLAN: 1. Admit the patient to monitored unit. 2. Dr. Quijano=Pulmonary/Critical Care 3. Dr. Pollard = Cardiology,Electrophysiology. 4. Code Status, Full code. 5. DVT prophylaxis= heparin subcutaneous. 6. DVT in the left popliteal vein 7. Repeat ultrasound of the lower extremity in 1 to 2 weeks. Farhat Devine MD May 16, 2020 12:56
[2020-05-16] MEDS: Docusate 100mg cap ORAL SCH ×2 (13:08→17:57)
--- NOTE | 2020-05-16 13:08 | Cardiac Electrophysiology PN ---
Assessment/Plan Assessment/Plan 1. Frequent PVCs of different morphology. The patient essentially has one sinus beat for every two PVCs. PVC is primarily of two different morphology with right bundle-branch block and left bundle-branch block morphology. The patient already ruled out for myocardial infarction. We will watch the patient on telemetry. His echocardiogram showed ejection fraction of 45%. Partially this may be due to the patient's severe electrolyte abnormality in view of sodium of only 125. Hyponatremia is corrected. Continue Coreg 2. History of coronary artery disease. The patient already ruled out for myocardial infarction. Currently, he does not have any chest pain.On Coreg 3.125 bid 3. Severe hyponatremia. Improved to 140 4. History of psychiatric disorder of Risperdal. 5. History of hypertension, on p.r.n. clonidine. 6. Cardiomyopathy with ejection fraction of 45%. On Coreg 3125 bid LB RN Subjective Subjective Alert in NAD. Confused and weak. Has frequent PVCs Objective Last 24 Hour Vital Signs Date Time Temp Pulse Resp B/P (MAP) Pulse Ox O2 Delivery O2 Flow Rate FiO2 05/16/20 12:00 98.8 95 20 121/80 (94) 97 05/16/20 12:00 70 05/16/20 09:05 65 129/85 05/16/20 08:37 Room Air 05/16/20 08:00 98.8 65 20 129/85 (100) 97 05/16/20 08:00 81 05/16/20 04:00 59 05/16/20 04:00 98.1 57 16 124/66 (85) 97 05/16/20 00:00 59 05/16/20 00:00 98.8 55 18 129/81 (97) 97 05/15/20 21:12 63 125/68 05/15/20 21:00 Room Air 05/15/20 20:00 98.6 63 18 125/68 (87) 99 05/15/20 20:00 65 05/15/20 16:00 63 05/15/20 16:00 98.2 68 18 126/60 (82) 98 Intake and Output 05/15/20 05/16/20 19:00 07:00 Intake Total 730 ml Output Total 750 ml Balance -20 ml Intake Oral 730 ml Output Urine Total 750 ml # Voids 1 Laboratory Tests Test 05/15/20 15:30 05/15/20 20:29 05/16/20 05:44 05/16/20 09:44 Urine Osmolality 412 mOsm/kg (429-449) L Urine Random Sodium 68 mmol/L (20-110) POC Whole Blood Glucose 106 MG/DL (74-106) 76 MG/DL (74-106) White Blood Count 4.2 K/UL (4.8-10.8) L Red Blood Count 3.96 M/UL (4.70-6.10) L Hemoglobin 13.0 G/DL (14.2-18.0) L Hematocrit 36.4 % (42.0-52.0) L Mean Corpuscular Volume 92 FL (80-99) Mean Corpuscular Hemoglobin 32.7 PG (27.0-31.0) H Mean Corpuscular Hemoglobin Concent 35.6 G/DL (32.0-36.0) Red Cell Distribution Width 10.6 % (11.6-14.8) L Platelet Count 84 K/UL (150-450) L Mean Platelet Volume 7.4 FL (6.5-10.1) Neutrophils (%) (Auto) % (45.0-75.0) Lymphocytes (%) (Auto) % (20.0-45.0) Monocytes (%) (Auto) % (1.0-10.0) Eosinophils (%) (Auto) % (0.0-3.0) Basophils (%) (Auto) % (0.0-2.0) Differential Total Cells Counted 100 Neutrophils % (Manual) 65 % (45-75) Lymphocytes % (Manual) 21 % (20-45) Monocytes % (Manual) 10 % (1-10) Eosinophils % (Manual) 3 % (0-3) Basophils % (Manual) 1 % (0-2) Band Neutrophils 0 % (0-8) Platelet Estimate Decreased L Platelet Morphology Normal Anisocytosis 1+ Sodium Level 137 MMOL/L (136-145) Potassium Level 4.1 MMOL/L (3.5-5.1) Chloride Level 105 MMOL/L (98-107) Carbon Dioxide Level 24 MMOL/L (21-32) Anion Gap 8 mmol/L (5-15) Blood Urea Nitrogen 28 mg/dL (7-18) H Creatinine 1.1 MG/DL (0.55-1.30) Estimat Glomerular Filtration Rate > 60 mL/min (>60) Glucose Level 91 MG/DL (74-106) Osmolality 290 mOsm/kg (297-317) L Uric Acid 4.5 MG/DL (2.6-7.2) Calcium Level 8.1 MG/DL (8.5-10.1) L Phosphorus Level 3.9 MG/DL (2.5-4.9) Magnesium Level 1.7 MG/DL (1.8-2.4) L Total Bilirubin 0.4 MG/DL (0.2-1.0) Gamma Glutamyl Transpeptidase 8 U/L (5-85) Aspartate Amino Transf (AST/SGOT) 10 U/L (15-37) L Alanine Aminotransferase (ALT/SGPT) 13 U/L (12-78) Alkaline Phosphatase 46 U/L (46-116) C-Reactive Protein, Quantitative < 0.4 mg/dL (0.00-0.90) Pro-B-Type Natriuretic Peptide 709 pg/mL (0-125) H Total Protein 6.3 G/DL (6.4-8.2) L Albumin 2.8 G/DL (3.4-5.0) L Globulin 3.5 g/dL Albumin/Globulin Ratio 0.8 (1.0-2.7) L Triglycerides Level 49 MG/DL (30-150) Cholesterol Level 151 MG/DL (< 200) LDL Cholesterol 73 mg/dL (<100) HDL Cholesterol 66 MG/DL (40-60) H Cholesterol/HDL Ratio 2.3 (3.3-4.4) L Thyroid Stimulating Hormone (TSH) 4.185 uiU/mL (0.358-3.740) Microbiology Date/Time Source Procedure Growth Status 05/13/20 14:24 Rectum VRE Culture - Final NO VANCOMYCIN RESISTANT ENTEROCOCCUS ... Complete 05/13/20 14:24 Rectum - Final NO CARBAPENEM-RESISTANT ENTEROBACTERI... Complete 05/13/20 14:24 Nasal Nares MRSA Culture - Final NO METHICILLIN RESISTANT STAPH AUREUS... Complete Objective HEAD AND NECK: No JVD. LUNGS: Clear. CARDIOVASCULAR: Irregular S1 and S2 with no gallop. ABDOMEN: Soft. EXTREMITIES: No pitting edema. Max Pollard MD May 16, 2020 13:08
--- NOTE | 2020-05-16 14:42 | Cardiology Report ---
APPROVED REPORT EKG Measurement Heart [id number] <Conclusion> Sinus bradycardia with frequent premature ventricular complexes Incomplete right bundle branch block Right ventricular hypertrophy with repolarization abnormality Anterolateral infarct, age undetermined Abnormal ECG
--- NOTE | 2020-05-16 15:00 | Cardiology Report ---
APPROVED REPORT EKG Measurement Heart [id number] TN [id number] [id number] <Conclusion> Sinus rhythm with frequent premature ventricular complexes Right bundle branch block, plus right ventricular hypertrophy Inferior infarct, age undetermined Anterolateral infarct, age undetermined Abnormal ECG
--- NOTE | 2020-05-16 15:11 | Cardiology Report ---
APPROVED REPORT EKG Measurement Heart [id number] NC [id number] [id number] <Conclusion> Sinus bradycardia with frequent premature ventricular complexes Left ventricular hypertrophy with repolarization abnormality Abnormal ECG
[2020-05-16 16:00] VITALS: BP 115/77
[2020-05-16 20:00] VITALS: BP 110/61
[2020-05-17] VITALS: BP 130/77
[2020-05-17 04:00] VITALS: BP 147/85
[2020-05-17] MEDS: NovoLOG Insulin Flexpen SUBQ SCH ×4 (06:30→21:00)
[2020-05-17 07:13] LABS: HEMATOCRIT 32.3 % (42.0-52.0); HEMOGLOBIN 11.7 G/DL (14.2-18.0); MEAN CORPUSCULAR VOLUME 92 FL (80-99); PLATELET COUNT 67 K/UL (150-450); RED CELL DISTRIBUTION WIDTH 10.5 % (11.6-14.8); WHITE BLOOD COUNT 4.1 K/UL (4.8-10.8)
[2020-05-17 07:30] LABS: ANION GAP 4 mmol/L (5-15); BLOOD UREA NITROGEN 25 mg/dL (7-18); CARBON DIOXIDE 25 MMOL/L (21-32); CHLORIDE 105 MMOL/L (98-107); CREATININE 0.8 MG/DL (0.55-1.30); SODIUM 134 MMOL/L (136-145)
[2020-05-17 07:47] LABS: ALANINE AMINOTRANSFERASE 15 U/L (12-78); ALBUMIN 2.7 G/DL (3.4-5.0); ALKALINE PHOSPHATASE 36 U/L (46-116); ASPARTATE AMINO TRANSFERASE 9 U/L (15-37); BILIRUBIN,DIRECT 0.1 MG/DL (0.0-0.3); BILIRUBIN,TOTAL 0.3 MG/DL (0.2-1.0); PHOSPHORUS 4.1 MG/DL (2.5-4.9)
[2020-05-17 08:00] VITALS: BP 140/84
[2020-05-17] MEDS: Docusate 100mg cap ORAL SCH ×3 (08:55→17:29)
[2020-05-17] MEDS: Depakote 125mg Sprinkles ORAL SCH ×2 (08:55→21:13)
--- NOTE | 2020-05-17 09:54 | Cardiac Electrophysiology PN ---
Assessment/Plan Assessment/Plan 1. Frequent PVCs of different morphology in bigeminal and trigeminal pattern. PVC is primarily of two different morphology with right bundle-branch block and left bundle-branch block morphology. The patient already ruled out for myocardial infarction. We will watch the patient on telemetry. His echocardiogram showed ejection fraction of 45%. Patient's severe hyponatremia is corrected but continues with PVCs. Continue Coreg Likely needs transfer to [facility] for cardiac cath and EP study if able to get consent. 2. CAD. The patient already ruled out for myocardial infarction. Currently, he does not have any chest pain. On Coreg 3.125 bid 3. Severe hyponatremia. Improved to 140 4. History of psychiatric disorder of Risperdal. 5. History of hypertension, on p.r.n. clonidine. 6. Cardiomyopathy with ejection fraction of 45%. On Coreg 3.125 bid DW RN Subjective Subjective Alert in NAD. Confused and weak. Has frequent bigeminal and trigeminal PVCs.CXR pending Objective Last 24 Hour Vital Signs Date Time Temp Pulse Resp B/P (MAP) Pulse Ox O2 Delivery O2 Flow Rate FiO2 05/17/20 09:36 Room Air 05/17/20 08:55 63 140/84 05/17/20 08:39 63 05/17/20 08:00 97.5 72 18 140/84 (102) 99 05/17/20 04:00 55 05/17/20 04:00 97.9 56 16 147/85 (105) 100 05/17/20 00:00 57 05/17/20 00:00 99.5 56 16 130/77 (94) 100 05/16/20 21:06 68 110/61 05/16/20 21:00 Room Air 05/16/20 20:00 99.7 68 16 110/61 (77) 100 05/16/20 20:00 93 05/16/20 16:00 97.5 72 20 115/77 (90) 99 05/16/20 16:00 70 05/16/20 12:00 98.8 95 20 121/80 (94) 97 05/16/20 12:00 70 Intake and Output 05/16/20 05/17/20 18:59 06:59 Intake Total 730 ml Output Total 600 ml Balance 130 ml Intake Oral 730 ml Output Urine Total 600 ml # Voids 2 2 # Bowel Movements 1 Laboratory Tests Test 05/16/20 11:26 05/16/20 16:39 05/16/20 20:54 05/17/20 05:19 POC Whole Blood Glucose 107 MG/DL (74-106) H Pending 102 MG/DL (74-106) 79 MG/DL (74-106) Test 05/17/20 05:50 White Blood Count 4.1 K/UL (4.8-10.8) L Red Blood Count 3.50 M/UL (4.70-6.10) L Hemoglobin 11.7 G/DL (14.2-18.0) L Hematocrit 32.3 % (42.0-52.0) L Mean Corpuscular Volume 92 FL (80-99) Mean Corpuscular Hemoglobin 33.5 PG (27.0-31.0) H Mean Corpuscular Hemoglobin Concent 36.2 G/DL (32.0-36.0) H Red Cell Distribution Width 10.5 % (11.6-14.8) L Platelet Count 67 K/UL (150-450) L Mean Platelet Volume 7.5 FL (6.5-10.1) Neutrophils (%) (Auto) % (45.0-75.0) Lymphocytes (%) (Auto) % (20.0-45.0) Monocytes (%) (Auto) % (1.0-10.0) Eosinophils (%) (Auto) % (0.0-3.0) Basophils (%) (Auto) % (0.0-2.0) Differential Total Cells Counted 100 Neutrophils % (Manual) 63 % (45-75) Lymphocytes % (Manual) 27 % (20-45) Monocytes % (Manual) 6 % (1-10) Eosinophils % (Manual) 4 % (0-3) H Basophils % (Manual) 0 % (0-2) Band Neutrophils 0 % (0-8) Platelet Estimate Decreased L Platelet Morphology Normal Red Blood Cell Morphology Normal Sodium Level 134 MMOL/L (136-145) L Potassium Level 4.0 MMOL/L (3.5-5.1) Chloride Level 105 MMOL/L (98-107) Carbon Dioxide Level 25 MMOL/L (21-32) Anion Gap 4 mmol/L (5-15) L Blood Urea Nitrogen 25 mg/dL (7-18) H Creatinine 0.8 MG/DL (0.55-1.30) Estimat Glomerular Filtration Rate > 60 mL/min (>60) Glucose Level 76 MG/DL (74-106) Osmolality 291 mOsm/kg (297-317) L Uric Acid 4.2 MG/DL (2.6-7.2) Calcium Level 8.0 MG/DL (8.5-10.1) L Phosphorus Level 4.1 MG/DL (2.5-4.9) Magnesium Level 1.6 MG/DL (1.8-2.4) L Total Bilirubin 0.3 MG/DL (0.2-1.0) Direct Bilirubin 0.1 MG/DL (0.0-0.3) Aspartate Amino Transf (AST/SGOT) 9 U/L (15-37) L Alanine Aminotransferase (ALT/SGPT) 15 U/L (12-78) Alkaline Phosphatase 36 U/L (46-116) L Total Protein 5.1 G/DL (6.4-8.2) L Albumin 2.7 G/DL (3.4-5.0) L Objective HEAD AND NECK: No JVD. LUNGS: Clear. CARDIOVASCULAR: Irregular S1 and S2 with no gallop. ABDOMEN: Soft. EXTREMITIES: No pitting edema. Max Pollard MD May 17, 2020 09:54
--- NOTE | 2020-05-17 11:33 | Pulmonology Progress Note ---
Subjective ROS Limited/Unobtainable: Yes Allergies: Coded Allergies: CHLORPROMAZINE (Verified Allergy, Unknown, 03/04/20) TRIFLUOPERAZINE (Verified Allergy, Unknown, 03/04/20) Objective Last 24 Hour Vital Signs Date Time Temp Pulse Resp B/P (MAP) Pulse Ox O2 Delivery O2 Flow Rate FiO2 05/17/20 09:36 Room Air 05/17/20 08:55 63 140/84 05/17/20 08:39 63 05/17/20 08:00 97.5 72 18 140/84 (102) 99 05/17/20 04:00 55 05/17/20 04:00 97.9 56 16 147/85 (105) 100 05/17/20 00:00 57 05/17/20 00:00 99.5 56 16 130/77 (94) 100 05/16/20 21:06 68 110/61 05/16/20 21:00 Room Air 05/16/20 20:00 99.7 68 16 110/61 (77) 100 05/16/20 20:00 93 05/16/20 16:00 97.5 72 20 115/77 (90) 99 05/16/20 16:00 70 05/16/20 12:00 98.8 95 20 121/80 (94) 97 05/16/20 12:00 70 Intake and Output 05/16/20 05/17/20 19:00 07:00 Intake Total 730 ml Output Total 600 ml Balance 130 ml Intake Oral 730 ml Output Urine Total 600 ml # Voids 2 2 # Bowel Movements 1 General Appearance: cachetic, other - more awake, thin male, still poorly responsive to simple questions by nodding his head, HEENT: normocephalic, atraumatic, anicteric Respiratory: decreased breath sounds Cardiovascular: normal rate, regular rhythm - SE with occas PVCs Abdomen: normal bowel sounds, soft, non tender Extremities: no edema, pedal pulses normal Skin: no rash Neurologic: alert - poorly responsive, other - moves all extremitites Musculoskeletal: atrophy - BLE Laboratory Tests 05/16/20 16:39: POC Whole Blood Glucose [Pending] 05/16/20 20:54: POC Whole Blood Glucose 102 05/17/20 05:19: POC Whole Blood Glucose 79 05/17/20 05:50: White Blood Count 4.1L, Red Blood Count 3.50L, Hemoglobin 11.7L, Hematocrit 32.3L, Mean Corpuscular Volume 92, Mean Corpuscular Hemoglobin 33.5H, Mean Corpuscular Hemoglobin Concent 36.2H, Red Cell Distribution Width 10.5L, Platelet Count 67L, Mean Platelet Volume 7.5, Neutrophils (%) (Auto) , Lymphocytes (%) (Auto) , Monocytes (%) (Auto) , Eosinophils (%) (Auto) , Basophils (%) (Auto) , Differential Total Cells Counted 100, Neutrophils % (Manual) 63, Lymphocytes % (Manual) 27, Monocytes % (Manual) 6, Eosinophils % (Manual) 4H, Basophils % (Manual) 0, Band Neutrophils 0, Platelet Estimate DecreasedL, Platelet Morphology Normal, Red Blood Cell Morphology Normal, Sodium Level 134L, Potassium Level 4.0, Chloride Level 105, Carbon Dioxide Level 25, Anion Gap 4L, Blood Urea Nitrogen 25H, Creatinine 0.8, Estimat Glomerular Filtration Rate > 60, Glucose Level 76, Osmolality 291L, Uric Acid 4.2, Calcium Level 8.0L, Phosphorus Level 4.1, Magnesium Level 1.6L, Total Bilirubin 0.3, Direct Bilirubin 0.1, Aspartate Amino Transf (AST/SGOT) 9L, Alanine Aminotransferase (ALT/SGPT) 15, Alkaline Phosphatase 36L, Total Protein 5.1L, Albumin 2.7L Current Medications Medications (Trade) Dose Ordered Sig/Michelle Route PRN Reason Start Time Stop Time Status Last Admin Dose Admin Acetaminophen (Tylenol) 650 mg Q4H PRN ORAL Temp >100.5 05/13/20 17:45 06/12/20 17:44 Albuterol/ Ipratropium (Albuterol/ Ipratropium) 3 ml Q4H PRN HHN Shortness of Breath 05/13/20 17:45 05/18/20 17:44 Carvedilol (Coreg) 3.125 mg EVERY 12 HOURS ORAL 05/14/20 21:00 06/13/20 20:59 05/17/20 08:55 Clonidine HCl (Catapres Tab) 0.1 mg Q4H PRN ORAL For High Blood Pressure 05/13/20 17:45 08/11/20 17:44 Dextrose (Dextrose 50%) 25 ml Q30M PRN IV Hypoglycemia 05/13/20 17:45 08/11/20 17:44 Dextrose (Dextrose 50%) 50 ml Q30M PRN IV Hypoglycemia 05/13/20 17:45 08/11/20 17:44 Divalproex Sodium (Depakote Sprinkles) 500 mg Q12HR ORAL 05/14/20 10:00 06/28/20 09:59 05/17/20 08:55 Docusate Sodium (Colace) 100 mg THREE TIMES A DAY ORAL 05/16/20 13:00 06/15/20 12:59 05/17/20 08:55 Haloperidol Lactate (Haldol) 5 mg Q8H PRN IM agitation 05/13/20 17:45 06/27/20 17:44 Insulin Aspart (NovoLOG) BEFORE MEALS AND HS SUBQ 05/13/20 21:00 08/11/20 20:59 Magnesium Sulfate 100 ml @ 100 mls/hr Q1H IVPB 05/17/20 10:00 05/17/20 11:59 05/17/20 11:16 Nitroglycerin (Ntg) 0.4 mg Q5M X 3 DOSES PRN SL Prn Chest Pain 05/13/20 17:45 06/12/20 17:44 Ondansetron HCl (Zofran) 4 mg Q6H PRN IVP Nausea & Vomiting 05/13/20 17:45 06/12/20 17:44 Pantoprazole (Protonix) 40 mg EVERY 12 HOURS ORAL 05/16/20 21:00 06/15/20 20:59 05/17/20 08:55 Polyethylene Glycol (Miralax) 17 gm HSPRN PRN ORAL Constipation 05/13/20 17:45 06/12/20 17:44 Risperidone (RisperDAL) 2 mg QHS ORAL 05/13/20 21:00 06/27/20 20:59 05/16/20 21:06 Sodium Chloride 1,000 ml @ 50 mls/hr Q20H IV 05/14/20 08:45 06/13/20 08:44 05/16/20 21:05 Temazepam (Restoril) 15 mg HSPRN PRN ORAL Insomnia 05/13/20 17:45 05/20/20 17:44 Assessment/Plan Problems: (1) DVT, popliteal, acute (2) AMS (altered mental status) (3) TIA (transient ischemic attack) (4) History of psychiatric disorder (5) Alzheimer's dementia (6) History of hypertension (7) History of diabetes mellitus (8) Severe protein-calorie malnutrition Assessment/Plan start on Lovenox for acute popliteal DVT telemetry monitoring echo reviewed, EF of 45% US of carotid artery monitor BP sliding scale diabetic diet Diipka Quijano MD May 17, 2020 11:33
[2020-05-17 11:48] VITALS: BP 105/78
--- NOTE | 2020-05-17 12:44 | Nephrology Progress Note ---
Assessment/Plan Problem List: (1) Dehydration (2) Electrolyte imbalance (3) Hyponatremia (4) Severe protein-calorie malnutrition (5) History of hypertension Assessment Hyponatremia, etiology is being worked up Cardiomyopathy with ejection fraction of 45% Acute DVT left lower extremity Coronary artery disease Seizure disorder Hypertension Diabetes mellitus Hypothyroidism Psychiatric disorder Severe malnutrition Plan May 17: Labs reviewed. Serum sodium 134. Magnesium 1.6, replaced. Continue rest Previously: Urine for spot sodium, urine for osmolarity: Noted Serum osmolarity, serum uric acid, TSH level, lipid panel,: Reviewed Slow saline hydration, monitor serum sodium Continue current management Keep the blood pressure in check Per orders Subjective ROS Limited/Unobtainable: No Constitutional: Reports: malaise Objective Objective Last 24 Hour Vital Signs Date Time Temp Pulse Resp B/P (MAP) Pulse Ox O2 Delivery O2 Flow Rate FiO2 05/17/20 11:48 97.0 67 20 105/78 (87) 98 05/17/20 09:36 Room Air 05/17/20 08:55 63 140/84 05/17/20 08:39 63 05/17/20 08:00 97.5 72 18 140/84 (102) 99 05/17/20 04:00 55 05/17/20 04:00 97.9 56 16 147/85 (105) 100 05/17/20 00:00 57 05/17/20 00:00 99.5 56 16 130/77 (94) 100 05/16/20 21:06 68 110/61 05/16/20 21:00 Room Air 05/16/20 20:00 99.7 68 16 110/61 (77) 100 05/16/20 20:00 93 05/16/20 16:00 97.5 72 20 115/77 (90) 99 05/16/20 16:00 70 Intake and Output 05/16/20 05/17/20 19:00 07:00 Intake Total 730 ml Output Total 600 ml Balance 130 ml Intake Oral 730 ml Output Urine Total 600 ml # Voids 2 2 # Bowel Movements 1 Laboratory Tests 05/16/20 16:39: POC Whole Blood Glucose [Pending] 05/16/20 20:54: POC Whole Blood Glucose 102 05/17/20 05:19: POC Whole Blood Glucose 79 05/17/20 05:50: White Blood Count 4.1L, Red Blood Count 3.50L, Hemoglobin 11.7L, Hematocrit 32.3L, Mean Corpuscular Volume 92, Mean Corpuscular Hemoglobin 33.5H, Mean Corpuscular Hemoglobin Concent 36.2H, Red Cell Distribution Width 10.5L, Platelet Count 67L, Mean Platelet Volume 7.5, Neutrophils (%) (Auto) , Lymphocytes (%) (Auto) , Monocytes (%) (Auto) , Eosinophils (%) (Auto) , Basophils (%) (Auto) , Differential Total Cells Counted 100, Neutrophils % (Manual) 63, Lymphocytes % (Manual) 27, Monocytes % (Manual) 6, Eosinophils % (Manual) 4H, Basophils % (Manual) 0, Band Neutrophils 0, Platelet Estimate DecreasedL, Platelet Morphology Normal, Red Blood Cell Morphology Normal, Sodium Level 134L, Potassium Level 4.0, Chloride Level 105, Carbon Dioxide Level 25, Anion Gap 4L, Blood Urea Nitrogen 25H, Creatinine 0.8, Estimat Glomerular Filtration Rate > 60, Glucose Level 76, Osmolality 291L, Uric Acid 4.2, Calcium Level 8.0L, Phosphorus Level 4.1, Magnesium Level 1.6L, Total Bilirubin 0.3, Direct Bilirubin 0.1, Aspartate Amino Transf (AST/SGOT) 9L, Alanine Aminotra nsferase (ALT/SGPT) 15, Alkaline Phosphatase 36L, Total Protein 5.1L, Albumin 2.7L 05/17/20 11:53: POC Whole Blood Glucose 104 Height (Feet): 5 Height (Inches): 8.00 Weight (Pounds): 149 General Appearance: no apparent distress Cardiovascular: normal rate Respiratory/Chest: decreased breath sounds Abdomen: soft Objective No change Miller Silva MD May 17, 2020 12:44
[2020-05-17] MEDS: Magnesium Oxide 400mg tab ORAL SCH ×2 (12:58→17:29)
[2020-05-17] MEDS: Enoxaparin 60mg Inj SUBQ SCH ×2 (13:08→21:00)
[2020-05-17 16:05] VITALS: BP 112/73
--- NOTE | 2020-05-17 17:19 | Diagnostic Imaging Report ---
Indication: Shortness of breath Technique: One view of the chest Comparison: 05/13/2020 Findings: The lungs pleural spaces are clear. The heart size is normal. The aorta is tortuous and ectatic. No significant interim change Impression: No acute process
--- NOTE | 2020-05-17 18:57 | Internal Med Progress Note ---
Subjective Date of Service: May 17, 2020 Physician Name SybilFarhat Attending Physician Eren Cruz MD Current Medications Medications (Trade) Dose Ordered Sig/Michelle Route PRN Reason Start Time Stop Time Status Last Admin Dose Admin Acetaminophen (Tylenol) 650 mg Q4H PRN ORAL Temp >100.5 05/13/20 17:45 06/12/20 17:44 Albuterol/ Ipratropium (Albuterol/ Ipratropium) 3 ml Q4H PRN HHN Shortness of Breath 05/13/20 17:45 05/18/20 17:44 Carvedilol (Coreg) 3.125 mg EVERY 12 HOURS ORAL 05/14/20 21:00 06/13/20 20:59 05/17/20 08:55 Clonidine HCl (Catapres Tab) 0.1 mg Q4H PRN ORAL For High Blood Pressure 05/13/20 17:45 08/11/20 17:44 Dextrose (Dextrose 50%) 25 ml Q30M PRN IV Hypoglycemia 05/13/20 17:45 08/11/20 17:44 Dextrose (Dextrose 50%) 50 ml Q30M PRN IV Hypoglycemia 05/13/20 17:45 08/11/20 17:44 Divalproex Sodium (Depakote Sprinkles) 500 mg Q12HR ORAL 05/14/20 10:00 06/28/20 09:59 05/17/20 08:55 Docusate Sodium (Colace) 100 mg THREE TIMES A DAY ORAL 05/16/20 13:00 06/15/20 12:59 05/17/20 17:29 Enoxaparin Sodium (Lovenox) 60 mg EVERY 12 HOURS SUBQ 05/17/20 12:30 08/15/20 12:29 05/17/20 13:08 Haloperidol Lactate (Haldol) 5 mg Q8H PRN IM agitation 05/13/20 17:45 06/27/20 17:44 Insulin Aspart (NovoLOG) BEFORE MEALS AND HS SUBQ 05/13/20 21:00 08/11/20 20:59 Magnesium Oxide (Mag-Ox 400mg) 400 mg THREE TIMES A DAY ORAL 05/17/20 13:00 06/16/20 12:59 05/17/20 17:29 Nitroglycerin (Ntg) 0.4 mg Q5M X 3 DOSES PRN SL Prn Chest Pain 05/13/20 17:45 06/12/20 17:44 Ondansetron HCl (Zofran) 4 mg Q6H PRN IVP Nausea & Vomiting 05/13/20 17:45 06/12/20 17:44 Pantoprazole (Protonix) 40 mg EVERY 12 HOURS ORAL 05/16/20 21:00 06/15/20 20:59 05/17/20 08:55 Polyethylene Glycol (Miralax) 17 gm HSPRN PRN ORAL Constipation 05/13/20 17:45 06/12/20 17:44 Risperidone (RisperDAL) 2 mg QHS ORAL 05/13/20 21:00 06/27/20 20:59 05/16/20 21:06 Sodium Chloride 1,000 ml @ 50 mls/hr Q20H IV 05/14/20 08:45 06/13/20 08:44 05/17/20 17:30 Temazepam (Restoril) 15 mg HSPRN PRN ORAL Insomnia 05/13/20 17:45 05/20/20 17:44 Allergies: Coded Allergies: CHLORPROMAZINE (Verified Allergy, Unknown, 03/04/20) TRIFLUOPERAZINE (Verified Allergy, Unknown, 03/04/20) ROS Limited/Unobtainable: Yes Subjective 69 YO F admitted with altered mental status. Now Cover for Int Piter-Dr Cruz Objective Last Vital Signs Date Time Temp Pulse Resp B/P (MAP) Pulse Ox O2 Delivery O2 Flow Rate FiO2 05/17/20 16:51 64 05/17/20 16:05 97.2 18 112/73 (86) 97 05/17/20 09:36 Room Air Laboratory Tests Test 05/16/20 20:54 05/17/20 05:19 05/17/20 05:50 05/17/20 11:53 POC Whole Blood Glucose 102 MG/DL (74-106) 79 MG/DL (74-106) 104 MG/DL (74-106) White Blood Count 4.1 K/UL (4.8-10.8) L Red Blood Count 3.50 M/UL (4.70-6.10) L Hemoglobin 11.7 G/DL (14.2-18.0) L Hematocrit 32.3 % (42.0-52.0) L Mean Corpuscular Volume 92 FL (80-99) Mean Corpuscular Hemoglobin 33.5 PG (27.0-31.0) H Mean Corpuscular Hemoglobin Concent 36.2 G/DL (32.0-36.0) H Red Cell Distribution Width 10.5 % (11.6-14.8) L Platelet Count 67 K/UL (150-450) L Mean Platelet Volume 7.5 FL (6.5-10.1) Neutrophils (%) (Auto) % (45.0-75.0) Lymphocytes (%) (Auto) % (20.0-45.0) Monocytes (%) (Auto) % (1.0-10.0) Eosinophils (%) (Auto) % (0.0-3.0) Basophils (%) (Auto) % (0.0-2.0) Differential Total Cells Counted 100 Neutrophils % (Manual) 63 % (45-75) Lymphocytes % (Manual) 27 % (20-45) Monocytes % (Manual) 6 % (1-10) Eosinophils % (Manual) 4 % (0-3) H Basophils % (Manual) 0 % (0-2) Band Neutrophils 0 % (0-8) Platelet Estimate Decreased L Platelet Morphology Normal Red Blood Cell Morphology Normal Sodium Level 134 MMOL/L (136-145) L Potassium Level 4.0 MMOL/L (3.5-5.1) Chloride Level 105 MMOL/L (98-107) Carbon Dioxide Level 25 MMOL/L (21-32) Anion Gap 4 mmol/L (5-15) L Blood Urea Nitrogen 25 mg/dL (7-18) H Creatinine 0.8 MG/DL (0.55-1.30) Estimat Glomerular Filtration Rate > 60 mL/min (>60) Glucose Level 76 MG/DL (74-106) Osmolality 291 mOsm/kg (297-317) L Uric Acid 4.2 MG/DL (2.6-7.2) Calcium Level 8.0 MG/DL (8.5-10.1) L Phosphorus Level 4.1 MG/DL (2.5-4.9) Magnesium Level 1.6 MG/DL (1.8-2.4) L Total Bilirubin 0.3 MG/DL (0.2-1.0) Direct Bilirubin 0.1 MG/DL (0.0-0.3) Aspartate Amino Transf (AST/SGOT) 9 U/L (15-37) L Alanine Aminotransferase (ALT/SGPT) 15 U/L (12-78) Alkaline Phosphatase 36 U/L (46-116) L Total Protein 5.1 G/DL (6.4-8.2) L Albumin 2.7 G/DL (3.4-5.0) L Test 05/17/20 16:36 POC Whole Blood Glucose 92 MG/DL (74-106) Intake and Output0 05/16/20 05/17/20 19:00 07:00 Intake Total 730 ml 50 ml Output Total 600 ml Balance 130 ml 50 ml Intake Oral 730 ml IV Total 50 ml Output Urine Total 600 ml # Voids 2 2 # Bowel Movements 1 Objective PHYSICAL EXAMINATION: GENERAL: The patient awake, responsive only by nodding his head, however, able to follow simple commands. Cachectic and malnutrition. HEAD AND NECK: Pupils are equal and reactive to light. Extraocular movements intact. NECK: Supple. No JVD. LUNGS: Good air entry. No wheezing or rales. Decreased air in the bases. HEART: S1, S2. Distant heart sounds. No murmur or gallops. ABDOMEN: Soft, nondistended, nontender. Positive bowel sounds. EXTREMITIES: No cyanosis, clubbing, or edema. NEUROLOGIC: Limited secondary to patient's status. Cranial nerves II through XII grossly intact. The patient moving all the extremities spontaneously and gait was not assessed due to the patient's status. RECTAL: Refused and deferred. : Refused and deferred. PSYCHIATRIC: Mood and affect is unable to obtain. Assessment/Plan Assessment/Plan ASSESSMENT: 1. Altered mental status possible due to the toxic metabolic encephalopathy. 2. Severe protein-calorie malnutrition. 3. Hyponatremia. 4. Hypertension. 5. Diabetes type 2. 6. Alzheimer's dementia. 7. Cardiomyopathy. 8. Hypertension. 9. Coronary artery disease. 10. Deep venous thrombosis left Popliteal vein PLAN: 1. Admit the patient to monitored unit. 2. Dr. Quijano=Pulmonary/Critical Care 3. Dr. Pollard = Cardiology,Electrophysiology. 4. Code Status, Full code. 5. DVT prophylaxis= heparin subcutaneous. 6. DVT in the left popliteal vein 7. Repeat ultrasound of the lower extremity in 1 to 2 weeks. Farhat Devine MD May 17, 2020 18:57
[2020-05-17 20:00] VITALS: BP 143/73
[2020-05-18] VITALS: BP 134/87
[2020-05-18 04:00] VITALS: BP 138/82
[2020-05-18] MEDS: NovoLOG Insulin Flexpen SUBQ SCH ×4 (05:31→20:48)
[2020-05-18 06:48] LABS: HEMATOCRIT 33.7 % (42.0-52.0); MEAN CORPUSCULAR VOLUME 92 FL (80-99); PLATELET COUNT 69 K/UL (150-450); RED BLOOD COUNT 3.65 M/UL (4.70-6.10); RED CELL DISTRIBUTION WIDTH 10.6 % (11.6-14.8); WHITE BLOOD COUNT 3.5 K/UL (4.8-10.8)
[2020-05-18 07:14] LABS: ANION GAP 5 mmol/L (5-15); BLOOD UREA NITROGEN 25 mg/dL (7-18); CALCIUM 8.1 MG/DL (8.5-10.1); CARBON DIOXIDE 28 MMOL/L (21-32); CHLORIDE 106 MMOL/L (98-107); CREATININE 0.9 MG/DL (0.55-1.30); SODIUM 139 MMOL/L (136-145)
[2020-05-18 08:00] VITALS: BP 161/97
[2020-05-18] MEDS: Enoxaparin 60mg Inj SUBQ SCH ×2 (09:00→20:48)
[2020-05-18] MEDS: Depakote 125mg Sprinkles ORAL SCH ×2 (09:21→20:35)
[2020-05-18] MEDS: Magnesium Oxide 400mg tab ORAL SCH ×3 (09:22→17:22)
[2020-05-18] MEDS: Docusate 100mg cap ORAL SCH ×3 (09:22→17:23)
--- NOTE | 2020-05-18 10:16 | Nephrology Progress Note ---
Assessment/Plan Problem List: (1) Dehydration (2) Electrolyte imbalance (3) Hyponatremia (4) Severe protein-calorie malnutrition (5) History of hypertension Assessment Hyponatremia, etiology is being worked up Cardiomyopathy with ejection fraction of 45% Acute DVT left lower extremity Coronary artery disease Seizure disorder Hypertension Diabetes mellitus Hypothyroidism Psychiatric disorder Severe malnutrition Plan May 18: Lab reviewed. Serum sodium 139. Continue rest. May 17: Labs reviewed. Serum sodium 134. Magnesium 1.6, replaced. Cont inue rest Previously: Urine for spot sodium, urine for osmolarity: Noted Serum osmolarity, serum uric acid, TSH level, lipid panel,: Reviewed Slow saline hydration, monitor serum sodium Continue current management Keep the blood pressure in check Per orders Subjective ROS Limited/Unobtainable: Yes Constitutional: Reports: malaise Objective Objective Last 24 Hour Vital Signs Date Time Temp Pulse Resp B/P (MAP) Pulse Ox O2 Delivery O2 Flow Rate FiO2 05/18/20 09:22 68 161/97 05/18/20 09:22 161/97 05/18/20 08:00 97.3 68 18 161/97 (118) 98 05/18/20 04:00 98.5 69 17 138/82 (100) 97 05/18/20 00:00 98.8 61 17 134/87 (103) 98 05/17/20 21:12 62 143/73 05/17/20 21:00 Room Air 05/17/20 20:00 66 05/17/20 20:00 97.9 62 18 143/73 (96) 98 05/17/20 16:51 64 05/17/20 16:05 97.2 68 18 112/73 (86) 97 05/17/20 12:53 59 05/17/20 11:48 97.0 67 20 105/78 (87) 98 Intake and Output 05/17/20 05/18/20 19:00 07:00 Intake Total 1080 ml 150 ml Output Total 600 ml 1400 ml Balance 480 ml -1250 ml Intake Oral 480 ml IV Total 600 ml 150 ml Output Urine Total 600 ml 1400 ml # Voids 3 Laboratory Tests 05/17/20 11:53: POC Whole Blood Glucose 104 05/17/20 16:36: POC Whole Blood Glucose 92 05/17/20 20:59: POC Whole Blood Glucose 103 05/18/20 05:18: White Blood Count 3.5L, Red Blood Count 3.65L, Hemoglobin 12.0L, Hematocrit 33.7L, Mean Corpuscular Volume 92, Mean Corpuscular Hemoglobin 32.8H, Mean Corpuscular Hemoglobin Concent 35.6, Red Cell Distribution Width 10.6L, Platelet Count 69L, Mean Platelet Volume 6.9, Neutrophils (%) (Auto) , Lymphocytes (%) (Auto) , Monocytes (%) (Auto) , Eosinophils (%) (Auto) , Basophils (%) (Auto) , Differential Total Cells Counted 100, Neutrophils % (Manual) 57, Lymphocytes % (Manual) 32, Monocytes % (Manual) 6, Eosinophils % (Manual) 5H, Basophils % (Manual) 0, Band Neutrophils 0, Platelet Estimate DecreasedL, Platelet Morphology Normal, Red Blood Cell Morphology Normal, Sodium Level 139, Potassium Level 5.0, Chloride Level 106, Carbon Dioxide Level 28, Anion Gap 5, Blood Urea Nitrogen 25H, Creatinine 0.9, Estimat Glomerular Filtration Rate > 60, Glucose Level 77, Calcium Level 8.1L Height (Feet): 5 Height (Inches): 8.00 Weight (Pounds): 149 General Appearance: no apparent distress Cardiovascular: normal rate Respiratory/Chest: decreased breath sounds Abdomen: soft Objective No change Miller Silva MD May 18, 2020 10:16
[2020-05-18 12:00] VITALS: BP 125/65
--- NOTE | 2020-05-18 12:31 | Cardiac Electrophysiology PN ---
Assessment/Plan Assessment/Plan 1. Frequent PVCs of different morphology in bigeminal and trigeminal pattern. PVC is primarily of two different morphology with right bundle-branch block and left bundle-branch block morphology. The patient already ruled out for myocardial infarction. We will watch the patient on telemetry. Echo showed ejection fraction of 45%. Patient's severe hyponatremia is corrected but continues with PVCs. Continue Coreg May needs transfer to [facility] for cardiac cath and EP study if able to get consent. 2. CAD. The patient already ruled out for myocardial infarction. Currently, he does not have any chest pain. On Coreg 3.125 bid 3. Severe hyponatremia. Improved to 140 4. History of psychiatric disorder of Risperdal. 5. History of hypertension, on p.r.n. clonidine. 6. Cardiomyopathy with ejection fraction of 45%. On Coreg 3.125 bid DW RN Subjective Subjective Alert in NAD. Confused and weak. Has frequent bigeminal and trigeminal PVCs. Objective Last 24 Hour Vital Signs Date Time Temp Pulse Resp B/P (MAP) Pulse Ox O2 Delivery O2 Flow Rate FiO2 05/18/20 09:22 68 161/97 05/18/20 09:22 161/97 05/18/20 09:00 Room Air 05/18/20 08:00 97.3 68 18 161/97 (118) 98 05/18/20 04:00 98.5 69 17 138/82 (100) 97 05/18/20 00:00 98.8 61 17 134/87 (103) 98 05/17/20 21:12 62 143/73 05/17/20 21:00 Room Air 05/17/20 20:00 66 05/17/20 20:00 97.9 62 18 143/73 (96) 98 05/17/20 16:51 64 05/17/20 16:05 97.2 68 18 112/73 (86) 97 05/17/20 12:53 59 Intake and Output 05/17/20 05/18/20 19:00 07:00 Intake Total 1080 ml 200 ml Output Total 600 ml 1400 ml Balance 480 ml -1200 ml Intake Oral 480 ml IV Total 600 ml 200 ml Output Urine Total 600 ml 1400 ml # Voids 3 Laboratory Tests Test 05/17/20 16:36 05/17/20 20:59 05/18/20 05:18 POC Whole Blood Glucose 92 MG/DL (74-106) 103 MG/DL (74-106) White Blood Count 3.5 K/UL (4.8-10.8) L Red Blood Count 3.65 M/UL (4.70-6.10) L Hemoglobin 12.0 G/DL (14.2-18.0) L Hematocrit 33.7 % (42.0-52.0) L Mean Corpuscular Volume 92 FL (80-99) Mean Corpuscular Hemoglobin 32.8 PG (27.0-31.0) H Mean Corpuscular Hemoglobin Concent 35.6 G/DL (32.0-36.0) Red Cell Distribution Width 10.6 % (11.6-14.8) L Platelet Count 69 K/UL (150-450) L Mean Platelet Volume 6.9 FL (6.5-10.1) Neutrophils (%) (Auto) % (45.0-75.0) Lymphocytes (%) (Auto) % (20.0-45.0) Monocytes (%) (Auto) % (1.0-10.0) Eosinophils (%) (Auto) % (0.0-3.0) Basophils (%) (Auto) % (0.0-2.0) Differential Total Cells Counted 100 Neutrophils % (Manual) 57 % (45-75) Lymphocytes % (Manual) 32 % (20-45) Monocytes % (Manual) 6 % (1-10) Eosinophils % (Manual) 5 % (0-3) H Basophils % (Manual) 0 % (0-2) Band Neutrophils 0 % (0-8) Platelet Estimate Decreased L Platelet Morphology Normal Red Blood Cell Morphology Normal Sodium Level 139 MMOL/L (136-145) Potassium Level 5.0 MMOL/L (3.5-5.1) Chloride Level 106 MMOL/L (98-107) Carbon Dioxide Level 28 MMOL/L (21-32) Anion Gap 5 mmol/L (5-15) Blood Urea Nitrogen 25 mg/dL (7-18) H Creatinine 0.9 MG/DL (0.55-1.30) Estimat Glomerular Filtration Rate > 60 mL/min (>60) Glucose Level 77 MG/DL (74-106) Calcium Level 8.1 MG/DL (8.5-10.1) L Objective HEAD AND NECK: No JVD. LUNGS: Clear. CARDIOVASCULAR: Irregular S1 and S2 with no gallop. ABDOMEN: Soft. EXTREMITIES: No pitting edema. Max Pollard MD May 18, 2020 12:30
--- NOTE | 2020-05-18 14:00 | Pulmonology Progress Note ---
Subjective ROS Limited/Unobtainable: Yes Allergies: Coded Allergies: CHLORPROMAZINE (Verified Allergy, Unknown, 03/04/20) TRIFLUOPERAZINE (Verified Allergy, Unknown, 03/04/20) Objective Last 24 Hour Vital Signs Date Time Temp Pulse Resp B/P (MAP) Pulse Ox O2 Delivery O2 Flow Rate FiO2 05/18/20 12:00 97.2 61 18 125/65 (85) 97 05/18/20 09:22 68 161/97 05/18/20 09:22 161/97 05/18/20 09:00 Room Air 05/18/20 08:00 97.3 68 18 161/97 (118) 98 05/18/20 04:00 98.5 69 17 138/82 (100) 97 05/18/20 00:00 98.8 61 17 134/87 (103) 98 05/17/20 21:12 62 143/73 05/17/20 21:00 Room Air 05/17/20 20:00 66 05/17/20 20:00 97.9 62 18 143/73 (96) 98 05/17/20 16:51 64 05/17/20 16:05 97.2 68 18 112/73 (86) 97 Intake and Output 05/17/20 05/18/20 19:00 07:00 Intake Total 1080 ml 200 ml Output Total 600 ml 1400 ml Balance 480 ml -1200 ml Intake Oral 480 ml IV Total 600 ml 200 ml Output Urine Total 600 ml 1400 ml # Voids 3 General Appearance: cachetic, other - more awake, thin male, still poorly responsive to simple questions by nodding his head, HEENT: normocephalic, atraumatic, anicteric Respiratory: decreased breath sounds Cardiovascular: normal rate, regular rhythm - SE with occas PVCs Abdomen: normal bowel sounds, soft, non tender Extremities: no edema, pedal pulses normal Skin: no rash Neurologic: alert - poorly responsive, other - moves all extremitites Lymphatic: no neck adenopathy Musculoskeletal: atrophy - BLE Laboratory Tests 05/17/20 16:36: POC Whole Blood Glucose 92 05/17/20 20:59: POC Whole Blood Glucose 103 05/18/20 05:18: White Blood Count 3.5L, Red Blood Count 3.65L, Hemoglobin 12.0L, Hematocrit 33.7L, Mean Corpuscular Volume 92, Mean Corpuscular Hemoglobin 32.8H, Mean Corpuscular Hemoglobin Concent 35.6, Red Cell Distribution Width 10.6L, Platelet Count 69L, Mean Platelet Volume 6.9, Neutrophils (%) (Auto) , Lymphocytes (%) (Auto) , Monocytes (%) (Auto) , Eosinophils (%) (Auto) , Basophils (%) (Auto) , Differential Total Cells Counted 100, Neutrophils % (Manual) 57, Lymphocytes % (Manual) 32, Monocytes % (Manual) 6, Eosinophils % (Manual) 5H, Basophils % (Manual) 0, Band Neutrophils 0, Platelet Estimate DecreasedL, Platelet Morphology Normal, Red Blood Cell Morphology Normal, Sodium Level 139, Potassium Level 5.0, Chloride Level 106, Carbon Dioxide Level 28, Anion Gap 5, Blood Urea Nitrogen 25H, Creatinine 0.9, Estimat Glomerular Filtration Rate > 60, Glucose Level 77, Calcium Level 8.1L Current Medications Medications (Trade) Dose Ordered Sig/Michelle Route PRN Reason Start Time Stop Time Status Last Admin Dose Admin Acetaminophen (Tylenol) 650 mg Q4H PRN ORAL Temp >100.5 05/13/20 17:45 06/12/20 17:44 Albuterol/ Ipratropium (Albuterol/ Ipratropium) 3 ml Q4H PRN HHN Shortness of Breath 05/13/20 17:45 05/18/20 17:44 Carvedilol (Coreg) 3.125 mg EVERY 12 HOURS ORAL 05/14/20 21:00 06/13/20 20:59 05/18/20 09:22 Clonidine HCl (Catapres Tab) 0.1 mg Q4H PRN ORAL For High Blood Pressure 05/13/20 17:45 08/11/20 17:44 05/18/20 09:22 Dextrose (Dextrose 50%) 25 ml Q30M PRN IV Hypoglycemia 05/13/20 17:45 08/11/20 17:44 Dextrose (Dextrose 50%) 50 ml Q30M PRN IV Hypoglycemia 05/13/20 17:45 08/11/20 17:44 Divalproex Sodium (Depakote Sprinkles) 500 mg Q12HR ORAL 05/14/20 10:00 06/28/20 09:59 05/18/20 09:21 Docusate Sodium (Colace) 100 mg THREE TIMES A DAY ORAL 05/16/20 13:00 06/15/20 12:59 05/18/20 12:45 Enoxaparin Sodium (Lovenox) 60 mg EVERY 12 HOURS SUBQ 05/17/20 12:30 08/15/20 12:29 05/17/20 13:08 Haloperidol Lactate (Haldol) 5 mg Q8H PRN IM agitation 05/13/20 17:45 06/27/20 17:44 Insulin Aspart (NovoLOG) BEFORE MEALS AND HS SUBQ 05/13/20 21:00 08/11/20 20:59 Magnesium Oxide (Mag-Ox 400mg) 400 mg THREE TIMES A DAY ORAL 05/17/20 13:00 06/16/20 12:59 05/18/20 12:45 Nitroglycerin (Ntg) 0.4 mg Q5M X 3 DOSES PRN SL Prn Chest Pain 05/13/20 17:45 06/12/20 17:44 Ondansetron HCl (Zofran) 4 mg Q6H PRN IVP Nausea & Vomiting 05/13/20 17:45 06/12/20 17:44 Pantoprazole (Protonix) 40 mg EVERY 12 HOURS ORAL 05/16/20 21:00 06/15/20 20:59 05/18/20 09:22 Polyethylene Glycol (Miralax) 17 gm HSPRN PRN ORAL Constipation 05/13/20 17:45 06/12/20 17:44 Risperidone (RisperDAL) 2 mg QHS ORAL 05/13/20 21:00 06/27/20 20:59 05/17/20 21:13 Sodium Chloride 1,000 ml @ 50 mls/hr Q20H IV 05/14/20 08:45 06/13/20 08:44 05/18/20 12:45 Temazepam (Restoril) 15 mg HSPRN PRN ORAL Insomnia 05/13/20 17:45 05/20/20 17:44 Assessment/Plan Problems: (1) DVT, popliteal, acute (2) AMS (altered mental status) (3) TIA (transient ischemic attack) (4) History of psychiatric disorder (5) Alzheimer's dementia (6) History of hypertension (7) History of diabetes mellitus (8) Severe protein-calorie malnutrition Assessment/Plan start on Lovenox for acute popliteal DVT, Coumadin by pharmacy telemetry monitoring echo reviewed, EF of 45% US of carotid artery monitor BP sliding scale diabetic diet Dipika Quijano MD May 18, 2020 14:00
[2020-05-18 16:00] VITALS: BP 97/62
--- NOTE | 2020-05-18 17:19 | Internal Med Progress Note ---
Subjective Date of Service: May 18, 2020 Physician Name Farhat Devine Attending Physician Eren Cruz MD Current Medications Medications (Trade) Dose Ordered Sig/Michelle Route PRN Reason Start Time Stop Time Status Last Admin Dose Admin Acetaminophen (Tylenol) 650 mg Q4H PRN ORAL Temp >100.5 05/13/20 17:45 06/12/20 17:44 Albuterol/ Ipratropium (Albuterol/ Ipratropium) 3 ml Q4H PRN HHN Shortness of Breath 05/13/20 17:45 05/18/20 17:44 Carvedilol (Coreg) 3.125 mg EVERY 12 HOURS ORAL 05/14/20 21:00 06/13/20 20:59 05/18/20 09:22 Clonidine HCl (Catapres Tab) 0.1 mg Q4H PRN ORAL For High Blood Pressure 05/13/20 17:45 08/11/20 17:44 05/18/20 09:22 Dextrose (Dextrose 50%) 25 ml Q30M PRN IV Hypoglycemia 05/13/20 17:45 08/11/20 17:44 Dextrose (Dextrose 50%) 50 ml Q30M PRN IV Hypoglycemia 05/13/20 17:45 08/11/20 17:44 Divalproex Sodium (Depakote Sprinkles) 500 mg Q12HR ORAL 05/14/20 10:00 06/28/20 09:59 05/18/20 09:21 Docusate Sodium (Colace) 100 mg THREE TIMES A DAY ORAL 05/16/20 13:00 06/15/20 12:59 05/18/20 12:45 Enoxaparin Sodium (Lovenox) 60 mg EVERY 12 HOURS SUBQ 05/17/20 12:30 08/15/20 12:29 05/17/20 13:08 Haloperidol Lactate (Haldol) 5 mg Q8H PRN IM agitation 05/13/20 17:45 06/27/20 17:44 Insulin Aspart (NovoLOG) BEFORE MEALS AND HS SUBQ 05/13/20 21:00 08/11/20 20:59 Magnesium Oxide (Mag-Ox 400mg) 400 mg THREE TIMES A DAY ORAL 05/17/20 13:00 06/16/20 12:59 05/18/20 12:45 Nitroglycerin (Ntg) 0.4 mg Q5M X 3 DOSES PRN SL Prn Chest Pain 05/13/20 17:45 06/12/20 17:44 Ondansetron HCl (Zofran) 4 mg Q6H PRN IVP Nausea & Vomiting 05/13/20 17:45 06/12/20 17:44 Pantoprazole (Protonix) 40 mg EVERY 12 HOURS ORAL 05/16/20 21:00 06/15/20 20:59 05/18/20 09:22 Polyethylene Glycol (Miralax) 17 gm HSPRN PRN ORAL Constipation 05/13/20 17:45 06/12/20 17:44 Risperidone (RisperDAL) 2 mg QHS ORAL 05/13/20 21:00 06/27/20 20:59 05/17/20 21:13 Sodium Chloride 1,000 ml @ 50 mls/hr Q20H IV 05/14/20 08:45 06/13/20 08:44 05/18/20 12:45 Temazepam (Restoril) 15 mg HSPRN PRN ORAL Insomnia 05/13/20 17:45 05/20/20 17:44 Warfarin Sodium (Coumadin per pharmacy) 1 ea DAILY PRN MISC Per rx protocol 05/18/20 14:00 06/17/20 13:59 Allergies: Coded Allergies: CHLORPROMAZINE (Verified Allergy, Unknown, 03/04/20) TRIFLUOPERAZINE (Verified Allergy, Unknown, 03/04/20) ROS Limited/Unobtainable: Yes Subjective 69 YO F admitted with altered mental status. Now Cover for Int Piter-Dr Cruz Objective Last Vital Signs Date Time Temp Pulse Resp B/P (MAP) Pulse Ox O2 Delivery O2 Flow Rate FiO2 05/18/20 16:00 97.2 64 17 97/62 (74) 98 05/18/20 09:00 Room Air Laboratory Tests Test 05/17/20 20:59 05/18/20 05:18 POC Whole Blood Glucose 103 MG/DL (74-106) White Blood Count 3.5 K/UL (4.8-10.8) L Red Blood Count 3.65 M/UL (4.70-6.10) L Hemoglobin 12.0 G/DL (14.2-18.0) L Hematocrit 33.7 % (42.0-52.0) L Mean Corpuscular Volume 92 FL (80-99) Mean Corpuscular Hemoglobin 32.8 PG (27.0-31.0) H Mean Corpuscular Hemoglobin Concent 35.6 G/DL (32.0-36.0) Red Cell Distribution Width 10.6 % (11.6-14.8) L Platelet Count 69 K/UL (150-450) L Mean Platelet Volume 6.9 FL (6.5-10.1) Neutrophils (%) (Auto) % (45.0-75.0) Lymphocytes (%) (Auto) % (20.0-45.0) Monocytes (%) (Auto) % (1.0-10.0) Eosinophils (%) (Auto) % (0.0-3.0) Basophils (%) (Auto) % (0.0-2.0) Differential Total Cells Counted 100 Neutrophils % (Manual) 57 % (45-75) Lymphocytes % (Manual) 32 % (20-45) Monocytes % (Manual) 6 % (1-10) Eosinophils % (Manual) 5 % (0-3) H Basophils % (Manual) 0 % (0-2) Band Neutrophils 0 % (0-8) Platelet Estimate Decreased L Platelet Morphology Normal Red Blood Cell Morphology Normal Sodium Level 139 MMOL/L (136-145) Potassium Level 5.0 MMOL/L (3.5-5.1) Chloride Level 106 MMOL/L (98-107) Carbon Dioxide Level 28 MMOL/L (21-32) Anion Gap 5 mmol/L (5-15) Blood Urea Nitrogen 25 mg/dL (7-18) H Creatinine 0.9 MG/DL (0.55-1.30) Estimat Glomerular Filtration Rate > 60 mL/min (>60) Glucose Level 77 MG/DL (74-106) Calcium Level 8.1 MG/DL (8.5-10.1) L Intake and Output 05/17/20 05/18/20 19:00 07:00 Intake Total 1080 ml 200 ml Output Total 600 ml 1400 ml Balance 480 ml -1200 ml Intake Oral 480 ml IV Total 600 ml 200 ml Output Urine Total 600 ml 1400 ml # Voids 3 Objective PHYSICAL EXAMINATION: GENERAL: The patient awake, responsive only by nodding his head, however, able to follow simple commands. Cachectic and malnutrition. HEAD AND NECK: Pupils are equal and reactive to light. Extraocular movements intact. NECK: Supple. No JVD. LUNGS: Good air entry. No wheezing or rales. Decreased air in the bases. HEART: S1, S2. Distant heart sounds. No murmur or gallops. ABDOMEN: Soft, nondistended, nontender. Positive bowel sounds. EXTREMITIES: No cyanosis, clubbing, or edema. NEUROLOGIC: Limited secondary to patient's status. Cranial nerves II through XII grossly intact. The patient moving all the extremities spontaneously and gait was not assessed due to the patient's status. RECTAL: Refused and deferred. : Refused and deferred. PSYCHIATRIC: Mood and affect is unable to obtain. Assessment/Plan Assessment/Plan ASSESSMENT: 1. Altered mental status possible due to the toxic metabolic encephalopathy. 2. Severe protein-calorie malnutrition. 3. Hyponatremia. 4. Hypertension. 5. Diabetes type 2. 6. Alzheimer's dementia. 7. Cardiomyopathy. 8. Hypertension. 9. Coronary artery disease. 10. Deep venous thrombosis left Popliteal vein PLAN: 1. Admit the patient to monitored unit. 2. Dr. Quijano=Pulmonary/Critical Care 3. Dr. Pollard = Cardiology,Electrophysiology. 4. Code Status, Full code. 5. DVT prophylaxis= heparin subcutaneous. 6. DVT in the left popliteal vein 7. Repeat ultrasound of the lower extremity in 1 to 2 weeks. Farhat Devine MD May 18, 2020 17:19
[2020-05-18 20:00] VITALS: BP 108/67
[2020-05-19] VITALS (19 sets, daily range): BP systolic 113–142; BP diastolic 61–87
[2020-05-19 06:29] LABS: HEMATOCRIT 32.2 % (42.0-52.0); HEMOGLOBIN 11.7 G/DL (14.2-18.0); MEAN CORPUSCULAR VOLUME 92 FL (80-99); PLATELET COUNT 72 K/UL (150-450); RED CELL DISTRIBUTION WIDTH 10.4 % (11.6-14.8); WHITE BLOOD COUNT 3.7 K/UL (4.8-10.8)
[2020-05-19] MEDS: NovoLOG Insulin Flexpen SUBQ SCH ×4 (06:30→20:33)
[2020-05-19 06:48] LABS: ANION GAP 7 mmol/L (5-15); BLOOD UREA NITROGEN 23 mg/dL (7-18); CALCIUM 8.2 MG/DL (8.5-10.1); CARBON DIOXIDE 26 MMOL/L (21-32); CHLORIDE 104 MMOL/L (98-107); CREATININE 0.9 MG/DL (0.55-1.30); POTASSIUM 4.5 MMOL/L (3.5-5.1); SODIUM 137 MMOL/L (136-145)
[2020-05-19] MEDS: Depakote 125mg Sprinkles ORAL SCH ×2 (08:24→20:32)
[2020-05-19] MEDS: Docusate 100mg cap ORAL SCH ×3 (08:25→18:22)
[2020-05-19] MEDS: Magnesium Oxide 400mg tab ORAL SCH ×3 (08:25→18:22)
[2020-05-19] MEDS: Enoxaparin 60mg Inj SUBQ SCH ×2 (08:33→20:33)
--- NOTE | 2020-05-19 09:43 | Pulmonology Progress Note ---
Subjective ROS Limited/Unobtainable: Yes Constitutional: Reports: no symptoms HEENT: Repors: no symptoms Allergies: Coded Allergies: CHLORPROMAZINE (Verified Allergy, Unknown, 03/04/20) TRIFLUOPERAZINE (Verified Allergy, Unknown, 03/04/20) Objective Last 24 Hour Vital Signs Date Time Temp Pulse Resp B/P (MAP) Pulse Ox O2 Delivery O2 Flow Rate FiO2 05/19/20 08:25 73 125/69 05/19/20 08:00 97.2 73 18 125/69 (87) 96 05/19/20 03:34 98.1 69 18 113/61 (78) 98 05/19/20 00:00 97.5 65 18 128/75 (92) 98 05/18/20 21:00 Room Air 05/18/20 20:33 63 108/67 05/18/20 20:00 98.6 63 18 108/67 (81) 98 05/18/20 16:00 97.2 64 17 97/62 (74) 98 05/18/20 12:00 97.2 61 18 125/65 (85) 97 Intake and Output 05/18/20 05/19/20 19:00 07:00 Intake Total 1170 ml Output Total 1000 ml Balance 1170 ml -1000 ml Intake Oral 720 ml IV Total 450 ml Output Urine Total 1000 ml # Voids 3 3 General Appearance: cachetic, other - more awake, thin male, still poorly responsive to simple questions by nodding his head, HEENT: normocephalic, atraumatic, anicteric Respiratory: decreased breath sounds Cardiovascular: normal rate, regular rhythm - SE with occas PVCs Abdomen: normal bowel sounds, soft, non tender Extremities: no edema, pedal pulses normal Skin: no rash Neurologic: alert - poorly responsive, other - moves all extremitites Lymphatic: no neck adenopathy Musculoskeletal: atrophy - BLE Laboratory Tests 05/19/20 05:35: White Blood Count 3.7L, Red Blood Count 3.50L, Hemoglobin 11.7L, Hematocrit 32.2L, Mean Corpuscular Volume 92, Mean Corpuscular Hemoglobin 33.4H, Mean Corpuscular Hemoglobin Concent 36.2H, Red Cell Distribution Width 10.4L, Platelet Count 72L, Mean Platelet Volume 7.3, Neutrophils (%) (Auto) , Lymphocytes (%) (Auto) , Monocytes (%) (Auto) , Eosinophils (%) (Auto) , Basophils (%) (Auto) , Differential Total Cells Counted 100, Neutrophils % (Manual) 66, Lymphocytes % (Manual) 25, Monocytes % (Manual) 4, Eosinophils % (Manual) 5H, Basophils % (Manual) 0, Band Neutrophils 0, Platelet Estimate DecreasedL, Platelet Morphology Normal, Red Blood Cell Morphology Normal, Sodium Level 137, Potassium Level 4.5, Chloride Level 104, Carbon Dioxide Level 26, Anion Gap 7, Blood Urea Nitrogen 23H, Creatinine 0.9, Estimat Glomerular Filtration Rate > 60, Glucose Level 75, Calcium Level 8.2L Current Medications Medications (Trade) Dose Ordered Sig/Michelle Route PRN Reason Start Time Stop Time Status Last Admin Dose Admin Acetaminophen (Tylenol) 650 mg Q4H PRN ORAL Temp >100.5 05/13/20 17:45 06/12/20 17:44 Carvedilol (Coreg) 3.125 mg EVERY 12 HOURS ORAL 05/14/20 21:00 06/13/20 20:59 05/19/20 08:25 Clonidine HCl (Catapres Tab) 0.1 mg Q4H PRN ORAL For High Blood Pressure 05/13/20 17:45 08/11/20 17:44 05/18/20 09:22 Dextrose (Dextrose 50%) 25 ml Q30M PRN IV Hypoglycemia 05/13/20 17:45 08/11/20 17:44 Dextrose (Dextrose 50%) 50 ml Q30M PRN IV Hypoglycemia 05/13/20 17:45 08/11/20 17:44 Divalproex Sodium (Depakote Sprinkles) 500 mg Q12HR ORAL 05/14/20 10:00 06/28/20 09:59 05/19/20 08:24 Docusate Sodium (Colace) 100 mg THREE TIMES A DAY ORAL 05/16/20 13:00 06/15/20 12:59 05/19/20 08:25 Enoxaparin Sodium (Lovenox) 60 mg EVERY 12 HOURS SUBQ 05/17/20 12:30 08/15/20 12:29 05/17/20 13:08 Haloperidol Lactate (Haldol) 5 mg Q8H PRN IM agitation 05/13/20 17:45 06/27/20 17:44 Insulin Aspart (NovoLOG) BEFORE MEALS AND HS SUBQ 05/13/20 21:00 08/11/20 20:59 Magnesium Oxide (Mag-Ox 400mg) 400 mg THREE TIMES A DAY ORAL 05/17/20 13:00 06/16/20 12:59 05/19/20 08:25 Nitroglycerin (Ntg) 0.4 mg Q5M X 3 DOSES PRN SL Prn Chest Pain 05/13/20 17:45 06/12/20 17:44 Ondansetron HCl (Zofran) 4 mg Q6H PRN IVP Nausea & Vomiting 05/13/20 17:45 06/12/20 17:44 Pantoprazole (Protonix) 40 mg EVERY 12 HOURS ORAL 05/16/20 21:00 06/15/20 20:59 05/19/20 08:25 Polyethylene Glycol (Miralax) 17 gm HSPRN PRN ORAL Constipation 05/13/20 17:45 06/12/20 17:44 Risperidone (RisperDAL) 2 mg QHS ORAL 05/13/20 21:00 06/27/20 20:59 05/18/20 20:35 Sodium Chloride 1,000 ml @ 50 mls/hr Q20H IV 05/14/20 08:45 06/13/20 08:44 05/19/20 08:25 Temazepam (Restoril) 15 mg HSPRN PRN ORAL Insomnia 05/13/20 17:45 05/20/20 17:44 Assessment/Plan Problems: (1) DVT, popliteal, acute (2) AMS (altered mental status) (3) TIA (transient ischemic attack) (4) History of psychiatric disorder (5) Alzheimer's dementia (6) History of hypertension (7) History of diabetes mellitus (8) Severe protein-calorie malnutrition Assessment/Plan Lovenox was hold because of low Plt, pt probably needs IVC filter, will call for hem consult telemetry monitoring echo reviewed, EF of 45% US of carotid artery monitor BP sliding scale diabetic diet Dipika Quijano MD May 19, 2020 09:43
--- NOTE | 2020-05-19 10:37 | Nephrology Progress Note ---
Assessment/Plan Problem List: (1) Dehydration (2) Electrolyte imbalance (3) Hyponatremia (4) Severe protein-calorie malnutrition (5) History of hypertension Assessment Hyponatremia, etiology is being worked up Cardiomyopathy with ejection fraction of 45% Acute DVT left lower extremity Coronary artery disease Seizure disorder Hypertension Diabetes mellitus Hypothyroidism Psychiatric disorder Severe malnutrition Plan May 19: Reviewed. Renal parameters and serum sodium stable. Continue per consultants. May 18: Lab reviewed. Serum sodium 139. Continue rest. May 17: Labs reviewed. Serum sodium 134. Magnesium 1.6, replaced. Continue rest Previously: Urine for spot sodium, urine for osmolarity: Noted Serum osmolarity, serum uric acid, TSH level, lipid panel,: Reviewed Slow saline hydration, monitor serum sodium Continue current management Keep the blood pressure in check Per orders Subjective ROS Limited/Unobtainable: No Constitutional: Reports: malaise Objective Objective Last 24 Hour Vital Signs Date Time Temp Pulse Resp B/P (MAP) Pulse Ox O2 Delivery O2 Flow Rate FiO2 05/19/20 09:00 Room Air 05/19/20 08:25 73 125/69 05/19/20 08:00 97.2 73 18 125/69 (87) 96 05/19/20 03:34 98.1 69 18 113/61 (78) 98 05/19/20 00:00 97.5 65 18 128/75 (92) 98 05/18/20 21:00 Room Air 05/18/20 20:33 63 108/67 05/18/20 20:00 98.6 63 18 108/67 (81) 98 05/18/20 16:00 97.2 64 17 97/62 (74) 98 05/18/20 12:00 97.2 61 18 125/65 (85) 97 Intake and Output 05/18/20 05/19/20 19:00 07:00 Intake Total 1170 ml Output Total 1000 ml Balance 1170 ml -1000 ml Intake Oral 720 ml IV Total 450 ml Output Urine Total 1000 ml # Voids 3 3 Laboratory Tests 05/19/20 05:35: White Blood Count 3.7L, Red Blood Count 3.50L, Hemoglobin 11.7L, Hematocrit 32.2L, Mean Corpuscular Volume 92, Mean Corpuscular Hemoglobin 33.4H, Mean Corpuscular Hemoglobin Concent 36.2H, Red Cell Distribution Width 10.4L, Platelet Count 72L, Mean Platelet Volume 7.3, Neutrophils (%) (Auto) , Lymphocytes (%) (Auto) , Monocytes (%) (Auto) , Eosinophils (%) (Auto) , Basophils (%) (Auto) , Differential Total Cells Counted 100, Neutrophils % (Manual) 66, Lymphocytes % (Manual) 25, Monocytes % (Manual) 4, Eosinophils % (Manual) 5H, Basophils % (Manual) 0, Band Neutrophils 0, Platelet Estimate DecreasedL, Platelet Morphology Normal, Red Blood Cell Morphology Normal, Sodium Level 137, Potassium Level 4.5, Chloride Level 104, Carbon Dioxide Level 26, Anion Gap 7, Blood Urea Nitrogen 23H, Creatinine 0.9, Estimat Glomerular Filtration Rate > 60, Glucose Level 75, Calcium Level 8.2L Height (Feet): 5 Height (Inches): 8.00 Weight (Pounds): 149 General Appearance: no apparent distress Cardiovascular: normal rate Abdomen: soft Objective No change Miller Silva MD May 19, 2020 10:37
[2020-05-19] MEDS ORDERED: Sodium Bicarbonate 4% 2.4meq/5ml vial IV PRN (11:15)
[2020-05-19] MEDS ORDERED: Lidocaine 1% Plain 30 ml INJ PRN ×2 (11:15→14:02)
--- NOTE | 2020-05-19 12:59 | Internal Med Progress Note ---
Subjective Date of Service: May 19, 2020 Physician Name Farhat Devine Attending Physician Eren Cruz MD Current Medications Medications (Trade) Dose Ordered Sig/Michelle Route PRN Reason Start Time Stop Time Status Last Admin Dose Admin Acetaminophen (Tylenol) 650 mg Q4H PRN ORAL Temp >100.5 05/13/20 17:45 06/12/20 17:44 Carvedilol (Coreg) 3.125 mg EVERY 12 HOURS ORAL 05/14/20 21:00 06/13/20 20:59 05/19/20 08:25 Clonidine HCl (Catapres Tab) 0.1 mg Q4H PRN ORAL For High Blood Pressure 05/13/20 17:45 08/11/20 17:44 05/18/20 09:22 Dextrose (Dextrose 50%) 25 ml Q30M PRN IV Hypoglycemia 05/13/20 17:45 08/11/20 17:44 Dextrose (Dextrose 50%) 50 ml Q30M PRN IV Hypoglycemia 05/13/20 17:45 08/11/20 17:44 Divalproex Sodium (Depakote Sprinkles) 500 mg Q12HR ORAL 05/14/20 10:00 06/28/20 09:59 05/19/20 08:24 Docusate Sodium (Colace) 100 mg THREE TIMES A DAY ORAL 05/16/20 13:00 06/15/20 12:59 05/19/20 12:41 Enoxaparin Sodium (Lovenox) 60 mg EVERY 12 HOURS SUBQ 05/17/20 12:30 08/15/20 12:29 05/17/20 13:08 Haloperidol Lactate (Haldol) 5 mg Q8H PRN IM agitation 05/13/20 17:45 06/27/20 17:44 Insulin Aspart (NovoLOG) BEFORE MEALS AND HS SUBQ 05/13/20 21:00 08/11/20 20:59 Lidocaine HCl (Xylocaine 1% 30ml) 30 ml NOW PRN INJ Radiology Procedure 05/19/20 11:15 05/22/20 11:14 Magnesium Oxide (Mag-Ox 400mg) 400 mg THREE TIMES A DAY ORAL 05/17/20 13:00 06/16/20 12:59 05/19/20 12:41 Nitroglycerin (Ntg) 0.4 mg Q5M X 3 DOSES PRN SL Prn Chest Pain 05/13/20 17:45 06/12/20 17:44 Ondansetron HCl (Zofran) 4 mg Q6H PRN IVP Nausea & Vomiting 05/13/20 17:45 06/12/20 17:44 Pantoprazole (Protonix) 40 mg EVERY 12 HOURS ORAL 05/16/20 21:00 06/15/20 20:59 05/19/20 08:25 Polyethylene Glycol (Miralax) 17 gm HSPRN PRN ORAL Constipation 05/13/20 17:45 06/12/20 17:44 Risperidone (RisperDAL) 2 mg QHS ORAL 05/13/20 21:00 06/27/20 20:59 05/18/20 20:35 Sodium Bicarbonate (Sodium Bicarbonate 4%) 1 ml NOW PRN IV Radiology Procedure 05/19/20 11:15 05/22/20 11:14 Sodium Chloride 1,000 ml @ 50 mls/hr Q20H IV 05/14/20 08:45 06/13/20 08:44 05/19/20 08:25 Temazepam (Restoril) 15 mg HSPRN PRN ORAL Insomnia 05/13/20 17:45 05/20/20 17:44 Allergies: Coded Allergies: CHLORPROMAZINE (Verified Allergy, Unknown, 03/04/20) TRIFLUOPERAZINE (Verified Allergy, Unknown, 03/04/20) ROS Limited/Unobtainable: Yes Subjective 69 YO F admitted with altered mental status. Now Cover for Int Piter-Dr Cruz Objective Last Vital Signs Date Time Temp Pulse Resp B/P (MAP) Pulse Ox O2 Delivery O2 Flow Rate FiO2 05/19/20 12:00 97.6 55 18 134/66 (88) 98 05/19/20 09:00 Room Air Laboratory Tests Test 05/19/20 05:35 White Blood Count 3.7 K/UL (4.8-10.8) L Red Blood Count 3.50 M/UL (4.70-6.10) L Hemoglobin 11.7 G/DL (14.2-18.0) L Hematocrit 32.2 % (42.0-52.0) L Mean Corpuscular Volume 92 FL (80-99) Mean Corpuscular Hemoglobin 33.4 PG (27.0-31.0) H Mean Corpuscular Hemoglobin Concent 36.2 G/DL (32.0-36.0) H Red Cell Distribution Width 10.4 % (11.6-14.8) L Platelet Count 72 K/UL (150-450) L Mean Platelet Volume 7.3 FL (6.5-10.1) Neutrophils (%) (Auto) % (45.0-75.0) Lymphocytes (%) (Auto) % (20.0-45.0) Monocytes (%) (Auto) % (1.0-10.0) Eosinophils (%) (Auto) % (0.0-3.0) Basophils (%) (Auto) % (0.0-2.0) Differential Total Cells Counted 100 Neutrophils % (Manual) 66 % (45-75) Lymphocytes % (Manual) 25 % (20-45) Monocytes % (Manual) 4 % (1-10) Eosinophils % (Manual) 5 % (0-3) H Basophils % (Manual) 0 % (0-2) Band Neutrophils 0 % (0-8) Platelet Estimate Decreased L Platelet Morphology Normal Red Blood Cell Morphology Normal Sodium Level 137 MMOL/L (136-145) Potassium Level 4.5 MMOL/L (3.5-5.1) Chloride Level 104 MMOL/L (98-107) Carbon Dioxide Level 26 MMOL/L (21-32) Anion Gap 7 mmol/L (5-15) Blood Urea Nitrogen 23 mg/dL (7-18) H Creatinine 0.9 MG/DL (0.55-1.30) Estimat Glomerular Filtration Rate > 60 mL/min (>60) Glucose Level 75 MG/DL (74-106) Calcium Level 8.2 MG/DL (8.5-10.1) L Hepatitis A IgM Antibody Pending Hepatitis B Surface Antigen Pending Hepatitis B Core IgM Antibody Pending Hepatitis C Antibody Pending HIV (1&2) Antibody Rapid Negative (NEGATIVE) Intake and Output 05/18/20 05/19/20 19:00 07:00 Intake Total 1170 ml Output Total 1000 ml Balance 1170 ml -1000 ml Intake Oral 720 ml IV Total 450 ml Output Urine Total 1000 ml # Voids 3 3 Objective PHYSICAL EXAMINATION: GENERAL: The patient awake, responsive only by nodding his head, however, able to follow simple commands. Cachectic and malnutrition. HEAD AND NECK: Pupils are equal and reactive to light. Extraocular movements intact. NECK: Supple. No JVD. LUNGS: Good air entry. No wheezing or rales. Decreased air in the bases. HEART: S1, S2. Distant heart sounds. No murmur or gallops. ABDOMEN: Soft, nondistended, nontender. Positive bowel sounds. EXTREMITIES: No cyanosis, clubbing, or edema. NEUROLOGIC: Limited secondary to patient's status. Cranial nerves II through XII grossly intact. The patient moving all the extremities spontaneously and gait was not assessed due to the patient's status. RECTAL: Refused and deferred. : Refused and deferred. PSYCHIATRIC: Mood and affect is unable to obtain. Assessment/Plan Assessment/Plan ASSESSMENT: 1. Altered mental status possible due to the toxic metabolic encephalopathy. 2. Severe protein-calorie malnutrition. 3. Hyponatremia. 4. Hypertension. 5. Diabetes type 2. 6. Alzheimer's dementia. 7. Cardiomyopathy. 8. Hypertension. 9. Coronary artery disease. 10. Deep venous thrombosis left Popliteal vein PLAN: 1. Admit the patient to monitored unit. 2. Dr. Quijano=Pulmonary/Critical Care 3. Dr. Pollard = Cardiology,Electrophysiology. 4. Code Status, Full code. 5. DVT prophylaxis= heparin subcutaneous. 6. DVT in the left popliteal vein 7. Continue lovenox SQ until coumadin therapeutic Farhat Devine MD May 19, 2020 12:59
[2020-05-19] MEDS ORDERED: Heparin1,000 units/500ml Premix(Conc:2 units/ml) INJ PRN (14:02)
[2020-05-19] MEDS ORDERED: Omnipaque-300 100ml vial INJ PRN (14:03)
--- NOTE | 2020-05-19 14:26 | Pre-Procedure Note/Attestation ---
Pre-Procedure Note/Attestation Complete Prior to Procedure Planned Procedure: not applicable Procedure Narrative: IVC filter Indications for Procedure Pre-Operative Diagnosis: DVT with contraindication to anticoagulation Attestation I attest that I discussed the nature of the procedure; its benefits; risks and complications; and alternatives (and the risks and benefits of such alternative s), prior to the procedure, with the patient (or the patient's legal client services representative). I attest that, if there was a reasonable possibility of needing a blood transfusion, the patient (or the patient's legal client services representative) was given the [facility] standardized written summary, pursuant to the Jamari Barbara Blood Safety Act ([place] Health and Safety Code # 1645, as amended). I attest that I re-evaluated the patient just prior to the surgery and that there has been no change in the patient's H&P, except as documented below: Earle Hancock MD May 19, 2020 14:25
--- NOTE | 2020-05-19 15:01 | Brief Operative Note ---
Immediate Post Operative Note Operative Note Pre-op Diagnosis: DVT with contraindication to anticoagulation Procedure: IVC filter Post-op Diagnosis: same as pre-op Surgeon: Yanira Hinton Anesthesia: local Specimen: none Complications: none Condition: stable Fluids: none Implant(s) used?: No - Argon Option Elite IVC filter Earle Hinton MD May 19, 2020 15:01
--- NOTE | 2020-05-19 16:19 | Cardiac Electrophysiology PN ---
Assessment/Plan Assessment/Plan 1. Frequent PVCs of different morphology in bigeminal and trigeminal pattern. PVC is primarily of two different morphology with right bundle-branch block and left bundle-branch block morphology. The patient already ruled out for myocardial infarction. We will watch the patient on telemetry. Echo showed ejection fraction of 45%. Patient's severe hyponatremia is corrected but continues with PVCs. Continue Coreg May needs transfer to [facility] for cardiac cath and EP study if able to get consent. 2. CAD. Ruled out for myocardial infarction. Currently, he does not have any chest pain. On Coreg 3.125 bid 3. Severe hyponatremia. Improved to 140 4. History of psychiatric disorder of Risperdal. 5. History of hypertension, on p.r.n. clonidine. 6. Cardiomyopathy with ejection fraction of 45%. On Coreg 3.125 bid 7. Left lower extremity popliteal DVT. Platelet in 60s. S/P IVC filter placement. LB RN Subjective Subjective Alert in NAD. Confused and weak.Off tele. S/P IVC filter placement today Objective Last 24 Hour Vital Signs Date Time Temp Pulse Resp B/P (MAP) Pulse Ox O2 Delivery O2 Flow Rate FiO2 05/19/20 16:00 57 16 135/84 (101) 98 05/19/20 15:45 60 16 142/87 (105) 97 05/19/20 15:30 59 15 133/87 (102) 96 05/19/20 15:15 58 14 130/83 (99) 96 05/19/20 14:55 61 12 122/86 (98) 97 05/19/20 14:49 58 12 125/85 (98) 96 05/19/20 14:44 60 12 125/84 (98) 96 05/19/20 14:39 71 12 126/81 (96) 98 05/19/20 14:34 49 14 128/80 (96) 98 05/19/20 14:29 55 12 127/82 (97) 96 05/19/20 14:24 63 11 135/72 (93) 97 05/19/20 14:19 58 13 133/68 (89) 95 05/19/20 14:14 60 12 137/73 (94) 96 05/19/20 14:14 62 12 05/19/20 12:00 97.6 55 18 134/66 (88) 98 05/19/20 09:00 Room Air 05/19/20 08:25 73 125/69 05/19/20 08:00 97.2 73 18 125/69 (87) 96 05/19/20 03:34 98.1 69 18 113/61 (78) 98 05/19/20 00:00 97.5 65 18 128/75 (92) 98 05/18/20 21:00 Room Air 05/18/20 20:33 63 108/67 05/18/20 20:00 98.6 63 18 108/67 (81) 98 Intake and Output 05/18/20 05/19/20 18:59 06:59 Intake Total 1220 ml Output Total 1000 ml Balance 1220 ml -1000 ml Intake Oral 720 ml IV Total 500 ml Output Urine Total 1000 ml # Voids 3 3 Laboratory Tests Test 05/18/20 16:34 05/19/20 05:35 05/19/20 11:15 POC Whole Blood Glucose 105 MG/DL (74-106) 95 MG/DL (74-106) White Blood Count 3.7 K/UL (4.8-10.8) L Red Blood Count 3.50 M/UL (4.70-6.10) L Hemoglobin 11.7 G/DL (14.2-18.0) L Hematocrit 32.2 % (42.0-52.0) L Mean Corpuscular Volume 92 FL (80-99) Mean Corpuscular Hemoglobin 33.4 PG (27.0-31.0) H Mean Corpuscular Hemoglobin Concent 36.2 G/DL (32.0-36.0) H Red Cell Distribution Width 10.4 % (11.6-14.8) L Platelet Count 72 K/UL (150-450) L Mean Platelet Volume 7.3 FL (6.5-10.1) Neutrophils (%) (Auto) % (45.0-75.0) Lymphocytes (%) (Auto) % (20.0-45.0) Monocytes (%) (Auto) % (1.0-10.0) Eosinophils (%) (Auto) % (0.0-3.0) Basophils (%) (Auto) % (0.0-2.0) Differential Total Cells Counted 100 Neutrophils % (Manual) 66 % (45-75) Lymphocytes % (Manual) 25 % (20-45) Monocytes % (Manual) 4 % (1-10) Eosinophils % (Manual) 5 % (0-3) H Basophils % (Manual) 0 % (0-2) Band Neutrophils 0 % (0-8) Platelet Estimate Decreased L Platelet Morphology Normal Red Blood Cell Morphology Normal Sodium Level 137 MMOL/L (136-145) Potassium Level 4.5 MMOL/L (3.5-5.1) Chloride Level 104 MMOL/L (98-107) Carbon Dioxide Level 26 MMOL/L (21-32) Anion Gap 7 mmol/L (5-15) Blood Urea Nitrogen 23 mg/dL (7-18) H Creatinine 0.9 MG/DL (0.55-1.30) Estimat Glomerular Filtration Rate > 60 mL/min (>60) Glucose Level 75 MG/DL (74-106) Calcium Level 8.2 MG/DL (8.5-10.1) L Hepatitis A IgM Antibody Pending Hepatitis B Surface Antigen Pending Hepatitis B Core IgM Antibody Pending Hepatitis C Antibody Pending HIV (1&2) Antibody Rapid Negative (NEGATIVE) Objective HEAD AND NECK: No JVD. LUNGS: Clear. CARDIOVASCULAR: Irregular S1 and S2 with no gallop. ABDOMEN: Soft. EXTREMITIES: No pitting edema. Max Pollard MD May 19, 2020 16:19
--- NOTE | 2020-05-19 18:35 | Diagnostic Imaging Report ---
History: ABD PAIN Exam: US ABDOMEN Comparison: None available FINDINGS: Visualized portions of the head and body of the pancreas appear within limits. Proximal abdominal aorta measures 2.5 cm. The mid and distal abdominal aorta appear within limits. The liver measures 13.3 cm and appears within limits. Main portal vein is patent with flow towards the liver. CBD 4 mm. No gallstones, wall thickening or pericholecystic free fluid. The wall measures 1-2 mm. No hydronephrosis or free fluid seen. 6 mm right renal cyst suggested. 1.5 cm left renal cyst. The spleen measures 9.3 cm. IMPRESSION: The study appears within limits as above.
--- NOTE | 2020-05-19 20:25 | Diagnostic Imaging Report ---
Indications: Deep venous thrombosis, contraindication to anticoagulation Technique: Case discussed preprocedure with referring physician Dr. Quijano. Informed consent obtained prior to commencement of the procedure. Total sterile technique, including sterile probe cover and sterile gel, sterile gloves, hand hygiene, hat, mask, sterile gown, large sterile drape, and preparation with 2% chlorhexidine utilized. Local anesthesia with 1% lidocaine. Ultrasound reveals patent compressible right internal jugular vein. Under real-time ultrasound guidance, puncture right internal jugular vein, using 21-gauge micropuncture needle, passage 0.018 guidewire, insertion 4 Prydeinig micropuncture introducer, which were used to insert a 0.035 guidewire, into the inferior vena cava, over which was passed a pigtail marker catheter. This was directed into the left common iliac vein, and a limited iliac venogram performed using hand injection of contrast. Catheter was then withdrawn to the level of the iliac venous confluence.. An inferior venacavogram performed, using machine injection of contrast. The images were reviewed. The position of the renal veins was determined. The catheter was then exchanged for the introducer assembly of the Option Elite inferior vena cava filter The introducer assembly was advanced further into the inferior vena cava over a guidewire, and the guidewire and dilator were removed. The filter was passed into the into the sheath. It was then positioned into the appropriate position. The filter was then deployed by unsheathing it. The filter introducer was removed, and a followup inferior venacavogram was performed using hand injection of contrast through the sheath. The filter position was deemed acceptable. The sheath was removed. Pressure held on the right neck until hemostasis was achieved. The patient tolerated procedure well, without immediate complication. Total fluoroscopy time 193.6 seconds Total dose area product [id number] Number of images: 4 Comparison: none. Findings:Left iliac venogram demonstrates no evidence of caval anomaly. Inferior venacavogram demonstrates normal caliber inferior vena cava. Single renal veins. No intracaval thrombus. Completion inferior venacavogram demonstrates satisfactory filter position, with no significant tilt. Impression: Successful placement of infrarenal inferior vena cava filter, as above. Note that per discussion with Dr. Quijano, a permanent IVC filter was indicated. However, the filter utilized can be used as both a permanent and temporary filter, and can be removed should this be indicated in the future
[2020-05-20] VITALS (7 sets, daily range): BP systolic 103–150; BP diastolic 58–87
[2020-05-20] MEDS: NovoLOG Insulin Flexpen SUBQ SCH ×3 (05:53→16:30)
--- NOTE | 2020-05-20 07:00 | Consultation ---
History of Present Illness General Chief Complaint: Altered Level of Consciousness Present Illness Allergies: Coded Allergies: CHLORPROMAZINE (Verified Allergy, Unknown, 03/04/20) TRIFLUOPERAZINE (Verified Allergy, Unknown, 03/04/20) Medication History Scheduled Divalproex Sodium (Depakote), 500 MG ORAL EVERY 12 HOURS Risperidone* (Risperdal*), 2 MG ORAL QHS Scheduled PRN Haloperidol Lactate (Haloperidol Lactate), 5 MG IM Q8H PRN Lorazepam (Lorazepam), 1 MG IM Q4H PRN Patient History Healthcare decision maker Resuscitation status Advanced Directive on File Physical Exam Last 24 Hour Vital Signs Date Time Temp Pulse Resp B/P (MAP) Pulse Ox O2 Delivery O2 Flow Rate FiO2 05/20/20 04:00 98.5 62 18 150/87 (108) 96 05/20/20 00:00 97.6 57 18 138/87 (104) 100 05/19/20 21:00 Room Air 05/19/20 20:32 71 114/78 05/19/20 20:00 98.5 71 18 114/78 (90) 97 05/19/20 16:30 55 16 130/79 (96) 98 05/19/20 16:00 57 16 135/84 (101) 98 05/19/20 15:45 60 16 142/87 (105) 97 05/19/20 15:30 59 15 133/87 (102) 96 05/19/20 15:15 58 14 130/83 (99) 96 05/19/20 14:55 61 12 122/86 (98) 97 05/19/20 14:49 58 12 125/85 (98) 96 05/19/20 14:44 60 12 125/84 (98) 96 05/19/20 14:39 71 12 126/81 (96) 98 05/19/20 14:34 49 14 128/80 (96) 98 05/19/20 14:29 55 12 127/82 (97) 96 05/19/20 14:24 63 11 135/72 (93) 97 05/19/20 14:19 58 13 133/68 (89) 95 05/19/20 14:14 60 12 137/73 (94) 96 05/19/20 14:14 62 12 05/19/20 12:00 97.6 55 18 134/66 (88) 98 9/30/20 09:00 Room Air 05/19/20 08:25 73 125/69 05/19/20 08:00 97.2 73 18 125/69 (87) 96 Intake and Output 05/19/20 05/20/20 19:00 07:00 Intake Total 1680 ml Output Total 1000 ml 1300 ml Balance -1000 ml 380 ml Intake Oral 1680 ml Output Urine Total 1000 ml 1300 ml # Bowel Movements 1 Laboratory Tests Test 05/19/20 11:15 05/19/20 16:41 05/20/20 05:42 POC Whole Blood Glucose 95 MG/DL (74-106) Pending White Blood Count Pending Red Blood Count Pending Hemoglobin Pending Hematocrit Pending Mean Corpuscular Volume Pending Mean Corpuscular Hemoglobin Pending Mean Corpuscular Hemoglobin Concent Pending Red Cell Distribution Width Pending Platelet Count Pending Mean Platelet Volume Pending Neutrophils (%) (Auto) Pending Lymphocytes (%) (Auto) Pending Monocytes (%) (Auto) Pending Eosinophils (%) (Auto) Pending Basophils (%) (Auto) Pending Sodium Level Pending Potassium Level Pending Chloride Level Pending Carbon Dioxide Level Pending Blood Urea Nitrogen Pending Creatinine Pending Estimat Glomerular Filtration Rate Pending Glucose Level Pending Calcium Level Pending Height (Feet): 5 Height (Inches): 8.00 Weight (Pounds): 149 Medications Current Medications Medications (Trade) Dose Ordered Sig/Michelle Route PRN Reason Start Time Stop Time Status Last Admin Dose Admin Acetaminophen (Tylenol) 650 mg Q4H PRN ORAL Temp >100.5 05/13/20 17:45 06/12/20 17:44 Carvedilol (Coreg) 3.125 mg EVERY 12 HOURS ORAL 05/14/20 21:00 06/13/20 20:59 05/19/20 08:25 Clonidine HCl (Catapres Tab) 0.1 mg Q4H PRN ORAL For High Blood Pressure 05/13/20 17:45 08/11/20 17:44 05/18/20 09:22 Dextrose (Dextrose 50%) 25 ml Q30M PRN IV Hypoglycemia 05/13/20 17:45 08/11/20 17:44 Dextrose (Dextrose 50%) 50 ml Q30M PRN IV Hypoglycemia 05/13/20 17:45 08/11/20 17:44 Divalproex Sodium (Depakote Sprinkles) 500 mg Q12HR ORAL 05/14/20 10:00 06/28/20 09:59 05/19/20 20:32 Docusate Sodium (Colace) 100 mg THREE TIMES A DAY ORAL 05/16/20 13:00 06/15/20 12:59 05/19/20 18:22 Enoxaparin Sodium (Lovenox) 60 mg EVERY 12 HOURS SUBQ 05/17/20 12:30 08/15/20 12:29 05/17/20 13:08 Haloperidol Lactate (Haldol) 5 mg Q8H PRN IM agitation 05/13/20 17:45 06/27/20 17:44 Insulin Aspart (NovoLOG) BEFORE MEALS AND HS SUBQ 05/13/20 21:00 08/11/20 20:59 Lidocaine HCl (Xylocaine 1% 30ml) 30 ml NOW PRN INJ Radiology Procedure 05/19/20 11:15 05/22/20 11:14 Magnesium Oxide (Mag-Ox 400mg) 400 mg THREE TIMES A DAY ORAL 05/17/20 13:00 06/16/20 12:59 05/19/20 18:22 Nitroglycerin (Ntg) 0.4 mg Q5M X 3 DOSES PRN SL Prn Chest Pain 05/13/20 17:45 06/12/20 17:44 Ondansetron HCl (Zofran) 4 mg Q6H PRN IVP Nausea & Vomiting 05/13/20 17:45 06/12/20 17:44 Pantoprazole (Protonix) 40 mg EVERY 12 HOURS ORAL 05/16/20 21:00 06/15/20 20:59 05/19/20 20:32 Polyethylene Glycol (Miralax) 17 gm HSPRN PRN ORAL Constipation 05/13/20 17:45 06/12/20 17:44 Risperidone (RisperDAL) 2 mg QHS ORAL 05/13/20 21:00 06/27/20 20:59 05/19/20 20:32 Sodium Bicarbonate (Sodium Bicarbonate 4%) 1 ml NOW PRN IV Radiology Procedure 05/19/20 11:15 05/22/20 11:14 Sodium Chloride 1,000 ml @ 50 mls/hr Q20H IV 05/14/20 08:45 06/13/20 08:44 05/19/20 08:25 Temazepam (Restoril) 15 mg HSPRN PRN ORAL Insomnia 05/13/20 17:45 05/20/20 17:44 Assessment/Plan Assessment/Plan: Hematology consultation REQ MD: Samm Cruz RFC: LLE Dvt DOS: HPI Patient is a [facility] patient. Patient apparently was sent to the [facility] by Dr Quijano according to the paperwork. Patient is a poor historian all the history was obtained from medical records. Patient apparently became a phasic at time of admission. Paramedics brought him here for that evaluation. Patient appeared be following commands. On arrival however patient began to speak. He was able to tell me his name. Patient has a poor historian unable to tell me what happened. Denies any chest pain shortness of breath at this time. No other complaints are noted. Symptoms noted to be moderate. No other modifying factors. No other associated signs and symptoms. No other complaints were noted. Noted to have developed dvt lle and ivc filter placed 05/19/20 in afternoon, labs low, so contraindiccated for anticoag. Coded Allergies: CHLORPROMAZINE (Verified Allergy, Unknown, 03/04/20) TRIFLUOPERAZINE (Verified Allergy, Unknown, 03/04/20) COVID-19 Screening Contact w/high risk pt: No Experienced COVID-19 symptoms?: No COVID-19 Testing performed FIGHT MANAGER: No Patient History Past Medical History: HTN, CAD, other - Encephalopathy Past Surgical History: none Pertinent Family History: none Social History: Denies: smoking, alcohol use, drug use Reviewed Nursing Documentation: PMH: Agreed; PSxH: Agreed Nursing Documentation-PMH Hx Cardiac Problems: Yes Hx Hypertension: Yes Hx Gastrointestinal Problems: Yes Hx Neurological Problems: Yes - encephalopathy Hx Seizures: Yes - Precautions in place. Hx Epilepsy: Yes Review of Systems All Other Systems: negative except mentioned in HPI PE Vitals: reviewed, normal General: alert, mild distress, thin Heent, normal voice Neck: normal inspection, full range of motion, supple, no bony tend Respiratory: normal inspection, lungs clear, normal breath sounds, no respiratory distress, no retraction, no wheezing Cardiovascular: regular rate, rhythm, no edema Gastrointestinal: normal inspection, normal bowel sounds, non tender, soft, no guarding, no hernia Genitourinary: no CVA tenderness Neurologic: alert, responsive, speech normal Psychiatric: depressed affect Skin: no rash Labs: noted Imaging: reviewed Assessment and Recs # Left lower extremity dvt with decreased plts and wbc, is contraindicated for anticoag --> 05/19 IVC filter placement with permanent type --> monitor for bleed -> f/u outpatient as needed, r/o malignancy --> tumor markers as needed, ordered # Pancytopenia with persistent Thrombocytopenia that at baseline low based on admission --> hep and hiv ordered --> smear to review --> us abd ordered --> transfuse prn --> wbc 72 --> wbc 3.4 # TIA (transient ischemic attack) with AMS (altered mental status) --> less likely cva or tia. CT was negative. Patient will be admitted for further treatment. --> as per neuro # Severe protein-calorie malnutrition. # Hyponatremia. # Hypertension. --> cards # Diabetes type 2. # Alzheimer's dementia. # Cardiomyopathy. # Dvt ppx now lovenox but okay to hold given ivcf placed Appreciate consultation and dw Thompson Medina MD May 20, 2020 07:00
[2020-05-20 07:01] LABS: ANION GAP 5 mmol/L (5-15); BLOOD UREA NITROGEN 23 mg/dL (7-18); CALCIUM 8.3 MG/DL (8.5-10.1); CARBON DIOXIDE 29 MMOL/L (21-32); CHLORIDE 107 MMOL/L (98-107); CREATININE 0.8 MG/DL (0.55-1.30); POTASSIUM 4.4 MMOL/L (3.5-5.1); SODIUM 141 MMOL/L (136-145)
[2020-05-20 07:02] LABS: HEMATOCRIT 34.2 % (42.0-52.0); HEMOGLOBIN 12.4 G/DL (14.2-18.0); MEAN CORPUSCULAR VOLUME 91 FL (80-99); PLATELET COUNT 73 K/UL (150-450); RED BLOOD COUNT 3.74 M/UL (4.70-6.10); RED CELL DISTRIBUTION WIDTH 10.4 % (11.6-14.8); WHITE BLOOD COUNT 3.9 K/UL (4.8-10.8)
[2020-05-20] MEDS: Enoxaparin 60mg Inj SUBQ SCH ×2 (09:00→20:26)
[2020-05-20] MEDS: Magnesium Oxide 400mg tab ORAL SCH ×3 (09:05→17:10)
[2020-05-20] MEDS: Docusate 100mg cap ORAL SCH ×3 (09:05→17:10)
[2020-05-20] MEDS: Depakote 125mg Sprinkles ORAL SCH ×2 (09:06→20:26)
--- NOTE | 2020-05-20 09:54 | Nephrology Progress Note ---
Assessment/Plan Problem List: (1) Dehydration (2) Electrolyte imbalance (3) Hyponatremia (4) Severe protein-calorie malnutrition (5) History of hypertension Assessment Hyponatremia, etiology is being worked up Cardiomyopathy with ejection fraction of 45% Acute DVT left lower extremity Coronary artery disease Seizure disorder Hypertension Diabetes mellitus Hypothyroidism Psychiatric disorder Severe malnutrition Plan May 20: Labs reviewed. Renal parameters stable. Electrolytes stable. Continue per consultants. May 19: Labs reviewed. Renal parameters and serum sodium stable. Continue per consultants. May 18: Lab reviewed. Serum sodium 139. Continue rest. May 17: Labs reviewed. Serum sodium 134. Magnesium 1.6, replaced. Continue rest Previously: Urine for spot sodium, urine for osmolarity: Noted Serum osmolarity, serum uric acid, TSH level, lipid panel,: Reviewed Slow saline hydration, monitor serum sodium Continue current management Keep the blood pressure in check Per orders Subjective ROS Limited/Unobtainable: Yes Constitutional: Reports: malaise Objective Objective Last 24 Hour Vital Signs Date Time Temp Pulse Resp B/P (MAP) Pulse Ox O2 Delivery O2 Flow Rate FiO2 05/20/20 09:05 69 117/72 05/20/20 09:01 97.2 69 18 117/72 (87) 97 05/20/20 08:00 97.2 69 18 117/72 (87) 97 05/20/20 04:00 98.5 62 18 150/87 (108) 96 05/20/20 00:00 97.6 57 18 138/87 (104) 100 05/19/20 21:00 Room Air 05/19/20 20:32 71 114/78 05/19/20 20:00 98.5 71 18 114/78 (90) 97 05/19/20 16:30 55 16 130/79 (96) 98 05/19/20 16:00 57 16 135/84 (101) 98 05/19/20 15:45 60 16 142/87 (105) 97 05/19/20 15:30 59 15 133/87 (102) 96 05/19/20 15:15 58 14 130/83 (99) 96 05/19/20 14:55 61 12 122/86 (98) 97 05/19/20 14:49 58 12 125/85 (98) 96 05/19/20 14:44 60 12 125/84 (98) 96 05/19/20 14:39 71 12 126/81 (96) 98 05/19/20 14:34 49 14 128/80 (96) 98 05/19/20 14:29 55 12 127/82 (97) 96 05/19/20 14:24 63 11 135/72 (93) 97 05/19/20 14:19 58 13 133/68 (89) 95 05/19/20 14:14 60 12 137/73 (94) 96 05/19/20 14:14 62 12 05/19/20 12:00 97.6 55 18 134/66 (88) 98 Intake and Output0 05/19/20 05/20/20 19:00 07:00 Intake Total 1680 ml Output Total 1000 ml 1300 ml Balance -1000 ml 380 ml Intake Oral 1680 ml Output Urine Total 1000 ml 1300 ml # Bowel Movements 1 Laboratory Tests 05/19/20 11:15: POC Whole Blood Glucose 95 05/19/20 16:41: POC Whole Blood Glucose [Pending] 05/20/20 05:42: White Blood Count 3.9L, Red Blood Count 3.74L, Hemoglobin 12.4L, Hematocrit 34.2L, Mean Corpuscular Volume 91, Mean Corpuscular Hemoglobin 33.1H, Mean Corpuscular Hemoglobin Concent 36.2H, Red Cell Distribution Width 10.4L, Platelet Count 73L, Mean Platelet Volume 7.4, Neutrophils (%) (Auto) , Lymphocytes (%) (Auto) , Monocytes (%) (Auto) , Eosinophils (%) (Auto) , Basophils (%) (Auto) , Neutrophils % (Manual) [Pending], Lymphocytes % (Manual) [Pending], Platelet Estimate [Pending], Platelet Morphology [Pending], Sodium Level 141, Potassium Level 4.4, Chloride Level 107, Carbon Dioxide Level 29, Anion Gap 5, Blood Urea Nitrogen 23H, Creatinine 0.8, Estimat Glomerular Filtration Rate > 60, Glucose Level 85, Calcium Level 8.3L, Carcinoembryonic Antigen [Pending], CA 19-9 Antigen [Pending], Prostate Specific Antigen 0.93 Height (Feet): 5 Height (Inches): 8.00 Weight (Pounds): 149 General Appearance: no apparent distress Objective No change Miller Silva MD May 20, 2020 09:54
--- NOTE | 2020-05-20 11:24 | Pulmonology Progress Note ---
Subjective ROS Limited/Unobtainable: No Constitutional: Reports: no symptoms HEENT: Repors: no symptoms Allergies: Coded Allergies: CHLORPROMAZINE (Verified Allergy, Unknown, 03/04/20) TRIFLUOPERAZINE (Verified Allergy, Unknown, 03/04/20) Objective Last 24 Hour Vital Signs Date Time Temp Pulse Resp B/P (MAP) Pulse Ox O2 Delivery O2 Flow Rate FiO2 05/20/20 09:05 69 117/72 05/20/20 09:01 97.2 69 18 117/72 (87) 97 05/20/20 09:00 Room Air 05/20/20 08:00 97.2 69 18 117/72 (87) 97 05/20/20 04:00 98.5 62 18 150/87 (108) 96 05/20/20 00:00 97.6 57 18 138/87 (104) 100 05/19/20 21:00 Room Air 05/19/20 20:32 71 114/78 05/19/20 20:00 98.5 71 18 114/78 (90) 97 05/19/20 16:30 55 16 130/79 (96) 98 05/19/20 16:00 57 16 135/84 (101) 98 05/19/20 15:45 60 16 142/87 (105) 97 05/19/20 15:30 59 15 133/87 (102) 96 05/19/20 15:15 58 14 130/83 (99) 96 05/19/20 14:55 61 12 122/86 (98) 97 05/19/20 14:49 58 12 125/85 (98) 96 05/19/20 14:44 60 12 125/84 (98) 96 05/19/20 14:39 71 12 126/81 (96) 98 05/19/20 14:34 49 14 128/80 (96) 98 05/19/20 14:29 55 12 127/82 (97) 96 05/19/20 14:24 63 11 135/72 (93) 97 05/19/20 14:19 58 13 133/68 (89) 95 05/19/20 14:14 60 12 137/73 (94) 96 05/19/20 14:14 62 12 05/19/20 12:00 97.6 55 18 134/66 (88) 98 Intake and Output 05/19/20 05/20/20 19:00 07:00 Intake Total 1680 ml Output Total 1000 ml 1300 ml Balance -1000 ml 380 ml Intake Oral 1680 ml Output Urine Total 1000 ml 1300 ml # Bowel Movements 1 General Appearance: cachetic, other - more awake, thin male, still poorly responsive to simple questions by nodding his head, HEENT: normocephalic, atraumatic, anicteric Respiratory: decreased breath sounds Cardiovascular: normal rate, regular rhythm - SE with occas PVCs Abdomen: normal bowel sounds, soft, non tender Extremities: no edema, pedal pulses normal Skin: no rash Neurologic: alert - poorly responsive, other - moves all extremitites Lymphatic: no neck adenopathy Musculoskeletal: atrophy - BLE Laboratory Tests 05/19/20 16:41: POC Whole Blood Glucose [Pending] 05/20/20 05:42: White Blood Count 3.9L, Red Blood Count 3.74L, Hemoglobin 12.4L, Hematocrit 34.2L, Mean Corpuscular Volume 91, Mean Corpuscular Hemoglobin 33.1H, Mean Corpuscular Hemoglobin Concent 36.2H, Red Cell Distribution Width 10.4L, Platelet Count 73L, Mean Platelet Volume 7.4, Neutrophils (%) (Auto) , Lymphocytes (%) (Auto) , Monocytes (%) (Auto) , Eosinophils (%) (Auto) , Basophils (%) (Auto) , Differential Total Cells Counted 100, Neutrophils % (Manual) 52, Lymphocytes % (Manual) 38, Monocytes % (Manual) 6, Eosinophils % (Manual) 4H, Basophils % (Manual) 0, Band Neutrophils 0, Platelet Estimate DecreasedL, Platelet Morphology Normal, Anisocytosis 1+, Sodium Level 141, Potassium Level 4.4, Chloride Level 107, Carbon Dioxide Level 29, Anion Gap 5, Blood Urea Nitrogen 23H, Creatinine 0.8, Estimat Glomerular Filtration Rate > 60, Glucose Level 85, Calcium Level 8.3L, Carcinoembryonic Antigen [Pending], CA 19-9 Antigen [Pending], Prostate Specific Antigen 0.93 Current Medications Medications (Trade) Dose Ordered Sig/Michelle Route PRN Reason Start Time Stop Time Status Last Admin Dose Admin Acetaminophen (Tylenol) 650 mg Q4H PRN ORAL Temp >100.5 05/13/20 17:45 06/12/20 17:44 Carvedilol (Coreg) 3.125 mg EVERY 12 HOURS ORAL 05/14/20 21:00 06/13/20 20:59 05/20/20 09:05 Clonidine HCl (Catapres Tab) 0.1 mg Q4H PRN ORAL For High Blood Pressure 05/13/20 17:45 08/11/20 17:44 05/18/20 09:22 Dextrose (Dextrose 50%) 25 ml Q30M PRN IV Hypoglycemia 05/13/20 17:45 08/11/20 17:44 Dextrose (Dextrose 50%) 50 ml Q30M PRN IV Hypoglycemia 05/13/20 17:45 08/11/20 17:44 Divalproex Sodium (Depakote Sprinkles) 500 mg Q12HR ORAL 05/14/20 10:00 06/28/20 09:59 05/20/20 09:06 Docusate Sodium (Colace) 100 mg THREE TIMES A DAY ORAL 05/16/20 13:00 06/15/20 12:59 05/20/20 09:05 Enoxaparin Sodium (Lovenox) 60 mg EVERY 12 HOURS SUBQ 05/17/20 12:30 08/15/20 12:29 05/17/20 13:08 Haloperidol Lactate (Haldol) 5 mg Q8H PRN IM agitation 05/13/20 17:45 06/27/20 17:44 Insulin Aspart (NovoLOG) BEFORE MEALS AND HS SUBQ 05/13/20 21:00 08/11/20 20:59 Lidocaine HCl (Xylocaine 1% 30ml) 30 ml NOW PRN INJ Radiology Procedure 05/19/20 11:15 05/22/20 11:14 Magnesium Oxide (Mag-Ox 400mg) 400 mg THREE TIMES A DAY ORAL 05/17/20 13:00 06/16/20 12:59 05/20/20 09:05 Nitroglycerin (Ntg) 0.4 mg Q5M X 3 DOSES PRN SL Prn Chest Pain 05/13/20 17:45 06/12/20 17:44 Ondansetron HCl (Zofran) 4 mg Q6H PRN IVP Nausea & Vomiting 05/13/20 17:45 06/12/20 17:44 Pantoprazole (Protonix) 40 mg EVERY 12 HOURS ORAL 05/16/20 21:00 06/15/20 20:59 05/20/20 09:05 Polyethylene Glycol (Miralax) 17 gm HSPRN PRN ORAL Constipation 05/13/20 17:45 06/12/20 17:44 Risperidone (RisperDAL) 2 mg QHS ORAL 05/13/20 21:00 06/27/20 20:59 05/19/20 20:32 Sodium Chloride 1,000 ml @ 50 mls/hr Q20H IV 05/14/20 08:45 06/13/20 08:44 05/19/20 08:25 Temazepam (Restoril) 15 mg HSPRN PRN ORAL Insomnia 05/13/20 17:45 05/20/20 17:44 Assessment/Plan Problems: (1) DVT, popliteal, acute (2) AMS (altered mental status) (3) TIA (transient ischemic attack) (4) History of psychiatric disorder (5) Alzheimer's dementia (6) History of hypertension (7) History of diabetes mellitus (8) Severe protein-calorie malnutrition Assessment/Plan ivc inserted yesterday telemetry monitoring echo reviewed, EF of 45% US of carotid artery monitor BP sliding scale diabetic diet Dipika Quijano MD May 20, 2020 11:24
--- NOTE | 2020-05-20 15:40 | Cardiac Electrophysiology PN ---
Assessment/Plan Assessment/Plan 1. Frequent PVCs of different morphology in bigeminal and trigeminal pattern. PVC is primarily of two different morphology with right bundle-branch block and left bundle-branch block morphology. Ruled out for myocardial infarction. Echo showed ejection fraction of 45%. Patient's severe hyponatremia is corrected but continues with PVCs. Continue Coreg 2. CAD. Ruled out for myocardial infarction. Currently, he does not have any chest pain. On Coreg 3.125 bid 3. Severe hyponatremia. Improved to 140 4. History of psychiatric disorder of Risperdal. 5. History of hypertension, on p.r.n. clonidine. 6. Cardiomyopathy with ejection fraction of 45%. On Coreg 3.125 bid 7. Left lower extremity popliteal DVT. Platelet in 60s. S/P IVC filter placement. LB RN Subjective Subjective Alert in NAD. Confused and weak.Off tele. S/P IVC filter placement 05/19/20. Had Rapid Covid test pending DC to [facility] Objective Last 24 Hour Vital Signs Date Time Temp Pulse Resp B/P (MAP) Pulse Ox O2 Delivery O2 Flow Rate FiO2 05/20/20 12:00 97.3 70 20 118/70 (86) 98 05/20/20 09:05 69 117/72 05/20/20 09:01 97.2 69 18 117/72 (87) 97 05/20/20 09:00 Room Air 05/20/20 08:00 97.2 69 18 117/72 (87) 97 05/20/20 04:00 98.5 62 18 150/87 (108) 96 05/20/20 00:00 97.6 57 18 138/87 (104) 100 05/19/20 21:00 Room Air 05/19/20 20:32 71 114/78 05/19/20 20:00 98.5 71 18 114/78 (90) 97 05/19/20 16:30 55 16 130/79 (96) 98 05/19/20 16:00 57 16 135/84 (101) 98 05/19/20 15:45 60 16 142/87 (105) 97 Intake and Output 05/19/20 05/20/20 19:00 07:00 Intake Total 1730 ml Output Total 1000 ml 1300 ml Balance -1000 ml 430 ml Intake Oral 1680 ml IV Total 50 ml Output Urine Total 1000 ml 1300 ml # Bowel Movements 1 Laboratory Tests Test 05/19/20 16:41 05/20/20 05:42 POC Whole Blood Glucose Pending White Blood Count 3.9 K/UL (4.8-10.8) L Red Blood Count 3.74 M/UL (4.70-6.10) L Hemoglobin 12.4 G/DL (14.2-18.0) L Hematocrit 34.2 % (42.0-52.0) L Mean Corpuscular Volume 91 FL (80-99) Mean Corpuscular Hemoglobin 33.1 PG (27.0-31.0) H Mean Corpuscular Hemoglobin Concent 36.2 G/DL (32.0-36.0) H Red Cell Distribution Width 10.4 % (11.6-14.8) L Platelet Count 73 K/UL (150-450) L Mean Platelet Volume 7.4 FL (6.5-10.1) Neutrophils (%) (Auto) % (45.0-75.0) Lymphocytes (%) (Auto) % (20.0-45.0) Monocytes (%) (Auto) % (1.0-10.0) Eosinophils (%) (Auto) % (0.0-3.0) Basophils (%) (Auto) % (0.0-2.0) Differential Total Cells Counted 100 Neutrophils % (Manual) 52 % (45-75) Lymphocytes % (Manual) 38 % (20-45) Monocytes % (Manual) 6 % (1-10) Eosinophils % (Manual) 4 % (0-3) H Basophils % (Manual) 0 % (0-2) Band Neutrophils 0 % (0-8) Platelet Estimate Decreased L Platelet Morphology Normal Anisocytosis 1+ Sodium Level 141 MMOL/L (136-145) Potassium Level 4.4 MMOL/L (3.5-5.1) Chloride Level 107 MMOL/L (98-107) Carbon Dioxide Level 29 MMOL/L (21-32) Anion Gap 5 mmol/L (5-15) Blood Urea Nitrogen 23 mg/dL (7-18) H Creatinine 0.8 MG/DL (0.55-1.30) Estimat Glomerular Filtration Rate > 60 mL/min (>60) Glucose Level 85 MG/DL (74-106) Calcium Level 8.3 MG/DL (8.5-10.1) L Carcinoembryonic Antigen Pending CA 19-9 Antigen Pending Prostate Specific Antigen 0.93 ng/mL (0.13-4.0) Objective HEAD AND NECK: No JVD. LUNGS: Clear. CARDIOVASCULAR: Irregular S1 and S2 with no gallop. ABDOMEN: Soft. EXTREMITIES: No pitting edema. Max Pollard MD May 20, 2020 15:40
--- NOTE | 2020-05-20 17:40 | Internal Med Progress Note ---
Subjective Date of Service: May 20, 2020 Physician Name Farhat Devine Attending Physician Eren Cruz MD Current Medications Medications (Trade) Dose Ordered Sig/Michelle Route PRN Reason Start Time Stop Time Status Last Admin Dose Admin Acetaminophen (Tylenol) 650 mg Q4H PRN ORAL Temp >100.5 05/13/20 17:45 06/12/20 17:44 Carvedilol (Coreg) 3.125 mg EVERY 12 HOURS ORAL 05/14/20 21:00 06/13/20 20:59 05/20/20 09:05 Clonidine HCl (Catapres Tab) 0.1 mg Q4H PRN ORAL For High Blood Pressure 05/13/20 17:45 08/11/20 17:44 05/18/20 09:22 Dextrose (Dextrose 50%) 25 ml Q30M PRN IV Hypoglycemia 05/13/20 17:45 08/11/20 17:44 Dextrose (Dextrose 50%) 50 ml Q30M PRN IV Hypoglycemia 05/13/20 17:45 08/11/20 17:44 Divalproex Sodium (Depakote Sprinkles) 500 mg Q12HR ORAL 05/14/20 10:00 06/28/20 09:59 05/20/20 09:06 Docusate Sodium (Colace) 100 mg THREE TIMES A DAY ORAL 05/16/20 13:00 06/15/20 12:59 05/20/20 17:10 Enoxaparin Sodium (Lovenox) 60 mg EVERY 12 HOURS SUBQ 05/17/20 12:30 08/15/20 12:29 05/17/20 13:08 Haloperidol Lactate (Haldol) 5 mg Q8H PRN IM agitation 05/13/20 17:45 06/27/20 17:44 Insulin Aspart (NovoLOG) BEFORE MEALS AND HS SUBQ 05/13/20 21:00 08/11/20 20:59 Lidocaine HCl (Xylocaine 1% 30ml) 30 ml NOW PRN INJ Radiology Procedure 05/19/20 11:15 05/22/20 11:14 Magnesium Oxide (Mag-Ox 400mg) 400 mg THREE TIMES A DAY ORAL 05/17/20 13:00 06/16/20 12:59 05/20/20 17:10 Nitroglycerin (Ntg) 0.4 mg Q5M X 3 DOSES PRN SL Prn Chest Pain 05/13/20 17:45 06/12/20 17:44 Ondansetron HCl (Zofran) 4 mg Q6H PRN IVP Nausea & Vomiting 05/13/20 17:45 06/12/20 17:44 Pantoprazole (Protonix) 40 mg EVERY 12 HOURS ORAL 05/16/20 21:00 06/15/20 20:59 05/20/20 09:05 Polyethylene Glycol (Miralax) 17 gm HSPRN PRN ORAL Constipation 05/13/20 17:45 06/12/20 17:44 Risperidone (RisperDAL) 2 mg QHS ORAL 05/13/20 21:00 06/27/20 20:59 05/19/20 20:32 Sodium Chloride 1,000 ml @ 50 mls/hr Q20H IV 05/14/20 08:45 06/13/20 08:44 05/19/20 08:25 Temazepam (Restoril) 15 mg HSPRN PRN ORAL Insomnia 05/13/20 17:45 05/20/20 17:44 Allergies: Coded Allergies: CHLORPROMAZINE (Verified Allergy, Unknown, 03/04/20) TRIFLUOPERAZINE (Verified Allergy, Unknown, 03/04/20) ROS Limited/Unobtainable: Yes Subjective 69 YO F admitted with altered mental status. Now Cover for Int Med-Dr Cruz Objective Last Vital Signs Date Time Temp Pulse Resp B/P (MAP) Pulse Ox O2 Delivery O2 Flow Rate FiO2 05/20/20 16:00 97.9 66 19 103/58 (73) 98 05/20/20 09:00 Room Air Laboratory Tests Test 05/20/20 05:42 White Blood Count 3.9 K/UL (4.8-10.8) L Red Blood Count 3.74 M/UL (4.70-6.10) L Hemoglobin 12.4 G/DL (14.2-18.0) L Hematocrit 34.2 % (42.0-52.0) L Mean Corpuscular Volume 91 FL (80-99) Mean Corpuscular Hemoglobin 33.1 PG (27.0-31.0) H Mean Corpuscular Hemoglobin Concent 36.2 G/DL (32.0-36.0) H Red Cell Distribution Width 10.4 % (11.6-14.8) L Platelet Count 73 K/UL (150-450) L Mean Platelet Volume 7.4 FL (6.5-10.1) Neutrophils (%) (Auto) % (45.0-75.0) Lymphocytes (%) (Auto) % (20.0-45.0) Monocytes (%) (Auto) % (1.0-10.0) Eosinophils (%) (Auto) % (0.0-3.0) Basophils (%) (Auto) % (0.0-2.0) Differential Total Cells Counted 100 Neutrophils % (Manual) 52 % (45-75) Lymphocytes % (Manual) 38 % (20-45) Monocytes % (Manual) 6 % (1-10) Eosinophils % (Manual) 4 % (0-3) H Basophils % (Manual) 0 % (0-2) Band Neutrophils 0 % (0-8) Platelet Estimate Decreased L Platelet Morphology Normal Anisocytosis 1+ Sodium Level 141 MMOL/L (136-145) Potassium Level 4.4 MMOL/L (3.5-5.1) Chloride Level 107 MMOL/L (98-107) Carbon Dioxide Level 29 MMOL/L (21-32) Anion Gap 5 mmol/L (5-15) Blood Urea Nitrogen 23 mg/dL (7-18) H Creatinine 0.8 MG/DL (0.55-1.30) Estimat Glomerular Filtration Rate > 60 mL/min (>60) Glucose Level 85 MG/DL (74-106) Calcium Level 8.3 MG/DL (8.5-10.1) L Carcinoembryonic Antigen Pending CA 19-9 Antigen Pending Prostate Specific Antigen 0.93 ng/mL (0.13-4.0) Microbiology Date/Time Source Procedure Growth Status 05/20/20 13:06 Nasopharynx SARS-CoV-2 RdRp Gene Assay - Final Complete Intake and Output 05/19/20 05/20/20 19:00 07:00 Intake Total 1730 ml Output Total 1000 ml 1300 ml Balance -1000 ml 430 ml Intake Oral 1680 ml IV Total 50 ml Output Urine Total 1000 ml 1300 ml # Bowel Movements 1 Objective PHYSICAL EXAMINATION: GENERAL: The patient awake, responsive only by nodding his head, however, able to follow simple commands. Cachectic and malnutrition. HEAD AND NECK: Pupils are equal and reactive to light. Extraocular movements intact. NECK: Supple. No JVD. LUNGS: Good air entry. No wheezing or rales. Decreased air in the bases. HEART: S1, S2. Distant heart sounds. No murmur or gallops. ABDOMEN: Soft, nondistended, nontender. Positive bowel sounds. EXTREMITIES: No cyanosis, clubbing, or edema. NEUROLOGIC: Limited secondary to patient's status. Cranial nerves II through XII grossly intact. The patient moving all the extremities spontaneously and gait was not assessed due to the patient's status. RECTAL: Refused and deferred. : Refused and deferred. PSYCHIATRIC: Mood and affect is unable to obtain. Assessment/Plan Assessment/Plan ASSESSMENT: 1. Altered mental status possible due to the toxic metabolic encephalopathy. 2. Severe protein-calorie malnutrition. 3. Hyponatremia. 4. Hypertension. 5. Diabetes type 2. 6. Alzheimer's dementia. 7. Cardiomyopathy. 8. Hypertension. 9. Coronary artery disease. 10. Deep venous thrombosis left Popliteal vein PLAN: 1. Admit the patient to monitored unit. 2. Dr. Quijano=Pulmonary/Critical Care 3. Dr. Pollard = Cardiology,Electrophysiology. 4. Code Status, Full code 5. Continue lovenox SQ Farhat Devine MD May 20, 2020 17:40
[2020-05-20] MEDS ORDERED: Tubing IV Secondary IV ONE (20:59)
--- NOTE | 2020-05-21 11:18 | Discharge Summary ---
Discharge Summary Discharge Summary _ DATE OF ADMISSION: 05/13/2020 DATE OF DISCHARGE: 05/20/2020 DISCHARGED BY: Dr. Cruz REASON FOR ADMISSION: 69 years old male with past medical history significant for diabetes mellitus type 2, hypertension, Alzheimer dementia, psychosis, presented to the hospital with altered mental status. Patient appeared to be following commands , however only responded by nodding his head. He denied any fever and chills . He denied nausea and vomiting. No chest pain or shortness of breath. Upon evaluation vital signs were stable. Laboratory work-up revealed stable electrolytes and renal parameters. Stable LFT. Glucose 81. Troponin 0.006, pro BNP 701. EKG revealed sinus rhythm with multiply PVC , but no ST segment changes. WBC 3.9, hemoglobin 13.3 , hematocrit 37.8 , platelet count 68. Chest x-ray revealed no acute cardiopulmonary pathology. CT of the head revealed no acute intracranial pathology. Urinalysis revealed no evidence of urinary tract infection. In emergency department patient received IV fluids and admitted for further management. CONSULTANTS: contact acid plant operator Dr. Pollard pulmonary Dr. Quijano paralegal legal secretary Dr. Silva dip dyer/oncologist Dr. Arce [facility] COURSE: Patient admitted to monitored floor. Patient started on the IV hydration. DVT prophylaxis provided. The next day sodium down to 125. Hyponatremia work-up initiated. IV hydration continued with normal saline. Echocardiogram revealed ejection fraction 45 to 50%. Patient started on low-dose of the Coreg. Blood pressure was managed with beta-gracie as well. PVCs were primarily of 2 different morphology : right bundle branch block and left bundle branch block morphology; improved after initiating of beta gracie. Patient was ruled out for acute myocardial infarction. Venous duplex revealed acute DVT left lower extremity popliteal thrombus . Given location , anticoagulation was hold due to thrombocytopenia. Patient subsequently had placement of IVC filter 05/19 , since anticoagulation was contraindicated due to thrombocytopenia. Carotid duplex revealed less than 50% stenosis bilaterally. CT of the head revealed no acute intracranial pathology , only chronic changes noted , as mentioned above. Urinalysis was negative. Chest x-ray revealed right-sided atelectasis. Altered mental status was likely due to acute toxic metabolic encephalopathy due to hyponatremia , probable dehydration and possible TIA. Seizure precaution maintained. Depakote continued. Psychiatric medications resumed. Blood sugar was managed with sliding scale of insulin. Counts were closely monitored. Platelet count was closely monitored, prior to discharge - 73. Hepatitis panel was negative. HIV test was nonreactive. Escort Service Attendant recommended outpatient follow-up to rule out malignancy. Patient has subclinical hypothyroidism no need to initiate treatment check TFT in 1 to 2 months. Protein supplements provided as per registered dietitian recommendation. Supportive care provided. Sodium improved to 141 upon discharge. TSH mildly elevated , but free T4 stable. No need to initiate thyroid supplement. Repeat TFT in 1 to 2 months. Patient likely had subclinical hypothyroidism, Patient clinically stabilized. Mental status returned to baseline . Patient was ready for discharge to [facility] facility for continuation of care. FINAL DIAGNOSES: Acute toxic metabolic encephalopathy Acute severe hyponatremia probably due to dehydration- resolved Possible TIA Frequent PVCs -improved Cardiomyopathy with ejection fraction 45% Acute DVT left lower extremity popliteal vein Status post IVC filter placement Coronary artery disease Dehydration Electrolyte imbalance Seizure disorder Hypertension Diabetes mellitus Alzheimer dementia Thrombocytopenia Pancytopenia Subclinical hypothyroidism (with elevated TSH and normal free T4 ) Psychiatric disorder Severe protein calorie malnutrition DISCHARGE MEDICATIONS: See Medication Reconciliation list. DISCHARGE INSTRUCTIONS: Patient was discharged to the [facility] facility. Follow up with medical doctor at the facility. I have been assigned to dictate discharge summary for this account. Beryl Pastor NP May 21, 2020 11:18
== END 2020-05-20 21:00 | DRG 640 ==
LOC: EDBD 11:40 → EMR 12:45 → 2E 12:57 → EDBEDREQ 14:04 → OBSVTOIN 14:28 → EDBEDREQ 15:17 → 2E 05-14 03:59 → 4E 05-17 22:30
PROC: 06H03DZ Insertion of Intraluminal Device into Inferior Vena Cava, Percutaneous Approach (ICD-10-PCS; principal; 2020-05-19)
DX: E87.1 Hypo-osmolality and hyponatremia (principal); G92 Toxic encephalopathy; E43 Unspecified severe protein-calorie malnutrition; I42.9 Cardiomyopathy, unspecified; I82.432 Acute embolism and thrombosis of left popliteal vein; G45.9 Transient cerebral ischemic attack, unspecified; I47.2 Ventricular tachycardia; I49.3 Ventricular premature depolarization; G30.9 Alzheimer's disease, unspecified; F02.80 Dementia in other diseases classified elsewhere, unspecified severity, without behavioral disturbance, psychotic disturbance, mood disturbance, and anxiety; E11.9 Type 2 diabetes mellitus without complications; I25.10 Atherosclerotic heart disease of native coronary artery without angina pectoris; E03.9 Hypothyroidism, unspecified; E86.0 Dehydration; D69.6 Thrombocytopenia, unspecified; F99 Mental disorder, not otherwise specified; Z88.8 Allergy status to other drugs, medicaments and biological substances; E87.8 Other disorders of electrolyte and fluid balance, not elsewhere classified; G40.909 Epilepsy, unspecified, not intractable, without status epilepticus
CPT/HCPCS: 36415; 70450; 71045; 76700; 76937; 80048; 80053; 80061; 80076; 81003; 82140; 82378; 82962; 82977; 83690; 83735; 83880; 83930; 83935; 84100; 84153; 84300; 84439; 84443; 84484; 84550; 85007; 85025; 85610; 85730; 86140; 86703; 86705; 86709; 86803; 87081; 87340; 93005; 93306; 93880; 93970; 99284; J1815; J7030; U0002

== ENCOUNTER 2020-10-08 05:59 | Inpatient (IN) | payer MEDICARE, OTHER ==
[2020-10-08] VITALS (8 sets, daily range): BP systolic 105–160; BP diastolic 79–103
[~2020-10-08] VITALS: Ht 170.2 cm; Wt 68.0 kg
--- NOTE | 2020-10-08 06:00 | NUR ---
ED Nurse Note: Pt brought in by EMS from [facility]term with report of seizure and altered mental status. Pt has history of seizures.
--- NOTE | 2020-10-08 06:01 | Emergency Room Report ---
History of Present Illness General Source: EMS Present Illness HPI 70-year-old male PMHx R cerebellar infarct, Alzheimer's dementia, psychosis, DVT, hypertension, diabetes, severe malnutrition, seizure disorder brought from [facility] status post witnessed tonic-clonic seizure prior to arrival. Duration was 1 minute. Ativan 1 mg was administered prior to arrival. Patient is currently postictal and hypoxic on 100% nonrebreather facemask with agonal respirations. He has a signed POLST with care option for DNR/DNI. EMS states that Accu-Chek was 141. History is limited secondary to patient's clinical status. The patient's symptoms were gradual onset, severity was moderate, duration since unknown amount of time. Quality: Seizing Past medical history: Alzheimer's dementia, psychosis, DVT, hypertension, diabetes, seizure disorder, severe malnutrition, history of R cerebellar infarct Past surgical history: Unable to obtain Smoking: Unable to obtain Alcohol use: Unable to obtain Drug use: Unable to obtain Review of systems: Unable to obtain secondary to clinical status. Positive seizures. 14 point Review of Systems is otherwise negative except per HPI Physical Exam: GENERAL: Lethargic, chronically ill-appearing, mild acute distress. Tachycardic. Hypoxic on 100% nonrebreather mask EYES: Pupils nonreactive. Conjunctiva clear. ENT: External nose and ear appear normal. Oropharynx clear. Head atraumatic. NECK: No thyromegaly. No midline tenderness. LUNGS: Agonal respiratory effort. Coarse breath sounds bilaterally CARDIAC: Tachycardic rate and rhythm. Normal radial pulses bilaterally. No significant pedal edema. ABDOMEN: Soft, nontender, and nondistended. No rebound/guarding. No hepatosplenomegaly. No pulsatile mass In soiled wet diaper MSK: Poor muscle tone, contractures with rigidity in extremities. Extremities without asymmetric deformity or swelling. NEUROLOGIC: Awake. Does not follow commands for motor and sensory exam. No truncal ataxia. GCS 2-4-2, protecting airway, intact gag reflex. Withdraws to pain in extremities, groans and opens eyes to sternal rub. SKIN: Warm and dry. No cyanosis or urticaria present. - COORDINATION OF CARE Case was discussed with: Patient , Patient's Physician Any labs and imaging that were ordered were interpreted as part of the medical decision making: Medical Decision Making/Plan: Differential diagnosis includes status epilepticus, hyponatremia, ICH, sepsis / severe sepsis , meningitis , cellulitis, UTI, pneumonia , viral syndrome, gastroenteritis, emergent abdominal infection, among others. Vitals show patient is tachycardic, tachypneic, hypoxic, with low-grade oral temperature of 100.3 Fahrenheit. He is grossly encephalopathic. Likely postictal. GCS 9 (4,2,3) however has a signed POLST DNR/DNI. Patient is saturating 89% on 100% nonrebreather facemask. He has no nuchal rigidity. I did review patient's previous charting. He was admitted for similar presentation of encephalopathy 2/2 seizure and improved with supportive measures. Labs show lactic acidosis, NSTEMI, and mild anemia. Patient was also found to be hyponatremic, likely pseudohyponatremia based on serum osm and urine osm. Dilantin found to be subtherapeutic. Patient loaded with Keppra. UA shows no evidence of acute urinary tract infection EKG demonstrates left bundle branch block that is similar when compared to past EKG. Chest x-ray shows right lower lobe pneumonia and tortuous aorta. CT head shows no acute intracranial hemorrhage. There is an old right cerebellar infarct. Sepsis bundle initiated on arrival. Blood cultures, lactate drawn. Patient was not given 30 cc/kg IV fluids by bolus due to patient refusal. Empiric antibiotics were started. Also gave bolus Keppra, magnesium, and Tylenol for fever. Patient will be admitted to the hospital for further care and evaluation. I spoke with Dr. Elvis Haynes, and reviewed the patients presentation, workup, results, and treatment. They will admit the patient for further care and evaluation, and assume care of the patient at this time. I also spoke with our Pulm surgical consultant per request of Dr. Haynes, Dr. Lemus who agrees to see and evaluate the patient. Allergies: Coded Allergies: CHLORPROMAZINE (Verified Allergy, Unknown, 03/04/20) TRIFLUOPERAZINE (Verified Allergy, Unknown, 03/04/20) Physical Exam Sp02 EP Interpretation: reviewed, abnormal Procedures Critical Care Time Critical Care Time Critical Care Statement Organ systems at risk include: [cardiac / circulatory] Critical care performed for 45 minutes. Time is exclusive of separately billable procedures. Time includes: direct patient care, continuous monitoring and multiple patient reassessment, coordination of patient care, review of patient's medical records, medical consultation, family consultation regarding treatment decisions and documentation of patient care. Medical Decision Making Diagnostic Impression: Primary Impression: Acute metabolic encephalopathy Additional Impressions: Seizure disorder Alzheimer's dementia History of psychiatric disorder Dehydration History of diabetes mellitus History of hypertension Severe protein-calorie malnutrition DNR (do not resuscitate) NSTEMI (non-ST elevated myocardial infarction) Lactic acid acidosis Hyponatremia Rhabdomyolysis CRIS (acute kidney injury) Suspected 2019 novel coronavirus infection EKG Diagnostic Results Troponin ordered: Yes [facility] 12-lead EKG (interpreted by ) Time: 0607 Indication: Rhythm analysis Tracing visualized and Interpreted by me. Rhythm: Left bundle branch block, tachycardia, left axis deviation Rate: 143 bpm QTc: 583 Morphology: No_significant_ST_elevations_or_depressions, No STEMI Impression: Left bundle branch block, wide QRS, wide QTC No changes from previous EKG Rhythm Strip Diag. Results Rhythm Strip Time: 06:16 EP Interpretation: yes Rate: 79 Rhythm: no PVC's, no ectopy, other - Left bundle branch block Chest X-Ray Diagnostic Results Chest X-Ray Diagnostic Results : [facility] Chest X-Ray: Views: [ 1 ] view(s) Indication: cough Findings: Right lower lobe infiltrate versus effusion. Tortuous aorta. No pneumothorax Impression: Right lower lobe infiltrate versus effusion. Tortuous aorta. No pneumothorax The X-ray(s) were independently viewed and interpreted contemporaneously Electronically signed by , Radha Harper DO CT/MRI/US Diagnostic Results CT/MRI/US Diagnostic Results : Impression CT Head Without Intravenous Contrast CLINICAL HISTORY: AMS TECHNIQUE: Axial computed tomography images of the head/brain without intravenous contrast. CTDI is 53.4 mGy and DLP is 1259.2 mGy-cm. One or more of the following dose reduction techniques were used: automated exposure control, adjustment of the mA and/or kV according to patient size, use of iterative reconstruction technique. COMPARISON: Head CT May 13, 2020. FINDINGS: No acute intracranial hemorrhage. No midline shift or mass effect. Encephalomalacia in the right cerebellum, consistent with old infarct. This is stable when compared to May 13, 2020. Age-related cerebral volume loss. Periventricular and subcortical white matter hypoattenuation, consistent with chronic microangiopathy. The visualized orbits appear grossly unremarkable. The calvarium is intact. Mucous retention cyst in the left maxillary sinus. The remaining paranasal sinuses are clear. The mastoid air cells are clear. IMPRESSION: No acute intracranial hemorrhage, midline shift, or mass effect. Old right cerebellar infarct, unchanged. Reevaluation Time: 06:30 Status: improved Disposition: ADMITTED INPATIENT Admit Decision Time: 06:30 Condition: Critical Radha Harper D.O. Oct 08, 2020 06:01
[2020-10-08] MEDS ORDERED: levETIRAcetam 1,000mg/NS100ml 100 ML IVPB ONE ×2 (06:15→06:30)
[2020-10-08] MEDS ORDERED: Vancomycin 1 GM in NS 275 ML IV ONE (06:15)
[2020-10-08] MEDS ORDERED: Cefepime HCl 2 GM in NS 110 ML IV ONE (06:15)
[2020-10-08] MEDS ORDERED: LEVSIN-SL0.125 MG SL (06:18)
[2020-10-08] MEDS ORDERED: IPRATROPIU0.2 MG/1 M HHN (06:18)
[2020-10-08] MEDS ORDERED: BISACODYL5 MG RECTAL (06:18)
[2020-10-08] MEDS ORDERED: ATIVAN0.5 MG GT (06:18)
[2020-10-08] MEDS ORDERED: RISPERDAL2 MG ORAL (06:20)
[2020-10-08] MEDS ORDERED: MORPHINE 00.5 MG/11 IJ (06:20)
[2020-10-08] MEDS ORDERED: ZOFRAN 4 MG4 MG/2 ML IV (06:20)
[2020-10-08 06:56] LABS: BASOPHILS % (AUTO) 0.7 % (0.0-2.0); EOSINOPHILS % (AUTO) 0.6 % (0.0-3.0); HEMATOCRIT 47.1 % (42.0-52.0); MEAN CORPUSCULAR VOLUME 92 FL (80-99); MONOCYTES % (AUTO) 6.7 % (1.0-10.0); PLATELET COUNT 101 K/UL (150-450); RED BLOOD COUNT 5.13 M/UL (4.70-6.10); RED CELL DISTRIBUTION WIDTH 11.9 % (11.6-14.8); WHITE BLOOD COUNT 8.4 K/UL (4.8-10.8)
[2020-10-08] MEDS ORDERED: Acetaminophen 650 MG SUPP RECTAL ONE (07:00)
[2020-10-08 07:02] LABS: APPEARANCE,URINE CLEAR; BILIRUBIN, URINE NEGATIVE (NEGATIVE); COLOR,URINE PALE YELLOW; GLUCOSE, URINE (UA) NEGATIVE (NEGATIVE); KETONES,URINE NEGATIVE (NEGATIVE); LEUKOCYTE ESTERASE ,URINE NEGATIVE (NEGATIVE); NITRITE,URINE NEGATIVE (NEGATIVE); PH,URINE 6.5 (4.5-8.0); PROTEIN,URINE 3+ (NEGATIVE); UROBILINOGEN,URINE NORMAL MG/DL (0.0-1.0)
--- NOTE | 2020-10-08 07:16 | NUR ---
ED Nurse Note: Blood and urine sent to lab, pt moved to bed number 8. Report given to NOHELIA Fernandez.
[2020-10-08 07:18] LABS: INR 1.3 (0.9-1.1)
[2020-10-08 07:19] LABS: ALBUMIN 3.6 G/DL (3.4-5.0); ALBUMIN/GLOBULIN RATIO 0.8 (1.0-2.7); BILIRUBIN,TOTAL 0.4 MG/DL (0.2-1.0); CREATININE 1.7 MG/DL (0.55-1.30); PHOSPHORUS 4.9 MG/DL (2.5-4.9); POTASSIUM 3.1 MMOL/L (3.5-5.1)
[2020-10-08 07:31] LABS: AMMONIA 22 umol/L (11-32)
[2020-10-08 07:43] LABS: CKMB 5.9 NG/ML (0.0-3.6)
--- NOTE | 2020-10-08 08:16 | Diagnostic Imaging Report ---
EXAM: CT Head Without Intravenous Contrast CLINICAL HISTORY: AMS TECHNIQUE: Axial computed tomography images of the head/brain without intravenous contrast. CTDI is 53.4 mGy and DLP is 1259.2 mGy-cm. One or more of the following dose reduction techniques were used: automated exposure control, adjustment of the mA and/or kV according to patient size, use of iterative reconstruction technique. COMPARISON: Head CT May 13, 2020. FINDINGS: No acute intracranial hemorrhage. No midline shift or mass effect. Encephalomalacia in the right cerebellum, consistent with old infarct. This is stable when compared to May 13, 2020. Age-related cerebral volume loss. Periventricular and subcortical white matter hypoattenuation, consistent with chronic microangiopathy. The visualized orbits appear grossly unremarkable. The calvarium is intact. Mucous retention cyst in the left maxillary sinus. The remaining paranasal sinuses are clear. The mastoid air cells are clear. IMPRESSION: No acute intracranial hemorrhage, midline shift, or mass effect. Old right cerebellar infarct, unchanged.
--- NOTE | 2020-10-08 08:22 | NUR ---
ED Nurse Note: repeat lactic & trop sent to lab. 2nd iv placed. mrsa/vre swab sent to lab. pt on continuous cardiac/O2 monitor.
--- NOTE | 2020-10-08 10:18 | NUR ---
ED Nurse Note: delay in medication admin due to difficultly in venous access and only 1 IV present for first few hours of pt visit. md aware. verbal order to give medications as needed and aware there will be a delay in med administration.
--- NOTE | 2020-10-08 10:21 | History and Physical ---
History of Present Illness General Date patient seen: Oct 08, 2020 Time patient seen: 11:00 Reason for Hospitalization: Seizure Present Illness HPI 70-year-old male PMHx R cerebellar infarct, Alzheimer's dementia, psychosis, DVT, hypertension, diabetes, severe malnutrition, seizure disorder brought from [facility] status post witnessed tonic-clonic seizure prior to arrival. Duration was 1 minute. Ativan 1 mg was administered prior to arrival. Patient is currently postictal and hypoxic on 100% nonrebreather facemask with agonal respirations. He has a signed POLST with care option for DNR/DNI. EMS states that Accu-Chek was 141. History is limited secondary to patient's clinical status. The patient's symptoms were gradual onset, severity was moderate, duration since unknown amount of time. Allergies: Coded Allergies: CHLORPROMAZINE (Verified Allergy, Unknown, 03/04/20) TRIFLUOPERAZINE (Verified Allergy, Unknown, 03/04/20) COVID-19 Screening Contact w/high risk pt: Yes Experienced COVID-19 symptoms?: No Medication History Scheduled Bisacodyl* (Dulcolax*), 10 MG RECTAL DAILY, (Reported) Divalproex Sodium (Depakote), 500 MG ORAL EVERY 12 HOURS Hyoscyamine Sulfate* (Levsin-Sl*), 0.125 MG SL Q4HR, (Reported) Lorazepam* (Ativan*), 0.5 MG GT THREE TIMES A DAY, (Reported) Morphine Sulfate/Pf (Morphine 0.5 Mg/Ml Vial), 0.5 MG IJ Q4HR, (Reported) Risperidone* (Risperdal*), 2 MG ORAL QHS Risperidone* (Risperdal*), 2 MG ORAL QHS, (Reported) Scheduled PRN Haloperidol Lactate (Haloperidol Lactate), 5 MG IM Q8H PRN Ipratropium Gilman 0.5MG/2.5ML (Ipratropium Gilman 0.5MG/2.5ML), 0.5 MG HHN 4H PRN for Shortness of Breath, (Reported) Ondansetron* (Zofran*), 4 MG IV 4H PRN for Nausea & Vomiting, (Reported) Discontinued Medications Lorazepam (Lorazepam), 1 MG IM Q4H PRN Discontinued Reason: Medication dose changed Patient History Healthcare decision maker Resuscitation status Advanced Directive on File Physical Exam General Appearance: no apparent distress Lines, tubes and drains: peripheral, other - R hand HEENT: normocephalic, atraumatic, other - frontal and palpebral emaciation Respiratory/Chest: lungs clear Cardiovascular/Chest: normal peripheral pulses, normal rate Abdomen: soft Extremities: non-tender Skin Exam: normal pigmentation Neurologic: java tech II-XII grossly normal, disoriented, aphasia Last 24 Hour Vital Signs Date Time Temp Pulse Resp B/P (MAP) Pulse Ox O2 Delivery O2 Flow Rate FiO2 10/08/20 10:08 110 18 133/99 100 Room Air 10/08/20 09:16 98.0 10/08/20 09:13 98.0 106 17 126/90 100 Non-Rebreather 10.0 10/08/20 08:25 114 21 121/90 99 Non-Rebreather 12.0 10/08/20 07:35 123 24 107/87 100 Non-Rebreather 15.0 10/08/20 06:02 98.1 52 20 126/91 (103) 94 10/08/20 06:00 141 29 Venturi Mask 15.0 10/08/20 06:00 100.3 141 29 105/79 86 Non-Rebreather 15.0 Laboratory Tests Test 10/08/20 06:33 10/08/20 06:34 10/08/20 06:45 10/08/20 07:35 White Blood Count 8.4 K/UL (4.8-10.8) Red Blood Count 5.13 M/UL (4.70-6.10) Hemoglobin 16.0 G/DL (14.2-18.0) Hematocrit 47.1 % (42.0-52.0) Mean Corpuscular Volume 92 FL (80-99) Mean Corpuscular Hemoglobin 31.3 PG (27.0-31.0) H Mean Corpuscular Hemoglobin Concent 34.0 G/DL (32.0-36.0) Red Cell Distribution Width 11.9 % (11.6-14.8) Platelet Count 101 K/UL (150-450) L Mean Platelet Volume 10.2 FL (6.5-10.1) H Neutrophils (%) (Auto) 78.0 % (45.0-75.0) H Lymphocytes (%) (Auto) 14.0 % (20.0-45.0) L Monocytes (%) (Auto) 6.7 % (1.0-10.0) Eosinophils (%) (Auto) 0.6 % (0.0-3.0) Basophils (%) (Auto) 0.7 % (0.0-2.0) Prothrombin Time 13.6 SEC (9.30-11.50) H Prothromb Time International Ratio 1.3 (0.9-1.1) H Activated Partial Thromboplast Time 20 SEC (23-33) L Sodium Level 130 MMOL/L (136-145) L Potassium Level 3.1 MMOL/L (3.5-5.1) L Chloride Level 101 MMOL/L (98-107) Carbon Dioxide Level 22 MMOL/L (21-32) Anion Gap 7 mmol/L (5-15) Blood Urea Nitrogen 24 mg/dL (7-18) H Creatinine 1.7 MG/DL (0.55-1.30) H Estimat Glomerular Filtration Rate 40.3 mL/min (>60) Glucose Level 113 MG/DL (74-106) H Osmolality 298 mOsm/kg (297-317) Lactic Acid Level 4.90 mmol/L (0.4-2.0) H Calcium Level 9.0 MG/DL (8.5-10.1) Phosphorus Level 4.9 MG/DL (2.5-4.9) Magnesium Level 2.3 MG/DL (1.8-2.4) Total Bilirubin 0.4 MG/DL (0.2-1.0) Aspartate Amino Transf (AST/SGOT) 33 U/L (15-37) Alanine Aminotransferase (ALT/SGPT) 19 U/L (12-78) Alkaline Phosphatase 65 U/L (46-116) Ammonia 22 umol/L (11-32) Total Creatine Kinase 766 U/L (26-308) H Creatine Kinase MB 5.9 NG/ML (0.0-3.6) H Creatine Kinase MB Relative Index 0.7 Troponin I 1.653 ng/mL (0.000-0.056) Pro-B-Type Natriuretic Peptide 2402 pg/mL (0-125) H Total Protein 8.2 G/DL (6.4-8.2) Albumin 3.6 G/DL (3.4-5.0) Globulin 4.6 g/dL Albumin/Globulin Ratio 0.8 (1.0-2.7) L Lipase 203 U/L (73-393) Thyroid Stimulating Hormone (TSH) 10.494 uiU/mL (0.358-3.740) Salicylates Level 2.3 ug/mL (2.8-20) L Acetaminophen Level < 2 MCG/ML (10-30) L Phenytoin (Dilantin) Level < 0.5 ug/mL (10-20) L Serum Alcohol < 3 mg/dL POC Whole Blood Glucose 98 MG/DL (74-106) Urine Color Pale yellow Urine Appearance Clear Urine pH 6.5 (4.5-8.0) Urine Specific R[place]on 1.010 (1.005-1.035) Urine Protein 3+ (NEGATIVE) H Urine Glucose (UA) Negative (NEGATIVE) Urine Ketones Negative (NEGATIVE) Urine Blood 1+ (NEGATIVE) H Urine Nitrite Negative (NEGATIVE) Urine Bilirubin Negative (NEGATIVE) Urine Urobilinogen Normal MG/DL (0.0-1.0) Urine Leukocyte Esterase Negative (NEGATIVE) Urine RBC 0-2 /HPF (0 - 0) H Urine WBC 0-2 /HPF (0 - 0) Urine Squamous Epithelial Cells Occasional /LPF Urine Bacteria Occasional /HPF (NONE) Urine Osmolality 285 mOsm/kg (429-449) L Urine Opiates Screen Negative (NEGATIVE) Urine Barbiturates Screen Negative (NEGATIVE) Phencyclidine (PCP) Screen Negative (NEGATIVE) Urine Amphetamines Screen Negative (NEGATIVE) Urine Benzodiazepines Screen Negative (NEGATIVE) Urine Cocaine Screen Negative (NEGATIVE) Urine Marijuana (THC) Screen Negative (NEGATIVE) Arterial Blood pH 7.369 (7.350-7.450) Arterial Blood Partial Pressure CO2 38.3 mmHg (35.0-45.0) Arterial Blood Partial Pressure O2 207.9 mmHg (75.0-100.0) H Arterial Blood HCO3 21.6 mmol/L (22.0-26.0) L Arterial Blood Oxygen Saturation 98.8 % (95-100) Arterial Blood Base Excess -3.3 (-2-2) L Soham Test Positive Test 10/08/20 08:21 Lactic Acid Level 1.40 mmol/L (0.66-2.22) Height (Feet): 5 Height (Inches): 7.00 Weight (Pounds): 150 Assessment/Plan Status: stable Assessment/Plan: 70 y/o M with prior history of CVA, Seizures who is admitted due to " 1. Seizures with Tonic Clonic s/p Ativan on route to the ER S/p Keppra load 1000 mg in the ER Post ictal state gradually improving Monitor and continue home medication Depakote ( sub therapeutic level found) and add Keppra 500 mg BID Neurology consultation with Dr. Mccoy requested for further input Rule out underlying infection. 2. Fever Resolved since admission and elevated lactic acid > 4 noted initially Started on Vancomycin and Cefepime which will be continued until blood cx are reported. No apparent source in UA or CXR at this time Pharmacy to dose antibiotic 3. CKD 3 vs CRIS due to dehydration IVF will be continued Monitor renal parameters 4. Dementia Non verbal Supportive care 5. History of CVA Supportive care. CT head reviewed. No acute Intracranial abnormality noted. 6. DVT ppx with Heparin, HOLD if platelets less than 50 K 7. Thrombocytopenia in the 100K range. Monitor 8. GI ppx with PPI 9. CODE STATUS is DNR DNI Disposition: [facility] when medically stable. Resident. Duglas Haynes MD Oct 08, 2020 10:21
--- NOTE | 2020-10-08 10:47 | NUR ---
ED Nurse Note: pt has rash/wound on R calf area on arrival. charted in ingetumentary/wound assessment
--- NOTE | 2020-10-08 11:02 | NUR ---
ED Nurse Note: pictures taken of redenned area on R calf, uploaded to pt file.
--- NOTE | 2020-10-08 11:51 | NUR ---
ED Nurse Note: called report to NOHELIA Stevenson.
[2020-10-08] MEDS: Bisacodyl EC 5mg tab ORAL SCH (12:00)
[2020-10-08] MEDS ORDERED: Haloperidol 5mg/ml Inj IM PRN (12:00)
--- NOTE | 2020-10-08 12:40 | NUR ---
NURSE NOTES: received pt from ED. pt is non-verbal and sleepy, on 02 @6l/min via nc. made comfortable in bed. HOB elevated. call light within reach.
[2020-10-08] MEDS ORDERED: Varibar Honey 250ml MC PRN (13:00)
[2020-10-08] MEDS ORDERED: Varibar Pudding 230ml MC PRN (13:00)
[2020-10-08] MEDS: LORazepam 0.5mg tab GT SCH ×2 (13:00→18:00)
[2020-10-08] MEDS ORDERED: Varibar Thin Liquid powder 148gm MC PRN (13:00)
[2020-10-08] MEDS ORDERED: Varibar Nectar 240ml MC PRN (13:00)
--- NOTE | 2020-10-08 13:31 | Diagnostic Imaging Report ---
Indication: Shortness of breath Technique: One view of the chest Comparison: 05/17/2020 Findings: Patient is rotated to the right. The right hemidiaphragm is elevated. The lungs and pleural spaces are clear. The heart is borderline enlarged. The aorta is tortuous and ectatic. Impression: Findings as noted. No definite acute process
[2020-10-08] MEDS ORDERED: LORAZEPAM2 MG/1 M1 IV (14:57)
[2020-10-08] MEDS ORDERED: MORPHINE S100 MG/5 M PO (14:57)
[2020-10-08] MEDS ORDERED: NITRO0.4 SL (14:57)
[2020-10-08] MEDS ORDERED: ONDANSETRON ODT4 MG BC (14:57)
[2020-10-08] MEDS ORDERED: COMBIVENT RESPIM4 GM IH (14:57)
[2020-10-08] MEDS ORDERED: ACETAMINOPHEN120 MG RECTAL ×2 (14:57)
--- NOTE | 2020-10-08 15:07 | Consultation ---
Consult Note Consult Note Neurology Consultation LATE ENTRY Date Of Consultation: 10/08/2020 Tessie MD: Dr. Kenney Reason for Referral: Seizure Disorder HPI:This is a 70-year-old male with Hx R cerebellar infarct, Alzheimer's dementia, psychosis, DVT, hypertension, diabetes, severe malnutrition, seizure disorder status post witnessed seizure prior to arrival. Duration was 1 minute. Ativan 1 mg was administered prior to arrival.History is limited secondary to patient's status. We were consulted for Seizure disorder. He is non verbal and a poor historian most of the information was obtained from the chart. Past Medical history: as stated above Past Surgical History: Unknown Family History: unknown Social History: resides in nursing facility, otherwise unknown if smoker, drinks alcohol or drug use history Allergies: NKDA ROS difficult to assess PE Exam is limited due to patient's condition VS Reviewed General: pt is non verbal and is resting on Neuro: awake not alert oriented difficult to complete exam he is non verbal and not able to comprehend and participate in exam. Comprehension not intact, No Language. Motor Exam: No involuntary movements. Unable to examine upper and lower extremity strength. LAB Reviewed MEDS: Reviewed 1. Seizures s/p Ativan on route to the ER --> S/p Keppra load 1000 mg in the ER --> Post ictal --> Monitor and continue home medication Depakote ( sub therapeutic level found) and add Keppra 500 mg BID 2. Fever --> on abx 3. CKD 3 vs CRIS due to dehydration 4. Dementia --> Non verbal --> Supportive care 5. History of CVA --> CT head reviewed. No acute Intracranial abnormality noted. Thank you for allowing us to participate in patient's care. plan of care was discussed with Dr. Montrell Doyle. Yoselin Taylor NP Oct 08, 2020 15:07
[2020-10-08] MEDS ORDERED: Cefepime HCl 2 GM in D5W 55 ML IVPB SCH (18:00)
--- NOTE | 2020-10-08 19:36 | NUR ---
NURSE HAND-OFF: Important Events on Shift:N/A Patient Status: SLEEPY AND NON-VERBAL Diet: Pending Orders: Pending Results/Labs: Pending MD notification: Latest Vital Signs: Temperature 97.9 , Pulse 106 , B/P 145 /96 , Respiratory Rate 21 , O2 SAT 97 , Nasal Cannula, O2 Flow Rate 5.0 . Vital Sign Comment: STABLE Latest Palomo Fall Score: 70 Fall Risk: High Risk Safety Measures: Call light , Bed Alarm , Side Rails Side Rails x3, Bed position Low and Locked. Fall Precautions: Report given to
--- NOTE | 2020-10-08 19:45 | NUR ---
NURSE NOTES: Received report from Graham POZO. Patient is asleep, alert and oriented x0. On NC 6L, breathing is even and unlabored with O2 saturation of 98%. No complains of pain or distress noted. Side rails are padded. Avila catheter intact and draining well. IV right UA intact and patent with no bleeding noted. IVF running as ordered. Bed low and locked. Call light within reach. Will continue to monitor
[2020-10-08] MEDS: Depakote 500mg tab ORAL SCH (20:11)
[2020-10-08] MEDS: Heparin 5000 units/ml inj SUBQ SCH (20:30)
--- NOTE | 2020-10-08 20:30 | NUR ---
NURSE NOTES: Patient has PO meds and ativan GT orders, but he cannot swallow anything at the moment and there is no Gtube. Called to verify the order and he changed ativan GT to IV and Keppra to IVPB. IVF changed from 1/2NS to D51/2NS per doctor's order. Order read back and carried out.
[2020-10-08] MEDS: levETIRAcetam 500mg/NS100ml 100 ML IVPB SCH (21:53)
--- NOTE | 2020-10-08 23:03 | Pulmonology Progress Note ---
Subjective ROS Limited/Unobtainable: Yes Allergies: Coded Allergies: CHLORPROMAZINE (Verified Allergy, Unknown, 03/04/20) TRIFLUOPERAZINE (Verified Allergy, Unknown, 03/04/20) Objective Last 24 Hour Vital Signs Date Time Temp Pulse Resp B/P (MAP) Pulse Ox O2 Delivery O2 Flow Rate FiO2 10/08/20 20:00 98.0 96 16 145/103 (117) 98 10/08/20 16:00 97.9 21 145/96 (112) 97 10/08/20 12:37 Nasal Cannula 5.0 10/08/20 11:58 106 17 160/97 100 Nasal Cannula 6.0 10/08/20 10:48 101 12 100 Nasal Cannula 6.0 10/08/20 10:08 110 18 133/99 100 Room Air 10/08/20 09:16 98.0 10/08/20 09:13 98.0 106 17 126/90 100 Non-Rebreather 10.0 10/08/20 08:25 114 21 121/90 99 Non-Rebreather 12.0 10/08/20 07:35 123 24 107/87 100 Non-Rebreather 15.0 10/08/20 06:02 98.1 52 20 126/91 (103) 94 10/08/20 06:00 141 29 Venturi Mask 15.0 10/08/20 06:00 100.3 141 29 105/79 86 Non-Rebreather 15.0 Microbiology Date/Time Source Procedure Growth Status 10/08/20 10:11 Nasopharynx SARS-CoV-2 Antigen (Rapid)([facility]) - Final Complete Laboratory Tests 10/08/20 06:33: White Blood Count 8.4, Red Blood Count 5.13, Hemoglobin 16.0, Hematocrit 47.1, Mean Corpuscular Volume 92, Mean Corpuscular Hemoglobin 31.3H, Mean Corpuscular Hemoglobin Concent 34.0, Red Cell Distribution Width 11.9, Platelet Count 101L, Mean Platelet Volume 10.2H, Neutrophils (%) (Auto) 78.0H, Lymphocytes (%) (Auto) 14.0L, Monocytes (%) (Auto) 6.7, Eosinophils (%) (Auto) 0.6, Basophils (%) (Auto) 0.7, Prothrombin Time 13.6H, Prothromb Time International Ratio 1.3H, Activated Partial Thromboplast Time 20L, Sodium Level 130L, Potassium Level 3.1L , Chloride Level 101, Carbon Dioxide Level 22, Anion Gap 7, Blood Urea Nitrogen 24H, Creatinine 1.7H, Estimat Glomerular Filtration Rate 40.3, Glucose Level 113H, Osmolality 298, Lactic Acid Level 4.90H, Calcium Level 9.0, Phosphorus Level 4.9, Magnesium Level 2.3, Total Bilirubin 0.4, Aspartate Amino Transf (AST/SGOT) 33, Alanine Aminotransferase (ALT/SGPT) 19, Alkaline Phosphatase 65, Ammonia 22, Total Creatine Kinase 766H, Creatine Kinase MB 5.9H, Creatine Kinase MB Relative Index 0.7, Troponin I 1.653H, Pro-B-Type Natriuretic Peptide 2402H, Total Protein 8.2, Albumin 3.6, Globulin 4.6, Albumin/Globulin Ratio 0.8L, Lipase 203, Thyroid Stimulating Hormone (TSH) 10.494H, Salicylates Level 2.3L, Acetaminophen Level < 2L, Phenytoin (Dilantin) Level < 0.5L, Serum Alcohol < 3 10/08/20 06:34: POC Whole Blood Glucose 98 10/08/20 06:45: Urine Color Pale yellow, Urine Appearance Clear, Urine pH 6.5, Urine Specific Davenport 1.010, Urine Protein 3+H, Urine Glucose (UA) Negative, Urine Ketones Negative, Urine Blood 1+H, Urine Nitrite Negative, Urine Bilirubin Negative, Urine Urobilinogen Normal, Urine Leukocyte Esterase Negative, Urine RBC 0-2H, Urine WBC 0-2, Urine Squamous Epithelial Cells Occasional, Urine Bacteria Occasional, Urine Osmolality 285L, Urine Opiates Screen Negative, Urine Bar biturates Screen Negative, Phencyclidine (PCP) Screen Negative, Urine Amphetamines Screen Negative, Urine Benzodiazepines Screen Negative, Urine Cocaine Screen Negative, Urine Marijuana (THC) Screen Negative 10/08/20 07:35: Arterial Blood pH 7.369, Arterial Blood Partial Pressure CO2 38.3, Arterial Blood Partial Pressure O2 207.9H, Arterial Blood HCO3 21.6L, Arterial Blood Oxygen Saturation 98.8, Arterial Blood Base Excess -3.3L, Soham Test Positive 10/08/20 08:21: Lactic Acid Level 1.40 Current Medications Medications (Trade) Dose Ordered Sig/Michelle Route PRN Reason Start Time Stop Time Status Last Admin Dose Admin Barium Sulfate (Varibar Honey) 250 ml NOW PRN MC RAD 10/08/20 13:00 10/11/20 12:49 Barium Sulfate (Varibar What Cheer) 240 ml NOW PRN MC RAD 10/08/20 13:00 10/11/20 12:49 Barium Sulfate (Varibar Pudding) 230 ml NOW PRN RAD 10/08/20 13:00 10/11/20 12:49 Barium Sulfate (Varibar Thin Liquid powder) 148 gm NOW PRN RAD 10/08/20 13:00 10/11/20 12:49 Bisacodyl (Dulcolax) 10 mg DAILY ORAL 10/08/20 12:00 01/06/21 11:59 Cefepime HCl 2 gm/ Dextrose 55 ml @ 110 mls/hr Q24H IVPB 10/08/20 18:00 10/15/20 17:59 10/08/20 18:53 Dextrose (Dextrose 50%) 25 ml Q30M PRN IV Hypoglycemia 10/08/20 12:00 01/06/21 11:59 Dextrose (Dextrose 50%) 50 ml Q30M PRN IV Hypoglycemia 10/08/20 12:00 01/06/21 11:59 Dextrose/Sodium Chloride 1,000 ml @ 75 mls/hr [id number] IV 10/09/20 03:00 11/08/20 02:59 Divalproex Sodium (Depakote) 500 mg EVERY 12 HOURS ORAL 10/08/20 21:00 11/07/20 20:59 Haloperidol Lactate (Haldol) 5 mg Q8H PRN IM Agitation 10/08/20 12:00 11/22/20 11:59 Heparin Sodium (Porcine) (Heparin 5000 units/ml) 5,000 units EVERY 12 HOURS SUBQ 10/08/20 21:00 11/22/20 20:59 10/08/20 20:30 Levetiracetam 100 ml @ 400 mls/hr Q12HR IVPB 10/08/20 22:00 01/06/21 21:59 10/08/20 21:53 Lorazepam (Ativan 2mg/ml 1ml) 0.5 mg TID IV 10/09/20 09:00 10/16/20 08:59 Morphine Sulfate (Morphine Sulfate) 2 mg Q6H PRN IVP Moderate Pain (Pain Scale 4-6) 10/08/20 12:00 10/15/20 11:59 Ondansetron HCl (Zofran) 4 mg Q6H PRN IV Nausea & Vomiting 10/08/20 12:00 11/07/20 11:59 Risperidone (RisperDAL) 2 mg QHS ORAL 10/08/20 21:00 11/22/20 20:59 Sodium Chloride 1,000 ml @ 75 mls/hr NOW IV 10/08/20 12:00 10/09/20 11:59 10/08/20 13:47 Vancomycin HCl (Vanco pharmacy to dose) 1 ea DAILY PRN MISC Per rx protocol 10/08/20 12:00 11/07/20 11:59 Assessment/Plan Assessment/Plan Pulmonary Consultation HPI Patient is a 70-year-old man,senior care resident, past history of previous right cerebellar infarct, seizure history, alzheimer's dementia, psychosis, previous DVT, hypertension, diabetes, severe malnutrition, admitted after witnessed tonic-clonic seizure.Patient is DNR/DNI status. History is limited Allergies: CHLORPROMAZINE (Verified Allergy, Unknown, 03/04/20) TRIFLUOPERAZINE (Verified Allergy, Unknown, 03/04/20) Past Medical History: previous right cerebellar infarct, seizure history, alzheimer's dementia, psychosis, previous DVT, hypertension, diabetes, severe malnutrition Medications: noted Resuscitation status: DNAR/DNI Systemic review: NA Objective Height (Feet): 5 Height (Inches): 7.00 Weight (Pounds): 150 Vital signs noted PE: General Appearance: no apparent distress,wasted HEENT: normocephalic, atraumatic, moist mm Respiratory/Chest: lungs cleartoauscultation bilaterally Cardiovascular/Chest: normal peripheral pulses, normal rate,regular Abdomen: soft,NTND Extremities: non-tender,no edema,no rashes Neurologic: spa supervisor II-XII grossly normal, post ictal, disoriented, non verbal Laboratory Tests Test 10/08/20 06:33 10/08/20 06:34 10/08/20 06:45 10/08/20 07:35 White Blood Count 8.4 K/UL (4.8-10.8) Red Blood Count 5.13 M/UL (4.70-6.10) Hemoglobin 16.0 G/DL (14.2-18.0) Hematocrit 47.1 % (42.0-52.0) Mean Corpuscular Volume 92 FL (80-99) Mean Corpuscular Hemoglobin 31.3 PG (27.0-31.0) H Mean Corpuscular Hemoglobin Concent 34.0 G/DL (32.0-36.0) Red Cell Distribution Width 11.9 % (11.6-14.8) Platelet Count 101 K/UL (150-450) L Mean Platelet Volume 10.2 FL (6.5-10.1) H Neutrophils (%) (Auto) 78.0 % (45.0-75.0) H Lymphocytes (%) (Auto) 14.0 % (20.0-45.0) L Monocytes (%) (Auto) 6.7 % (1.0-10.0) Eosinophils (%) (Auto) 0.6 % (0.0-3.0) Basophils (%) (Auto) 0.7 % (0.0-2.0) Prothrombin Time 13.6 SEC (9.30-11.50) H Prothromb Time International Ratio 1.3 (0.9-1.1) H Activated Partial Thromboplast Time 20 SEC (23-33) L Sodium Level 130 MMOL/L (136-145) L Potassium Level 3.1 MMOL/L (3.5-5.1) L Chloride Level 101 MMOL/L (98-107) Carbon Dioxide Level 22 MMOL/L (21-32) Anion Gap 7 mmol/L (5-15) Blood Urea Nitrogen 24 mg/dL (7-18) H Creatinine 1.7 MG/DL (0.55-1.30) H Estimat Glomerular Filtration Rate 40.3 mL/min (>60) Glucose Level 113 MG/DL (74-106) H Osmolality 298 mOsm/kg (297-317) Lactic Acid Level 4.90 mmol/L (0.4-2.0) H Calcium Level 9.0 MG/DL (8.5-10.1) Phosphorus Level 4.9 MG/DL (2.5-4.9) Magnesium Level 2.3 MG/DL (1.8-2.4) Total Bilirubin 0.4 MG/DL (0.2-1.0) Aspartate Amino Transf (AST/SGOT) 33 U/L (15-37) Alanine Aminotransferase (ALT/SGPT) 19 U/L (12-78) Alkaline Phosphatase 65 U/L (46-116) Ammonia 22 umol/L (11-32) Total Creatine Kinase 766 U/L (26-308) H Creatine Kinase MB 5.9 NG/ML (0.0-3.6) H Creatine Kinase MB Relative Index 0.7 Troponin I 1.653 ng/mL (0.000-0.056) Pro-B-Type Natriuretic Peptide 2402 pg/mL (0-125) H Total Protein 8.2 G/DL (6.4-8.2) Albumin 3.6 G/DL (3.4-5.0) Globulin 4.6 g/dL Albumin/Globulin Ratio 0.8 (1.0-2.7) L Lipase 203 U/L (73-393) Thyroid Stimulating Hormone (TSH) 10.494 uiU/mL (0.358-3.740) Salicylates Level 2.3 ug/mL (2.8-20) L Acetaminophen Level < 2 MCG/ML (10-30) L Phenytoin (Dilantin) Level < 0.5 ug/mL (10-20) L Serum Alcohol < 3 mg/dL POC Whole Blood Glucose 98 MG/DL (74-106) Urine Color Pale yellow Urine Appearance Clear Urine pH 6.5 (4.5-8.0) Urine Specific [place] 1.010 (1.005-1.035) Urine Protein 3+ (NEGATIVE) H Urine Glucose (UA) Negative (NEGATIVE) Urine Ketones Negative (NEGATIVE) Urine Blood 1+ (NEGATIVE) H Urine Nitrite Negative (NEGATIVE) Urine Bilirubin Negative (NEGATIVE) Urine Urobilinogen Normal MG/DL (0.0-1.0) Urine Leukocyte Esterase Negative (NEGATIVE) Urine RBC 0-2 /HPF (0 - 0) H Urine WBC 0-2 /HPF (0 - 0) Urine Squamous Epithelial Cells Occasional /LPF Urine Bacteria Occasional /HPF (NONE) Urine Osmolality 285 mOsm/kg (429-449) L Urine Opiates Screen Negative (NEGATIVE) Urine Barbiturates Screen Negative (NEGATIVE) Phencyclidine (PCP) Screen Negative (NEGATIVE) Urine Amphetamines Screen Negative (NEGATIVE) Urine Benzodiazepines Screen Negative (NEGATIVE) Urine Cocaine Screen Negative (NEGATIVE) Urine Marijuana (THC) Screen Negative (NEGATIVE) Arterial Blood pH 7.369 (7.350-7.450) Arterial Blood Partial Pressure CO2 38.3 mmHg (35.0-45.0) Arterial Blood Partial Pressure O2 207.9 mmHg (75.0-100.0) H Arterial Blood HCO3 21.6 mmol/L (22.0-26.0) L Arterial Blood Oxygen Saturation 98.8 % (95-100) Arterial Blood Base Excess -3.3 (-2-2) L Soham Test Positive Test 10/08/20 08:21 Lactic Acid Level 1.40 mmol/L (0.66-2.22) CXR: No focal infiltrates CT head: No acute Intracranial abnormality noted. Assessment/Plan 1. Seizures S/p Ativan and Keppra load 1000 mg in the ER,normal glucose,on O2 PRN - ABG adequate 2. Possible infection,CXR no focal infiltrates,Covid19 negative, U/A negative, on empiric Vancomycin and Cefepime 3. CKD 3 vs CRIS on IVF 4. AMS, Previous CVA, Alzheimers dementia,post ictal 5. Prior h/o DVT,on ppx with Heparin 7. HTN 8. Diabetes 9. Code status: DNR DNI Rehan Montilla MD Oct 08, 2020 23:02
[2020-10-09] VITALS: BP 136/94
[2020-10-09] MEDS: D5 1/2NS 1,000 ML IV SCH ×2 (03:02→17:30)
[2020-10-09 04:00] VITALS: BP 116/76
--- NOTE | 2020-10-09 05:18 | NUR ---
NURSE NOTES: CRE/VRE rectum swabs done. Will send it down to lab.
[2020-10-09 06:30] LABS: HEMATOCRIT 46.5 % (42.0-52.0); HEMOGLOBIN 15.7 G/DL (14.2-18.0); MEAN CORPUSCULAR VOLUME 94 FL (80-99); PLATELET COUNT 95 K/UL (150-450); RED BLOOD COUNT 4.95 M/UL (4.70-6.10); RED CELL DISTRIBUTION WIDTH 11.7 % (11.6-14.8); WHITE BLOOD COUNT 8.3 K/UL (4.8-10.8)
[2020-10-09 07:11] LABS: ANION GAP 11 mmol/L (5-15); BLOOD UREA NITROGEN 19 mg/dL (7-18); CALCIUM 8.1 MG/DL (8.5-10.1); CARBON DIOXIDE 23 MMOL/L (21-32); CHLORIDE 106 MMOL/L (98-107); CHOLESTEROL 140 MG/DL (< 200); CREATININE 1.1 MG/DL (0.55-1.30); HDL CHOLESTEROL 54 MG/DL (40-60); POTASSIUM 3.8 MMOL/L (3.5-5.1); SODIUM 140 MMOL/L (136-145); TRIGLYCERIDES 44 MG/DL (30-150)
--- NOTE | 2020-10-09 07:29 | NUR ---
NURSE HAND-OFF: Important Events on Shift: Wean off O2 from 6L to 2L Patient Status: Stable Diet: Regular mechanical ground Pending Orders: [] Pending Results/Labs:[] Pending MD notification:[] Latest Vital Signs: Temperature 97.9 , Pulse 73 , B/P 116 /76 , Respiratory Rate 16 , O2 SAT 99 , Nasal Cannula, O2 Flow Rate 5.0 . Vital Sign Comment: VS stable Latest Palomo Fall Score: 70 Fall Risk: High Risk Safety Measures: Call light Within Reach, Bed Alarm Zone 2, Side Rails Side Rails x3, Bed position Low and Locked. Fall Precautions: Door Sign Patient Fall Education Report given to Terri POZO.
--- NOTE | 2020-10-09 07:45 | NUR ---
NURSE NOTES: Received report from NOHELIA Marc. Patient asleep, non verbal. Breathing is even and unlabored on RA. No non verbal s/s of pain at this time. Side rails are padded. Avila catheter intact and draining well. IV right UA intact and patent running IVF as ordered. Bed low and locked. Call light within reach. Will continue to monitor
[2020-10-09 08:00] VITALS: BP 113/77
--- NOTE | 2020-10-09 08:54 | NUR ---
CASE MANAGEMENT:REVIEW 70 YR OLD MALE BIBA FROM [facility] CC: WITNESSED SEIZURE SI: ACUTE METABOLIC ENCEPHALOPATHY NSTEMI. RHABDOMYOLYSIS. HYPONATREMIA 100.3 141 29 86% ON VM 15L NA-130 BUN+27 CR+1.7 LACTIC ACID+4.90 TROPONIN(+) 1.653 TSH+10.4 IS: 1L NS BOLUS X2 IV MAG SULFATE Q1HR X2 BAGS IV KEPPRA IV CEFEPIME IV VANCOMYCIN : TO MED/SURG UNIT
[2020-10-09] MEDS: Depakote 500mg tab ORAL SCH ×2 (09:00→20:29)
[2020-10-09] MEDS: Bisacodyl EC 5mg tab ORAL SCH (09:00)
[2020-10-09] MEDS: LORazepam Inj 2mg/ml 1ml IV SCH ×3 (09:03→17:30)
[2020-10-09] MEDS: Heparin 5000 units/ml inj SUBQ SCH ×2 (09:07→20:31)
[2020-10-09] MEDS: Cefepime 2gm/D5W 110ml IV SCH ×4 (09:09→20:29)
[2020-10-09] MEDS: levETIRAcetam 500mg/NS100ml 100 ML IVPB SCH ×2 (09:09→20:29)
--- NOTE | 2020-10-09 10:26 | NUR ---
NURSE NOTES: Report given to NOHELIA Cabral
[2020-10-09] MEDS: Vancomycin 750mg/NS 275ml IVPB SCH ×4 (10:45→21:34)
--- NOTE | 2020-10-09 11:00 | NUR ---
NURSE NOTES: RN received report from Terri. Patient is asleep in bed, showing no s/s of respiratory distress or pain. Patient is aoX0-1, non verbal. Seizure precautions in place. Bed in lowest position, locked, bed alarm on. Patient is placed in a room with door open closest to the nursing station for close monitoring. Will continue to monitor.
--- NOTE | 2020-10-09 11:14 | General Progress Note ---
Subjective Date patient seen: Oct 09, 2020 Time patient seen: 11:00 ROS Limited/Unobtainable: Yes Allergies: Coded Allergies: CHLORPROMAZINE (Verified Allergy, Unknown, 03/04/20) TRIFLUOPERAZINE (Verified Allergy, Unknown, 03/04/20) Subjective Patient is awake today, follows simple command and tries to speak ( although not able to understand him) Objective Last 24 Hour Vital Signs Date Time Temp Pulse Resp B/P (MAP) Pulse Ox O2 Delivery O2 Flow Rate FiO2 10/09/20 09:33 73 16 116/76 99 10/09/20 09:03 73 16 116/76 99 10/09/20 09:00 Room Air 10/09/20 08:00 97.5 62 18 113/77 (89) 100 10/09/20 04:00 97.9 73 16 116/76 (89) 99 10/09/20 00:00 98.0 85 16 136/94 (108) 100 10/08/20 21:00 Nasal Cannula 5.0 10/08/20 20:00 98.0 96 16 145/103 (117) 98 10/08/20 16:00 97.9 21 145/96 (112) 97 10/08/20 12:37 Nasal Cannula 5.0 10/08/20 11:58 106 17 160/97 100 Nasal Cannula 6.0 Intake and Output 10/08/20 10/09/20 19:00 07:00 Intake Total 980 ml Output Total 2550 ml 500 ml Balance -2550 ml 480 ml Intake Oral 0 ml IV Total 980 ml Output Urine Total 2550 ml 500 ml Laboratory Tests 10/09/20 05:00: White Blood Count 8.3, Red Blood Count 4.95, Hemoglobin 15.7, Hematocrit 46.5, Mean Corpuscular Volume 94, Mean Corpuscular Hemoglobin 31.6H, Mean Corpuscular Hemoglobin Concent 33.7, Red Cell Distribution Width 11.7, Platelet Count 95L, Mean Platelet Volume 9.0, Neutrophils (%) (Auto) , Lymphocytes (%) (Auto) , Monocytes (%) (Auto) , Eosinophils (%) (Auto) , Basophils (%) (Auto) , Sodium Level 140#, Potassium Level 3.8, Chloride Level 106, Carbon Dioxide Level 23, Anion Gap 11, Blood Urea Nitrogen 19H, Creatinine 1.1, Estimat Glomerular Filtration Rate > 60, Glucose Level 77, Calcium Level 8.1L, Triglycerides Level 44, Cholesterol Level 140, LDL Cholesterol 76, HDL Cholesterol 54, Cholesterol/HDL Ratio 2.6L, Random Vancomycin Level 3.7 Height (Feet): 5 Height (Inches): 7.00 Weight (Pounds): 150 General Appearance: no apparent distress EENT: PERRL/EOMI Neck: non-tender Cardiovascular: normal rate Respiratory/Chest: lungs clear Abdomen: soft Neurologic: hris specialist II-XII grossly normal, other - AO x 0 Assessment/Plan Status: stable Assessment/Plan: 70 y/o M with prior history of CVA, Seizures who is admitted due to " 1. Seizures with Tonic Clonic s/p Ativan on route to the ER S/p Keppra load 1000 mg in the ER Post ictal state gradually improving and awake today. Monitor and continue home medication Depakote ( sub therapeutic level found) and add Keppra 500 mg BID IV for now. Neurology consultation with Dr. Mccoy requested for further input Rule out underlying infection. 2. Fever with SIRS per tachycardia. Resolved since admission and elevated lactic acid > 4 noted initially is now resolved. Started on Vancomycin and Cefepime which will be continued until blood cx are reported at 48 hrs. No apparent source in UA or CXR at this time Pharmacy to dose antibiotic 3. CKD 3 vs CRIS due to dehydration IVF will be continued Monitor renal parameters 4. Dementia Non verbal Supportive care 5. History of CVA Supportive care. CT head reviewed. No acute Intracranial abnormality noted. 6. DVT ppx with Heparin, HOLD if platelets less than 50 K 7. Thrombocytopenia in the 100K range. Monitor 8. Elevated TSH. Added T3 T4. Suspect subclinical hypothyroidism. 9. Dysphagia ST evaluation ordered 10/08 and not completed. PENDING assessment for safety. Discussed with RN today. Continue IVF and bedside RN evaluation for progress encouraged since ST evaluation might not be possible until Sunday due to staffin g issues. 10. GI ppx with PPI 11. CODE STATUS is DNR DNI Disposition: [facility] when medically stable. Resident. Duglas Haynes MD Oct 09, 2020 11:14
--- NOTE | 2020-10-09 11:40 | NUR ---
RD ASSESSMENT & RECOMMENDATIONS SEE CARE ACTIVITY FOR COMPLETE ASSESSMENT DAILY ESTIMATED NEEDS: Needs based on Underweight, 57kg 30-35 kcals/kg 8809-0598 total kcals 1-1.5 g protein/kg 57-86 g total protein 25-30 mL/kg 2787-7633 total fluid mLs NUTRITION DIAGNOSIS: Swallowing difficulty R/T dysphagia, AMS w/ s/p seizure activies as evidenced by [facility] soft ground texture ordered at this time, awaiting WEATHER TEACHER evaluation. CURRENT DIET:REGULAR, [facility] soft ground PO DIET RECOMMENDATIONS: Liberalized Regular diet, texture per WEATHER TEACHER ENTERAL NUTRITION RECOMMENDATIONS: Jevity 1.2 @ 60ml/hr x 24 hrs to provide 1440ml, 1728kcal, 80g prot, 1180ml free water * If pt not safe for PO and if part of POC, obtain GI access, initiate TF * Initiate Jevity 1.2 @ 20ml/hr x 6hrs, advance 10ml q 4-6 hrs as tolerated to goal * HOB over 30 degrees/ without IVF, h2o flush of 120ml q 8hrs ADDITIONAL RECOMMENDATIONS: 1) F/up w/ WEATHER TEACHER eval and rec 2) TF rec as above if not safe for oral diet 3) Calibrated bedscale wt 4) Ensure Enlive TID w/ meals w/ oral diet 5) MVI x 1 as supplement . .
[2020-10-09 12:00] VITALS: BP 129/88
--- NOTE | 2020-10-09 12:00 | NUR ---
NURSE NOTES: RN received an order to evaluate patient's progress on ability to swallow as the ST is not available on the weekends. Patient is asleep at the time. Will attempt once the patient is awake.
--- NOTE | 2020-10-09 12:08 | Pulmonology Progress Note ---
Subjective ROS Limited/Unobtainable: Yes Allergies: Coded Allergies: CHLORPROMAZINE (Verified Allergy, Unknown, 03/04/20) TRIFLUOPERAZINE (Verified Allergy, Unknown, 03/04/20) Objective Last 24 Hour Vital Signs Date Time Temp Pulse Resp B/P (MAP) Pulse Ox O2 Delivery O2 Flow Rate FiO2 10/09/20 09:33 73 16 116/76 99 10/09/20 09:03 73 16 116/76 99 10/09/20 09:00 Room Air 10/09/20 08:00 97.5 62 18 113/77 (89) 100 10/09/20 04:00 97.9 73 16 116/76 (89) 99 10/09/20 00:00 98.0 85 16 136/94 (108) 100 10/08/20 21:00 Nasal Cannula 5.0 10/08/20 20:00 98.0 96 16 145/103 (117) 98 10/08/20 16:00 97.9 21 145/96 (112) 97 10/08/20 12:37 Nasal Cannula 5.0 Intake and Output 10/08/20 10/09/20 19:00 07:00 Intake Total 980 ml Output Total 2550 ml 500 ml Balance -2550 ml 480 ml Intake Oral 0 ml IV Total 980 ml Output Urine Total 2550 ml 500 ml Microbiology Date/Time Source Procedure Growth Status 10/09/20 05:00 Rectal Mucosa Received 10/08/20 10:11 Nasopharynx SARS-CoV-2 Antigen (Rapid)([facility]) - Final Complete 10/08/20 06:45 Indwelling Cath Urine Culture - Preliminary NO GROWTH Resulted 10/08/20 06:30 Blood Blood Culture - Preliminary Resulted Laboratory Tests 10/09/20 05:00: White Blood Count 8.3, Red Blood Count 4.95, Hemoglobin 15.7, Hematocrit 46.5, Mean Corpuscular Volume 94, Mean Corpuscular Hemoglobin 31.6H, Mean Corpuscular Hemoglobin Concent 33.7, Red Cell Distribution Width 11.7, Platelet Count 95L, Mean Platelet Volume 9.0, Neutrophils (%) (Auto) , Lymphocytes (%) (Auto) , Monocytes (%) (Auto) , Eosinophils (%) (Auto) , Basophils (%) (Auto) , Sodium Level 140#, Potassium Level 3.8, Chloride Level 106, Carbon Dioxide Level 23, Anion Gap 11, Blood Urea Nitrogen 19H, Creatinine 1.1, Estimat Glomerular Filtration Rate > 60, Glucose Level 77, Calcium Level 8.1L, Triglycerides Level 44, Cholesterol Level 140, LDL Cholesterol 76, HDL Cholesterol 54, Cholesterol/HDL Ratio 2.6L, Random Vancomycin Level 3.7 Current Medications Medications (Trade) Dose Ordered Sig/Michelle Route PRN Reason Start Time Stop Time Status Last Admin Dose Admin Barium Sulfate (Varibar Honey) 250 ml NOW PRN MC RAD 10/08/20 13:00 10/11/20 12:49 Barium Sulfate (Varibar [place]) 240 ml NOW PRN MC RAD 10/08/20 13:00 10/11/20 12:49 Barium Sulfate (Varibar Pudding) 230 ml NOW PRN MC RAD 10/08/20 13:00 10/11/20 12:49 Barium Sulfate (Varibar Thin Liquid powder) 148 gm NOW PRN MC RAD 10/08/20 13:00 10/11/20 12:49 Bisacodyl (Dulcolax) 10 mg DAILY ORAL 10/08/20 12:00 01/06/21 11:59 Cefepime HCl 2 gm/ Dextrose 110 ml @ 220 mls/hr EVERY 12 HOURS IV 10/09/20 09:00 10/16/20 08:59 10/09/20 09:09 Dextrose (Dextrose 50%) 25 ml Q30M PRN IV Hypoglycemia 10/08/20 12:00 01/06/21 11:59 Dextrose (Dextrose 50%) 50 ml Q30M PRN IV Hypoglycemia 10/08/20 12:00 01/06/21 11:59 Dextrose/Sodium Chloride 1,000 ml @ 75 mls/hr [id number] IV 10/09/20 03:00 11/08/20 02:59 10/09/20 03:02 Divalproex Sodium (Depakote) 500 mg EVERY 12 HOURS ORAL 10/08/20 21:00 11/07/20 20:59 Haloperidol Lactate (Haldol) 5 mg Q8H PRN IM Agitation 10/08/20 12:00 11/22/20 11:59 Heparin Sodium (Porcine) (Heparin 5000 units/ml) 5,000 units EVERY 12 HOURS SUBQ 10/08/20 21:00 11/22/20 20:59 10/09/20 09:07 Levetiracetam 100 ml @ 400 mls/hr Q12HR IVPB 10/08/20 22:00 01/06/21 21:59 10/09/20 09:09 Lorazepam (Ativan 2mg/ml 1ml) 0.5 mg TID IV 10/09/20 09:00 10/16/20 08:59 10/09/20 09:03 Morphine Sulfate (Morphine Sulfate) 2 mg Q6H PRN IVP Moderate Pain (Pain Scale 4-6) 10/08/20 12:00 10/15/20 11:59 Ondansetron HCl (Zofran) 4 mg Q6H PRN IV Nausea & Vomiting 10/08/20 12:00 11/07/20 11:59 Risperidone (RisperDAL) 2 mg QHS ORAL 10/08/20 21:00 11/22/20 20:59 Vancomycin HCl (Vanco pharmacy to dose) 1 ea DAILY PRN MISC Per rx protocol 10/08/20 12:00 11/07/20 11:59 Vancomycin HCl 750 mg/Sodium Chloride 275 ml @ 183.333 mls/hr Q12HR@1000,2200 IVPB 10/09/20 10:00 10/14/20 09:59 10/09/20 10:45 Assessment/Plan Assessment/Plan Pulmonary Progress Note HPI Patient is a 70-year-old man,[facility] resident, past history of previous right cerebellar infarct, seizure history, alzheimer's dementia, psychosis, previous DVT, hypertension, diabetes, severe malnutrition, admitted after witnessed tonic-clonic seizure.Patient is DNR/DNI status. History is limited HD stable,on RA, Cultures negative to date Allergies: CHLORPROMAZINE (Verified Allergy, Unknown, 03/04/20) TRIFLUOPERAZINE (Verified Allergy, Unknown, 03/04/20) Past Medical History: previous right cerebellar infarct, seizure history, alzheimer's dementia, psychosis, previous DVT, hypertension, diabetes, severe malnutrition Medications: noted Resuscitation status: DNAR/DNI Systemic review: NA Objective Height (Feet): 5 Height (Inches): 7.00 Weight (Pounds): 150 Vital signs noted PE: General Appearance: no apparent distress,wasted HEENT: normocephalic, atraumatic, moist mm Respiratory/Chest: lungs cleartoauscultation bilaterally Cardiovascular/Chest: normal peripheral pulses, normal rate,regular Abdomen: soft,NTND Extremities: non-tender,no edema,no rashes Neurologic: veterinary radiologist II-XII grossly normal, post ictal, disoriented, non verbal Laboratory Tests Test 10/08/20 06:33 10/08/20 06:34 10/08/20 06:45 10/08/20 07:35 White Blood Count 8.4 K/UL (4.8-10.8) Red Blood Count 5.13 M/UL (4.70-6.10) Hemoglobin 16.0 G/DL (14.2-18.0) Hematocrit 47.1 % (42.0-52.0) Mean Corpuscular Volume 92 FL (80-99) Mean Corpuscular Hemoglobin 31.3 PG (27.0-31.0) H Mean Corpuscular Hemoglobin Concent 34.0 G/DL (32.0-36.0) Red Cell Distribution Width 11.9 % (11.6-14.8) Platelet Count 101 K/UL (150-450) L Mean Platelet Volume 10.2 FL (6.5-10.1) H Neutrophils (%) (Auto) 78.0 % (45.0-75.0) H Lymphocytes (%) (Auto) 14.0 % (20.0-45.0) L Monocytes (%) (Auto) 6.7 % (1.0-10.0) Eosinophils (%) (Auto) 0.6 % (0.0-3.0) Basophils (%) (Auto) 0.7 % (0.0-2.0) Prothrombin Time 13.6 SEC (9.30-11.50) H Prothromb Time International Ratio 1.3 (0.9-1.1) H Activated Partial Thromboplast Time 20 SEC (23-33) L Sodium Level 130 MMOL/L (136-145) L Potassium Level 3.1 MMOL/L (3.5-5.1) L Chloride Level 101 MMOL/L (98-107) Carbon Dioxide Level 22 MMOL/L (21-32) Anion Gap 7 mmol/L (5-15) Blood Urea Nitrogen 24 mg/dL (7-18) H Creatinine 1.7 MG/DL (0.55-1.30) H Estimat Glomerular Filtration Rate 40.3 mL/min (>60) Glucose Level 113 MG/DL (74-106) H Osmolality 298 mOsm/kg (297-317) Lactic Acid Level 4.90 mmol/L (0.4-2.0) H Calcium Level 9.0 MG/DL (8.5-10.1) Phosphorus Level 4.9 MG/DL (2.5-4.9) Magnesium Level 2.3 MG/DL (1.8-2.4) Total Bilirubin 0.4 MG/DL (0.2-1.0) Aspartate Amino Transf (AST/SGOT) 33 U/L (15-37) Alanine Aminotransferase (ALT/SGPT) 19 U/L (12-78) Alkaline Phosphatase 65 U/L (46-116) Ammonia 22 umol/L (11-32) Total Creatine Kinase 766 U/L (26-308) H Creatine Kinase MB 5.9 NG/ML (0.0-3.6) H Creatine Kinase MB Relative Index 0.7 Troponin I 1.653 ng/mL (0.000-0.056) Pro-B-Type Natriuretic Peptide 2402 pg/mL (0-125) H Total Protein 8.2 G/DL (6.4-8.2) Albumin 3.6 G/DL (3.4-5.0) Globulin 4.6 g/dL Albumin/Globulin Ratio 0.8 (1.0-2.7) L Lipase 203 U/L (73-393) Thyroid Stimulating Hormone (TSH) 10.494 uiU/mL (0.358-3.740) Salicylates Level 2.3 ug/mL (2.8-20) L Acetaminophen Level < 2 MCG/ML (10-30) L Phenytoin (Dilantin) Level < 0.5 ug/mL (10-20) L Serum Alcohol < 3 mg/dL POC Whole Blood Glucose 98 MG/DL (74-106) Urine Color Pale yellow Urine Appearance Clear Urine pH 6.5 (4.5-8.0) Urine Specific [place] 1.010 (1.005-1.035) Urine Protein 3+ (NEGATIVE) H Urine Glucose (UA) Negative (NEGATIVE) Urine Ketones Negative (NEGATIVE) Urine Blood 1+ (NEGATIVE) H Urine Nitrite Negative (NEGATIVE) Urine Bilirubin Negative (NEGATIVE) Urine Urobilinogen Normal MG/DL (0.0-1.0) Urine Leukocyte Esterase Negative (NEGATIVE) Urine RBC 0-2 /HPF (0 - 0) H Urine WBC 0-2 /HPF (0 - 0) Urine Squamous Epithelial Cells Occasional /LPF Urine Bacteria Occasional /HPF (NONE) Urine Osmolality 285 mOsm/kg (429-449) L Urine Opiates Screen Negative (NEGATIVE) Urine Barbiturates Screen Negative (NEGATIVE) Phencyclidine (PCP) Screen Negative (NEGATIVE) Urine Amphetamines Screen Negative (NEGATIVE) Urine Benzodiazepines Screen Negative (NEGATIVE) Urine Cocaine Screen Negative (NEGATIVE) Urine Marijuana (THC) Screen Negative (NEGATIVE) Arterial Blood pH 7.369 (7.350-7.450) Arterial Blood Partial Pressure CO2 38.3 mmHg (35.0-45.0) Arterial Blood Partial Pressure O2 207.9 mmHg (75.0-100.0) H Arterial Blood HCO3 21.6 mmol/L (22.0-26.0) L Arterial Blood Oxygen Saturation 98.8 % (95-100) Arterial Blood Base Excess -3.3 (-2-2) L Soham Test Positive Test 10/08/20 08:21 Lactic Acid Level 1.40 mmol/L (0.66-2.22) CXR: No focal infiltrates CT head: No acute Intracranial abnormality noted. Assessment/Plan 1. Seizures S/p Ativan and Keppra load 1000 mg in the ER,normal glucose,on O2 PRN - ABG adequate 2. Possible infection,CXR no focal infiltrates,Covid19 negative, U/A negative, on empiric Vancomycin and Cefepime 3. CKD 3 vs CRIS on IVF 4. AMS, Previous CVA, Alzheimers dementia,post ictal 5. Prior h/o DVT,on ppx with Heparin 7. HTN 8. Diabetes 9. Code status: DNR DNI Rehan Montilla MD Oct 09, 2020 12:08
--- NOTE | 2020-10-09 15:47 | NUR ---
NURSE NOTES: Patient is still asleep. RN tried to wake up the patient but patient is too drowsy for an evaluation of swallowing.
[2020-10-09 16:00] VITALS: BP 152/92
--- NOTE | 2020-10-09 16:45 | NUR ---
PT Note PT eval completed, treatment initiated. Patient was non-verbal all throughout eval/tx. Noted CHERELLE to be flaccid. Required manual assist to maintain his sitting balance at the EOB. Patient needs PT services to increase his muscle strength and balance to improve his functional mobility and gait. Addendum: 10/09/20 at 1645 by TIFF FINCH PT Amended: Links added.
--- NOTE | 2020-10-09 16:51 | NUR ---
NURSE NOTES: Patient's BP was 152/92. RN notified Dr. Haynes. Waiting for further order.
--- NOTE | 2020-10-09 16:59 | NUR ---
NURSE NOTES: RN received order for hydralazine IV 10mg for SBP greater than 160 q 4 hr PRN. Order verified and carried out.
--- NOTE | 2020-10-09 18:36 | NUR ---
NURSE NOTES: Patient needs intermittent suctioning as he is not able to swallow. RN provided suctioning throughout out the day. Patient is able to follow simple commands when awake.
--- NOTE | 2020-10-09 19:00 | NUR ---
NURSE NOTES: received pt and report from NOHELIA Stanford. pt alert and oriented 0-1 scale, nonverbal. no acute s/s distress noted. no s/s of pain. IV site clean dry and intact and running fluids as ordered. plan of care discussed.
--- NOTE | 2020-10-09 19:00 | NUR ---
NURSE NOTES: RN notified Dr. Haynes about patient sneezing on and off. He said no further orders.
--- NOTE | 2020-10-09 19:47 | NUR ---
NURSE HAND-OFF: Important Events on Shift:swallow eval Patient Status: drowsy, non verbal Diet: NPO Pending Orders: speech eval Pending Results/Labs: blood culture Pending MD notification:swallow eval Latest Vital Signs: Temperature 97.8 , Pulse 69 , B/P 152 /92 , Respiratory Rate 19 , O2 SAT 96 , Nasal Cannula, O2 Flow Rate 5.0 . Vital Sign Comment: Latest Palomo Fall Score: 70 Fall Risk: High Risk Safety Measures: Call light Within Reach, Bed Alarm Zone 2, Side Rails Side Rails x3, Bed position Low and Locked. Fall Precautions: Door Sign Patient Fall Education Report given to Skip Atwood.
[2020-10-09 20:00] VITALS: BP 148/98
--- NOTE | 2020-10-09 20:30 | NUR ---
NURSE NOTES: pt having difficulty clearing secretions, suction at bedside, constant suctioning needed to clear saliva in oropharynx. pt will still need to be on aspiration precautions until evaluated by speech therapist, PO meds non administered since pt is lethargic at the moment. pt follows simple commands but is nonverbal. will continue to suction pt oropharynx and monitor for signs of aspiration and distress.
--- NOTE | 2020-10-09 23:53 | NUR ---
NURSE NOTES: Message left for Dr. Haynes regarding pt blood pressure reading of 170/112. pt other vital signs are within normal limits. no other acute s/s noted. Dr. Haynes ordered clonidine PO to be dissolved in the mouth for systolic greater than 170. will input order and administer medication as ordered. Addendum: 10/10/20 at 0037 by Skip Moser RN Dr. Haynes also aware of diastolic reading of 112 which he stated he was not concerned about when brought to his attention.
[2020-10-10] VITALS (8 sets, daily range): BP systolic 136–171; BP diastolic 90–112
--- NOTE | 2020-10-10 00:33 | NUR ---
NURSE NOTES: clonidine given as ordered for blood pressure 170/112. will continue to monitor blood pressure throughout shift.
--- NOTE | 2020-10-10 04:08 | NUR ---
NURSE NOTES: pt vital signs are stable at this time. blood pressure is back to normal at 136/96. no acute distress noted. pt asleep.
[2020-10-10] MEDS: D5 1/2NS 1,000 ML IV SCH ×2 (04:41→17:29)
--- NOTE | 2020-10-10 06:10 | NUR ---
NURSE HAND-OFF: Important Events on Shift: blood pressure as high as 171/112 during shift, notified, order for clonidine PRN obtained Patient Status: stable Diet: NPO Pending Orders: NA Pending Results/Labs:NA Pending MD notification:NA Latest Vital Signs: Temperature 97.6 , Pulse 70 , B/P 136 /96 , Respiratory Rate 20 , O2 SAT 97 , Nasal Cannula, O2 Flow Rate 5.0 . Vital Sign Comment: blood pressure high but stabilized after PRN clonidine given Latest Palomo Fall Score: 70 Fall Risk: High Risk Safety Measures: Call light Within Reach, Bed Alarm Zone 2, Side Rails Side Rails x3, Bed position Low and Locked. Fall Precautions: Door Sign Patient Fall Education Report will be given to NOHELIA Cabral.
--- NOTE | 2020-10-10 07:34 | NUR ---
NURSE NOTES: RN received report from Skip and patient in bed. Patient is sleeping, nonverbal. Patient does not show s/s of respiratory distress or pain. IV intact, running, dry and asymptomatic. Bed in lowest position and locked, in semi ennis position, bed alarm on. Seizure precautions in place. Will continue to monitor.
[2020-10-10] MEDS: LORazepam Inj 2mg/ml 1ml IV SCH ×3 (08:42→18:02)
[2020-10-10] MEDS: Heparin 5000 units/ml inj SUBQ SCH ×2 (08:44→20:01)
[2020-10-10] MEDS: Cefepime 2gm/D5W 110ml IV SCH ×2 (08:46)
[2020-10-10] MEDS: levETIRAcetam 500mg/NS100ml 100 ML IVPB SCH (08:47)
[2020-10-10] MEDS: Depakote 500mg tab ORAL SCH ×2 (08:47→20:00)
[2020-10-10] MEDS: Bisacodyl EC 5mg tab ORAL SCH ×2 (08:48→08:49)
[2020-10-10 09:40] LABS: HEMATOCRIT 45.2 % (42.0-52.0); HEMOGLOBIN 15.2 G/DL (14.2-18.0); MEAN CORPUSCULAR VOLUME 94 FL (80-99); PLATELET COUNT 94 K/UL (150-450); RED CELL DISTRIBUTION WIDTH 11.9 % (11.6-14.8); WHITE BLOOD COUNT 5.3 K/UL (4.8-10.8)
--- NOTE | 2020-10-10 09:52 | General Progress Note ---
Subjective Date patient seen: Oct 10, 2020 Time patient seen: 09:30 ROS Limited/Unobtainable: Yes Allergies: Coded Allergies: CHLORPROMAZINE (Verified Allergy, Unknown, 03/04/20) TRIFLUOPERAZINE (Verified Allergy, Unknown, 03/04/20) Subjective Patient is asleep today ( although not able to understand him) Objective Last 24 Hour Vital Signs Date Time Temp Pulse Resp B/P (MAP) Pulse Ox O2 Delivery O2 Flow Rate FiO2 10/10/20 08:42 67 12 139/97 98 10/10/20 08:00 97.6 67 12 139/97 (111) 98 10/10/20 04:00 97.6 70 20 136/96 (109) 97 10/10/20 01:33 156/106 (123) 10/10/20 00:26 171/112 10/10/20 00:00 98.5 78 19 171/112 (131) 97 10/09/20 21:00 Room Air 10/09/20 20:00 97.5 66 18 148/98 (115) 96 10/09/20 18:00 69 19 152/92 96 10/09/20 17:30 69 19 152/92 96 10/09/20 16:00 97.8 69 19 152/92 (112) 96 10/09/20 14:06 83 20 129/88 97 10/09/20 13:36 83 20 129/88 97 10/09/20 12:00 97.9 83 20 129/88 (102) 97 Intake and Output 10/09/20 10/10/20 19:00 07:00 Intake Total 666.666 ml 675 ml Output Total 200 ml 375 ml Balance 466.666 ml 300 ml IV Total 666.666 ml 675 ml Output Urine Total 200 ml Other 375 ml Laboratory Tests 10/10/20 08:05: White Blood Count 5.3, Red Blood Count 4.80, Hemoglobin 15.2, Hematocrit 45.2, Mean Corpuscular Volume 94, Mean Corpuscular Hemoglobin 31.7H, Mean Corpuscular Hemoglobin Concent 33.6, Red Cell Distribution Width 11.9, Platelet Count 94L, Mean Platelet Volume 8.3, Neutrophils (%) (Auto) , Lymphocytes (%) (Auto) , Monocytes (%) (Auto) , Eosinophils (%) (Auto) , Basophils (%) (Auto) , Neutrophils % (Manual) [Pending], Lymphocytes % (Manual) [Pending], Platelet Estimate [Pending], Platelet Morphology [Pending], Sodium Level [Pending], Potassium Level [Pending], Chloride Level [Pending], Carbon Dioxide Level [Pending], Blood Urea Nitrogen [Pending], Creatinine [Pending], Estimat Glomerular Filtration Rate [Pending], Glucose Level [Pending], Calcium Level [Pending], Phosphorus Level [Pending], Magnesium Level [Pending], Total Bilirubin [Pending], Aspartate Amino Transf (AST/SGOT) [Pending], Alanine Aminotransferase (ALT/SGPT) [Pending], Alkaline Phosphatase [Pending], Total Protein [Pending], Albumin [Pending], Globulin [Pending] Height (Feet): 5 Height (Inches): 7.00 Weight (Pounds): 150 General Appearance: no apparent distress EENT: PERRL/EOMI, other - R supra auriculat induration ( likely hearing implant) Cardiovascular: normal rate Respiratory/Chest: lungs clear Abdomen: soft Extremities: normal range of motion Neurologic: unresponsive Skin: normal pigmentation Assessment/Plan Status: stable Assessment/Plan: 70 y/o M with prior history of CVA, Seizures who is admitted due to " 1. Seizures with Tonic Clonic s/p Ativan on route to the ER S/p Keppra load 1000 mg in the ER Post ictal state gradually improving and asleep today. ? Keppra side effect. Monitor and continue home medication Depakote ( sub therapeutic level ?) and add Keppra will be decreased to 250 mg IV q 12 hours to evaluate is his level of alertness improves. AWAIT further input from neurology. TOOL ROOM MACHINIST note 10/08 is not transcribed from the medica record at this time. Neurology consultation with Dr. Mccoy No evidence of underlying infection as of today. 2. Fever with SIRS per tachycardia. Resolved since admission and elevated lactic acid > 4 noted initially is now resolved. Started on Vancomycin and Cefepime which will be discontinued as blood cx are reported at 48 hrs NEGATIVE No apparent source in UA or CXR at this time Monitor for signs of fever OFF antibiotics. 3. CKD 3 vs CRIS due to dehydration IVF will be continued Monitor renal parameters 4. Dementia Non verbal Supportive care 5. History of CVA Supportive care. CT head reviewed. No acute Intracranial abnormality noted. 6. DVT ppx with Heparin, HOLD if platelets less than 50 K 7. Thrombocytopenia in the 100K range. Monitor 8. Elevated TSH. LOW T3 T4. Suspect subclinical hypothyroidism. Add low dose of IV synthroid. 9. Dysphagia ST evaluation ordered 10/08 and not completed. PENDING assessment for safety. Discussed with RN today. Continue IVF and bedside RN evaluation for progress encouraged since ST evaluation might not be possible until Sunday due to staffing issues. REQUESTED BIOETHICS AND SOCIAL WORK SUPPORT TO LOCATE FAMILY AND DISCUSS NEED FOR PEG/TUBE FEEDS IF NEEDED. 10. GI ppx with PPI 11. CODE STATUS is DNR DNI Disposition: [facility] when medically stable. Resident. Duglas Haynes MD Oct 10, 2020 09:52
[2020-10-10 10:09] LABS: ALANINE AMINOTRANSFERASE 230 U/L (12-78); ALBUMIN 2.8 G/DL (3.4-5.0); ALBUMIN/GLOBULIN RATIO 0.7 (1.0-2.7); ALKALINE PHOSPHATASE 50 U/L (46-116); ANION GAP 9 mmol/L (5-15); ASPARTATE AMINO TRANSFERASE 334 U/L (15-37); BILIRUBIN,TOTAL 0.8 MG/DL (0.2-1.0); BLOOD UREA NITROGEN 13 mg/dL (7-18); CALCIUM 8.3 MG/DL (8.5-10.1); CARBON DIOXIDE 24 MMOL/L (21-32); CHLORIDE 108 MMOL/L (98-107); CREATININE 0.9 MG/DL (0.55-1.30); PHOSPHORUS 2.7 MG/DL (2.5-4.9); POTASSIUM 3.5 MMOL/L (3.5-5.1); SODIUM 140 MMOL/L (136-145)
--- NOTE | 2020-10-10 12:35 | NUR ---
Speech Pathology Note (Bedside Dysphagia Evaluation) Brief Note: Mr. Day is a 70 year old male readmitted from [facility] on 10/08/2020for witnessed 1 minute duration of tonic colonic seizure which was treated with Ativan prior to coming in to [facility]. On arrival, he was hypoxic and 100% FIO2 was provided via NBM. PMH: Alzheimer's Dementia, Right cerebellar infarct, Psychosis, Seizure disorder. DVT, IVC filter, HTN, DM, malnutrition Previous Hospitalization at [facility]: 05/13/2020~05/20/2020 Previous Speech Cognitive evaluation by me on 05/14/2020 DC diet and SNF diet: mechanical soft diet and thin liquid [facility] Labs 10/08/2020: CBC: 8.4/16.0/47.1/101 Coa.6/20/1.3 Electrolytes: 130/3.1/101/22/24/1.7/113 Current Labs 10/10/2020: CBC: 5.3/15.2/45.2/94 Electrolytes: 140/3.5/108/24/13/0.9/89 CXR/CT head reviewed. Physician's order from 10/08/2020 to current reviewed. Code Status: DNR/DNI VSS in last 24 hours: T Max 97.6, Pulse SR 67, BP: 136/96~156/76, SPO2 96~97% on 2 liter Findings: Mr. Day was sleeping as I approached him. I repositioned and pain stimuli including sternum rubbing was done to wake him up. He began to wake up a bit. He was still oriented x 0. He was easily went back to sleep. I fed him apple sauce, he tolerated without cough. He was able to hold a cup. I facilitated him for self drinking with honey thick liquid. he was able to tolerate. However, due to hi delay motor movement, delay cognitive response, he remains at high risk of aspiration. Once he wakes up, the aspiration risk may be likely be much less. Interpretation: 1. Oropharyngeal dysphagia 2. Aspiration risk in setting of recurrent seizure with slow motor movement and delay cognitive function from his base line 3. CRIS, dehydration upon admission likely due to poor PO Plan: 1. Pureed and Honey thick liquid when he is awake -medication crush 2. Aspiration precaution -Please hold oral feeding if he is not able to wake up 3. Eventually may need senior living feeding in the future I will follow up peripherally this week. Es Baez
--- NOTE | 2020-10-10 15:01 | NUR ---
NURSE NOTES: RN notified ST's evaluation to Dr. Haynes. RN will crush the meds if patient is awake. RN will hold PO meds if the patient is asleep and too drowsy.
--- NOTE | 2020-10-10 15:03 | NUR ---
NURSE NOTES: RN notified Dr. Haynes of elevated AST and ALT levels. No further orders at this time.
--- NOTE | 2020-10-10 15:30 | NUR ---
NURSE NOTES: Liver US is ordered tomorrow morning. Keep the patient NPO after midnight.
--- NOTE | 2020-10-10 16:30 | NUR ---
NURSE NOTES: Patient was more awake at this time from pain as the IV was being inserted. Patient was able to answer basic questions such as what his name is and he nodded his head when asked if he was OK. He soon went back to sleep.
--- NOTE | 2020-10-10 19:11 | NUR ---
NURSE HAND-OFF: Important Events on Shift:ST eval, NPO after midnight for US tomorrow, more alert per baseline Patient Status: drowsy Diet: NPO Pending Orders: US of liver Pending Results/Labs:US of liver Pending MD notification:US of liver Latest Vital Signs: Temperature 98.0 , Pulse 78 , B/P 145 /102 , Respiratory Rate 18 , O2 SAT 96 , Nasal Cannula, O2 Flow Rate 5.0 . Vital Sign Comment: HTN Latest Palomo Fall Score: 70 Fall Risk: High Risk Safety Measures: Call light Within Reach, Bed Alarm Zone 2, Side Rails Side Rails x3, Bed position Low and Locked. Fall Precautions: Door Sign Patient Fall Education Report given to Skip. Addendum: 10/10/20 at 1925 by Misha Branham RN wean off o2
--- NOTE | 2020-10-10 19:51 | Pulmonology Progress Note ---
Subjective ROS Limited/Unobtainable: Yes Allergies: Coded Allergies: CHLORPROMAZINE (Verified Allergy, Unknown, 03/04/20) TRIFLUOPERAZINE (Verified Allergy, Unknown, 03/04/20) Objective Last 24 Hour Vital Signs Date Time Temp Pulse Resp B/P (MAP) Pulse Ox O2 Delivery O2 Flow Rate FiO2 10/10/20 19:23 Room Air 10/10/20 18:32 78 18 145/102 96 10/10/20 18:02 78 18 145/102 96 10/10/20 16:00 98.0 78 18 145/102 (116) 96 10/10/20 13:51 71 14 148/97 95 10/10/20 13:21 71 14 148/97 95 10/10/20 12:00 97.0 71 14 148/97 (114) 95 10/10/20 09:12 67 12 139/97 98 10/10/20 09:00 Room Air 10/10/20 08:42 67 12 139/97 98 10/10/20 08:00 97.6 67 12 139/97 (111) 98 10/10/20 04:00 97.6 70 20 136/96 (109) 97 10/10/20 01:33 156/106 (123) 10/10/20 00:26 171/112 10/10/20 00:00 98.5 78 19 171/112 (131) 97 10/09/20 21:00 Room Air 10/09/20 20:00 97.5 66 18 148/98 (115) 96 Intake and Output 10/09/20 10/10/20 19:00 07:00 Intake Total 666.666 ml 675 ml Output Total 200 ml 375 ml Balance 466.666 ml 300 ml IV Total 666.666 ml 675 ml Output Urine Total 200 ml Other 375 ml Microbiology Date/Time Source Procedure Growth Status 10/09/20 05:00 Rectal Mucosa Received 10/08/20 10:11 Nasopharynx SARS-CoV-2 Antigen (Rapid)([facility]) - Final Complete 10/08/20 06:45 Indwelling Cath Urine Culture - Preliminary NO GROWTH AFTER 24 HOURS Resulted 10/08/20 06:30 Blood Blood Culture - Preliminary Resulted Laboratory Tests 10/10/20 08:05: White Blood Count 5.3, Red Blood Count 4.80, Hemoglobin 15.2, Hematocrit 45.2, Mean Corpuscular Volume 94, Mean Corpuscular Hemoglobin 31.7H, Mean Corpuscular Hemoglobin Concent 33.6, Red Cell Distribution Width 11.9, Platelet Count 94L, Mean Platelet Volume 8.3, Neutrophils (%) (Auto) , Lymphocytes (%) (Auto) , Monocytes (%) (Auto) , Eosinophils (%) (Auto) , Basophils (%) (Auto) , Differential Total Cells Counted 100, Neutrophils % (Manual) 77H, Lymphocytes % (Manual) 15L, Monocytes % (Manual) 5, Eosinophils % (Manual) 3, Basophils % (Manual) 0, Band Neutrophils 0, Platelet Estimate DecreasedL, Platelet Morphology Normal, Red Blood Cell Morphology Normal, Sodium Level 140, Potassium Level 3.5, Chloride Level 108H, Carbon Dioxide Level 24, Anion Gap 9, Blood Urea Nitrogen 13, Creatinine 0.9, Estimat Glomerular Filtration Rate > 60, Glucose Level 89, Calcium Level 8.3L, Phosphorus Level 2.7, Magnesium Level 2.0, Total Bilirubin 0.8, Aspartate Amino Transf (AST/SGOT) 334H, Alanine Aminotransferase (ALT/SGPT) 230H, Alkaline Phosphatase 50, Total Protein 6.8, Albumin 2.8L, Globulin 4.0, Albumin/Globulin Ratio 0.7L Current Medications Medications (Trade) Dose Ordered Sig/Michelle Route PRN Reason Start Time Stop Time Status Last Admin Dose Admin Barium Sulfate (Varibar Honey) 250 ml NOW PRN MC RAD 10/08/20 13:00 10/11/20 12:49 Barium Sulfate (Varibar Bergoo) 240 ml NOW PRN MC RAD 10/08/20 13:00 10/11/20 12:49 Barium Sulfate (Varibar Pudding) 230 ml NOW PRN MC RAD 10/08/20 13:00 10/11/20 12:49 Barium Sulfate (Varibar Thin Liquid powder) 148 gm NOW PRN MC RAD 10/08/20 13:00 10/11/20 12:49 Bisacodyl (Dulcolax) 10 mg DAILY ORAL 10/08/20 12:00 01/06/21 11:59 Clonidine HCl (Catapres Tab) 0.1 mg EVERY 6 HOURS PRN ORAL systolic blood pressure > 170 10/10/20 00:15 01/08/21 00:14 10/10/20 00:26 Dextrose (Dextrose 50%) 25 ml Q30M PRN IV Hypoglycemia 10/08/20 12:00 01/06/21 11:59 Dextrose (Dextrose 50%) 50 ml Q30M PRN IV Hypoglycemia 10/08/20 12:00 01/06/21 11:59 Dextrose/Sodium Chloride 1,000 ml @ 75 mls/hr [id number] IV 10/09/20 03:00 11/08/20 02:59 10/10/20 17:29 Divalproex Sodium (Depakote) 500 mg EVERY 12 HOURS ORAL 10/08/20 21:00 11/07/20 20:59 Haloperidol Lactate (Haldol) 5 mg Q8H PRN IM Agitation 10/08/20 12:00 11/22/20 11:59 Heparin Sodium (Porcine) (Heparin 5000 units/ml) 5,000 units EVERY 12 HOURS SUBQ 10/08/20 21:00 11/22/20 20:59 10/10/20 08:44 Levetiracetam 100 ml @ 400 mls/hr Q24HRS IVPB 10/11/20 09:00 01/06/21 21:59 Levothyroxine Sodium (Synthroid) 25 mcg DAILY IV 10/10/20 11:00 11/09/20 10:59 10/10/20 11:39 Lorazepam (Ativan 2mg/ml 1ml) 0.5 mg TID IV 10/09/20 09:00 10/16/20 08:59 10/10/20 18:02 Morphine Sulfate (Morphine Sulfate) 2 mg Q6H PRN IVP Moderate Pain (Pain Scale 4-6) 10/08/20 12:00 10/15/20 11:59 Ondansetron HCl (Zofran) 4 mg Q6H PRN IV Nausea & Vomiting 10/08/20 12:00 11/07/20 11:59 Risperidone (RisperDAL) 2 mg QHS ORAL 10/08/20 21:00 11/22/20 20:59 Assessment/Plan Assessment/Plan Pulmonary Progress Note HPI Patient is a 70-year-old man,[facility] resident, past history of previous right cerebellar infarct, seizure history, alzheimer's dementia, psychosis, previous DVT, hypertension, diabetes, severe malnutrition, admitted after witnessed tonic-clonic seizure.Patient is DNR/DNI status. History is limited HD stable,on RA, Cultures negative to date Elevated TSH Allergies: CHLORPROMAZINE (Verified Allergy, Unknown, 03/04/20) TRIFLUOPERAZINE (Verified Allergy, Unknown, 03/04/20) Past Medical History: previous right cerebellar infarct, seizure history, alzheimer's dementia, psychosis, previous DVT, hypertension, diabetes, severe malnutrition Medications: noted Resuscitation status: DNAR/DNI Systemic review: NA Objective Height (Feet): 5 Height (Inches): 7.00 Weight (Pounds): 150 Vital signs noted PE: General Appearance: no apparent distress,wasted HEENT: normocephalic, atraumatic, moist mm Respiratory/Chest: lungs cleartoauscultation bilaterally Cardiovascular/Chest: normal peripheral pulses, normal rate,regular Abdomen: soft,NTND Extremities: non-tender,no edema,no rashes Neurologic: hand fabric cutter II-XII grossly normal, post ictal, disoriented, non verbal Laboratory Tests Test 10/08/20 06:33 10/08/20 06:34 10/08/20 06:45 10/08/20 07:35 White Blood Count 8.4 K/UL (4.8-10.8) Red Blood Count 5.13 M/UL (4.70-6.10) Hemoglobin 16.0 G/DL (14.2-18.0) Hematocrit 47.1 % (42.0-52.0) Mean Corpuscular Volume 92 FL (80-99) Mean Corpuscular Hemoglobin 31.3 PG (27.0-31.0) H Mean Corpuscular Hemoglobin Concent 34.0 G/DL (32.0-36.0) Red Cell Distribution Width 11.9 % (11.6-14.8) Platelet Count 101 K/UL (150-450) L Mean Platelet Volume 10.2 FL (6.5-10.1) H Neutrophils (%) (Auto) 78.0 % (45.0-75.0) H Lymphocytes (%) (Auto) 14.0 % (20.0-45.0) L Monocytes (%) (Auto) 6.7 % (1.0-10.0) Eosinophils (%) (Auto) 0.6 % (0.0-3.0) Basophils (%) (Auto) 0.7 % (0.0-2.0) Prothrombin Time 13.6 SEC (9.30-11.50) H Prothromb Time International Ratio 1.3 (0.9-1.1) H Activated Partial Thromboplast Time 20 SEC (23-33) L Sodium Level 130 MMOL/L (136-145) L Potassium Level 3.1 MMOL/L (3.5-5.1) L Chloride Level 101 MMOL/L (98-107) Carbon Dioxide Level 22 MMOL/L (21-32) Anion Gap 7 mmol/L (5-15) Blood Urea Nitrogen 24 mg/dL (7-18) H Creatinine 1.7 MG/DL (0.55-1.30) H Estimat Glomerular Filtration Rate 40.3 mL/min (>60) Glucose Level 113 MG/DL (74-106) H Osmolality 298 mOsm/kg (297-317) Lactic Acid Level 4.90 mmol/L (0.4-2.0) H Calcium Level 9.0 MG/DL (8.5-10.1) Phosphorus Level 4.9 MG/DL (2.5-4.9) Magnesium Level 2.3 MG/DL (1.8-2.4) Total Bilirubin 0.4 MG/DL (0.2-1.0) Aspartate Amino Transf (AST/SGOT) 33 U/L (15-37) Alanine Aminotransferase (ALT/SGPT) 19 U/L (12-78) Alkaline Phosphatase 65 U/L (46-116) Ammonia 22 umol/L (11-32) Total Creatine Kinase 766 U/L (26-308) H Creatine Kinase MB 5.9 NG/ML (0.0-3.6) H Creatine Kinase MB Relative Index 0.7 Troponin I 1.653 ng/mL (0.000-0.056) Pro-B-Type Natriuretic Peptide 2402 pg/mL (0-125) H Total Protein 8.2 G/DL (6.4-8.2) Albumin 3.6 G/DL (3.4-5.0) Globulin 4.6 g/dL Albumin/Globulin Ratio 0.8 (1.0-2.7) L Lipase 203 U/L (73-393) Thyroid Stimulating Hormone (TSH) 10.494 uiU/mL (0.358-3.740) Salicylates Level 2.3 ug/mL (2.8-20) L Acetaminophen Level < 2 MCG/ML (10-30) L Phenytoin (Dilantin) Level < 0.5 ug/mL (10-20) L Serum Alcohol < 3 mg/dL POC Whole Blood Glucose 98 MG/DL (74-106) Urine Color Pale yellow Urine Appearance Clear Urine pH 6.5 (4.5-8.0) Urine Specific Hanna 1.010 (1.005-1.035) Urine Protein 3+ (NEGATIVE) H Urine Glucose (UA) Negative (NEGATIVE) Urine Ketones Negative (NEGATIVE) Urine Blood 1+ (NEGATIVE) H Urine Nitrite Negative (NEGATIVE) Urine Bilirubin Negative (NEGATIVE) Urine Urobilinogen Normal MG/DL (0.0-1.0) Urine Leukocyte Esterase Negative (NEGATIVE) Urine RBC 0-2 /HPF (0 - 0) H Urine WBC 0-2 /HPF (0 - 0) Urine Squamous Epithelial Cells Occasional /LPF Urine Bacteria Occasional /HPF (NONE) Urine Osmolality 285 mOsm/kg (429-449) L Urine Opiates Screen Negative (NEGATIVE) Urine Barbiturates Screen Negative (NEGATIVE) Phencyclidine (PCP) Screen Negative (NEGATIVE) Urine Amphetamines Screen Negative (NEGATIVE) Urine Benzodiazepines Screen Negative (NEGATIVE) Urine Cocaine Screen Negative (NEGATIVE) Urine Marijuana (THC) Screen Negative (NEGATIVE) Arterial Blood pH 7.369 (7.350-7.450) Arterial Blood Partial Pressure CO2 38.3 mmHg (35.0-45.0) Arterial Blood Partial Pressure O2 207.9 mmHg (75.0-100.0) H Arterial Blood HCO3 21.6 mmol/L (22.0-26.0) L Arterial Blood Oxygen Saturation 98.8 % (95-100) Arterial Blood Base Excess -3.3 (-2-2) L Soham Test Positive Test 10/08/20 08:21 Lactic Acid Level 1.40 mmol/L (0.66-2.22) CXR: No focal infiltrates CT head: No acute Intracranial abnormality noted. Assessment/Plan 1. Seizures On Keppra, stable on RA 2. Possible infection,CXR no focal infiltrates,Covid19 negative, U/A negative, on empiric AB 3. CKD 3 vs CRIS on IVF 4. AMS, Previous CVA, Alzheimers dementia,post ictal 5. Prior h/o DVT,on ppx with Heparin 7. HTN 8. Diabetes 9.Hypothyroidism - on Rx 10. Code status: DNR DNI Rehan Montilla MD Oct 10, 2020 19:51
--- NOTE | 2020-10-10 23:48 | NUR ---
NURSE NOTES: vital signs are stable at this time. pt able to take PO meds crushed and mixed with nectar consistency fluid. pt tolerated well and no heavy cough noted. pt still nonverbal but able to follow simple commands. pt asked to open mouth and move fingers and he was able to comply. pt currently asleep.
[2020-10-11 04:00] VITALS: BP 147/104
--- NOTE | 2020-10-11 04:00 | NUR ---
NURSE NOTES: pt vital signs are stable, diastolic still high but is aware of this trend. systolic does not meet threshold to give PRN clonidine. no acute s/s of distress observed at this time. no s/s of pain. pt suctioned to help with clearing secretions from oropharynx. pt O2 saturation at 95 while on room air.
[2020-10-11] MEDS: D5 1/2NS 1,000 ML IV SCH ×2 (06:10→18:28)
--- NOTE | 2020-10-11 06:16 | NUR ---
NURSE HAND-OFF: Important Events on Shift: tolerated oral meds crushed in nectar consistency liquid Patient Status: stable Diet: NPO Pending Orders: NA Pending Results/Labs:NA Pending MD notification:NA Latest Vital Signs: Temperature 98.5 , Pulse 88 , B/P 147 /104 , Respiratory Rate 18 , O2 SAT 95 , Nasal Cannula, O2 Flow Rate 5.0 . Vital Sign Comment: stable through the shift Latest Palomo Fall Score: 70 Fall Risk: High Risk Safety Measures: Call light Within Reach, Bed Alarm Zone 2, Side Rails Side Rails x3, Bed position Low and Locked. Fall Precautions: Door Sign Patient Fall Education Report will be given to NOHELIA Ramirez.
[2020-10-11 08:00] VITALS: BP 155/106
[2020-10-11] MEDS: Depakote 500mg tab ORAL SCH ×2 (09:00→21:00)
[2020-10-11] MEDS: Bisacodyl EC 5mg tab ORAL SCH (09:00)
--- NOTE | 2020-10-11 10:23 | Diagnostic Imaging Report ---
Indication: Abnormal pain Technique: Ultrasound of the abdomen. Comparison: None Findings: Liver: The liver is normal in size and echogenicity. No focal abnormalities are noted. Gallbladder: Echogenic foci with shadowing are noted in the gallbladder. Gallbladder wall is not thickened. Common bile duct: Normal in size. Pancreas: The visualized portion of pancreas is normal in echogenicity. There are no masses. Kidneys: Subcentimeter anechoic masses are noted in the right kidney. Left kidney demonstrates mild fullness of the collecting system. Kidneys are otherwise normal. Spleen: The spleen is normal in size and echogenicity. Aorta: The visualized portion of the aorta is normal in caliber. IVC: The demonstrated portion of the inferior vena cava is normal. A Avila catheter is noted in the bladder. There is focal thickening of the posterior bladder wall. The prostate is enlarged. Impression: Enlarged prostate. Focal thickening of the posterior bladder wall. Possibility of mass cannot be excluded. Further evaluation with cystoscopy suggested. Subcentimeter cysts in the right kidney. Slight fullness of left renal collecting system. Cholelithiasis.
--- NOTE | 2020-10-11 10:41 | NUR ---
RD ASSESSMENT & RECOMMENDATIONS SEE CARE ACTIVITY FOR COMPLETE ASSESSMENT DAILY ESTIMATED NEEDS: Needs based on Cardiac, 68kg 25-30 kcals/kg 0032-1552 total kcals 1-1.2 g protein/kg 68-82 g total protein 25-30 mL/kg 4659-8290 total fluid mLs NUTRITION DIAGNOSIS: Swallowing difficulty R/T dysphagia, AMS w/ s/p seizure activities as evidenced by [facility] [employer]TAIN eval, recs for puree texture w/ HTL. CURRENT DIET: now NPO PO DIET RECOMMENDATIONS: Liberalized Regular diet, texture per FERR[facility]TAIN ENTERAL NUTRITION RECOMMENDATIONS: Jevity 1.2 @ 60ml/hr x 24 hrs to provide 1440ml, 1728kcal, 80g prot, 1180ml free water * If pt not safe for PO and if part of POC, obtain GI access, initiate TF * Initiate Jevity 1.2 @ 20ml/hr x 6hrs, advance 10ml q 4-6 hrs as tolerated to goal * HOB over 30 degrees/ without IVF, h2o flush of 120ml q 8hrs ADDITIONAL RECOMMENDATIONS: 1) F/up w/ F[facility]TAIN eval and rec-> puree w/ HTL 2) TF rec as above if not safe for oral diet 3) Calibrated bedscale wt 4) Ensure Enlive TID w/ meals w/ oral diet 5) MVI x 1 as supplement 6) Maintain D5 IV w/ NPO status .
[2020-10-11] MEDS: levETIRAcetam 500mg/NS100ml 100 ML IVPB SCH (11:01)
[2020-10-11] MEDS: LORazepam Inj 2mg/ml 1ml IV SCH ×2 (11:04→12:44)
[2020-10-11] MEDS: Heparin 5000 units/ml inj SUBQ SCH ×2 (11:06→21:07)
[2020-10-11 11:43] LABS: MEAN CORPUSCULAR VOLUME 92 FL (80-99); PLATELET COUNT 93 K/UL (150-450); RED BLOOD COUNT 4.23 M/UL (4.70-6.10); RED CELL DISTRIBUTION WIDTH 11.7 % (11.6-14.8); WHITE BLOOD COUNT 4.9 K/UL (4.8-10.8)
[2020-10-11 12:00] VITALS: BP 142/101
[2020-10-11 12:01] LABS: ANION GAP 8 mmol/L (5-15); BLOOD UREA NITROGEN 7 mg/dL (7-18); CALCIUM 8.3 MG/DL (8.5-10.1); CARBON DIOXIDE 25 MMOL/L (21-32); CHLORIDE 111 MMOL/L (98-107); CREATININE 0.7 MG/DL (0.55-1.30); POTASSIUM 3.4 MMOL/L (3.5-5.1); SODIUM 143 MMOL/L (136-145)
--- NOTE | 2020-10-11 12:40 | Neurology Progress Note ---
Interim History Interim History ROS Limited/Unobtainable: Yes Objective Physical Exam Last Vital Signs Date Time Temp Pulse Resp B/P (MAP) Pulse Ox O2 Delivery O2 Flow Rate FiO2 10/11/20 11:04 84 19 155/106 94 10/11/20 09:00 Room Air 10/11/20 08:00 97.9 10/08/20 21:00 5.0 Laboratory Tests Test 10/10/20 20:55 10/11/20 11:15 Vancomycin Level Trough 5.8 ug/mL (5.0-12.0) White Blood Count 4.9 K/UL (4.8-10.8) Red Blood Count 4.23 M/UL (4.70-6.10) L Hemoglobin 13.0 G/DL (14.2-18.0) L Hematocrit 39.0 % (42.0-52.0) L Mean Corpuscular Volume 92 FL (80-99) Mean Corpuscular Hemoglobin 30.8 PG (27.0-31.0) Mean Corpuscular Hemoglobin Concent 33.4 G/DL (32.0-36.0) Red Cell Distribution Width 11.7 % (11.6-14.8) Platelet Count 93 K/UL (150-450) L Mean Platelet Volume 9.1 FL (6.5-10.1) Neutrophils (%) (Auto) % (45.0-75.0) Lymphocytes (%) (Auto) % (20.0-45.0) Monocytes (%) (Auto) % (1.0-10.0) Eosinophils (%) (Auto) % (0.0-3.0) Basophils (%) (Auto) % (0.0-2.0) Differential Total Cells Counted 100 Neutrophils % (Manual) 68 % (45-75) Lymphocytes % (Manual) 21 % (20-45) Monocytes % (Manual) 9 % (1-10) Eosinophils % (Manual) 2 % (0-3) Basophils % (Manual) 0 % (0-2) Band Neutrophils 0 % (0-8) Platelet Estimate Decreased L Platelet Morphology Normal Red Blood Cell Morphology Normal Sodium Level 143 MMOL/L (136-145) Potassium Level 3.4 MMOL/L (3.5-5.1) L Chloride Level 111 MMOL/L (98-107) H Carbon Dioxide Level 25 MMOL/L (21-32) Anion Gap 8 mmol/L (5-15) Blood Urea Nitrogen 7 mg/dL (7-18) Creatinine 0.7 MG/DL (0.55-1.30) Estimat Glomerular Filtration Rate > 60 mL/min (>60) Glucose Level 115 MG/DL (74-106) H Calcium Level 8.3 MG/DL (8.5-10.1) L Neurologic Exam Objective Exam is limited due to patient's condition VS Reviewed General: pt is non verbal and is resting on Neuro: awake not alert oriented difficult to complete exam he is non verbal and not able to comprehend and participate in exam. Comprehension not intact, No Language. Motor Exam: No involuntary movements. Unable to examine upper and lower extremity strength. Impression/Recommendations Status: stable Diagnostic Impression LAB Reviewed MEDS: Reviewed 1. Seizures s/p Ativan on route to the ER --> S/p Keppra load 1000 mg in the ER --> Post ictal --> Monitor and continue home medication Depakote ( sub therapeutic level found) and add Keppra 500 mg BID 2. Fever --> on abx 3. CKD 3 vs CRIS due to dehydration 4. Dementia --> Non verbal --> Supportive care 5. History of CVA --> CT head reviewed. No acute Intracranial abnormality noted. Thank you for allowing us to participate in patient's care. plan of care was discussed with Dr. Montrell Doyle. Yoselin Taylor NP Oct 11, 2020 12:40
--- NOTE | 2020-10-11 13:17 | NUR ---
*-*DISCHARGE PLANNING*-* PATIENT HAS BEEN REFERRED BACK TO: [facility] P: [phone] ADMISSIONS IN A MEETING, CALL BACK.
--- NOTE | 2020-10-11 15:22 | General Progress Note ---
Subjective Date patient seen: Oct 11, 2020 Time patient seen: 14:00 ROS Limited/Unobtainable: Yes Allergies: Coded Allergies: CHLORPROMAZINE (Verified Allergy, Unknown, 03/04/20) TRIFLUOPERAZINE (Verified Allergy, Unknown, 03/04/20) All Systems: reviewed and negative except above Subjective Patient is asleep today ( although not able to understand him) Objective Last 24 Hour Vital Signs Date Time Temp Pulse Resp B/P (MAP) Pulse Ox O2 Delivery O2 Flow Rate FiO2 10/11/20 12:00 97.4 75 19 142/101 (115) 96 10/11/20 11:34 75 19 142/101 96 10/11/20 11:04 84 19 155/106 94 10/11/20 09:00 Room Air 10/11/20 08:00 97.9 84 19 155/106 (122) 94 10/11/20 04:00 98.5 88 18 147/104 (118) 95 10/10/20 23:47 98.1 89 20 159/95 (116) 96 10/10/20 20:00 97.7 74 18 153/90 (111) 96 10/10/20 19:23 Room Air 10/10/20 18:32 78 18 145/102 96 10/10/20 18:02 78 18 145/102 96 10/10/20 16:00 98.0 78 18 145/102 (116) 96 Intake and Output 10/10/20 10/11/20 19:00 07:00 Intake Total 810 ml 525 ml Output Total 1400 ml 1000 ml Balance -590 ml -475 ml IV Total 810 ml 525 ml Output Urine Total 1400 ml 1000 ml # Voids 1 Laboratory Tests 10/10/20 20:55: Vancomycin Level Trough 5.8 10/11/20 11:15: White Blood Count 4.9, Red Blood Count 4.23L, Hemoglobin 13.0L, Hematocrit 39.0L , Mean Corpuscular Volume 92, Mean Corpuscular Hemoglobin 30.8, Mean Corpuscular Hemoglobin Concent 33.4, Red Cell Distribution Width 11.7, Platelet Count 93L, Mean Platelet Volume 9.1, Neutrophils (%) (Auto) , Lymphocytes (%) (Auto) , Monocytes (%) (Auto) , Eosinophils (%) (Auto) , Basophils (%) (Auto) , Differential Total Cells Counted 100, Neutrophils % (Manual) 68, Lymphocytes % (Manual) 21, Monocytes % (Manual) 9, Eosinophils % (Manual) 2, Basophils % (Manual) 0, Band Neutrophils 0, Platelet Estimate DecreasedL, Platelet Morphology Normal, Red Blood Cell Morphology Normal, Sodium Level 143, Potassium Level 3.4L, Chloride Level 111H, Carbon Dioxide Level 25, Anion Gap 8, Blood Urea Nitrogen 7, Creatinine 0.7, Estimat Glomerular Filtration Rate > 60, Glucose Level 115H, Calcium Level 8.3L Height (Feet): 5 Height (Inches): 7.00 Weight (Pounds): 150 General Appearance: WD/WN EENT: PERRL/EOMI Cardiovascular: normal rate Respiratory/Chest: lungs clear Abdomen: non tender Neurologic: insurance underwriter II-XII grossly normal Assessment/Plan Status: stable Assessment/Plan: 70 y/o M with prior history of CVA, Seizures who is admitted due to " 1. Seizures with Tonic Clonic s/p Ativan on route to the ER S/p Keppra load 1000 mg in the ER Post ictal state gradually improving and asleep today. Possibly due to Ativan. Monitor and continue home medication Depakote ( sub therapeutic level ?) Now on Keppra IV q 12 hours to evaluate is his level of alertness improves. AWAIT further input from neurology. ?? final AED REGIMEN RECOMMENDATION. Neurology consultation with Dr. Mccoy No evidence of underlying infection as of today. 2. Fever with SIRS per tachycardia. Resolved since admission and elevated lactic acid > 4 noted initially is now resolved. Started on Vancomycin and Cefepime which will be discontinued as blood cx are reported at 48 hrs NEGATIVE No apparent source in UA or CXR at this time Monitor for signs of fever OFF antibiotics. 3. CKD 3 vs CRIS due to dehydration IVF will be continued Monitor renal parameters 4. Dementia Non verbal Supportive care 5. History of CVA Supportive care. CT head reviewed. No acute Intracranial abnormality noted. 6. DVT ppx with Heparin, HOLD if platelets less than 50 K 7. Thrombocytopenia in the 100K range. Monitor 8. Elevated TSH. LOW T3 T4. Suspect subclinical hypothyroidism. Add low dose of IV synthroid. 9. Dysphagia ST evaluation ordered 10/08 and not completed. PENDING assessment for safety. Discussed with RN today. Continue IVF and bedside RN evaluation for progress encouraged since ST evaluation might not be possible until Sunday due to staffing issues. REQUESTED BIOETHICS AND SOCIAL WORK SUPPORT TO LOCATE FAMILY AND DISCUSS NEED FOR PEG/TUBE FEEDS IF NEEDED. 10. GI ppx with PPI 11. CODE STATUS is DNR DNI Disposition: [facility] when medically stable. Resident. Duglas Haynes MD Oct 11, 2020 15:22
[2020-10-11] MEDS ORDERED: LORazepam 0.5mg tab SL PRN (15:30)
[2020-10-11 16:00] VITALS: BP 157/104
--- NOTE | 2020-10-11 19:41 | NUR ---
NURSE HAND-OFF: Important Events on Shift:[] Patient Status: [] Diet: [NPO] Pending Orders: [] Pending Results/Labs:[] Pending MD notification:[] Latest Vital Signs: Temperature 98.8 , Pulse 81 , B/P 157 /104 , Respiratory Rate 18 , O2 SAT 94 , Nasal Cannula, O2 Flow Rate 5.0 . Vital Sign Comment: [] Latest Palomo Fall Score: 70 Fall Risk: High Risk Safety Measures: Call light Within Reach, Bed Alarm Zone 2, Side Rails Side Rails x3, Bed position Low and Locked. Fall Precautions: Door Sign Patient Fall Education Report given to [NOHELIA Turner].
--- NOTE | 2020-10-11 19:58 | NUR ---
NURSE NOTES: Received patient awake, non=verbal, on NPO, confused, no SOB noted.
[2020-10-11 20:10] VITALS: BP 169/101
[2020-10-11 20:23] VITALS: BP 169/101
--- NOTE | 2020-10-11 23:24 | Pulmonology Progress Note ---
Subjective ROS Limited/Unobtainable: Yes Allergies: Coded Allergies: CHLORPROMAZINE (Verified Allergy, Unknown, 03/04/20) TRIFLUOPERAZINE (Verified Allergy, Unknown, 03/04/20) All Systems: reviewed and negative except above Objective Last 24 Hour Vital Signs Date Time Temp Pulse Resp B/P (MAP) Pulse Ox O2 Delivery O2 Flow Rate FiO2 10/11/20 21:31 Room Air 10/11/20 20:23 98.7 83 20 169/101 (123) 94 10/11/20 16:00 98.8 81 18 157/104 (121) 94 10/11/20 12:00 97.4 75 19 142/101 (115) 96 10/11/20 11:34 75 19 142/101 96 10/11/20 11:04 84 19 155/106 94 10/11/20 09:00 Room Air 10/11/20 08:00 97.9 84 19 155/106 (122) 94 10/11/20 04:00 98.5 88 18 147/104 (118) 95 10/10/20 23:47 98.1 89 20 159/95 (116) 96 Intake and Output 10/10/20 10/11/20 19:00 07:00 Intake Total 810 ml 525 ml Output Total 1400 ml 1000 ml Balance -590 ml -475 ml IV Total 810 ml 525 ml Output Urine Total 1400 ml 1000 ml # Voids 1 Microbiology Date/Time Source Procedure Growth Status 10/09/20 05:00 Rectal Mucosa VRE Culture - Final NO VANCOMYCIN RESISTANT ENTEROCOCCUS ... Complete Laboratory Tests 10/11/20 11:15: White Blood Count 4.9, Red Blood Count 4.23L, Hemoglobin 13.0L, Hematocrit 39.0L , Mean Corpuscular Volume 92, Mean Corpuscular Hemoglobin 30.8, Mean Corpuscular Hemoglobin Concent 33.4, Red Cell Distribution Width 11.7, Platelet Count 93L, Mean Platelet Volume 9.1, Neutrophils (%) (Auto) , Lymphocytes (%) (Auto) , Monocytes (%) (Auto) , Eosinophils (%) (Auto) , Basophils (%) (Auto) , Differential Total Cells Counted 100, Neutrophils % (Manual) 68, Lymphocytes % (Manual) 21, Monocytes % (Manual) 9, Eosinophils % (Manual) 2, Basophils % (Manual) 0, Band Neutrophils 0, Platelet Estimate DecreasedL, Platelet Morphology Normal, Red Blood Cell Morphology Normal, Sodium Level 143, Potassium Level 3.4L, Chloride Level 111H, Carbon Dioxide Level 25, Anion Gap 8, Blood Ure a Nitrogen 7, Creatinine 0.7, Estimat Glomerular Filtration Rate > 60, Glucose Level 115H, Calcium Level 8.3L Current Medications Medications (Trade) Dose Ordered Sig/Michelle Route PRN Reason Start Time Stop Time Status Last Admin Dose Admin Bisacodyl (Dulcolax) 10 mg DAILY ORAL 10/08/20 12:00 01/06/21 11:59 Clonidine HCl (Catapres Tab) 0.1 mg EVERY 6 HOURS PRN ORAL systolic blood pressure > 170 10/10/20 00:15 01/08/21 00:14 10/10/20 00:26 Dextrose (Dextrose 50%) 25 ml Q30M PRN IV Hypoglycemia 10/08/20 12:00 01/06/21 11:59 Dextrose (Dextrose 50%) 50 ml Q30M PRN IV Hypoglycemia 10/08/20 12:00 01/06/21 11:59 Dextrose/Sodium Chloride 1,000 ml @ 75 mls/hr [id number] IV 10/09/20 03:00 11/08/20 02:59 10/11/20 18:28 Divalproex Sodium (Depakote) 500 mg EVERY 12 HOURS ORAL 10/08/20 21:00 11/07/20 20:59 10/10/20 20:00 Haloperidol Lactate (Haldol) 5 mg Q8H PRN IM Agitation 10/08/20 12:00 11/22/20 11:59 Heparin Sodium (Porcine) (Heparin 5000 units/ml) 5,000 units EVERY 12 HOURS SUBQ 10/08/20 21:00 11/22/20 20:59 10/11/20 21:07 Levetiracetam 100 ml @ 400 mls/hr Q24HRS IVPB 10/11/20 09:00 01/06/21 21:59 10/11/20 11:01 Levothyroxine Sodium (Synthroid) 25 mcg DAILY IV 10/10/20 11:00 11/09/20 10:59 10/11/20 11:14 Lorazepam (Ativan) 0.5 mg Q12H PRN SL Restlessness 10/11/20 15:30 10/18/20 15:29 Morphine Sulfate (Morphine Sulfate) 2 mg Q6H PRN IVP Moderate Pain (Pain Scale 4-6) 10/08/20 12:00 10/15/20 11:59 Ondansetron HCl (Zofran) 4 mg Q6H PRN IV Nausea & Vomiting 10/08/20 12:00 11/07/20 11:59 Risperidone (RisperDAL) 2 mg QHS ORAL 10/08/20 21:00 11/22/20 20:59 10/10/20 20:00 Assessment/Plan Assessment/Plan Pulmonary Progress Note HPI Patient is a 70-year-old man,care home resident, past history of previous right cerebellar infarct, seizure history, alzheimer's dementia, psychosis, previous DVT, hypertension, diabetes, severe malnutrition, admitted after witnessed tonic-clonic seizure.Patient is DNR/DNI status. History is limited HD stable,on RA, Cultures negative to date Elevated TSH Neulology following Cholelithiasis and thickened bladder wall on US Allergies: CHLORPROMAZINE (Verified Allergy, Unknown, 03/04/20) TRIFLUOPERAZINE (Verified Allergy, Unknown, 03/04/20) Past Medical History: previous right cerebellar infarct, seizure history, alzheimer's dementia, psychosis, previous DVT, hypertension, diabetes, severe malnutrition Medications: noted Resuscitation status: DNAR/DNI Systemic review: NA Objective Height (Feet): 5 Height (Inches): 7.00 Weight (Pounds): 150 Vital signs noted PE: General Appearance: no apparent distress,wasted HEENT: normocephalic, atraumatic, moist mm Respiratory/Chest: lungs cleartoauscultation bilaterally Cardiovascular/Chest: normal peripheral pulses, normal rate,regular Abdomen: soft,NTND Extremities: non-tender,no edema,no rashes Neurologic: Able to verbalize, personnel arbitrator II-XII grossly normal, improved neuro status Laboratory Tests: noted CXR: No focal infiltrates CT head: No acute Intracranial abnormality noted. Assessment/Plan 1. Seizures On Keppra, stable on RA, Neurology following 2. Possible infection,CXR no focal infiltrates,Covid19 negative, U/A negative, AB DC 3. CKD 3 vs CRIS on IVF 4. AMS, Previous CVA, Alzheimers dementia,post ictal 5. Prior h/o DVT,on ppx with Heparin 7. HTN 8. Diabetes 9.Hypothyroidism - on Rx 10. Code status: DNR DNI Rehan Montilla MD Oct 11, 2020 23:24
[2020-10-12] VITALS: BP 178/116
[2020-10-12] MEDS: Morphine Sulfate 2mg/ml Inj(IV/IM USE ONLY) IVP PRN ×2 (00:04→13:14)
[2020-10-12 04:00] VITALS: BP 161/92
[2020-10-12 06:45] LABS: HEMATOCRIT 40.7 % (42.0-52.0); HEMOGLOBIN 14.1 G/DL (14.2-18.0); MEAN CORPUSCULAR VOLUME 92 FL (80-99); PLATELET COUNT 98 K/UL (150-450); RED BLOOD COUNT 4.43 M/UL (4.70-6.10); RED CELL DISTRIBUTION WIDTH 11.4 % (11.6-14.8); WHITE BLOOD COUNT 4.7 K/UL (4.8-10.8)
[2020-10-12 06:58] LABS: ANION GAP 8 mmol/L (5-15); CALCIUM 8.4 MG/DL (8.5-10.1); CARBON DIOXIDE 25 MMOL/L (21-32); CHLORIDE 109 MMOL/L (98-107); CREATININE 0.7 MG/DL (0.55-1.30); POTASSIUM 3.6 MMOL/L (3.5-5.1); SODIUM 142 MMOL/L (136-145)
--- NOTE | 2020-10-12 07:13 | NUR ---
NURSE HAND-OFF: Important Events on Shift:[]Pain and HTN Patient Status: [] Diet: []NPO Pending Orders: [] Pending Results/Labs:[] Pending MD notification:[] Latest Vital Signs: Temperature 98.9 , Pulse 70 , B/P 161 /92 , Respiratory Rate 20 , O2 SAT 95 , Nasal Cannula, O2 Flow Rate 5.0 . Vital Sign Comment: [] Latest Palomo Fall Score: 70 Fall Risk: High Risk Safety Measures: Call light Within Reach, Bed Alarm Zone 2, Side Rails Side Rails x3, Bed position Low and Locked. Fall Precautions: Door Sign Patient Fall Education Report given to [].
[2020-10-12 07:18] LABS: BLOOD UREA NITROGEN 7 mg/dL (7-18)
--- NOTE | 2020-10-12 07:30 | NUR ---
NURSE NOTES received patient asleep no sign of distress, IVF leaking and swollen dcd, will place a new line, on NPO status, tan cath in place, draining well, will continue to monitor patient condition maria r seay
[2020-10-12 08:00] VITALS: BP 155/104
[2020-10-12] MEDS: levETIRAcetam 500mg/NS100ml 100 ML IVPB SCH (08:13)
[2020-10-12] MEDS: Heparin 5000 units/ml inj SUBQ SCH ×2 (08:17→20:42)
--- NOTE | 2020-10-12 08:47 | General Progress Note ---
Subjective Date patient seen: Oct 12, 2020 Time patient seen: 08:30 ROS Limited/Unobtainable: Yes Allergies: Coded Allergies: CHLORPROMAZINE (Verified Allergy, Unknown, 03/04/20) TRIFLUOPERAZINE (Verified Allergy, Unknown, 03/04/20) Subjective Patient is awake today and is able to tell me that he is hungry and he can eat. Objective Last 24 Hour Vital Signs Date Time Temp Pulse Resp B/P (MAP) Pulse Ox O2 Delivery O2 Flow Rate FiO2 10/12/20 04:00 98.9 70 20 161/92 (115) 95 10/12/20 00:37 98.7 10/12/20 00:04 178/116 10/12/20 00:00 98.6 83 18 178/116 (136) 98 10/11/20 21:31 Room Air 10/11/20 20:23 98.7 83 20 169/101 (123) 94 10/11/20 16:00 98.8 81 18 157/104 (121) 94 10/11/20 12:00 97.4 75 19 142/101 (115) 96 10/11/20 11:34 75 19 142/101 96 10/11/20 11:04 84 19 155/106 94 10/11/20 09:00 Room Air Intake and Output 10/11/20 10/12/20 19:00 07:00 Intake Total 100 ml 900 ml Output Total 600 ml 800 ml Balance -500 ml 100 ml IV Total 100 ml 900 ml Output Urine Total 600 ml 800 ml # Voids 1 Laboratory Tests 10/11/20 11:15: White Blood Count 4.9, Red Blood Count 4.23L, Hemoglobin 13.0L, Hematocrit 39.0L , Mean Corpuscular Volume 92, Mean Corpuscular Hemoglobin 30.8, Mean Corpuscular Hemoglobin Concent 33.4, Red Cell Distribution Width 11.7, Platelet Count 93L, Mean Platelet Volume 9.1, Neutrophils (%) (Auto) , Lymphocytes (%) (Auto) , Monocytes (%) (Auto) , Eosinophils (%) (Auto) , Basophils (%) (Auto) , Differential Total Cells Counted 100, Neutrophils % (Manual) 68, Lymphocytes % (Manual) 21, Monocytes % (Manual) 9, Eosinophils % (Manual) 2, Basophils % (Manual) 0, Band Neutrophils 0, Platelet Estimate DecreasedL, Platelet Morphology Normal, Red Blood Cell Morphology Normal, Sodium Level 143, Potassium Level 3.4L, Chloride Level 111H, Carbon Dioxide Level 25, Anion Gap 8, Blood Urea Nitrogen 7, Creatinine 0.7, Estimat Glomerular Filtration Rate > 60, Glucose Level 115H, Calcium Level 8.3L 10/12/20 04:50: White Blood Count 4.7L, Red Blood Count 4.43L, Hemoglobin 14.1L, Hematocrit 40.7L, Mean Corpuscular Volume 92, Mean Corpuscular Hemoglobin 32.0H, Mean Corpuscular Hemoglobin Concent 34.7, Red Cell Distribution Width 11.4L, Platelet Count 98L, Mean Platelet Volume 8.2, Neutrophils (%) (Auto) , Lymphocytes (%) (Auto) , Monocytes (%) (Auto) , Eosinophils (%) (Auto) , Basophils (%) (Auto) , Differential Total Cells Counted 100, Neutrophils % (Manual) 58, Lymphocytes % (Manual) 24, Monocytes % (Manual) 14H, Eosinophils % (Manual) 4H, Basophils % (Manual) 0, Band Neutrophils 0, Platelet Estimate DecreasedL, Platelet Morphology Normal, Red Blood Cell Morphology Normal, Sodium Level 142, Potassium Level 3.6, Chloride Level 109H, Carbon Dioxide Level 25, Anion Gap 8, Blood Urea Nitrogen 7, Creatinine 0.7, Estimat Glomerular Filtration Rate > 60, Glucose Level 95, Calcium Level 8.4L Height (Feet): 5 Height (Inches): 7.00 Weight (Pounds): 150 General Appearance: WD/WN EENT: PERRL/EOMI Neck: non-tender Cardiovascular: normal rate Respiratory/Chest: lungs clear Abdomen: soft Neurologic: brim plater II-XII grossly normal Assessment/Plan Status: stable, progressing Assessment/Plan: 70 y/o M with prior history of CVA, Seizures who is admitted due to " 1. Seizures with Tonic Clonic s/p Ativan on route to the ER S/p Keppra load 1000 mg in the ER Post ictal state gradually improved and due to Ativan which was stopped 24 hrs ago. Monitor and continue home medication Depakote ( sub therapeutic level ?) Now on Keppra IV q 12 hours to evaluate is his level of alertness improves. AWAIT further input from neurology. ?? final AED REGIMEN RECOMMENDATION. Neurology consultation with Dr. Mccoy No evidence of underlying infection as of today. 2. Fever with SIRS per tachycardia. Resolved since admission and elevated lactic acid > 4 noted initially is now resolved. Started on Vancomycin and Cefepime discontinued as blood cx are reported at 48 hrs NEGATIVE No apparent source in UA or CXR at this time Monitor for signs of fever OFF antibiotics. 3. CKD 3 vs CRIS due to dehydration IVF will be continued Monitor renal parameters 4. Dementia Non verbal Supportive care 5. History of CVA Supportive care. CT head reviewed. No acute Intracranial abnormality noted. 6. DVT ppx with Heparin, HOLD if platelets less than 50 K 7. Thrombocytopenia in the 100K range. Monitor 8. Elevated TSH. LOW T3 T4. Suspect subclinical hypothyroidism. Add low dose of IV synthroid and will plan to follow up TFT in 4-6 weeks as outpatient. 9. Dysphag[address] ST evaluation reviewed. Discussed with RN today. Continue IVF LOWER RATE 50 cchr REQUESTED BIOETHICS AND SOCIAL WORK SUPPORT TO LOCATE FAMILY AND DISCUSS NEED FOR PEG/TUBE FEEDS IF NEEDED. today the patient is finally awake and will try to feed him. If successful then no need for PEG or ethics. 10. GI ppx with PPI 11. CODE STATUS is DNR DNI Disposition: [facility] when medically stable. Resident. Duglas Haynes MD Oct 12, 2020 08:47
[2020-10-12] MEDS: Depakote 500mg tab ORAL SCH ×2 (09:20→20:41)
[2020-10-12] MEDS: Bisacodyl EC 5mg tab ORAL SCH (09:20)
--- NOTE | 2020-10-12 10:01 | NUR ---
POWER SCREWDRIVER OPERATOR NOTE Pt's chart was reviewed. SW was unable to locate the family since his previous visit, 03/04/20-03/18/20. There is no emergency contact provided by SNF. Bioethics committee does not provide consent for medical procedure. If it is emergency, two doctors' consents are needed for PEG placement
--- NOTE | 2020-10-12 10:47 | NUR ---
PT Note: Pt sleeping soundly unable to rouse for PT interventions. Will check back if schedule permits.
[2020-10-12 12:00] VITALS: BP 151/91
--- NOTE | 2020-10-12 12:56 | Neurology Progress Note ---
Interim History Interim History ROS Limited/Unobtainable: Yes Events: plan for peg Objective Physical Exam Last Vital Signs Date Time Temp Pulse Resp B/P (MAP) Pulse Ox O2 Delivery O2 Flow Rate FiO2 10/12/20 12:00 97.9 80 18 151/91 (111) 97 10/12/20 08:12 Room Air 10/08/20 21:00 5.0 Laboratory Tests Test 10/12/20 04:50 White Blood Count 4.7 K/UL (4.8-10.8) L Red Blood Count 4.43 M/UL (4.70-6.10) L Hemoglobin 14.1 G/DL (14.2-18.0) L Hematocrit 40.7 % (42.0-52.0) L Mean Corpuscular Volume 92 FL (80-99) Mean Corpuscular Hemoglobin 32.0 PG (27.0-31.0) H Mean Corpuscular Hemoglobin Concent 34.7 G/DL (32.0-36.0) Red Cell Distribution Width 11.4 % (11.6-14.8) L Platelet Count 98 K/UL (150-450) L Mean Platelet Volume 8.2 FL (6.5-10.1) Neutrophils (%) (Auto) % (45.0-75.0) Lymphocytes (%) (Auto) % (20.0-45.0) Monocytes (%) (Auto) % (1.0-10.0) Eosinophils (%) (Auto) % (0.0-3.0) Basophils (%) (Auto) % (0.0-2.0) Differential Total Cells Counted 100 Neutrophils % (Manual) 58 % (45-75) Lymphocytes % (Manual) 24 % (20-45) Monocytes % (Manual) 14 % (1-10) H Eosinophils % (Manual) 4 % (0-3) H Basophils % (Manual) 0 % (0-2) Band Neutrophils 0 % (0-8) Platelet Estimate Decreased L Platelet Morphology Normal Red Blood Cell Morphology Normal Sodium Level 142 MMOL/L (136-145) Potassium Level 3.6 MMOL/L (3.5-5.1) Chloride Level 109 MMOL/L (98-107) H Carbon Dioxide Level 25 MMOL/L (21-32) Anion Gap 8 mmol/L (5-15) Blood Urea Nitrogen 7 mg/dL (7-18) Creatinine 0.7 MG/DL (0.55-1.30) Estimat Glomerular Filtration Rate > 60 mL/min (>60) Glucose Level 95 MG/DL (74-106) Calcium Level 8.4 MG/DL (8.5-10.1) L Neurologic Exam Objective Exam is limited due to patient's condition VS Reviewed General: pt is non verbal and is resting on Neuro: awake not alert oriented difficult to complete exam he is non verbal and not able to comprehend and participate in exam. Comprehension not intact, No Language. Motor Exam: No involuntary movements. Unable to examine upper and lower extremity strength. Impression/Recommendations Status: stable, progressing Diagnostic Impression LAB Reviewed MEDS: Reviewed 1. Seizures s/p Ativan on route to the ER --> S/p Keppra load 1000 mg in the ER --> Post ictal --> Monitor and continue home medication Depakote ( sub therapeutic level found) and add Keppra 500 mg BID 2. Fever --> on abx 3. CKD 3 vs CRIS due to dehydration 4. Dementia --> Non verbal --> Supportive care 5. History of CVA --> CT head reviewed. No acute Intracranial abnormality noted. Thank you for allowing us to participate in patient's care. plan of care was discussed with Dr. Montrell Doyle. Yoselin Taylor NP Oct 12, 2020 12:56
[2020-10-12 16:00] VITALS: BP 139/103
--- NOTE | 2020-10-12 17:46 | Cardiology Report ---
APPROVED REPORT EKG Measurement Heart [id number] <Conclusion> Wide QRS tachycardia with premature ventricular complexes or fusion complexes Left axis deviation Left bundle branch block Abnormal ECG
--- NOTE | 2020-10-12 19:51 | NUR ---
NURSE NOTES: Received patient awake, resting in bed, verbal but delayed, kept clean and dry.
--- NOTE | 2020-10-12 19:59 | NUR ---
nurse notes endorsed to Tiffany POZO for continuity of care maria r seay
[2020-10-12 20:00] VITALS: BP 136/87
--- NOTE | 2020-10-12 21:20 | Pulmonology Progress Note ---
Subjective ROS Limited/Unobtainable: Yes Allergies: Coded Allergies: CHLORPROMAZINE (Verified Allergy, Unknown, 03/04/20) TRIFLUOPERAZINE (Verified Allergy, Unknown, 03/04/20) All Systems: reviewed and negative except above Objective Last 24 Hour Vital Signs Date Time Temp Pulse Resp B/P (MAP) Pulse Ox O2 Delivery O2 Flow Rate FiO2 10/12/20 16:00 97.2 85 19 139/103 (115) 97 10/12/20 12:00 97.9 80 18 151/91 (111) 97 10/12/20 08:12 Room Air 10/12/20 08:00 98.1 77 18 155/104 (121) 97 10/12/20 04:00 98.9 70 20 161/92 (115) 95 10/12/20 00:37 98.7 10/12/20 00:04 178/116 10/12/20 00:00 98.6 83 18 178/116 (136) 98 10/11/20 21:31 Room Air Intake and Output 10/11/20 10/12/20 19:00 07:00 Intake Total 100 ml 900 ml Output Total 600 ml 800 ml Balance -500 ml 100 ml IV Total 100 ml 900 ml Output Urine Total 600 ml 800 ml # Voids 1 Laboratory Tests 10/12/20 04:50: White Blood Count 4.7L, Red Blood Count 4.43L, Hemoglobin 14.1L, Hematocrit 40.7L, Mean Corpuscular Volume 92, Mean Corpuscular Hemoglobin 32.0H, Mean Corpuscular Hemoglobin Concent 34.7, Red Cell Distribution Width 11.4L, Platelet Count 98L, Mean Platelet Volume 8.2, Neutrophils (%) (Auto) , Lymphocytes (%) (Auto) , Monocytes (%) (Auto) , Eosinophils (%) (Auto) , Basophils (%) (Auto) , Differential Total Cells Counted 100, Neutrophils % (Manual) 58, Lymphocytes % (Manual) 24, Monocytes % (Manual) 14H, Eosinophils % (Manual) 4H, Basophils % (Manual) 0, Band Neutrophils 0, Platelet Estimate DecreasedL, Platelet Morphology Normal, Red Blood Cell Morphology Normal, Sodium Level 142, Potassium Level 3.6, Chloride Level 109H, Carbon Dioxide Level 25, Anion Gap 8, Blood Urea Nitrogen 7, Creatinine 0.7, Estimat Glomerular Filtration Rate > 60, Glucose Level 95, Calcium Level 8.4L Current Medications Medications (Trade) Dose Ordered Sig/Michelle Route PRN Reason Start Time Stop Time Status Last Admin Dose Admin Bisacodyl (Dulcolax) 10 mg DAILY ORAL 10/08/20 12:00 01/06/21 11:59 10/12/20 09:20 Clonidine HCl (Catapres Tab) 0.1 mg EVERY 6 HOURS PRN ORAL systolic blood pressure > 170 10/10/20 00:15 01/08/21 00:14 10/12/20 00:04 Dextrose (Dextrose 50%) 25 ml Q30M PRN IV Hypoglycemia 10/08/20 12:00 01/06/21 11:59 Dextrose (Dextrose 50%) 50 ml Q30M PRN IV Hypoglycemia 10/08/20 12:00 01/06/21 11:59 Divalproex Sodium (Depakote) 500 mg EVERY 12 HOURS ORAL 10/08/20 21:00 11/07/20 20:59 10/12/20 20:41 Haloperidol Lactate (Haldol) 5 mg Q8H PRN IM Agitation 10/08/20 12:00 11/22/20 11:59 Heparin Sodium (Porcine) (Heparin 5000 units/ml) 5,000 units EVERY 12 HOURS SUBQ 10/08/20 21:00 11/22/20 20:59 10/12/20 20:42 Levetiracetam (Keppra) 500 mg Q12HR NG 10/13/20 09:00 11/12/20 08:59 Levothyroxine Sodium (Synthroid) 25 mcg DAILY@0630 ORAL 10/13/20 06:30 11/12/20 06:29 Lorazepam (Ativan) 0.5 mg Q12H PRN SL Restlessness 10/11/20 15:30 10/18/20 15:29 Morphine Sulfate (Morphine Sulfate) 2 mg Q6H PRN IVP Moderate Pain (Pain Scale 4-6) 10/08/20 12:00 10/15/20 11:59 10/12/20 13:14 Ondansetron HCl (Zofran) 4 mg Q6H PRN IV Nausea & Vomiting 10/08/20 12:00 11/07/20 11:59 Risperidone (RisperDAL) 2 mg QHS ORAL 10/08/20 21:00 11/22/20 20:59 10/12/20 20:42 Assessment/Plan Assessment/Plan Pulmonary Progress Note HPI Patient is a 70-year-old man,skilled nursing resident, past history of previous right cerebellar infarct, seizure history, alzheimer's dementia, psychosis, previous DVT, hypertension, diabetes, severe malnutrition, admitted after witnessed tonic-clonic seizure.Patient is DNR/DNI status. History is limited HD stable,on RA, Cultures negative to date Elevated TSH Neulology following Cholelithiasis and thickened bladder wall on US Allergies: CHLORPROMAZINE (Verified Allergy, Unknown, 03/04/20) TRIFLUOPERAZINE (Verified Allergy, Unknown, 03/04/20) Past Medical History: previous right cerebellar infarct, seizure history, alzheimer's dementia, psychosis, previous DVT, hypertension, diabetes, severe malnutrition Medications: noted Resuscitation status: DNAR/DNI Systemic review: NA Objective Height (Feet): 5 Height (Inches): 7.00 Weight (Pounds): 150 Vital signs noted PE: General Appearance: no apparent distress,wasted HEENT: normocephalic, atraumatic, moist mm Respiratory/Chest: lungs cleartoauscultation bilaterally Cardiovascular/Chest: normal peripheral pulses, normal rate,regular Abdomen: soft,NTND Extremities: non-tender,no edema,no rashes Neurologic: Able to verbalize, practice managers II-XII grossly normal, improved neuro status Laboratory Tests: noted CXR: No focal infiltrates CT head: No acute Intracranial abnormality noted. Abdo US: Enlarged prostate. Focal thickening of the posterior bladder wall. Possibility of mass cannot be excluded. Further evaluation with cystoscopy suggested. Subcentimeter cysts in the right kidney. Slight fullness of left renal collecting system. Cholelithiasis. Assessment/Plan 1. Seizures On Keppra, stable on RA, Neurology following 2. Possible infection,CXR no focal infiltrates,Covid19 negative, U/A negative, AB DC 3. CKD 3 vs CRIS on IVF 4. AMS, Previous CVA, Alzheimers dementia,post ictal 5. Prior h/o DVT,on ppx with Heparin 7. HTN 8. Diabetes 9.Hypothyroidism - on Rx 10. Code status: DNR DNI Rehan Montilla MD Oct 12, 2020 21:20
[2020-10-13 00:10] VITALS: BP 147/96
[2020-10-13 04:00] VITALS: BP 151/89
[2020-10-13] MEDS: Levothyroxine 25mcg tab ORAL SCH (05:52)
--- NOTE | 2020-10-13 06:15 | NUR ---
NURSE HAND-OFF: Important Events on Shift:[]Unremarkable Patient Status: [] Diet: [] Pending Orders: [] Pending Results/Labs:[] Pending MD notification:[] Latest Vital Signs: Temperature 98.6 , Pulse 75 , B/P 151 /89 , Respiratory Rate 18 , O2 SAT 96 , Nasal Cannula, O2 Flow Rate 5.0 . Vital Sign Comment: [] Latest Palomo Fall Score: 70 Fall Risk: High Risk Safety Measures: Call light Within Reach, Bed Alarm Zone 2, Side Rails Side Rails x3, Bed position Low and Locked. Fall Precautions: Door Sign Patient Fall Education Report given to [].
[2020-10-13 07:12] LABS: ANION GAP 8 mmol/L (5-15); BLOOD UREA NITROGEN 11 mg/dL (7-18); CALCIUM 8.6 MG/DL (8.5-10.1); CARBON DIOXIDE 25 MMOL/L (21-32); CHLORIDE 107 MMOL/L (98-107); CREATININE 0.8 MG/DL (0.55-1.30); POTASSIUM 3.7 MMOL/L (3.5-5.1); SODIUM 140 MMOL/L (136-145)
[2020-10-13 07:17] LABS: BASOPHILS % (AUTO) 0.5 % (0.0-2.0); EOSINOPHILS % (AUTO) 2.6 % (0.0-3.0); HEMATOCRIT 38.7 % (42.0-52.0); HEMOGLOBIN 13.2 G/DL (14.2-18.0); LYMPHOCYTES % (AUTO) 24.1 % (20.0-45.0); MEAN CORPUSCULAR VOLUME 92 FL (80-99); MONOCYTES % (AUTO) 7.9 % (1.0-10.0); PLATELET COUNT 108 K/UL (150-450); RED CELL DISTRIBUTION WIDTH 11.5 % (11.6-14.8); WHITE BLOOD COUNT 4.6 K/UL (4.8-10.8)
[2020-10-13 09:00] VITALS: BP 158/107
[2020-10-13] MEDS ORDERED: levETIRAcetam 500mg/5ml Liquid NG SCH (09:00)
[2020-10-13] MEDS: Depakote 500mg tab ORAL SCH ×2 (10:11→20:21)
[2020-10-13] MEDS: Bisacodyl EC 5mg tab ORAL SCH (10:11)
[2020-10-13] MEDS: Heparin 5000 units/ml inj SUBQ SCH ×2 (10:13→20:21)
--- NOTE | 2020-10-13 10:42 | Neurology Progress Note ---
Interim History Interim History ROS Limited/Unobtainable: Yes Events: no seizure episodes Objective Physical Exam Last Vital Signs Date Time Temp Pulse Resp B/P (MAP) Pulse Ox O2 Delivery O2 Flow Rate FiO2 10/13/20 04:00 98.6 75 18 151/89 (109) 96 10/12/20 21:00 Room Air 10/08/20 21:00 5.0 Laboratory Tests Test 10/13/20 04:55 White Blood Count 4.6 K/UL (4.8-10.8) L Red Blood Count 4.20 M/UL (4.70-6.10) L Hemoglobin 13.2 G/DL (14.2-18.0) L Hematocrit 38.7 % (42.0-52.0) L Mean Corpuscular Volume 92 FL (80-99) Mean Corpuscular Hemoglobin 31.5 PG (27.0-31.0) H Mean Corpuscular Hemoglobin Concent 34.2 G/DL (32.0-36.0) Red Cell Distribution Width 11.5 % (11.6-14.8) L Platelet Count 108 K/UL (150-450) L Mean Platelet Volume 9.1 FL (6.5-10.1) Neutrophils (%) (Auto) 65.0 % (45.0-75.0) Lymphocytes (%) (Auto) 24.1 % (20.0-45.0) Monocytes (%) (Auto) 7.9 % (1.0-10.0) Eosinophils (%) (Auto) 2.6 % (0.0-3.0) Basophils (%) (Auto) 0.5 % (0.0-2.0) Sodium Level 140 MMOL/L (136-145) Potassium Level 3.7 MMOL/L (3.5-5.1) Chloride Level 107 MMOL/L (98-107) Carbon Dioxide Level 25 MMOL/L (21-32) Anion Gap 8 mmol/L (5-15) Blood Urea Nitrogen 11 mg/dL (7-18) Creatinine 0.8 MG/DL (0.55-1.30) Estimat Glomerular Filtration Rate > 60 mL/min (>60) Glucose Level 82 MG/DL (74-106) Calcium Level 8.6 MG/DL (8.5-10.1) Neurologic Exam Objective Exam is limited due to patient's condition VS Reviewed General: pt is non verbal and is resting on Neuro: awake not alert oriented difficult to complete exam he is non verbal and not able to comprehend and participate in exam. Comprehension not intact, No Language. Motor Exam: No involuntary movements. Unable to examine upper and lower extremity strength. Impression/Recommendations Status: stable, progressing Diagnostic Impression LAB Reviewed MEDS: Reviewed 1. Seizures Disorder --> has history of Seizures --> Increase Keppra 750mg po BID and Continue Depakote current dose 500mg po BID, ordered Valproic Acid level and depending on results will make further rec's on Depakote dosage. --> Phenytoin level checked on 10/08 <0.5 he was not taking Dilantin --> Post ictal phase improved, he is more awake now --> outpatient Neurology follow up for Seizure management 2. Fever --> on abx 3. CKD 3 vs CRIS due to dehydration 4. Dementia --> Supportive care 5. History of CVA --> CT head reviewed. No acute Intracranial abnormality noted. Thank you for allowing us to participate in patient's care. plan of care was discussed with Dr. Montrell Doyle. Yoselin Taylor NP Oct 13, 2020 10:42
[2020-10-13 12:00] VITALS: BP 151/100
--- NOTE | 2020-10-13 12:59 | General Progress Note ---
Subjective Date patient seen: Oct 13, 2020 Time patient seen: 13:00 ROS Limited/Unobtainable: Yes Allergies: Coded Allergies: CHLORPROMAZINE (Verified Allergy, Unknown, 03/04/20) TRIFLUOPERAZINE (Verified Allergy, Unknown, 03/04/20) Subjective Patient is awake today and is eating his lunch. No seizure noted. Objective Last 24 Hour Vital Signs Date Time Temp Pulse Resp B/P (MAP) Pulse Ox O2 Delivery O2 Flow Rate FiO2 10/13/20 12:00 97.8 94 18 151/100 (117) 95 10/13/20 09:00 Room Air 10/13/20 09:00 97.7 87 18 158/107 (124) 95 10/13/20 04:00 98.6 75 18 151/89 (109) 96 10/13/20 00:10 98.4 77 20 147/96 (113) 96 10/12/20 21:00 Room Air 10/12/20 20:00 97.5 84 18 136/87 (103) 98 10/12/20 16:00 97.2 85 19 139/103 (115) 97 Intake and Output 10/12/20 10/13/20 19:00 07:00 Intake Total 200 ml 120 ml Output Total 450 ml 900 ml Balance -250 ml -780 ml Intake Oral 200 ml 120 ml Output Urine Total 450 ml 900 ml # Bowel Movements 1 Laboratory Tests 10/13/20 04:55: White Blood Count 4.6L, Red Blood Count 4.20L, Hemoglobin 13.2L, Hematocrit 38.7L, Mean Corpuscular Volume 92, Mean Corpuscular Hemoglobin 31.5H, Mean Corpuscular Hemoglobin Concent 34.2, Red Cell Distribution Width 11.5L, Platelet Count 108L, Mean Platelet Volume 9.1, Neutrophils (%) (Auto) 65.0, Lymphocytes (%) (Auto) 24.1, Monocytes (%) (Auto) 7.9, Eosinophils (%) (Auto) 2.6, Basophils (%) (Auto) 0.5, Sodium Level 140, Potassium Level 3.7, Chloride Level 107, Carbon Dioxide Level 25, Anion Gap 8, Blood Urea Nitrogen 11, Creatinine 0.8, Estimat Glomerular Filtration Rate > 60, Glucose Level 82, Calcium Level 8.6, Valproic Acid (Depakene) Level 20L Height (Feet): 5 Height (Inches): 7.00 Weight (Pounds): 150 General Appearance: WD/WN EENT: PERRL/EOMI Neck: non-tender Cardiovascular: normal rate Respiratory/Chest: lungs clear Abdomen: non tender Neurologic: evp global product leadership II-XII grossly normal Assessment/Plan Status: stable, progressing Assessment/Plan: 70 y/o M with prior history of CVA, Seizures who is admitted due to " 1. Seizures with Tonic Clonic s/p Ativan on route to the ER S/p Keppra load 1000 mg in the ER Post ictal state gradually improved and due to Ativan which was stopped 24 hrs ago. Monitor and continue home medication Depakote ( sub therapeutic level ?) Now on Keppra IV q 12 hours to evaluate is his level of alertness improves. AWAIT further input from neurology. ?? final AED REGIMEN RECOMMENDATION. Neurology consultation with Dr. Montrell villaseñor HEALTH UNIT CLERK Yoselin Taylor is following and left voicemail to discuss the final plan of care. [phone] No evidence of underlying infection as of today. 2. Fever with SIRS per tachycardia. Resolved since admission and elevated lactic acid > 4 noted initially is now resolved. Started on Vancomycin and Cefepime discontinued as blood cx are reported at 48 hrs NEGATIVE No apparent source in UA or CXR at this time Monitor for signs of fever OFF antibiotics. 3. CKD 3 vs CRIS due to dehydration IVF will be continued Monitor renal parameters 4. Dementia Non verbal Supportive care 5. History of CVA Supportive care. CT head reviewed. No acute Intracranial abnormality noted. 6. DVT ppx with Heparin, HOLD if platelets less than 50 K 7. Thrombocytopenia in the 100K range. Monitor 8. Elevated TSH. LOW T3 T4. Suspect subclinical hypothyroidism. Add low dose of PO synthroid and will plan to follow up TFT in 4-6 weeks as outpatient. 9. Dysphagia ST evaluation reviewed. Discussed with RN today. HL IVF 10. GI ppx with PPI 11. CODE STATUS is DNR DNI 12. HTN Start medication and monitor response. Not stable to dc today. Disposition: [facility] when medically stable. Resident. Duglas Haynes MD Oct 13, 2020 12:59
[2020-10-13 16:29] VITALS: BP 123/85
--- NOTE | 2020-10-13 16:29 | NUR ---
Speech Pathology Note (Dysphagia Note) S: Serum Na 140, mental status improved post seizure. He is awake and talking today. O: 1. Mental Status: His level of alertness, mental status improved with correction of electrolyte, psych medication reviewed. His mental status appeared to be his baseline. 2. Swallow safety and aspiration prevention management: pt is currently tolerating on pureed and thick liquid. His baseline at [facility] is mechanical soft diet. The diet advancement and adjustment at his residence is recommended with RNA feeding program for breakfast and lunch if available. A/P 1. Dysphagia with aspiration risk with s.p recurrent seizure with hyponatremia -Continue with pureed diet and honey thick liquid -Diet advancement at his residency to readjust to mechanical soft diet Pt is ready to be discharge from speech therapy dysphagia/aspiration management perspective at this time. Es Baez
--- NOTE | 2020-10-13 17:15 | NUR ---
CASE MANAGEMENT: REVIEW 10/13/2020 SI: ACUTE METABOLIC ENCEPHALOPATHY NSTEMI. RHABDOMYOLYSIS. HYPONATREMIA VS: T 98.4 HR 94 RR 17 B/P 123/85 SATS 93% ON RA LABS: WBC 4.6 IS: DEPAKOTE PO Q12H NORVASC PO QD KEPPRA PO Q12H RISPERDAL PO QHS : TO MED/SURG UNIT
--- NOTE | 2020-10-13 19:23 | Pulmonology Progress Note ---
Subjective ROS Limited/Unobtainable: Yes Allergies: Coded Allergies: CHLORPROMAZINE (Verified Allergy, Unknown, 03/04/20) TRIFLUOPERAZINE (Verified Allergy, Unknown, 03/04/20) All Systems: reviewed and negative except above Objective Last 24 Hour Vital Signs Date Time Temp Pulse Resp B/P (MAP) Pulse Ox O2 Delivery O2 Flow Rate FiO2 10/13/20 16:29 98.4 94 17 123/85 (98) 93 10/13/20 14:34 94 151/100 10/13/20 12:00 97.8 94 18 151/100 (117) 95 10/13/20 09:00 Room Air 10/13/20 09:00 97.7 87 18 158/107 (124) 95 10/13/20 04:00 98.6 75 18 151/89 (109) 96 10/13/20 00:10 98.4 77 20 147/96 (113) 96 10/12/20 21:00 Room Air 10/12/20 20:00 97.5 84 18 136/87 (103) 98 Intake and Output 10/12/20 10/13/20 19:00 07:00 Intake Total 200 ml 120 ml Output Total 450 ml 900 ml Balance -250 ml -780 ml Intake Oral 200 ml 120 ml Output Urine Total 450 ml 900 ml # Bowel Movements 1 Laboratory Tests 10/13/20 04:55: White Blood Count 4.6L, Red Blood Count 4.20L, Hemoglobin 13.2L, Hematocrit 38.7L, Mean Corpuscular Volume 92, Mean Corpuscular Hemoglobin 31.5H, Mean Corpuscular Hemoglobin Concent 34.2, Red Cell Distribution Width 11.5L, Platelet Count 108L, Mean Platelet Volume 9.1, Neutrophils (%) (Auto) 65.0, Lymphocytes (%) (Auto) 24.1, Monocytes (%) (Auto) 7.9, Eosinophils (%) (Auto) 2.6, Basophils (%) (Auto) 0.5, Sodium Level 140, Potassium Level 3.7, Chloride Level 107, Carbon Dioxide Level 25, Anion Gap 8, Blood Urea Nitrogen 11, Creatinine 0.8, Estimat Glomerular Filtration Rate > 60, Glucose Level 82, Calcium Level 8.6, Valproic Acid (Depakene) Level 20L Current Medications Medications (Trade) Dose Ordered Sig/Michelle Route PRN Reason Start Time Stop Time Status Last Admin Dose Admin Amlodipine Besylate (Norvasc) 5 mg DAILY ORAL 10/13/20 13:00 11/12/20 12:59 10/13/20 14:34 Bisacodyl (Dulcolax) 10 mg DAILY ORAL 10/08/20 12:00 01/06/21 11:59 10/13/20 10:11 Clonidine HCl (Catapres Tab) 0.1 mg EVERY 6 HOURS PRN ORAL systolic blood pressure > 170 10/10/20 00:15 01/08/21 00:14 10/12/20 00:04 Dextrose (Dextrose 50%) 25 ml Q30M PRN IV Hypoglycemia 10/08/20 12:00 01/06/21 11:59 Dextrose (Dextrose 50%) 50 ml Q30M PRN IV Hypoglycemia 10/08/20 12:00 01/06/21 11:59 Divalproex Sodium (Depakote) 500 mg EVERY 12 HOURS ORAL 10/08/20 21:00 11/07/20 20:59 10/13/20 10:11 Haloperidol Lactate (Haldol) 5 mg Q8H PRN IM Agitation 10/08/20 12:00 11/22/20 11:59 Heparin Sodium (Porcine) (Heparin 5000 units/ml) 5,000 units EVERY 12 HOURS SUBQ 10/08/20 21:00 11/22/20 20:59 10/13/20 10:13 Levetiracetam (Keppra) 750 mg Q12HR ORAL 10/13/20 21:00 11/12/20 20:59 Levothyroxine Sodium (Synthroid) 25 mcg DAILY@0630 ORAL 10/13/20 06:30 11/12/20 06:29 10/13/20 05:52 Lorazepam (Ativan) 0.5 mg Q12H PRN SL Restlessness 10/11/20 15:30 10/18/20 15:29 Morphine Sulfate (Morphine Sulfate) 2 mg Q6H PRN IVP Moderate Pain (Pain Scale 4-6) 10/08/20 12:00 10/15/20 11:59 10/12/20 13:14 Ondansetron HCl (Zofran) 4 mg Q6H PRN IV Nausea & Vomiting 10/08/20 12:00 11/07/20 11:59 Risperidone (RisperDAL) 2 mg QHS ORAL 10/08/20 21:00 11/22/20 20:59 10/12/20 20:42 Assessment/Plan Assessment/Plan Pulmonary Progress Note HPI Patient is a 70-year-old man,halfway resident, past history of previous right cerebellar infarct, seizure history, alzheimer's dementia, psychosis, previous DVT, hypertension, diabetes, severe malnutrition, admitted after witnessed tonic-clonic seizure.Patient is DNR/DNI status. History is limited HD stable,on RA, Cultures negative to date,tolerating PO,no further seizures Elevated TSH - started on Levothyroxine Neurology following Allergies: CHLORPROMAZINE (Verified Allergy, Unknown, 03/04/20) TRIFLUOPERAZINE (Verified Allergy, Unknown, 03/04/20) Past Medical History: previous right cerebellar infarct, seizure history, alzheimer's dementia, psychosis, previous DVT, hypertension, diabetes, severe malnutrition Medications: noted Resuscitation status: DNAR/DNI Systemic review: NA Objective Height (Feet): 5 Height (Inches): 7.00 Weight (Pounds): 150 Vital signs noted PE: General Appearance: no apparent distress,wasted HEENT: normocephalic, atraumatic, moist mm Respiratory/Chest: lungs cleartoauscultation bilaterally Cardiovascular/Chest: normal peripheral pulses, normal rate,regular Abdomen: soft,NTND Extremities: non-tender,no edema,no rashes Neurologic: Able to verbalize, wash helper II-XII grossly normal, improved neuro status Laboratory Tests: noted CXR: No focal infiltrates CT head: No acute Intracranial abnormality noted. Abdo US: Enlarged prostate. Focal thickening of the posterior bladder wall. Possibility of mass cannot be excluded. Further evaluation with cystoscopy suggested. Subcentimeter cysts in the right kidney. Slight fullness of left renal collecting system. Cholelithiasis. Assessment/Plan 1. Seizures On Keppra, stable on RA, Neurology following 2. Possible infection,CXR no focal infiltrates,Covid19 negative, U/A negative, AB DC 3. CKD 3 vs CRIS on IVF 4. AMS, Previous CVA, Alzheimers dementia,post ictal 5. Prior h/o DVT,on ppx with Heparin 7. HTN 8. Diabetes 9.Hypothyroidism - on Rx 10. Code status: DNR DNI Balfe,Rehan MD Oct 13, 2020 19:23
--- NOTE | 2020-10-13 19:31 | NUR ---
NURSE NOTES: Received patient comfortably sleeping, no SOB noted, kept clean and dry.
[2020-10-13 20:30] VITALS: BP 131/83
[2020-10-14 00:12] VITALS: BP 143/86
[2020-10-14 04:14] VITALS: BP 149/99
[2020-10-14] MEDS: Levothyroxine 25mcg tab ORAL SCH (05:34)
--- NOTE | 2020-10-14 06:39 | NUR ---
NURSE HAND-OFF: Important Events on Shift:[]Unremarkable Patient Status: [] Diet: [] Pending Orders: [] Pending Results/Labs:[] Pending MD notification:[]Neurology consult Latest Vital Signs: Temperature 98.5 , Pulse 91 , B/P 149 /99 , Respiratory Rate 18 , O2 SAT 93 , Nasal Cannula, O2 Flow Rate 5.0 . Vital Sign Comment: [] Latest Palomo Fall Score: 70 Fall Risk: High Risk Safety Measures: Call light Within Reach, Bed Alarm Zone 2, Side Rails Side Rails x3, Bed position Low and Locked. Fall Precautions: Door Sign Patient Fall Education Report given to [].
[2020-10-14 08:00] VITALS: BP 147/101
[2020-10-14] MEDS: Heparin 5000 units/ml inj SUBQ SCH ×2 (09:00→21:00)
--- NOTE | 2020-10-14 09:03 | NUR ---
NURSE NOTES: RECIEVED PT IN BED EYES CLOSED BUT AROUSABLE NO DISTRESS NOTED @ THIS TIME,.TURNED AND REPOSITIONED FOR COMFORT .CALL LIGHT WITHIN REACH.NEEDS ATTENDED.WILL CONTINUE W/ PLAN OF CARE.
--- NOTE | 2020-10-14 10:03 | NUR ---
RD ASSESSMENT & RECOMMENDATIONS SEE CARE ACTIVITY FOR COMPLETE ASSESSMENT DAILY ESTIMATED NEEDS: Needs based on Cardiac, 68kg 25-30 kcals/kg 9409-5859 total kcals 1-1.2 g protein/kg 68-82 g total protein 25-30 mL/kg 5791-8119 total fluid mLs NUTRITION DIAGNOSIS: Swallowing difficulty R/T dysphagia, AMS w/ s/p seizure activities as evidenced by DIAMOND POWDER TECHNICIAN eval, recs for puree texture w/ HTL. CURRENT DIET: Regular puree/ HTL PO DIET RECOMMENDATIONS--->> Liberalized Regular diet, texture per DIAMOND POWDER TECHNICIAN ENTERAL NUTRITION RECOMMENDATIONS: Jevity 1.2 @ 60ml/hr x 24 hrs to provide 1440ml, 1728kcal, 80g prot, 1180ml free water * If pt not safe for PO and if part of POC, obtain GI access, initiate TF * Initiate Jevity 1.2 @ 20ml/hr x 6hrs, advance 10ml q 4-6 hrs as tolerated to goal * HOB over 30 degrees/ without IVF, h2o flush of 120ml q 8hrs ADDITIONAL RECOMMENDATIONS: 1) F/up w/ DIAMOND POWDER TECHNICIAN eval and rec-> puree w/ HTL 2) TF rec as above if not safe for oral diet 3) Calibrated bedscale wt 4) Ensure Enlive TID w/ meals w/ oral diet 5) MVI x 1 as supplement 6) Maintain D5 IV w/ NPO status .
[2020-10-14] MEDS: Bisacodyl EC 5mg tab ORAL SCH (10:06)
[2020-10-14] MEDS: Depakote 500mg tab ORAL SCH ×2 (10:08→21:09)
[2020-10-14 12:00] VITALS: BP 123/53
--- NOTE | 2020-10-14 12:43 | Neurology Progress Note ---
Interim History Interim History ROS Limited/Unobtainable: Yes Events: Dc planning pt awake Objective Physical Exam Last Vital Signs Date Time Temp Pulse Resp B/P (MAP) Pulse Ox O2 Delivery O2 Flow Rate FiO2 10/14/20 10:06 94 147/101 10/14/20 09:00 Room Air 10/14/20 08:00 98.3 17 94 10/08/20 21:00 5.0 Neurologic Exam Objective Exam is limited due to patient's condition VS Reviewed General: pt is non verbal and is resting on Neuro: awake not alert oriented difficult to complete exam he is non verbal and not able to comprehend and participate in exam. Comprehension not intact, No Language. Motor Exam: No involuntary movements. Unable to examine upper and lower extremity strength. Impression/Recommendations Status: stable, progressing Diagnostic Impression LAB Reviewed MEDS: Reviewed 1. Seizures Disorder --> has history of Seizures, reviewed chart Valporic acid levels from (06/15/20): 42.9-->(07/20/20): 88.4--> (10/14/20): 20 --> For Seizure medication management: we have Increased Keppra 750mg po BID continue thisd dose and Continue Depakote current dose 500mg po BID --> Phenytoin level checked on 10/08 <0.5 he was not taking Dilantin --> Post ictal phase resolved --> outpatient Neurology follow up for Seizure management 2. Fever --> on abx 3. CKD 3 vs CRIS due to dehydration 4. Dementia --> Supportive care 5. History of CVA --> CT head reviewed. No acute Intracranial abnormality noted. Thank you for allowing us to participate in patient's care. plan of care was discussed with Dr. Montrell Doyle. Yoselin Taylor HONEY BLENDER Oct 14, 2020 12:43
--- NOTE | 2020-10-14 14:03 | Discharge Instructions ---
Discharge Instructions Discharge Instructions Services at Discharge: day care, physical therapy Diet: other - mechanical puree with [employer] thick liquid Activity: as tolerated For Congestive Heart Failure Reminder Report to your physician any weight gain of 5 pounds or more in one week. Duglas Haynes MD Oct 14, 2020 14:03
--- NOTE | 2020-10-14 14:15 | Discharge Summary ---
Discharge Summary Hospital Course Date of Admission Oct 08, 2020 at 07:27 Date of Discharge 10/14/2020 Admitting Diagnosis Seizures HPI Migue Day is a 70 year old male who was admitted on Oct 08, 2020 at 07:27 for Encephalopathy Hospital Course 70 y/o M with prior history of CVA, Seizures who is admitted due to: 1. Seizures with Tonic Clonic s/p Ativan on route to the ER S/p Keppra load 1000 mg in the ER Post ictal state gradually improved and due to Ativan which was stopped 24 hrs ago. Monitor and continue home medication Depakote ( sub therapeutic level ?) Now on Keppra Neurology consultation with Dr. Montrell Doyle an CHIEF MINISTER Yoselin Taylor consulted an final recommendations noted. Continue Depakote 500 mg BID and Keppra 750 mg BID No evidence of underlying infection 2. Fever with SIRS per tachycardia. Resolved since admission and elevated lactic acid > 4 noted initially is now resolved. Started on Vancomycin and Cefepime discontinued as blood cx are reported at 48 hrs NEGATIVE No apparent source in UA or CXR at this time Monitor for signs of fever OFF antibiotics. 3. CKD 3 vs CRIS due to dehydration IVF stopped. Monitor renal parameters 4. Dementia Non verbal Supportive care 5. History of CVA Supportive care. CT head reviewed. No acute Intracranial abnormality noted. 6. DVT ppx with Heparin, HOLD if platelets less than 50 K 7. Thrombocytopenia in the 100K range. Monitor 8. Elevated TSH. LOW T3 T4. Suspect subclinical hypothyroidism. Add low dose of PO synthroid and will plan to follow up TFT in 4-6 weeks as outpatient. 9. Dysphagia ST evaluation reviewed. Discussed with RN today. HL IVF Patient is tolerating PO diet. 10. GI ppx with PPI 11. CODE STATUS is DNR DNI 12. HTN Start medication and monitor response. Not stable to dc today. Disposition: [facility] Discharge Medications New Medications: Amlodipine Besylate (Norvasc) 5 Mg Tablet 5 MG ORAL DAILY for 30 Days, #30 TAB Clonidine Hcl (Clonidine Hcl) 0.1 Mg Tablet 0.1 MG ORAL EVERY 6 HOURS PRN for 30 Days, #30 TAB Levetiracetam (Keppra) 250 Mg Tablet 750 MG ORAL Q12HR for 60 Days, #120 TAB 4 Refills Levothyroxine Sodium* (Synthroid*) 25 Mcg Tablet 25 MCG ORAL DAILY@0630 for 60 Days, #60 TAB Take in the morning on an empty stomach, at least 30 minutes before food. Continued Medications: Acetaminophen* (Tylenol*) 120 Mg Supp.rect 650 MG RECTAL Q6HR PRN for MILD/TEMP Bisacodyl* (Dulcolax*) 5 Mg Tablet.dr 10 MG RECTAL DAILY PRN for Constipation Divalproex Sodium (Depakote) 500 Mg Tablet.dr 500 MG ORAL EVERY 12 HOURS for 30 Days, TAB Hyoscyamine Sulfate* (Levsin-Sl*) 0.125 Mg Tab.subl 0.125 MG SL Q4HR for INCREASED SECRETIONS, #20 TAB 0 Refills Ipratropium/Albuterol Sulfate (Combivent Respimat Inhal [place]) 4 Gm Mist.inhal 4 GM IH Q4HR PRN for Shortness of Breath Lorazepam* (Lorazepam*) 2 Mg/1 Ml Vial 2 MG IV Q4H for anxiety Morphine Sulfate (Morphine Sulfate) 100 Mg/5 Ml Solution 20 MG PO Q4HR PRN for Severe Pain (Pain Scale 7-10) 5 mg for mild pain; 10 mg for moderate pain Nitroglycerin 0.4MG table* (Nitroglycerin*) 0.4 Mg Tab.subl 0.4 MG SL .Q5MIN X 3 DOSES PRN for CHEST PAIN Ondansetron Odt* (Zofran Odt*) 4 Mg Tab.rapdis 4 MG BC Q4HR PRN for Nausea & Vomiting Risperidone* (Risperdal*) 2 Mg Tablet 2 MG ORAL QHS for SCHIZOPHRENIA, #30 TAB 0 Refills Discharge Condition Upon Discharge: stable Discharge Vital Signs Last Vital Signs Date Time Temp Pulse Resp B/P (MAP) Pulse Ox O2 Delivery O2 Flow Rate FiO2 10/14/20 10:06 94 147/101 10/14/20 09:00 Room Air 10/14/20 08:00 98.3 17 94 10/08/20 21:00 5.0 Discharge Disposition Patient was discharged to [facility] Discharge Diagnoses: (1) AMS (altered mental status) (2) Dehydration (3) DNR (do not resuscitate) (4) CRIS (acute kidney injury) (5) Alzheimer's dementia (6) Seizure disorder (7) Hypothyroid Discharge Instructions Discharge Instructions Services Upon Discharge: day care, physical therapy Activity: as tolerated Duglas Haynes MD Oct 14, 2020 14:15
--- NOTE | 2020-10-14 15:56 | NUR ---
*-*DISCHARGE PLANNING*-* PATIENT HAS BEEN REFERRED BACK TO: [facility] P: [phone] FOR NURSE TO NURSE REPORT ROOM# 108A [facility] TRANSPORT[facility] SET FOR 5:30PM S/W BHAVNA [id number].
[2020-10-14 16:00] VITALS: BP 109/77
--- NOTE | 2020-10-14 16:00 | NUR ---
NURSE NOTES: DR. JOHNSON IN SEE PT NEW ORDER FOR DISCHARGE BACK TO SAME SNF.
--- NOTE | 2020-10-14 16:02 | NUR ---
*-*DISCHARGE PLANNED*-* PATIENT HAS BEEN ACCEPTED AND WILL BE DISCHARGED BACK TO: [facility] P: [phone] FOR NURSE TO NURSE REPORT ROOM# 108A [facility] TRANSPORTATION SET FOR 5:30PM S/W [facility]AV[facility] [id number].
--- NOTE | 2020-10-14 19:00 | NUR ---
NURSE NOTES: ENDORSED TO NIGHT NURSE PT. WILL BE DISCHARGED.AWAITING FOR THE AMBULANCE.
--- NOTE | 2020-10-14 19:30 | NUR ---
NURSE HAND-OFF: Important Events on Shift:[]FOR DISCHARGE Patient Status: [] Diet: [] Pending Orders: [] Pending Results/Labs:[] Pending MD notification:[] Latest Vital Signs: Temperature 97.8 , Pulse 95 , B/P 109 /77 , Respiratory Rate 18 , O2 SAT 95 , Nasal Cannula, O2 Flow Rate 5.0 . Vital Sign Comment: [] Latest Palomo Fall Score: 70 Fall Risk: High Risk Safety Measures: Call light Within Reach, Bed Alarm Zone 2, Side Rails Side Rails x3, Bed position Low and Locked. Fall Precautions: Door Sign Report given to []CORDELIA
[2020-10-14 20:00] VITALS: BP 129/89
--- NOTE | 2020-10-14 20:00 | NUR ---
NURSE NOTES: REPORT GIVEN TO LEYDI, ACCEPTING NURSE, AT [facility], PATIENT GOING TO ROOM 108A-
--- NOTE | 2020-10-14 20:00 | NUR ---
NURSE NOTES: RECEIVED PATIENT LYING IN BED, EYES OPEN, NON VERBAL DURING ASSESSMENT, HEAD OF BED ELEVATED TO FACILITATE BREATHING, VITALS MONITORED, AFEBRILE, NO SIGNS AND SYMPTOMS OF ACUTE CARDIO RESPIRATORY DISTRESS/SHORTNESS OF BREATH, NO EDEMA NOTED. IV ACCESS DC'D, NO BLEEDING NOTED FROM PREVIOUS SITE. ABDOMEN SOFT/NON DISTENDED/AUDIBLE BOWEL SOUNDS, NO REPORT OF N/V/D. PATIENT WILL BE DISCHARGED TONIGHT WITH [facility] INTACT. SIDE RAILS UP X3/BED IN LOWEST POSITION FOR SAFETY, FREQUENT ROUNDING FOR SAFETY/COMFORT. BED ALARM ACTIVATED FOR PREVENTIVE MEASURES. DISCHARGE PENDING TO [facility].
--- NOTE | 2020-10-14 22:05 | NUR ---
NURSE NOTES: TRANSPORTED TO [facility], ACCOMPANIED BY 2 ATTENDANTS, VITALS STABLE, AFEBRILE. REPORT GIVEN TO LEYDI, PATIENT BEING ADMITTED TO ROOM 108 A.
== END 2020-10-14 22:05 | DRG 100 ==
LOC: EDBD 05:59 → EMR 06:34 → 4E 07:27 → EDBEDREQ 10:48
DX: G40.409 Other generalized epilepsy and epileptic syndromes, not intractable, without status epilepticus (principal); R65.11 Systemic inflammatory response syndrome (SIRS) of non-infectious origin with acute organ dysfunction; E43 Unspecified severe protein-calorie malnutrition; I13.0 Hypertensive heart and chronic kidney disease with heart failure and stage 1 through stage 4 chronic kidney disease, or unspecified chronic kidney disease; N17.9 Acute kidney failure, unspecified; E11.22 Type 2 diabetes mellitus with diabetic chronic kidney disease; N18.30 Chronic kidney disease, stage 3 unspecified; I50.9 Heart failure, unspecified; Z88.8 Allergy status to other drugs, medicaments and biological substances; G30.9 Alzheimer's disease, unspecified; F02.80 Dementia in other diseases classified elsewhere, unspecified severity, without behavioral disturbance, psychotic disturbance, mood disturbance, and anxiety; Z86.718 Personal history of other venous thrombosis and embolism; D69.6 Thrombocytopenia, unspecified; Z86.73 Personal history of transient ischemic attack (TIA), and cerebral infarction without residual deficits; R13.10 Dysphagia, unspecified; Z66 Do not resuscitate; E86.0 Dehydration; E03.9 Hypothyroidism, unspecified; F29 Unspecified psychosis not due to a substance or known physiological condition
CPT/HCPCS: 36415; 70450; 71045; 76700; 80048; 80053; 80061; 80164; 80185; 80202; 80307; 81003; 82140; 82550; 82553; 82803; 82962; 83605; 83690; 83735; 83880; 83930; 83935; 84100; 84439; 84443; 84481; 84484; 85007; 85025; 85610; 85730; 86850; 86900; 86901; 87040; 87081; 87086; 93005; 96361; 96365; 96367; 96375; 99291; G0480; J7030